=== PATIENT | female | born 1945 | race Caucasian/White ===

== ENCOUNTER → 2016-06-19 | Outpatient (CLI) | payer MEDICARE, OTHER ==
[2016-06-19 11:20] LABS: HEMOGLOBIN 12.6 g/dL (12.0-15.5); HGB HCT DIFFERENCE -0.2; MEAN CORPUSCULAR HEMOGLOBIN 31.6 pg (27.0-33.4); MEAN CORPUSCULAR HGB CONC 33.1 g/dL (32.0-36.0); MEAN CORPUSCULAR VOLUME 96 fl (80-97); RED BLOOD COUNT 3.98 10^6/uL (3.72-5.28); RED CELL DISTRIBUTION WIDTH 12.5 % (11.5-14.0); WHITE BLOOD COUNT 6.2 10^3/uL (4.0-10.5)
[2016-06-19 11:42] LABS: ANION GAP 12 (5-19); BLOOD UREA NITROGEN 13 mg/dL (7-20); CARBON DIOXIDE 23 mmol/L (22-30); CHLORIDE 109 mmol/L (98-107); CHOLESTEROL 153.35 mg/dL (0-200); CREATININE RESULT 0.94 mg/dL (0.52-1.25); Direct HDL 47 mg/dL (>40); LITHIUM 1.5 mEq/L (0.6-1.2); POTASSIUM 4.2 mmol/L (3.6-5.0); SODIUM 144.3 mmol/L (137-145); TRIGLYCERIDES 187 mg/dL (<150)
[2016-06-19 11:53] LABS: DIRECT LDL 85 mg/dL (<100)
[2016-06-19 11:57] LABS: VLDL CHOLESTEROL 37.4 mg/dL (10-31)
== END ==
LOC: OD 09:48
DX: F31.32 Bipolar disorder, current episode depressed, moderate (principal); Z79.899 Other long term (current) drug therapy
CPT/HCPCS: 36415; 80051; 80061; 80178; 82306; 82565; 83036; 84443; 84520; 85027

== ENCOUNTER → 2016-07-01 | Outpatient (CLI) | payer MEDICARE, OTHER | LOC: OD 12:37 | PROVIDERS: ATTEND Physician Assistant | DX: F31.32 Bipolar disorder, current episode depressed, moderate (principal); Z79.899 Other long term (current) drug therapy | CPT/HCPCS: 36415; 80178 ==

== ENCOUNTER → 2016-07-24 | Outpatient (CLI) | payer MEDICARE | LOC: OD 09:47 | PROVIDERS: ATTEND Physician Assistant | DX: F31.32 Bipolar disorder, current episode depressed, moderate (principal) | CPT/HCPCS: 36415; 80178 ==

== ENCOUNTER → 2016-10-13 | Outpatient (CLI) | payer OTHER, MEDICARE ==
[2016-10-13 12:10] LABS: THYROID STIMULATING HORMONE 1.65 uIU/mL (0.47-4.68)
== END ==
LOC: OD 10:30
PROVIDERS: ATTEND Internal Medicine
DX: F31.32 Bipolar disorder, current episode depressed, moderate (principal)
CPT/HCPCS: 36415; 80178; 84439; 84443

== ENCOUNTER → 2016-11-24 | Outpatient (CLI) | payer OTHER, MEDICARE ==
[2016-11-24 12:16] LABS: HEMATOCRIT 40.9 % (36.0-47.0); HEMOGLOBIN 13.3 g/dL (12.0-15.5); MEAN CORPUSCULAR HEMOGLOBIN 30.8 pg (27.0-33.4); MEAN CORPUSCULAR HGB CONC 32.6 g/dL (32.0-36.0); MEAN CORPUSCULAR VOLUME 95 fl (80-97); RED BLOOD COUNT 4.33 10^6/uL (3.72-5.28); WHITE BLOOD COUNT 7.9 10^3/uL (4.0-10.5)
[2016-11-24 12:37] LABS: ANION GAP 12 (5-19); BLOOD UREA NITROGEN 16 mg/dL (7-20); CALCIUM 10.2 mg/dL (8.4-10.2); CARBON DIOXIDE 22 mmol/L (22-30); CHLORIDE 110 mmol/L (98-107); CREATININE RESULT 0.85 mg/dL (0.52-1.25); GLUCOSE 106 mg/dL (75-110); LITHIUM 0.7 mEq/L (0.6-1.2); POTASSIUM 4.5 mmol/L (3.6-5.0); SODIUM 144.3 mmol/L (137-145)
[2016-11-24 14:19] LABS: THYROID STIMULATING HORMONE 1.19 uIU/mL (0.47-4.68)
[2016-11-26 11:50] LABS: CHOLESTEROL 181.29 mg/dL (0-200); Direct HDL 60 mg/dL (>40); TRIGLYCERIDES 158 mg/dL (<150)
[2016-11-26 12:01] LABS: DIRECT LDL 87 mg/dL (<100)
[2016-11-26 12:02] LABS: VLDL CHOLESTEROL 31.6 mg/dL (10-31)
== END ==
LOC: OD 10:56
DX: F31.32 Bipolar disorder, current episode depressed, moderate (principal); Z79.899 Other long term (current) drug therapy
CPT/HCPCS: 36415; 80048; 80061; 80178; 83036; 84439; 84443; 85027

== ENCOUNTER → 2017-02-08 | Outpatient (CLI) | payer MEDICARE ==
[2017-02-08 13:22] LABS: ANION GAP 11 (5-19); BLOOD UREA NITROGEN 14 mg/dL (7-20); CALCIUM 10.1 mg/dL (8.4-10.2); CARBON DIOXIDE 20 mmol/L (22-30); CHLORIDE 111 mmol/L (98-107); CREATININE RESULT 0.78 mg/dL (0.52-1.25); GLUCOSE 107 mg/dL (75-110); LITHIUM 0.7 mEq/L (0.6-1.2); POTASSIUM 4.1 mmol/L (3.6-5.0); SODIUM 142.1 mmol/L (137-145)
== END ==
LOC: OD 11:32
DX: F31.32 Bipolar disorder, current episode depressed, moderate (principal); Z79.899 Other long term (current) drug therapy
CPT/HCPCS: 36415; 80048; 80178; 83036

== ENCOUNTER → 2017-03-15 | Outpatient (CLI) | payer MEDICARE ==
[2017-03-15 11:09] LABS: HEMATOCRIT 41.8 % (36.0-47.0); HGB HCT DIFFERENCE 0.2; MEAN CORPUSCULAR HEMOGLOBIN 31.2 pg (27.0-33.4); MEAN CORPUSCULAR HGB CONC 33.5 g/dL (32.0-36.0); MEAN CORPUSCULAR VOLUME 93 fl (80-97); RED CELL DISTRIBUTION WIDTH 12.7 % (11.5-14.0); WHITE BLOOD COUNT 9.5 10^3/uL (4.0-10.5)
[2017-03-15 11:58] LABS: THYROID STIMULATING HORMONE < 0.01 uIU/mL (0.47-4.68)
== END ==
LOC: OD 10:17
PROVIDERS: ATTEND Psychiatry & Neurology Psychiatry
DX: F31.32 Bipolar disorder, current episode depressed, moderate (principal)
CPT/HCPCS: 36415; 80178; 84439; 84443; 85027

== ENCOUNTER → 2017-03-17 | Outpatient (CLI) | payer MEDICARE ==
[2017-03-17 13:31] LABS: THYROID STIMULATING HORMONE < 0.01 uIU/mL (0.47-4.68)
== END ==
LOC: OD 11:28
PROVIDERS: ATTEND Psychiatry & Neurology Psychiatry
DX: F31.32 Bipolar disorder, current episode depressed, moderate (principal); Z79.899 Other long term (current) drug therapy
CPT/HCPCS: 36415; 84439; 84443

== ENCOUNTER → 2017-06-29 | Outpatient (CLI) | payer OTHER, MEDICARE ==
[2017-06-29 12:19] LABS: HEMATOCRIT 44.8 % (36.0-47.0); HEMOGLOBIN 14.9 g/dL (12.0-15.5); MEAN CORPUSCULAR HGB CONC 33.2 g/dL (32.0-36.0); MEAN CORPUSCULAR VOLUME 93 fl (80-97); PLATELET COUNT 337 10^3/uL (150-450); WHITE BLOOD COUNT 9.4 10^3/uL (4.0-10.5)
[2017-06-29 12:58] LABS: FREE T4 (FREE THYROXINE) 0.46 ng/dL (0.78-2.19)
[2017-06-29 13:12] LABS: THYROID STIMULATING HORMONE 1.96 uIU/mL (0.47-4.68)
== END ==
LOC: OD 11:05
PROVIDERS: ATTEND Psychiatry & Neurology Psychiatry
DX: F31.32 Bipolar disorder, current episode depressed, moderate (principal); Z79.899 Other long term (current) drug therapy
CPT/HCPCS: 36415; 80178; 84439; 84443; 85027

== ENCOUNTER 2017-07-20 16:03 | Inpatient (IN) | payer OTHER, MEDICARE ==
--- NOTE | 2017-07-20 16:32 | ER Document Report ---
ED Medical Screen (RME) - General Chief Complaint: Altered Mental Status Stated Complaint: PSYCH EVAL Time Seen by Provider: 07/20/17 16:29 Mode of Arrival: Wheelchair Information source: Patient TRAVEL OUTSIDE OF THE [place] IN LAST 30 DAYS: No - HPI Patient complains to provider of: psych Onset: This morning - states has been very depressed lately -- tried to get her to [facility] but not successful. She denies SI/HI - Related Data Allergies/Adverse Reactions: Sulfa (Sulfonamide Antibiotics) Allergy (Verified 07/20/17 16:04) Past Medical History - Past Medical History Cardiac Medical History: Reports: Hx Congestive Heart Failure Pulmonary Medical History: Reports: Hx COPD Psychiatric Medical History: Reports: Hx Bipolar Disorder, Hx Depression Past Surgical History: Reports: Hx Cardiac Surgery - pacemaker, Hx Pacemaker - Immunizations Hx Diphtheria, Pertussis, Tetanus Vaccination: No Physical Exam - Vital signs Vitals: Temp Pulse Resp BP Pulse Ox 97.5 F 79 18 103/85 100 07/20/17 16:11 07/20/17 16:11 07/20/17 16:11 07/20/17 16:11 07/20/17 16:11 Course - Vital Signs Vital signs: Temp Pulse Resp BP Pulse Ox 97.5 F 79 18 103/85 100 07/20/17 16:11 07/20/17 16:11 07/20/17 16:11 07/20/17 16:11 07/20/17 16:11
[2017-07-20 17:56] LABS: ABSOLUTE BASOPHILS # (AUTO) 0.1 10^3/uL (0.0-0.2); ABSOLUTE LYMPHOCYTES (AUTO) 2.5 10^3/uL (0.5-4.7); ABSOLUTE MONOCYTES (AUTO) 0.9 10^3/uL (0.1-1.4); BASOPHILS % (AUTO) 0.7 % (0-2); EOSINOPHILS % (AUTO) 0.1 % (0-6); HEMATOCRIT 41.2 % (36.0-47.0); HEMOGLOBIN 13.7 g/dL (12.0-15.5); LYMPHOCYTES % (AUTO) 14.4 % (13-45); MEAN CORPUSCULAR HEMOGLOBIN 30.9 pg (27.0-33.4); MEAN CORPUSCULAR HGB CONC 33.1 g/dL (32.0-36.0); MEAN CORPUSCULAR VOLUME 93 fl (80-97); MONOCYTES % (AUTO) 4.9 % (3-13); PLATELET COUNT 273 10^3/uL (150-450); RED BLOOD COUNT 4.41 10^6/uL (3.72-5.28); SEGMENTED NEUTROPHILS % (AUTO) 79.9 % (42-78); TOTAL CELLS COUNTED % (AUTO) 100 %; WHITE BLOOD COUNT 17.5 10^3/uL (4.0-10.5)
[2017-07-20 18:24] LABS: ALANINE AMINOTRANSFERASE 29 U/L (9-52); ALBUMIN 4.6 g/dL (3.5-5.0); ALKALINE PHOSPHATASE 105 U/L (38-126); ANION GAP 10 (5-19); ASPARTATE AMINO TRANSFERASE 33 U/L (14-36); BILIRUBIN,DIRECT 0.4 mg/dL (0.0-0.4); BILIRUBIN,TOTAL 0.8 mg/dL (0.2-1.3); BLOOD UREA NITROGEN 27 mg/dL (7-20); CALCIUM 11.4 mg/dL (8.4-10.2); CARBON DIOXIDE 23 mmol/L (22-30); CHLORIDE 110 mmol/L (98-107); GLUCOSE 91 mg/dL (75-110); POTASSIUM 4.7 mmol/L (3.6-5.0); SODIUM 143.2 mmol/L (137-145); TOTAL PROTEIN 7.4 g/dL (6.3-8.2)
[2017-07-20 18:27] LABS: ALCOHOL < 10 mg/dL (NONE DETECTED)
[2017-07-20 19:29] LABS: APPEARANCE,URINE SLIGHTLY-CLOUDY; BILIRUBIN,URINE NEGATIVE (NEGATIVE); COLOR,URINE YELLOW; GLUCOSE, URINE NEGATIVE (NEGATIVE); KETONES,URINE 20 mg/dL (NEGATIVE); LEUKOCYTE ESTERASE,URINE NEGATIVE (NEGATIVE); NITRITE,URINE NEGATIVE (NEGATIVE); PROTEIN,URINE NEGATIVE (NEGATIVE); URINE SPECIFIC GRAVITY 1.012; UROBILINOGEN,URINE NEGATIVE mg/dL (<2.0)
[2017-07-20 19:35] LABS: URINE AMPHETAMINES SCREEN NEGATIVE; URINE BARBITURATES SCREEN NEGATIVE; URINE BENZODIAZEPINES SCREEN UNCONFIRMED POSITIVE; URINE COCAINE SCREEN NEGATIVE; URINE MARIJUANA (THC) SCREEN NEGATIVE; URINE METHADONE SCREEN NEGATIVE; URINE PHENCYCLIDINE SCREEN NEGATIVE
--- NOTE | 2017-07-20 20:15 | RADIOLOGY REPORT (SQ) ---
EXAM DESCRIPTION: CT HEAD WITHOUT COMPLETED DATE/TIME: 07/20/2017 8:01 pm REASON FOR STUDY: ams COMPARISON: 02/12/2015 TECHNIQUE: Axial images acquired through the brain without intravenous contrast. Images reviewed wi th bone, brain and subdural windows. Images stored on PACS. All CT scanners at this facility use dose modulation, iterative reconstruction, and/or weight based d osing when appropriate to reduce radiation dose to as low as reasonably achievable (ALARA). [facility]: Dose Right [facility]: CareDose [facility]: Dose Right [facility]: Teradose 4D [facility]: Smart staila technologies RADIATION DOSE: CT Rad equipment meets quality standard of care and radiation dose reduction techniq ues were employed. CTDIvol: 67.0 mGy. DLP: 1182 mGy-cm. mGy. LIMITATIONS: None. FINDINGS: VENTRICLES: Normal size and contour. CEREBRUM: No masses. No hemorrhage. No midline shift. No evidence for acute infarction. Normal gra y/white matter differentiation. No areas of low density in the white matter. CEREBELLUM: No masses. No hemorrhage. No alteration of density. No evidence for acute infarction. EXTRAAXIAL SPACES: No fluid collections. No masses. ORBITS AND GLOBE: No intra- or extraconal masses. Normal contour of globe without masses. CALVARIUM: No fracture. PARANASAL SINUSES: No fluid or mucosal thickening. SOFT TISSUES: No mass or hematoma. OTHER: No other significant finding. IMPRESSION: NORMAL BRAIN CT WITHOUT CONTRAST. EVIDENCE OF ACUTE STROKE: NO. COMMENT: Quality ID # [id number]: Final reports with documentation of one or more dose reduction techniques (e.g., Automated exposure control, adjustment of the mA and/or kV according to patient size, use of iterative reconstruction technique) TECHNICAL DOCUMENTATION: JOB ID: [id number] [employer]- All Rights Reserved
--- NOTE | 2017-07-20 20:28 | PSYCHOLOGICAL NOTE ---
Psych Note - Psych Note Psych Note: Met with Patient who was unable to provide any meaningful history. Her comprehension and expressive abilities were impaired, though it is unclear at this time as to the reason. Spoke with Patient's who reported a lengthy history of Bipolar Disorder , with subsequent history of treatment with [place] and Xanax for approximately 30+ years. He indicated the Patient was given a pace maker approximately 3-4 years ago secondary to the lithium use but was quickly put back on the lithium following multiple manic episodes. He reported she has undergone multiple psychiatric inpatient hospitalizations and ECT Treatments without much effect, except poor memory and confusion. He reported several trials with different medications were ineffective. He indicated her psychiatric Provider, [facility], increased her lithium to 900 mg daily from 600 mg 1 week ago and she has continued to mentally decline. He also reported the Patient has not slept for approximately 3-4 days. He is unclear as to the reason for the ongoing to decline. Patient was alert but not oriented. Her mood was not able to be assessed secondary to her expressive difficulties. Suicidal / homicidal ideation was not assessed due to the same. When speaking her words were non-sensical and disorganized. Comprehension was poor. Attention and concentration was impaired, as was insight, judgment, and impulse control. Her eyes were noticeably blood shot. 1. 296.52 (F31.4) Bipolar 1 Severe, Most recent Episode, Depressed 2. 293.89 (F06.1) Bipolar ! Disorder, Severe, with Catatonia Impression / Plan: Patient is not IVC but not psychiatrically clear for discharge. She is currently lethargic and catatonic and undergoing medical work up to rule out medical problems causing her current presentation. At this time, it is felt, based on chart review and history provided, she is cycling and her current medication regiment is no longer effective. She has a history of thyroid disease, pacemaker and lithium toxicity. She will likely require psychiatric inpatient hospitalization for an overhaul of her current medication regiment given the length of time she has been taking lithium and xanax. ED Physician in agreement with recommendation and disposition.
--- NOTE | 2017-07-20 21:26 | ER Document Report ---
ED General - General Chief Complaint: Altered Mental Status Stated Complaint: PSYCH EVAL Time Seen by Provider: 07/20/17 16:29 Mode of Arrival: Wheelchair Notes: Elderly woman with bipolar disorder on multiple medications with a history of lithium toxicity and sepsis presents to the ED with increasing depression, decreased oral intake and altered mental status. By the time I was able to evaluate her her family had gone that I did speak to Dr. Hicks from psychiatry interviewed the patient and her family members. She corroborated the above history. TRAVEL OUTSIDE OF THE [place] IN LAST 30 DAYS: No - Related Data Allergies/Adverse Reactions: Sulfa (Sulfonamide Antibiotics) Allergy (Verified 07/20/17 16:04) Past Medical History - General Information source: Patient Cannot obtain history due to: Dementia - Social History Smoking Status: Never Smoker Chew tobacco use (# tins/day): No Frequency of alcohol use: None Drug Abuse: None Family History: Other - bipolar Patient has suicidal ideation: No Patient has homicidal ideation: No - Past Medical History Cardiac Medical History: Reports: Hx Congestive Heart Failure Pulmonary Medical History: Reports: Hx COPD Renal/ Medical History: Denies: Hx Peritoneal Dialysis Psychiatric Medical History: Reports: Hx Bipolar Disorder, Hx Depression Past Surgical History: Reports: Hx Cardiac Surgery - pacemaker, Hx Pacemaker - Immunizations Hx Diphtheria, Pertussis, Tetanus Vaccination: No Review of Systems - Review of Systems Notes: Review of systems not obtained secondary to altered mental status PHYSICAL EXAMINATION General: No acute distress, well-nourished Head: Atraumatic, normocephalic ENT: Mouth normal, oropharynx moist, no exudates or tonsillar enlargement Eyes: Conjunctiva normal, pupils equal, lids normal Neck: No JVD, supple, no guarding CVS: Normal rate, regular rhythm, no murmurs Resp: No resp distress, equal and normal breath sounds bilaterally GI: Nondistended, soft, no tenderness to palpation, no rebound or guarding Ext: No deformities, no edema, normal range of motion in upper and lower ext Back: No CVA or midline TTP Skin: No rash, warm Lymphatic: No lymphadeopathy noted Neuro: Awake, oriented. Face symmetric. GCS 15. Fine tremor in all extremities. -: Yes ROS unobtainable due to patient's medical condition Physical Exam - Vital signs Vitals: Temp Pulse Resp BP Pulse Ox 97.5 F 79 18 103/85 100 07/20/17 16:11 07/20/17 16:11 07/20/17 16:11 07/20/17 16:11 07/20/17 16:11 Course - Re-evaluation Re-evalutation: 07/20/17 21:26 Altered mental status in a patient with extensive psychiatric history. She is tremulous with an elevated lithium level suggestive of lithium toxicity. Also probably a component of bipolar. She has an elevated white count. Her urine and had head CT are negative. Chest x-ray was added and shows a possible pneumonia. Given Rocephin for this. Unlikely sepsis at this time. Dr. crawley hospitalist will admit the patient to the hospital. 07/20/17 22:07 - Vital Signs Vital signs: Temp Pulse Resp BP Pulse Ox 97.5 F 79 18 103/85 100 07/20/17 16:11 07/20/17 16:11 07/20/17 16:11 07/20/17 16:11 07/20/17 16:11 - Laboratory Result Diagrams: 07/20/17 17:42 07/20/17 17:42 Laboratory results interpreted by me: 07/20/17 07/20/17 07/20/17 17:42 17:42 17:42 WBC 17.5 H Seg Neutrophils % 79.9 H Absolute Neutrophils 14.0 H Chloride 110 H BUN 27 H Est GFR ( Amer) 52 L Est GFR (Non-Af Amer) 43 L Calcium 11.4 H Urine Ketones Rachel 1.8 H* 07/20/17 19:14 WBC Seg Neutrophils % Absolute Neutrophils Chloride BUN Est GFR ( Amer) Est GFR (Non-Af Amer) Calcium Urine Ketones 20 H Rachel - Diagnostic Test Radiology reviewed: Image reviewed, Reports reviewed Discharge - Discharge Clinical Impression: Mental status change Qualifiers: Altered mental status type: disorientation Qualified Code(s): R41.0 - Disorientation, unspecified Rachel toxicity Qualifiers: Encounter type: initial encounter Condition: Fair Disposition: ADMITTED OBSERVATION Admitting Provider: Hospitalist Unit Admitted: Medical Floor
--- NOTE | 2017-07-20 21:42 | RADIOLOGY REPORT (SQ) ---
EXAM DESCRIPTION: CHEST SINGLE VIEW COMPLETED DATE/TIME: 07/20/2017 9:35 pm REASON FOR STUDY: ams, WBC up, r/o infiltr COMPARISON: 07/09/2015 EXAM PARAMETERS: NUMBER OF VIEWS: One view. TECHNIQUE: Single frontal radiographic view of the chest acquired. RADIATION DOSE: NA LIMITATIONS: None. FINDINGS: LUNGS AND PLEURA: Parenchymal opacities at the left base. Small left effusion. Right dieter g is clear. MEDIASTINUM AND HILAR STRUCTURES: No masses. Contour normal. HEART AND VASCULAR STRUCTURES: Heart enlarged without failure. BONES: No acute findings. HARDWARE: Dual lead transvenous pacemaker. OTHER: No other significant finding. IMPRESSION: Left basilar pneumonitis. TECHNICAL DOCUMENTATION: JOB ID: [id number] [employer]- All Rights Reserved
[2017-07-20] MEDS ORDERED: DEXTROSE 5%-1/2 NORMAL SALINE 1,000 ML IV PRN (21:52)
[2017-07-20] MEDS ORDERED: GLUCAGON,HUMAN RECOMB 1 MG INJ SUBCUT PRN (21:52)
[2017-07-20] MEDS ORDERED: DEXTROSE 50%-WATER 25 GM/50 ML DISP.SYRIN IV PRN ×2 (21:52)
[2017-07-20] MEDS ORDERED: ONDANSETRON HCL INJ/PF 4 MG/2 ML SDV IV PRN (21:52)
[2017-07-20] MEDS ORDERED: DEXTROSE 40% GEL 15 GM TUBE PO PRN ×2 (21:52)
[2017-07-20] MEDS ORDERED: CEFTRIAXONE INJ 1000 MG VIAL IV ONE (22:06)
[2017-07-20] MEDS: PANTOPRAZOLE SODIUM 40 MG VIAL IV SCH (23:28)
[2017-07-21] MEDS ORDERED: AZITHROMYCIN INJ 500 MG VIAL IV ONE (03:27)
--- NOTE | 2017-07-21 03:40 | PDOC H&P ---
History of Present Illness Admission Date/PCP: 07/20/17 21:37 Patient complains of: Hdez in behavior with tremor History of Present Illness: SHALONDA STRATTON is a 71 year old female history of bipolar disorder, pacemaker due to bradycardia, dementia, and hypothyroidism presenting with change in mentation. Patient is unable to provide any history. Patient only states that she has been bad. Patient does not give any other history. History was given from from the medical record. Apparently Dr. Hicks was able to have a conversation with patient's who states that patient has been on lithium and Xanax for approximately 30+ years for her bipolar disorder. Patient had a pacemaker placed 3-[address] lithium had affected her heart causing the patient to require pacemaker. Patient was taken off lithium however had to be put back on lithium due to multiple manic episodes. Patient has had multiple psychiatric inpatient hospitalizations and ECT treatments which has resulted in poor memory and confusion. She had tried several medications which were ineffective. Patient cc and see psychiatric provider increased her lithium to 900 mg daily from 600 mg 1 week ago and she has continued to decline. Also patient has not slept for 3-4 days. She was very tearful but could not express why she was upset. In the ED patient was found to have a tremor. Patient lithium level was 1.[address] of the head was normal. UA was normal except for the presence of ketones. Patient also had leukocytosis of 17.5 with neutrophilia. Past Medical History Cardiac Medical History: Reports: Congestive Heart Failure Pulmonary Medical History: Reports: Chronic Obstructive Pulmonary Disease (COPD) Psychiatric Medical History: Reports: Bipolar Disorder, Depression Past Surgical History Past Surgical History: Reports: Pacemaker Social History Smoking Status: Never Smoker Frequency of Alcohol Use: None Hx Recreational Drug Use: No Hx Prescription Drug Abuse: No - Advance Directive Resuscitation Status: Full Code Family History Family History: Other - bipolar Parental Family History Reviewed: No Children Family History Reviewed: No Sibling(s) Family History Reviewed.: No Medication/Allergy Home Medications: Alprazolam 1 mg PO TID PRN 07/06/15 Ergocalciferol (Vitamin D2) [Vitamin D2] 50,000 unit PO ASDIR 07/06/15 Liothyronine Sodium 5 mcg PO DAILY 07/06/15 Flanagan Carbonate 300 mg PO BID 07/06/15 Levofloxacin [Levaquin 750 mg Tablet] 750 mg PO DAILY #6 tab 07/09/15 Allergies/Adverse Reactions: Sulfa (Sulfonamide Antibiotics) Allergy (Verified 07/20/17 16:04) Physical Exam Vital Signs: Temp Pulse Resp BP Pulse Ox 97.5 F 79 18 103/85 100 07/20/17 16:11 07/20/17 16:11 07/20/17 16:11 07/20/17 16:11 07/20/17 16:11 General appearance: PRESENT: no acute distress, well-developed, well-nourished Head exam: PRESENT: atraumatic, normocephalic Eye exam: PRESENT: PERRLA. ABSENT: scleral icterus Ear exam: PRESENT: normal external ear exam Mouth exam: PRESENT: moist, tongue midline Neck exam: ABSENT: carotid bruit, JVD, lymphadenopathy, thyromegaly Respiratory exam: PRESENT: clear to auscultation gurjit. ABSENT: rales, rhonchi, wheezes Cardiovascular exam: PRESENT: RRR. ABSENT: diastolic murmur, rubs, systolic murmur Pulses: PRESENT: normal dorsalis pedis pul Vascular exam: PRESENT: normal capillary refill GI/Abdominal exam: PRESENT: normal bowel sounds, soft. ABSENT: distended, guarding, mass, organolmegaly, rebound, tenderness Rectal exam: PRESENT: deferred Extremities exam: PRESENT: full ROM. ABSENT: calf tenderness, clubbing, pedal edema Neurological exam: PRESENT: alert, awake, oriented to person, CN II-XII grossly intact. ABSENT: motor sensory deficit Psychiatric exam: PRESENT: flat affect, other - Patient crying for no apparent reason. ABSENT: homicidal ideation, suicidal ideation Skin exam: PRESENT: dry, intact, warm. ABSENT: cyanosis, rash Results Laboratory Results: 07/20/17 07/20/17 07/20/17 17:42 17:42 17:42 WBC 17.5 H RBC 4.41 Hgb 13.7 Hct 41.2 MCV 93 MCH 30.9 MCHC 33.1 RDW 13.0 Plt Count 273 Seg Neutrophils % 79.9 H Lymphocytes % 14.4 Monocytes % 4.9 Eosinophils % 0.1 Basophils % 0.7 Absolute Neutrophils 14.0 H Absolute Lymphocytes 2.5 Absolute Monocytes 0.9 Absolute Eosinophils 0.0 Absolute Basophils 0.1 Sodium 143.2 Potassium 4.7 Chloride 110 H Carbon Dioxide 23 Anion Gap 10 BUN 27 H Creatinine 1.23 Est GFR ( Amer) 52 L Est GFR (Non-Af Amer) 43 L Glucose 91 Calcium 11.4 H Total Bilirubin 0.8 Direct Bilirubin 0.4 AST 33 ALT 29 Alkaline Phosphatase 105 Ammonia Total Protein 7.4 Albumin 4.6 TSH 3.37 Urine Color Urine Appearance Urine pH Ur Specific [place] Urine Protein Urine Glucose (UA) Urine Ketones Urine Blood Urine Nitrite Urine Bilirubin Urine Urobilinogen Ur Leukocyte Esterase Urine WBC (Auto) Urine RBC (Auto) Urine Bacteria (Auto) Squamous Epi Cells Auto Urine Mucus (Auto) Urine Ascorbic Acid Urine Opiates Screen Urine Methadone Screen Ur Barbiturates Screen Ur Phencyclidine Scrn Ur Amphetamines Screen Flanagan Urine Cocaine Screen U Marijuana (THC) Screen Serum Alcohol < 10 07/20/17 07/20/17 07/20/17 17:42 19:14 19:14 WBC RBC Hgb Hct MCV MCH MCHC RDW Plt Count Seg Neutrophils % Lymphocytes % Monocytes % Eosinophils % Basophils % Absolute Neutrophils Absolute Lymphocytes Absolute Monocytes Absolute Eosinophils Absolute Basophils Sodium Potassium Chloride Carbon Dioxide Anion Gap BUN Creatinine Est GFR ( Amer) Est GFR (Non-Af Amer) Glucose Calcium Total Bilirubin Direct Bilirubin AST ALT Alkaline Phosphatase Ammonia Total Protein Albumin TSH Urine Color YELLOW Urine Appearance SLIGHTLY-CLOUDY Urine pH 7.0 Ur Specific [place] 1.012 Urine Protein NEGATIVE Urine Glucose (UA) NEGATIVE Urine Ketones 20 H Urine Blood NEGATIVE Urine Nitrite NEGATIVE Urine Bilirubin NEGATIVE Urine Urobilinogen NEGATIVE Ur Leukocyte Esterase NEGATIVE Urine WBC (Auto) 3 Urine RBC (Auto) 0 Urine Bacteria (Auto) TRACE Squamous Epi Cells Auto <1 Urine Mucus (Auto) FEW Urine Ascorbic Acid NEGATIVE Urine Opiates Screen NEGATIVE Urine Methadone Screen NEGATIVE Ur Barbiturates Screen NEGATIVE Ur Phencyclidine Scrn NEGATIVE Ur Amphetamines Screen NEGATIVE Flanagan 1.8 H* Urine Cocaine Screen NEGATIVE U Marijuana (THC) Screen NEGATIVE Serum Alcohol 07/20/17 23:22 WBC RBC Hgb Hct MCV MCH MCHC RDW Plt Count Seg Neutrophils % Lymphocytes % Monocytes % Eosinophils % Basophils % Absolute Neutrophils Absolute Lymphocytes Absolute Monocytes Absolute Eosinophils Absolute Basophils Sodium Potassium Chloride Carbon Dioxide Anion Gap BUN Creatinine Est GFR ( Amer) Est GFR (Non-Af Amer) Glucose Calcium Total Bilirubin Direct Bilirubin AST ALT Alkaline Phosphatase Ammonia < 8.7 L Total Protein Albumin TSH Urine Color Urine Appearance Urine pH Ur Specific [place] Urine Protein Urine Glucose (UA) Urine Ketones Urine Blood Urine Nitrite Urine Bilirubin Urine Urobilinogen Ur Leukocyte Esterase Urine WBC (Auto) Urine RBC (Auto) Urine Bacteria (Auto) Squamous Epi Cells Auto Urine Mucus (Auto) Urine Ascorbic Acid Urine Opiates Screen Urine Methadone Screen Ur Barbiturates Screen Ur Phencyclidine Scrn Ur Amphetamines Screen Flanagan Urine Cocaine Screen U Marijuana (THC) Screen Serum Alcohol Impressions: Head CT 07/20/17 19:42 IMPRESSION: NORMAL BRAIN CT WITHOUT CONTRAST. EVIDENCE OF ACUTE STROKE: NO. Chest X-Ray 07/20/17 21:26 IMPRESSION: Left basilar pneumonitis. Assessment & Plan - Diagnosis (1) Toxic encephalopathy Is this a current diagnosis for this admission?: Yes Plan: With toxic encephalopathy secondary to lithium. Patient lithium level is 1.8 cutoff is 1.2. Flanagan is currently being held. Patient may also have underlying infection. Chest x-ray shows basilar pneumonitis with leukocytosis. Patient on ceftriaxone and azithromycin. He also has elevated calcium which can also cause confusion. Will check B12, folate, thiamine, T4 and ammonia levels. UDS was only positive for benzos and elevated lithium. (2) Flanagan toxicity Qualifiers: Encounter type: initial encounter Is this a current diagnosis for this admission?: Yes Plan: Patient with lithium dose was increased recently which would explain why her level is elevated at 1.8. This adjustment was made due to patient's poorly controlled bipolar disorder. Psychology has evaluated the patient and will be following. (3) Leukocytosis Is this a current diagnosis for this admission?: Yes Plan: Patient with leukocytosis of 17.5 although this could be due to the use of lithium which could cause leukocytosis and neutrophilia patient does have a chest x-ray finding which is concerning for possible pneumonitis or pneumonia. Blood cultures have been drawn. Patient is currently on ceftriaxone and azithromycin. Please note that patient's previous white count on 06/29/2017 was 9.4. (4) Pneumonia Qualifiers: Pneumonia type: due to unspecified organism Laterality: left Lung location: lower lobe of lung Qualified Code(s): J18.1 - Lobar pneumonia, unspecified organism Is this a current diagnosis for this admission?: Yes Plan: Chest x-ray shows left lower lobe pneumonitis. Patient started on ceftriaxone and azithromycin. Would avoid Levaquin in this patient as it could cause toxic encephalopathy. (5) Acute renal failure Is this a current diagnosis for this admission?: Yes Plan: Acute renal failure most likely due to dehydration. Creatinine is 1.23 please note that patient's creatinine was 0.78 on 11/19/2016. Patient is being gently hydrated. Will follow up BMP. (6) Bipolar disorder Is this a current diagnosis for this admission?: Yes Plan: She is currently on Xanax. Patient lithium is being held due to toxicity. Psychology has evaluated patient. Patient needs to be stabilized medically prior to anything being done from a psychiatric standpoint. (7) Dehydration Is this a current diagnosis for this admission?: Yes Plan: Suspect patient may have some dehydration as patient BUN is elevated 27 and creatinine is up to 1.23 normally at 0.78 based on previous admission on 2016. Will gently hydrate and monitor. (8) Hypercalcemia Is this a current diagnosis for this admission?: Yes Plan: Hypercalcemia possibly due to acute Dehydration. However will check PTH, vitamin D, and phosphorus levels. She has had elevated calciums on previous admissions as high as 10.6. Will monitor. - Time Time Spent: 30 to 50 Minutes - Inpatient Certification Medical Necessity: Need For IV Fluids, Need for IV Antibiotics
[2017-07-21 06:16] LABS: HEMATOCRIT 38.3 % (36.0-47.0); HEMOGLOBIN 12.8 g/dL (12.0-15.5); MEAN CORPUSCULAR HEMOGLOBIN 31.1 pg (27.0-33.4); MEAN CORPUSCULAR HGB CONC 33.4 g/dL (32.0-36.0); MEAN CORPUSCULAR VOLUME 93 fl (80-97); PLATELET COUNT 314 10^3/uL (150-450); RED BLOOD COUNT 4.12 10^6/uL (3.72-5.28); RED CELL DISTRIBUTION WIDTH 12.9 % (11.5-14.0); WHITE BLOOD COUNT 13.7 10^3/uL (4.0-10.5)
[2017-07-21 06:37] LABS: ALANINE AMINOTRANSFERASE 30 U/L (9-52); ALBUMIN 4.2 g/dL (3.5-5.0); ALKALINE PHOSPHATASE 100 U/L (38-126); ANION GAP 9 (5-19); ASPARTATE AMINO TRANSFERASE 31 U/L (14-36); BILIRUBIN,DIRECT 0.1 mg/dL (0.0-0.4); BILIRUBIN,TOTAL 0.7 mg/dL (0.2-1.3); BLOOD UREA NITROGEN 28 mg/dL (7-20); CALCIUM 10.8 mg/dL (8.4-10.2); CARBON DIOXIDE 24 mmol/L (22-30); CHLORIDE 111 mmol/L (98-107); GLUCOSE 102 mg/dL (75-110); PHOSPHORUS 3.2 mg/dL (2.5-4.5); POTASSIUM 4.7 mmol/L (3.6-5.0); TOTAL PROTEIN 6.4 g/dL (6.3-8.2)
[2017-07-21] MEDS ORDERED: NORMAL SALINE 1000 ML 1,000 ML IV PRN (10:03)
[2017-07-21] MEDS: PANTOPRAZOLE SODIUM 40 MG VIAL IV SCH ×2 (10:27→22:58)
--- NOTE | 2017-07-21 14:30 | Physician Advisory Note ---
Physician Advisor ProgressNote .: Pursuant to the plan for [facility], I have reviewed the medical record for this patient. Physician Advisor Statement: Please consider documenting, if you agree: "pneumonia, possibly gram-___ type, evidenced by " (vs. "pneumonitis, possibly gram-____ type, evidenced by " Thanks! CK
--- NOTE | 2017-07-21 18:11 | PDOC PROGRESS REPORT ---
Subjective Progress Note for:: 07/21/17 Subjective:: pt unable to speak, mumbling a few words, cannot perform ROS, no acute distress. I have reviewed labs and diagnostic studies today. Reason For Visit: TOXIC ENCEPHALOPATHY, LITHIUM TOXICITY, Physical Exam Vital Signs: Temp Pulse Resp BP Pulse Ox 99.4 F 65 16 131/61 H 99 07/21/17 16:21 07/21/17 16:21 07/21/17 16:21 07/21/17 16:21 07/21/17 16:21 Intake & Output 07/20/17 07/21/17 07/22/17 06:59 06:59 06:59 Weight 73.5 kg 73.5 kg General appearance: PRESENT: no acute distress, obese Head exam: PRESENT: atraumatic, normocephalic Eye exam: PRESENT: conjunctiva pink Ear exam: PRESENT: normal external ear exam Mouth exam: PRESENT: dry mucosa Respiratory exam: PRESENT: clear to auscultation gurjit, unlabored Cardiovascular exam: PRESENT: RRR. ABSENT: systolic murmur GI/Abdominal exam: PRESENT: normal bowel sounds, soft. ABSENT: distended, tenderness Rectal exam: PRESENT: deferred Neurological exam: PRESENT: altered, other - not following commands Skin exam: PRESENT: other - moist skin Results Laboratory Results: 07/21/17 05:50 07/21/17 05:50 07/20/17 07/21/17 07/21/17 23:22 05:50 05:50 WBC 13.7 H RBC 4.12 Hgb 12.8 Hct 38.3 MCV 93 MCH 31.1 MCHC 33.4 RDW 12.9 Plt Count 314 Sodium 144.0 Potassium 4.7 Chloride 111 H Carbon Dioxide 24 Anion Gap 9 BUN 28 H Creatinine 1.10 Est GFR ( Amer) 59 L Est GFR (Non-Af Amer) 49 L Glucose 102 Calcium 10.8 H Phosphorus 3.2 Total Bilirubin 0.7 AST 31 ALT 30 Alkaline Phosphatase 100 Ammonia < 8.7 L Total Protein 6.4 Albumin 4.2 Vitamin B12 177.0 L Folate 17.00 Free T4 PTH Intact 07/21/17 07/21/17 05:50 07:23 WBC RBC Hgb Hct MCV MCH MCHC RDW Plt Count Sodium Potassium Chloride Carbon Dioxide Anion Gap BUN Creatinine Est GFR ( Amer) Est GFR (Non-Af Amer) Glucose Calcium Phosphorus Total Bilirubin AST ALT Alkaline Phosphatase Ammonia Total Protein Albumin Vitamin B12 Folate Free T4 0.77 L PTH Intact 198.9 H Impressions: Head CT 07/20/17 19:42 IMPRESSION: NORMAL BRAIN CT WITHOUT CONTRAST. EVIDENCE OF ACUTE STROKE: NO. Chest X-Ray 07/20/17 21:26 IMPRESSION: Left basilar pneumonitis. Assessment & Plan - Diagnosis (1) Pneumonia Is this a current diagnosis for this admission?: Yes Plan: left basilar pneumonia, unknown organism, culture ordered, continue ABX (2) Acute renal failure Is this a current diagnosis for this admission?: Yes Plan: acute kidney injury improving, analey muiltifactorial with acute infection playing a role, cont fluids while she is not eating well. Monitor renal function . Chk UA. (3) Dehydration Is this a current diagnosis for this admission?: Yes Plan: altered, not eating well, has PNA and JAYDON, cont fluids and monitor clinical status and labs (4) [place] toxicity Qualifiers: Encounter type: initial encounter Is this a current diagnosis for this admission?: Yes Plan: level has come down, psych recs restart lithium which I have done for tomorrow. WIll chk level again tomorrow. (5) Mental status change Qualifiers: Altered mental status type: disorientation Qualified Code(s): R41.0 - Disorientation, unspecified Plan: multifactorial with Li toxicity and PNA, treat underlying conditions and monitor (6) Toxic encephalopathy Is this a current diagnosis for this admission?: Yes Plan: multifactorial with Li toxicity and PNA, treat underlying conditions, head CT normal (7) Bipolar disorder Is this a current diagnosis for this admission?: Yes Plan: with severe depression, once she is cleared medically psych in patient stay is recommended by our psych consult service - Time Time Spent with patient: 25-34 minutes Anticipated discharge: [facility] - Inpatient Certification Medical Necessity: Significant Comorbidiites Make Outpatient Treatment Too Risky , Need Close Monitoring Due to Risk of Patient Decompensation, Need For IV Fluids, Risk of Complication if Not Cared For in Hospital
[2017-07-21] MEDS ORDERED: ALPRAZOLAM 0.5 MG TABLET PO SCH (22:00)
[2017-07-21] MEDS ORDERED: CEFTRIAXONE 1 GM/D5W RTU 1 GM/50 ML RTUPB IV SCH (22:00)
[2017-07-21] MEDS ORDERED: CEFTRIAXONE INJ 1000 MG VIAL ONE (22:59)
[2017-07-21] MEDS: ALPRAZOLAM 0.5 MG TABLET PO SCH (22:59)
[2017-07-22] MEDS: ALPRAZOLAM 0.5 MG TABLET PO SCH ×3 (05:30→22:11)
[2017-07-22 07:20] LABS: HEMATOCRIT 37.5 % (36.0-47.0); HEMOGLOBIN 12.5 g/dL (12.0-15.5); MEAN CORPUSCULAR HEMOGLOBIN 31.1 pg (27.0-33.4); MEAN CORPUSCULAR HGB CONC 33.3 g/dL (32.0-36.0); MEAN CORPUSCULAR VOLUME 93 fl (80-97); PLATELET COUNT 223 10^3/uL (150-450); RED BLOOD COUNT 4.02 10^6/uL (3.72-5.28); RED CELL DISTRIBUTION WIDTH 13.1 % (11.5-14.0); WHITE BLOOD COUNT 17.6 10^3/uL (4.0-10.5)
[2017-07-22 07:49] LABS: ALANINE AMINOTRANSFERASE 27 U/L (9-52); ALBUMIN 3.7 g/dL (3.5-5.0); ALKALINE PHOSPHATASE 95 U/L (38-126); ANION GAP 10 (5-19); ASPARTATE AMINO TRANSFERASE 26 U/L (14-36); BILIRUBIN,DIRECT 0.2 mg/dL (0.0-0.4); BILIRUBIN,TOTAL 0.7 mg/dL (0.2-1.3); BLOOD UREA NITROGEN 21 mg/dL (7-20); CALCIUM 10.1 mg/dL (8.4-10.2); CARBON DIOXIDE 18 mmol/L (22-30); CHLORIDE 116 mmol/L (98-107); GLUCOSE 93 mg/dL (75-110); POTASSIUM 4.6 mmol/L (3.6-5.0); SODIUM 144.2 mmol/L (137-145); TOTAL PROTEIN 5.9 g/dL (6.3-8.2)
[2017-07-22] MEDS ORDERED: (PENDING PHARMACY ID) (Lithium Carbonate [Lithium Carbonate Er] 900 MG) PO SCH (08:00)
[2017-07-22] MEDS: PANTOPRAZOLE SODIUM 40 MG VIAL IV SCH ×2 (10:28→22:17)
[2017-07-22] MEDS: AMITRIPTYLINE HCL 25 MG TABLET PO SCH (10:33)
[2017-07-22] MEDS: LITHIUM CARBONATE 450 MG TABLET.ER PO SCH (10:33)
[2017-07-22] MEDS: LIOTHYRONINE SODIUM 25 MCG TABLET PO SCH (10:33)
--- NOTE | 2017-07-22 19:24 | PDOC PROGRESS REPORT ---
Subjective Progress Note for:: 07/22/17 Subjective:: 71-year-old female with history of bipolar disorder who presented with acute metabolic encephalopathy due to lithium toxicity. [place] was on hold. Continue to follow levels. Reason For Visit: TOXIC ENCEPHALOPATHY, LITHIUM TOXICITY, Physical Exam Vital Signs: Temp Pulse Resp BP Pulse Ox 99.0 F 70 20 155/58 H 100 07/22/17 14:16 07/22/17 14:16 07/22/17 14:16 07/22/17 14:16 07/22/17 14:16 Intake & Output 07/21/17 07/22/17 07/23/17 06:59 06:59 06:59 Intake Total 363 500 Output Total 1000 500 Balance -637 0 Weight 73.5 kg 73.5 kg General appearance: PRESENT: no acute distress Respiratory exam: PRESENT: clear to auscultation gurjit, unlabored Cardiovascular exam: PRESENT: RRR GI/Abdominal exam: PRESENT: normal bowel sounds, soft. ABSENT: tenderness Rectal exam: PRESENT: deferred Results Laboratory Results: 07/22/17 06:40 07/22/17 06:40 07/22/17 07/22/17 06:40 06:40 WBC 17.6 H RBC 4.02 Hgb 12.5 Hct 37.5 MCV 93 MCH 31.1 MCHC 33.3 RDW 13.1 Plt Count 223 Sodium 144.2 Potassium 4.6 Chloride 116 H Carbon Dioxide 18 L Anion Gap 10 BUN 21 H Creatinine 0.82 Est GFR ( Amer) > 60 Est GFR (Non-Af Amer) > 60 Glucose 93 Calcium 10.1 Total Bilirubin 0.7 AST 26 ALT 27 Alkaline Phosphatase 95 Total Protein 5.9 L Albumin 3.7 Impressions: Head CT 07/20/17 19:42 IMPRESSION: NORMAL BRAIN CT WITHOUT CONTRAST. EVIDENCE OF ACUTE STROKE: NO. Chest X-Ray 07/20/17 21:26 IMPRESSION: Left basilar pneumonitis. Assessment & Plan - Diagnosis (1) Acute renal failure Is this a current diagnosis for this admission?: Yes (2) Dehydration Is this a current diagnosis for this admission?: Yes (3) [place] toxicity Qualifiers: Encounter type: initial encounter Is this a current diagnosis for this admission?: Yes (4) Toxic encephalopathy Is this a current diagnosis for this admission?: Yes (6) Bipolar disorder Is this a current diagnosis for this admission?: Yes - Time Time Spent with patient: 25-34 minutes - Plan Summary Plan Summary: New gentle IV fluids. Monitor labs. Follow-up on psychiatry recommendations on medical management of her bipolar disorder. She will need inpatient psychiatry admission for management of her severe bipolar disorder.
--- NOTE | 2017-07-22 21:02 | PSYCHOLOGICAL NOTE ---
Psych Note - Psych Note Psych Note: Reason for consult: AMS, lethargic, not making sense Contact: Patient is a 71 year old female in the ED for hallucinations, lethargy, and not making sense. She has a history of Bipolar Disorder and [place] Toxicity. Obtaining medical clearance first to ensure medical is not reason for AMS. Patient still being administered fluids. She talks but not logical words or sentences. She often spelled words (accurately) that were just said by this clinician. Attending hospitalist, Dr. Syed, stated patient likely has pneumonia and being treated with antibiotics. She stated her WBC was 17 but has decreased to 13 so improving. She noted ammonia levels, liver functioning, and thyroid levels are in good ranges. She stated initial [place] was 1.8 and she did another. Diagnosis: AMS 296.80 (F31.9) Unspecified Bipolar and Related Disorder by History Impression/Plan: Recommendation to rule out all possible medical issues. Once medically stable if patient is still behaviorally unstable will likely IVC and seek acute inpatient given her history of Bipolar Disorder and propensity to become manic. Consulted with Dr. Hicks regarding the management and care of patient. Hospitalist, Dr. Syed, in agreement with recommendation.
[2017-07-22] MEDS ORDERED: CEFTRIAXONE SODIUM 1,000 MG in NORMAL SALINE 50 ML IV SCH (22:00)
[2017-07-22] MEDS: ATORVASTATIN CALCIUM 10 MG TABLET PO SCH (22:11)
[2017-07-23] MEDS: ALPRAZOLAM 0.5 MG TABLET PO SCH ×3 (04:57→21:27)
[2017-07-23 05:57] LABS: ALANINE AMINOTRANSFERASE 21 U/L (9-52); ALBUMIN 3.9 g/dL (3.5-5.0); ALKALINE PHOSPHATASE 95 U/L (38-126); ANION GAP 13 (5-19); ASPARTATE AMINO TRANSFERASE 34 U/L (14-36); BILIRUBIN,DIRECT 0.3 mg/dL (0.0-0.4); BILIRUBIN,TOTAL 0.8 mg/dL (0.2-1.3); BLOOD UREA NITROGEN 25 mg/dL (7-20); CALCIUM 10.3 mg/dL (8.4-10.2); CARBON DIOXIDE 16 mmol/L (22-30); CHLORIDE 119 mmol/L (98-107); GLUCOSE 85 mg/dL (75-110); POTASSIUM 4.8 mmol/L (3.6-5.0); TOTAL PROTEIN 6.4 g/dL (6.3-8.2)
[2017-07-23 06:16] LABS: HEMATOCRIT 38.8 % (36.0-47.0); HEMOGLOBIN 12.7 g/dL (12.0-15.5); MEAN CORPUSCULAR HEMOGLOBIN 30.6 pg (27.0-33.4); MEAN CORPUSCULAR HGB CONC 32.7 g/dL (32.0-36.0); MEAN CORPUSCULAR VOLUME 94 fl (80-97); PLATELET COUNT 284 10^3/uL (150-450); RED BLOOD COUNT 4.14 10^6/uL (3.72-5.28); RED CELL DISTRIBUTION WIDTH 12.9 % (11.5-14.0); WHITE BLOOD COUNT 16.5 10^3/uL (4.0-10.5)
[2017-07-23] MEDS: PANTOPRAZOLE SODIUM 40 MG VIAL IV SCH (09:20)
[2017-07-23] MEDS: AMITRIPTYLINE HCL 25 MG TABLET PO SCH (09:28)
[2017-07-23] MEDS: LITHIUM CARBONATE 450 MG TABLET.ER PO SCH (09:28)
[2017-07-23] MEDS: LIOTHYRONINE SODIUM 25 MCG TABLET PO SCH (09:28)
[2017-07-23 09:49] LABS: VITAMIN B1 (THIAMINE) 219.8 nmol/L (66.5-200.0)
[2017-07-23] MEDS ORDERED: LORAZEPAM INJ 2 MG/1 ML VIAL IV ONE (13:05)
--- NOTE | 2017-07-23 13:23 | Progress Note ---
Provider Note Provider Note: SAL LIZ Search Criteria: Last Name 'Sal' and First Name 'Delmi' and = ' and Request Period = 01/24/17' to 07/23/17' - 2 out of 2 Recipients Selected. Fill Date Product, Str, Form Qty Days Pt ID Prescriber Written RX# N/R* Pharm MED+ ------ ---- --------- --- ------- ----- --------- ------ 06/21/2017 ALPRAZOLAM 0.5 MG TABLET 120.00 30 [id number] 05/05/2017 [id number] R [id number] 00.0 05/22/2017 ALPRAZOLAM 0.5 MG TABLET 120.00 30 [id number] 05/05/2017 [id number] N [id number] 00.0 04/24/2017 ALPRAZOLAM 0.5 MG TABLET 120.00 30 [id number] 04/07/2017 [id number] N [id number] 00.0 03/23/2017 ALPRAZOLAM 0.5 MG TABLET 120.00 30 [id number] 03/17/2017 [id number] N [id number] 00.0 03/03/2017 ALPRAZOLAM 0.5 MG TABLET 90.00 30 [id number] 03/03/2017 [id number] N [id number] 00.0 02/07/2017 ALPRAZOLAM 0.5 MG TABLET 90.00 30 [id number] 01/20/2017 [id number] N [id number] 00.0 [id number] CHAYA NICOLAS); [facility], [address] [facility] [address] [id number] FABIAN CARLOS MD; [facility], [address] [facility] [address] Pharmacies that dispensed prescriptions listed [id number] GRETTA FLAHERTY; [address] [facility] [id number],
[2017-07-23 13:34] LABS: APPEARANCE,URINE CLEAR; BILIRUBIN,URINE NEGATIVE (NEGATIVE); COLOR,URINE STRAW; GLUCOSE, URINE NEGATIVE (NEGATIVE); KETONES,URINE 80 mg/dL (NEGATIVE); LEUKOCYTE ESTERASE,URINE NEGATIVE (NEGATIVE); NITRITE,URINE NEGATIVE (NEGATIVE); PROTEIN,URINE NEGATIVE (NEGATIVE); URINE SPECIFIC GRAVITY 1.011; UROBILINOGEN,URINE NEGATIVE mg/dL (<2.0)
--- NOTE | 2017-07-23 13:43 | PROGRESS NOTE E ---
Progress Note NAME: SHALONDA STRATTON : 1945 AGE: 71Y DATE: 07/23/2017 ROOM: 428 SUBJECTIVE: The patient is currently lying in bed and the patient is overall catatonic, not particularly responsive. The patient has had no reported episodes of vomiting or diarrhea. The patient will answer broadly yes or no, but the patient is not able to drink any water. She just holds it in her mouth, and has been unable to voice any concerns at this time. REVIEW OF SYSTEMS: Rest of the review of systems is unobtainable. MEDICATIONS: Have been reviewed. OBJECTIVE: GENERAL: The patient is a 71-year-old female who is overall catatonic. Does not appear to be distressed. VITAL SIGNS: Temperature is 100.0, pulse 94, respirations 24, blood pressure 185/73, oxygen saturation is 97% on room air. SKIN: Warm. The patient does have some sweating on her face. HEENT: Pupils are reactive. Conjunctivae are pale. No evidence of JVP. CARDIOVASCULAR: Heart is regular. There is no murmur or rub. CHEST: Clear, symmetrical, unlabored. ABDOMEN: Soft, nontender, nondistended. EXTREMITIES: No clubbing, cyanosis, or edema. PSYCHIATRIC: The patient does have a flat catatonic affect. DIAGNOSTICS: Lab values are as follow: Hematology obtained on 07/23/2017: WBCs are 16.5, hemoglobin is 12.7, hematocrit is 38.8, platelet count is 284,000. Chemistry obtained on 07/23/2017: Sodium is 148, potassium 4.8, chloride is 119, carbon dioxide is 16, BUN 25, creatinine 0.87, glucose is 85, calcium is 10.3, bilirubin 0.8, AST 34, ALT is 21, alk phos 95, total protein 6.4, albumin 3.9. IMPRESSION AND PLAN: 1. LITHIUM TOXICITY. The patient presented with metabolic encephalopathy secondary to this. The patient has underlying bipolar disorder. The patient's lithium is in appropriate range at this time. Have resumed oral dosing and continue to follow. 2. ACUTE RENAL FAILURE. Overall this has improved with hydration. 3. TOXIC ENCEPHALOPATHY SECONDARY TO LITHIUM. 4. LEFT BASILAR PNEUMONIA. The patient has continued to have a low-grade temp. Will cover with doxycycline and follow. 5. FEVER. This may be due to the patient's pneumonia, however, will obtain flu screening and follow. 6. HYPERTENSION. The patient is not taking her home oral medications. Will add p.r.n. coverage. 7. BENZODIAZEPINE DEPENDENCY CONTINUOUS. The patient has missed several doses of her benzodiazepine. Have pulled the patient's pharmacy records and she does take this routinely. Will give a dose IV at this time to prevent any sort of withdrawal. DISPOSITION: The patient is a FULL CODE. Pending patient's symptomatology and diagnostic findings, will reevaluate in the a.m. Time spent on this followup including assessment, plan, physical examination, patient education, and review of records is 35 minutes. DICTATING PHYSICIAN: BINDU LEON NP [id number] PHY#: [id number] ID: [id number] JOB#: [id number] ACCT: [id number] cc: >
[2017-07-23] MEDS ORDERED: METOPROLOL TARTRATE PF/INJ 5 MG/5 ML SDV IV ONE (15:00)
[2017-07-23] MEDS: 1/2 NORMAL SALINE 1,000 ML IV PRN (15:14)
[2017-07-23] MEDS: ACETAMINOPHEN 325 MG SUPP.RECT PR PRN (15:14)
[2017-07-23 15:29] LABS: A TYPE INFLUENZA AG NEGATIVE (NEGATIVE); B INFLUENZA AG NEGATIVE (NEGATIVE)
[2017-07-23] MEDS: TAMSULOSIN HCL 0.4 MG CAP.SR.24H PO SCH (18:55)
[2017-07-23] MEDS: ATORVASTATIN CALCIUM 10 MG TABLET PO SCH (21:27)
[2017-07-23] MEDS: DOXYCYCLINE HYCLATE 100 MG in DEXTROSE 5%-WATER 250 ML IV SCH (21:28)
[2017-07-24] MEDS: 1/2 NORMAL SALINE 1,000 ML IV PRN ×2 (02:56→15:29)
[2017-07-24] MEDS: ALPRAZOLAM 0.5 MG TABLET PO SCH ×2 (05:17→14:32)
[2017-07-24] MEDS: LIOTHYRONINE SODIUM 25 MCG TABLET PO SCH (10:40)
[2017-07-24] MEDS: LITHIUM CARBONATE 450 MG TABLET.ER PO SCH (10:40)
[2017-07-24] MEDS: AMITRIPTYLINE HCL 25 MG TABLET PO SCH (10:41)
[2017-07-24] MEDS: DOXYCYCLINE HYCLATE 100 MG in DEXTROSE 5%-WATER 250 ML IV SCH (10:41)
[2017-07-24] MEDS: CYANOCOBALAMIN (VITAMIN B-12) INJ 1000 MCG/1 ML VIAL IM SCH (10:43)
--- NOTE | 2017-07-24 10:58 | PSYCHOLOGICAL NOTE ---
Psych Note - Psych Note Psych Note: Reason for consult: AMS, lethargic, not making sense Contact: Patient is a 71 year old female in the ED for hallucinations, lethargy, and not making sense. She has a history of Bipolar Disorder and [place] Toxicity. Obtaining medical clearance first to ensure medical is not reason for AMS. Patient still being administered fluids. She talks but not logical words or sentences. She often spelled words (accurately) that were just said by this clinician. Diagnosis: AMS 296.80 (F31.9) Unspecified Bipolar and Related Disorder by History Impression/Plan: Patient is currently catatonic. Once medically cleared, patient will be placed under IVC. At that time, the Behavioral Health Team will start the process of seeking inpatient psychiatric treatment. Consulted with Dr. Hicks regarding the management and care of patient. Hospitalist, Dr. Syed, in agreement with recommendation.
--- NOTE | 2017-07-24 15:48 | PROGRESS NOTE E ---
Progress Note NAME: SHALONDA STRATTON : 1945 AGE: 71Y DATE: 07/24/2017 ROOM: 428 SUBJECTIVE: The patient is lying in bed. The patient is just whispering gibberish, lying in bed. I did have a lengthy discussion with the patient's who states that she has had an episode similar to this in the past, which required a month long stay in inpatient psychiatric treatment. The patient has had no episodes of vomiting nor diarrhea. The patient is still unable to take p.o. I did get permission for NG tube placement for supplemental feedings. Additionally the patient's does not voice any other concerns at this time. REVIEW OF SYSTEMS: The rest of the review of systems is negative or unobtainable. MEDICATIONS: Have been reviewed. OBJECTIVE: GENERAL: The patient is a 71-year-old female that will awaken but unable to fully assess oriented. She does not appear to be distressed. VITAL SIGNS: Temperature is 100.3, pulse 75, respirations 18, blood pressure is 149/70, oxygen saturation is 98% on room air. SKIN: Warm and dry. No rash. She is not diaphoretic. HEENT: The patient does have some crossing of bilateral pupils with some conjunctival redness. No evidence of JVP. Mucous membranes are moist. CARDIOVASCULAR: Heart is regular, no rub. CHEST: Clear, symmetrical, unlabored. ABDOMEN: Soft, nontender, nondistended. EXTREMITIES: No edema. PSYCHIATRIC: The patient is completely introverted. LABORATORY DATA: Hematology obtained on 07/23/2017; WBC 16.5, hemoglobin is 12.7, hematocrit 38.8, platelet count is 284,000. Chemistries obtained on 07/23/2017; sodium is 148, potassium is 4.8, chloride 119, carbon dioxide 16, BUN 25, creatinine is 0.87, glucose 85, calcium is 10.3, bilirubin 0.8, AST 34, ALT 21, alk-phos 95. IMPRESSION AND PLAN: 1. LITHIUM TOXICITY. The patient did present with encephalopathy due to this. The patient has underlying bipolar disorder. However, according to the the patient's symptoms did improve when her lithium was resumed last time. Will place NG tube, resume the patient's lithium and follow dosing. 2. ACUTE RENAL FAILURE. Overall improved. 3. TOXIC ENCEPHALOPATHY SECONDARY TO LITHIUM. The patient is still not back to her baseline, maybe underlying psych issue. However, the patient does have an underlying infectious process, which is most likely contributory. 4. LEFT BASILAR PNEUMONIA. The patient continues to have a low grade temperature. Will cover with anaerobes and obtain CT imaging of the chest. 5. FEVER AND LEUKOCYTOSIS. Maybe related to a pneumonia. Once again will obtain imaging of the chest and then possible LP. 6. HYPERTENSION. The patient has not taken her medication, will continue p.r.n. coverage. 7. BENZODIAZEPINE DEPENDENCY CONTINUOUS. The patient has missed several doses of her benzos. Did give an IV dose to curb withdrawal. Will resume with NG tube placement. CODE STATUS: The patient is a full code. DISPOSITION: Depending on the patient's symptomatology and diagnostic findings will reevaluate in the a.m. TIME SPENT: On this follow up, including assessment and plan, physical examination, patient education, review of records, as well as family discussion is 35 minutes. DICTATING PHYSICIAN: BINDU LEON NP [id number] PHY#: [id number] ID: [id number] JOB#: [id number] ACCT: [id number] cc: >
--- NOTE | 2017-07-24 16:41 | PSYCHOLOGICAL NOTE ---
Psych Note - Psych Note Psych Note: Reason for consult: AMS, lethargic, not making sense Contact: Patient is a 71 year old female in the ED for hallucinations, lethargy, and not making sense. She has a history of Bipolar Disorder and [place] Toxicity. Obtaining medical clearance first to ensure medical is not reason for AMS. Patient still being administered fluids. She talks but not logical words or sentences. She often spelled words (accurately) that were just said by this clinician. Conducted check in attending nurse disclosed the patient is verbal again. Patient is sometimes say something that is within the context of her environment; however, the majority of the time the patient is only rambling with word salad. Diagnosis: AMS 296.80 (F31.9) Unspecified Bipolar and Related Disorder by History Impression/Plan: Once medically cleared, patient will be placed under IVC. At that time, the Behavioral Health Team will start the process of seeking inpatient psychiatric treatment. Consulted with Dr. Hicks regarding the management and care of patient. Hospitalist, Dr. Syed, in agreement with recommendation.
[2017-07-24] MEDS: POLYMYXIN B SULFATE/TMP OPH SOLN 10 ML OU SCH ×3 (18:30→23:50)
[2017-07-24] MEDS: TAMSULOSIN HCL 0.4 MG CAP.SR.24H PO SCH (19:49)
[2017-07-24] MEDS: PIPERACILLIN SODIUM/TAZOBACTAM 4.5 GM in NORMAL SALINE 100 ML IV SCH ×2 (19:51→23:34)
[2017-07-24 20:05] LABS: APPEARANCE,URINE CLEAR; BILIRUBIN,URINE NEGATIVE (NEGATIVE); COLOR,URINE YELLOW; GLUCOSE, URINE NEGATIVE (NEGATIVE); KETONES,URINE 20 mg/dL (NEGATIVE); LEUKOCYTE ESTERASE,URINE NEGATIVE (NEGATIVE); NITRITE,URINE NEGATIVE (NEGATIVE); PROTEIN,URINE NEGATIVE (NEGATIVE); URINE SPECIFIC GRAVITY 1.011; UROBILINOGEN,URINE NEGATIVE mg/dL (<2.0)
--- NOTE | 2017-07-24 21:45 | RADIOLOGY REPORT (SQ) ---
EXAM DESCRIPTION: CT CHEST WITHOUT COMPLETED DATE/TIME: 07/24/2017 3:58 pm REASON FOR STUDY: PNA, ongoing fever COMPARISON: Chest radiograph 07/20/2017 TECHNIQUE: CT scan performed of the chest without intravenous contrast. Images reviewed with lung, soft tissue and bone windows. Reconstructed coronal and sagittal MPR images reviewed. All images st ored on PACS. All CT scanners at this facility use dose modulation, iterative reconstruction, and/or weight based d osing when appropriate to reduce radiation dose to as low as reasonably achievable (ALARA). [facility]: Dose Right [facility]: CareDose [facility]: Dose Right [facility]: Teradose 4D [facility]: Smart [employer] RADIATION DOSE: CT Rad equipment meets quality standard of care and radiation dose reduction techniq ues were employed. CTDIvol: 12.8 mGy. DLP: 512 mGy-cm. mGy. LIMITATIONS: No technical limitations. FINDINGS: LUNGS AND PLEURA: Trace consolidation is seen at the posterior costophrenic angle on the l eft. No pleural effusion. No evidence of adverse trend. HILAR AND MEDIASTINAL STRUCTURES: Scattered mediastinal lymph nodes PE ectatic thoracic aorta. HEART AND VASCULAR STRUCTURES: No aneurysm. No pericardial effusion. UPPER ABDOMEN: No significant findings. Limited exam. THYROID AND OTHER SOFT TISSUES: No masses. No adenopathy. BONES: No significant finding. HARDWARE: Dual-chamber cardiac pacer without evidence of gross complication. OTHER: No other significant findings. IMPRESSION: Near complete imaging resolution of previously diagnosed left lower lobe pneumonia. No evidence of new consolidation or adverse trend. TECHNICAL DOCUMENTATION: JOB ID: [id number] Quality ID # [id number]: Final reports with documentation of one or more dose reduction techniques (e.g., Au tomated exposure control, adjustment of the mA and/or kV according to patient size, use of iterative reconstruction technique) 2010 [employer]- All Rights Reserved
[2017-07-24] MEDS: LORAZEPAM INJ 2 MG/1 ML VIAL IV PRN (23:34)
[2017-07-25] MEDS: LORAZEPAM INJ 2 MG/1 ML VIAL IV PRN (01:29)
[2017-07-25] MEDS: ALPRAZOLAM 0.5 MG TABLET NG SCH ×3 (03:47→13:56)
[2017-07-25] MEDS: LITHIUM CARBONATE 300 MG CAPSULE NG SCH ×3 (03:50→13:56)
[2017-07-25] MEDS: ATORVASTATIN CALCIUM 10 MG TABLET NG SCH (03:50)
--- NOTE | 2017-07-25 03:51 | RADIOLOGY REPORT (SQ) ---
EXAM DESCRIPTION: KUB/ABDOMEN (SINGLE VIEW) CLINICAL HISTORY: Check Placement of NG Tube COMPARISON: None. FINDINGS: Single view of the abdomen. NG tube with tip and side-port in the stomach. Leads overlie the chest. Lung bases clear. Air-filled loops of large and small bowel. No definite free intraperitoneal air. Pacemaker leads identified. IMPRESSION: 1. NG tube with tip and side-port in the stomach.
[2017-07-25] MEDS: POLYMYXIN B SULFATE/TMP OPH SOLN 10 ML OU SCH ×6 (04:06→23:34)
[2017-07-25] MEDS: PIPERACILLIN SODIUM/TAZOBACTAM 4.5 GM in NORMAL SALINE 100 ML IV SCH ×3 (05:34→19:03)
[2017-07-25 07:35] LABS: ANION GAP 13 (5-19); BLOOD UREA NITROGEN 30 mg/dL (7-20); CALCIUM 10.3 mg/dL (8.4-10.2); CARBON DIOXIDE 16 mmol/L (22-30); CHLORIDE 119 mmol/L (98-107); GLUCOSE 104 mg/dL (75-110); POTASSIUM 3.5 mmol/L (3.6-5.0); SODIUM 148.3 mmol/L (137-145)
[2017-07-25 07:36] LABS: HEMATOCRIT 37.5 % (36.0-47.0); HEMOGLOBIN 12.3 g/dL (12.0-15.5); RED BLOOD COUNT 3.99 10^6/uL (3.72-5.28); WHITE BLOOD COUNT 22.3 10^3/uL (4.0-10.5)
[2017-07-25 07:37] LABS: MEAN CORPUSCULAR HEMOGLOBIN 30.9 pg (27.0-33.4); MEAN CORPUSCULAR HGB CONC 32.8 g/dL (32.0-36.0); MEAN CORPUSCULAR VOLUME 94 fl (80-97); PLATELET COUNT 267 10^3/uL (150-450); RED CELL DISTRIBUTION WIDTH 12.9 % (11.5-14.0)
[2017-07-25] MEDS: 1/2 NORMAL SALINE 1,000 ML IV PRN (08:48)
--- NOTE | 2017-07-25 09:58 | PROGRESS NOTE E ---
Progress Note NAME: SHALONDA STRATTON : 1945 AGE: 71Y DATE: 07/25/2017 ROOM: 428 SUBJECTIVE: The patient is lying in bed. The patient is unable to provide any history. No reported episodes of vomiting. The patient has had a bowel movement. No diarrhea. The patient has no further fevers overnight. Blood pressures are more elevated. The patient is unable to voice any concerns at this time. BRIEF HISTORY: The patient is a 71-year-old female with a past medical history of bipolar disorder, which has been well controlled with lithium. The patient is unable to provide any history, so history has been obtained from the patient's who is a assistant guest services manager. The patient is typically well controlled with lithium; however, in the past during acute illness, the patient's lithium level has gone high as it has done this admission and the patient subsequently has a significant change in her mental status. As before, the lithium is held and the patient is hydrated. She becomes catatonic and withdrawals within to herself. The patient will mumble and in an introverted stated. According to the , in the past once lithium is resumed, after a few days, the patient "wakes up." This morning, the patient did have a brief episode of clarity and awakened and asked where she was, but then went back to sleep. The patient is not mumbling as much as she typical does in my experience in the past couple of days. This has been the first interactive communication that was sensical. Yesterday, the patient did have an NG tube placed and medications were resumed. The patient did not cooperate for this and it was actually quite traumatic for the patient. Additionally, feedings were started. The patient has had a bowel movement. The patient's antibiotic coverage was expanded to include anaerobes as there was a suspicion for possible aspiration. The patient did have a chest CT that showed resolution of previous airspace disease and the patient's white count, although more elevated today, may be more consistent with significant stress response, as the patient had a traumatic day with the NG tube placement and CT testing. REVIEW OF SYSTEMS: Unobtainable. MEDICATIONS: Medications have been reviewed. OBJECTIVE: GENERAL: The patient is a 71-year-old female that is responsive to noxious stimuli. She does not appear to be in any acute distressed, appears quite comfortable. VITAL SIGNS: Temperature 98.1, pulse 76, respirations 16, blood pressure 161/73, oxygen saturation 98% on room air. SKIN: Warm and dry. No rash. She is not diaphoretic. HEENT: Conjunctivae, although reddened, have improved. No evidence of JVP. CARDIOVASCULAR: Heart is regular. No murmur or rub. CHEST: Clear, symmetrical, unlabored. ABDOMEN: Soft, nontender, nondistended. Bowel sounds present. EXTREMITIES: No clubbing, cyanosis or edema. PSYCHIATRIC: Unable to fully assess as the patient is not very interactive. DIAGNOSTICS: Hematology obtained on 07/25/2017: WBC 22.3, hemoglobin 12.3, hematocrit 37.5, platelet count 266,000. Chemistries obtained on 07/25/2017: Sodium 148, potassium 3.5, chloride 119, carbon dioxide 16, BUN 30, creatinine 0.89, glucose 104, calcium 10.3, magnesium 2.1. IMPRESSION AND PLAN: 1. LITHIUM TOXICITY. The patient's lithium has been on hold now for 5 days. Her levels have trended down. I have started the patient back on lithium at an instant-release dosage to go through her feeding tube. We monitor closely and repeat levels. In the past, the patient has responded well to resuming the lithium once she has been toxic. The patient's renal function has been stable. 2. ACUTE RENAL FAILURE. Overall improved. 3. TOXIC ENCEPHALOPATHY SECONDARY TO #1. The patient at this point is not back to her baseline; however, this may be more of a psychosis issue. The patient does have an underlying infectious process, which may have been contributory. 4. LEFT BASILAR PNEUMONIA. The patient's low grade temperature has resolved. I have covered for anaerobes x1 day now. CT imaging shows improvement; however, if the patient's white count continues to trend up. No other source of sepsis, if no improvement may consider LP. 5. HYPERTENSION. I have resumed Norvasc through PEG tube. We will monitor. 6. BENZODIAZEPINE DEPENDENCY CONTINUOUS. We will continue through her NG tube for fear of withdrawal. 7. ELEVATED PARATHYROID HORMONE. The patient does not have a history of hypothyroidism; uncertain if this may be related to significant transient renal failure. We will follow. 8. HYPOTHYROIDISM. The patient has missed about a week of her medication according to her . I have resumed the patient's thyroid medicine. TSH is in acceptable range, but T4 is depressed slightly. 9. HYPERNATREMIA. This does appear to be free water deficit as the patient is hyperchloremic. I have discontinued IV fluids and we will increase free water flushes. 10. BIPOLAR DISORDER. The patient has required inpatient management in the past, which does seem feasible. Given that the patient has had lithium toxicity in the past, this may not be the ideal medication for her; however, in the meantime to get the patient stabilized, we will proceed with this. Once the patient is medically cleared, Psych is helping find placement for acute inpatient psychiatric management. 11. URINARY RETENTION. Has been present with previous events. Have added Flomax. Will continue to cath as needed. CODE STATUS: The patient is a FULL CODE. DISPOSITION: Pending patient's symptomatology and diagnostic findings, we will reevaluate in the a.m. TIME SPENT: On this follow up, including assessment and plan, physical examination, patient education, review of records is 35 minutes. DICTATING PHYSICIAN: BINDU LEON NP [id number] PHY#: [id number] ID: [id number] JOB#: [id number] ACCT: [id number] cc: > MTDD
[2017-07-25] MEDS: POTASSIUM CHLORIDE 20 MEQ/15 ML UDCUP PO SCH (10:59)
[2017-07-25] MEDS: AMITRIPTYLINE HCL 25 MG TABLET NG SCH (11:00)
[2017-07-25] MEDS: AMLODIPINE BESYLATE 5 MG TABLET PO SCH (11:00)
[2017-07-25] MEDS: LIOTHYRONINE SODIUM 25 MCG TABLET NG SCH (11:02)
[2017-07-25] MEDS: CYANOCOBALAMIN (VITAMIN B-12) INJ 1000 MCG/1 ML VIAL IM SCH (11:21)
[2017-07-25] MEDS: TAMSULOSIN HCL 0.4 MG CAP.SR.24H PO SCH (19:04)
[2017-07-26] MEDS: ALPRAZOLAM 0.5 MG TABLET NG SCH ×4 (00:04→22:51)
[2017-07-26] MEDS: AMLODIPINE BESYLATE 5 MG TABLET PO SCH ×3 (00:04→22:51)
[2017-07-26] MEDS: PIPERACILLIN SODIUM/TAZOBACTAM 4.5 GM in NORMAL SALINE 100 ML IV SCH ×5 (00:04→23:40)
[2017-07-26] MEDS: LITHIUM CARBONATE 300 MG CAPSULE NG SCH ×4 (00:04→22:51)
[2017-07-26] MEDS: ATORVASTATIN CALCIUM 10 MG TABLET NG SCH ×2 (00:04→22:51)
[2017-07-26] MEDS: LORAZEPAM INJ 2 MG/1 ML VIAL IV PRN (02:46)
[2017-07-26] MEDS: POLYMYXIN B SULFATE/TMP OPH SOLN 10 ML OU SCH ×6 (03:40→21:30)
--- NOTE | 2017-07-26 04:34 | RADIOLOGY REPORT (SQ) ---
EXAM DESCRIPTION: KUB/ABDOMEN (SINGLE VIEW) CLINICAL HISTORY: NGT placement COMPARISON: 07/25/2017 FINDINGS: Single view of the abdomen. NG tube tip and side-port within the stomach. No free intraperitoneal air. Dilated loops of bowel. Leads overlie the abdomen. No acute osseous abnormalities. IMPRESSION: 1. NG tube in appropriate radiographic position.
[2017-07-26 06:35] LABS: ABSOLUTE BASOPHILS # (AUTO) 0.1 10^3/uL (0.0-0.2); ABSOLUTE EOSINOPHILS # (AUTO) 0.5 10^3/uL (0.0-0.6); ABSOLUTE LYMPHOCYTES (AUTO) 1.6 10^3/uL (0.5-4.7); BASOPHILS % (AUTO) 0.4 % (0-2); EOSINOPHILS % (AUTO) 3.8 % (0-6); HEMATOCRIT 40.2 % (36.0-47.0); LYMPHOCYTES % (AUTO) 12.5 % (13-45); MEAN CORPUSCULAR HEMOGLOBIN 30.6 pg (27.0-33.4); MEAN CORPUSCULAR HGB CONC 32.3 g/dL (32.0-36.0); MEAN CORPUSCULAR VOLUME 95 fl (80-97); MONOCYTES % (AUTO) 7.4 % (3-13); PLATELET COUNT 247 10^3/uL (150-450); RED BLOOD COUNT 4.25 10^6/uL (3.72-5.28); RED CELL DISTRIBUTION WIDTH 13.1 % (11.5-14.0); SEGMENTED NEUTROPHILS % (AUTO) 75.9 % (42-78); TOTAL CELLS COUNTED % (AUTO) 100 %; WHITE BLOOD COUNT 13.1 10^3/uL (4.0-10.5)
[2017-07-26 06:50] LABS: ALANINE AMINOTRANSFERASE 32 U/L (9-52); ALBUMIN 3.6 g/dL (3.5-5.0); ALKALINE PHOSPHATASE 86 U/L (38-126); ANION GAP 10 (5-19); ASPARTATE AMINO TRANSFERASE 33 U/L (14-36); BILIRUBIN,DIRECT 0.1 mg/dL (0.0-0.4); BILIRUBIN,TOTAL 0.4 mg/dL (0.2-1.3); BLOOD UREA NITROGEN 23 mg/dL (7-20); CALCIUM 10.2 mg/dL (8.4-10.2); CARBON DIOXIDE 20 mmol/L (22-30); CHLORIDE 121 mmol/L (98-107); GLUCOSE 110 mg/dL (75-110); POTASSIUM 3.6 mmol/L (3.6-5.0); SODIUM 150.9 mmol/L (137-145); TOTAL PROTEIN 6.1 g/dL (6.3-8.2)
[2017-07-26] MEDS ORDERED: DEXTROSE 5%-WATER 1000 ML 1,000 ML IV PRN (07:52)
[2017-07-26] MEDS: AMITRIPTYLINE HCL 25 MG TABLET NG SCH (09:31)
[2017-07-26] MEDS: POTASSIUM CHLORIDE 20 MEQ/15 ML UDCUP PO SCH (09:31)
[2017-07-26] MEDS: LIOTHYRONINE SODIUM 25 MCG TABLET NG SCH (09:31)
[2017-07-26] MEDS: CYANOCOBALAMIN (VITAMIN B-12) INJ 1000 MCG/1 ML VIAL IM SCH (09:32)
--- NOTE | 2017-07-26 16:34 | PDOC PROGRESS REPORT ---
Subjective Progress Note for:: 07/26/17 Subjective:: The patient has been admitted for acute lithium toxicity. Vision has been complicated by a left basilar pneumonia and urinary retention. Her medications have been renewed. She does have an NG tube put in place. Also, the patient may have hyperparathyroid disease. The patient will be admitted to the psychiatric unit after she is medically stable. Reason For Visit: TOXIC ENCEPHALOPATHY, LITHIUM TOXICITY, Physical Exam Vital Signs: Temp Pulse Resp BP Pulse Ox 99.1 F 87 16 136/65 H 100 07/26/17 11:20 07/26/17 11:20 07/26/17 11:20 07/26/17 11:20 07/26/17 11:20 Intake & Output 07/25/17 07/26/17 07/27/17 06:59 06:59 06:59 Intake Total 2500 2441 667 Output Total 1200 1550 Balance 1300 891 667 Additional comments: The patient appears to be her stated age. Her facial appearance is unremarkable. The patient did not answer questions appropriately. She was speaking but her speech was very tangential. The patient's lungs are clear to auscultation bilaterally. Her cardiac exam is regular without murmurs, gallops or rubs. The abdomen is distended. Bowel sounds are present. Bowel sounds are hyperactive. She does not have guarding or rebound noted and there are no hernias or masses present. The lower extremities are warm to touch. Skin is warm, clean, dry and intact. No edema is present. Results Laboratory Results: 07/26/17 06:20 07/26/17 06:20 07/26/17 07/26/17 06:20 06:20 WBC 13.1 H RBC 4.25 Hgb 13.0 Hct 40.2 MCV 95 MCH 30.6 MCHC 32.3 RDW 13.1 Plt Count 247 Seg Neutrophils % 75.9 Lymphocytes % 12.5 L Monocytes % 7.4 Eosinophils % 3.8 Basophils % 0.4 Absolute Neutrophils 10.0 H Absolute Lymphocytes 1.6 Absolute Monocytes 1.0 Absolute Eosinophils 0.5 Absolute Basophils 0.1 Sodium 150.9 H Potassium 3.6 Chloride 121 H Carbon Dioxide 20 L Anion Gap 10 BUN 23 H Creatinine 0.87 Est GFR ( Amer) > 60 Est GFR (Non-Af Amer) > 60 Glucose 110 Calcium 10.2 Magnesium 2.2 Total Bilirubin 0.4 AST 33 ALT 32 Alkaline Phosphatase 86 Total Protein 6.1 L Albumin 3.6 07/24/17 19:43 Catheterized Urine Urine Culture - Final NO GROWTH 2 DAYS 07/20/17 23:00 Blood Blood Culture - Final NO GROWTH IN 5 DAYS 07/20/17 23:22 Blood Blood Culture - Final NO GROWTH IN 5 DAYS Impressions: Head CT 07/20/17 19:42 IMPRESSION: NORMAL BRAIN CT WITHOUT CONTRAST. EVIDENCE OF ACUTE STROKE: NO. Chest X-Ray 07/20/17 21:26 IMPRESSION: Left basilar pneumonitis. Chest CT 07/24/17 00:00 IMPRESSION: Near complete imaging resolution of previously diagnosed left lower lobe pneumonia. No evidence of new consolidation or adverse trend. KUB X-Ray 07/26/17 00:00 IMPRESSION: 1. NG tube in appropriate radiographic position. Assessment & Plan - Diagnosis (1) Left lower lobe pneumonia Is this a current diagnosis for this admission?: Yes (2) Leukocytosis Is this a current diagnosis for this admission?: Yes (3) Toxic encephalopathy Is this a current diagnosis for this admission?: Yes (4) Urinary retention Is this a current diagnosis for this admission?: Yes (5) Bipolar disorder Is this a current diagnosis for this admission?: Yes (6) Hypothyroidism Is this a current diagnosis for this admission?: Yes (7) Acute renal failure Is this a current diagnosis for this admission?: Yes (8) [place] toxicity Qualifiers: Encounter type: initial encounter Is this a current diagnosis for this admission?: Yes (9) Acute renal failure Is this a current diagnosis for this admission?: Yes (10) Hypernatremia Is this a current diagnosis for this admission?: Yes (11) Hypertension Is this a current diagnosis for this admission?: Yes (12) Hyperparathyroidism Is this a current diagnosis for this admission?: Yes - Time Time Spent with patient: 25-34 minutes - Inpatient Certification Medical Necessity: Significant Comorbidiites Make Outpatient Treatment Too Risky , Need Close Monitoring Due to Risk of Patient Decompensation, Need for IV Antibiotics, Risk of Complication if Not Cared For in Hospital - Plan Summary Plan Summary: 1 continue Pipracil and tazobactam 2. Leukocytosis is improving 3. Toxic encephalopathy persists. [place] has been restarted. I will check a level tomorrow. 4. Monitor for persistent urinary retention. 5. Will treat with D5W regarding hypernatremia. 6. We will need to follow up on the hyperparathyroidism as this could be contributing to symptoms. 7. Continue benzodiazepines.
[2017-07-26] MEDS: TAMSULOSIN HCL 0.4 MG CAP.SR.24H PO SCH (17:36)
--- NOTE | 2017-07-26 22:11 | RADIOLOGY REPORT (SQ) ---
EXAM DESCRIPTION: U/S THYROID/SFT TISS HD NECK COMPLETED DATE/TIME: 07/26/2017 9:37 pm REASON FOR STUDY: hyperparathyroidism COMPARISON: None. TECHNIQUE: Dynamic and static larson-scale images acquired of the thyroid gland. Selected additional c olor/power Doppler images recorded. All images stored to PACS. LIMITATIONS: None. FINDINGS: RIGHT LOBE: Normal size. Homogeneous echotexture. No cystic or solid masses. LEFT LOBE: Normal size. Homogeneous echotexture. 1.4 x 1.2 cm hypoechoic nodule. ISTHMUS: Normal size. Homogeneous echotexture. No cystic or solid masses. OTHER: No other significant finding. IMPRESSION: Partially cystic nodule left lobe. TECHNICAL DOCUMENTATION: JOB ID: [id number] [employer]- All Rights Reserved
[2017-07-27] MEDS: POLYMYXIN B SULFATE/TMP OPH SOLN 10 ML OU SCH ×8 (01:29→21:52)
[2017-07-27] MEDS: PIPERACILLIN SODIUM/TAZOBACTAM 4.5 GM in NORMAL SALINE 100 ML IV SCH ×3 (06:08→17:25)
[2017-07-27] MEDS: LITHIUM CARBONATE 300 MG CAPSULE NG SCH ×3 (06:08→21:52)
[2017-07-27] MEDS: ALPRAZOLAM 0.5 MG TABLET NG SCH ×3 (06:08→21:52)
[2017-07-27 07:01] LABS: ANION GAP 11 (5-19); BLOOD UREA NITROGEN 19 mg/dL (7-20); CARBON DIOXIDE 18 mmol/L (22-30); CHLORIDE 121 mmol/L (98-107); GLUCOSE 125 mg/dL (75-110); LITHIUM 0.8 mEq/L (0.6-1.2); POTASSIUM 3.5 mmol/L (3.6-5.0); SODIUM 149.5 mmol/L (137-145)
[2017-07-27] MEDS: AMLODIPINE BESYLATE 5 MG TABLET PO SCH ×2 (09:14→21:52)
[2017-07-27] MEDS: CYANOCOBALAMIN (VITAMIN B-12) INJ 1000 MCG/1 ML VIAL IM SCH (09:14)
[2017-07-27] MEDS: AMITRIPTYLINE HCL 25 MG TABLET NG SCH (09:14)
[2017-07-27] MEDS: POTASSIUM CHLORIDE 20 MEQ/15 ML UDCUP PO SCH (09:14)
[2017-07-27] MEDS: LIOTHYRONINE SODIUM 25 MCG TABLET NG SCH (11:26)
--- NOTE | 2017-07-27 16:13 | PDOC PROGRESS REPORT ---
Subjective Progress Note for:: 07/27/17 Subjective:: The patient has been admitted for acute lithium toxicity. Hospitalization has been complicated by a left basilar pneumonia and urinary retention. Her medications have been renewed. She does have an NG tube put in place. Also, the patient may have hyperparathyroid disease. The patient will be admitted to the psychiatric unit after she is medically stable. SHe remains very confused today. Reason For Visit: TOXIC ENCEPHALOPATHY, LITHIUM TOXICITY, Physical Exam Vital Signs: Temp Pulse Resp BP Pulse Ox 99.6 F 70 16 144/57 H 99 07/27/17 11:55 07/27/17 14:00 07/27/17 11:55 07/27/17 11:55 07/27/17 11:55 Intake & Output 07/26/17 07/27/17 07/28/17 06:59 06:59 06:59 Intake Total 2441 4328 Output Total 1550 1840 750 Balance 891 2488 -750 Additional comments: The patient is lying in bed. She was sleeping, but she did arouse to verbal stimuli. She answered my questions. When I asked her if she was in pain she said yes but she could not tell me where. She did not know that she was in the hospital or why. The patient appears to be her stated age. Her facial appearance is unremarkable with the exception of the NG tube which is in place. Her lungs are somewhat diminished in the bases but otherwise clear without adventitious sounds. Her cardiac exam is regular without murmurs, gallops or rub. The abdomen is mildly distended, but improved when compared to yesterday. Bowel sounds are less prominent. She does not have guarding or rebound noted and there are no hernias or masses present. The lower extremities demonstrate trace edema but the skin is otherwise clean, dry, warm and intact. Results Laboratory Results: 07/26/17 06:20 07/27/17 05:37 07/27/17 05:37 Sodium 149.5 H Potassium 3.5 L Chloride 121 H Carbon Dioxide 18 L Anion Gap 11 BUN 19 Creatinine 0.76 Est GFR ( Amer) > 60 Est GFR (Non-Af Amer) > 60 Glucose 125 H Calcium 10.0 Impressions: Head CT 07/20/17 19:42 IMPRESSION: NORMAL BRAIN CT WITHOUT CONTRAST. EVIDENCE OF ACUTE STROKE: NO. Chest X-Ray 02/06/18 21:26 IMPRESSION: Left basilar pneumonitis. Chest CT 07/24/17 00:00 IMPRESSION: Near complete imaging resolution of previously diagnosed left lower lobe pneumonia. No evidence of new consolidation or adverse trend. KUB X-Ray 07/26/17 00:00 IMPRESSION: 1. NG tube in appropriate radiographic position. Thyroid Ultrasound 07/26/17 00:00 IMPRESSION: Partially cystic nodule left lobe. Assessment & Plan - Diagnosis (1) Left lower lobe pneumonia Is this a current diagnosis for this admission?: Yes (2) Leukocytosis Is this a current diagnosis for this admission?: Yes (3) Toxic encephalopathy Is this a current diagnosis for this admission?: Yes (4) Urinary retention Is this a current diagnosis for this admission?: Yes (5) Bipolar disorder Is this a current diagnosis for this admission?: Yes (6) Hypothyroidism Is this a current diagnosis for this admission?: Yes (7) Acute renal failure Is this a current diagnosis for this admission?: Yes (8) [place] toxicity Qualifiers: Encounter type: initial encounter Is this a current diagnosis for this admission?: Yes (9) Acute renal failure Is this a current diagnosis for this admission?: Yes (10) Hypernatremia Is this a current diagnosis for this admission?: Yes (11) Hypertension Is this a current diagnosis for this admission?: Yes (12) Hyperparathyroidism Is this a current diagnosis for this admission?: Yes - Time Time Spent with patient: 25-34 minutes - Inpatient Certification Medical Necessity: Significant Comorbidiites Make Outpatient Treatment Too Risky , Need Close Monitoring Due to Risk of Patient Decompensation, Need for Neurological Checks, Need for IV Antibiotics, Risk of Complication if Not Cared For in Hospital - Plan Summary Plan Summary: 1 continue Pipracil and tazobactam 2. Leukocytosis is improving 3. Toxic encephalopathy persists. [place] has been restarted the level remains low. 4. Urinary retention persists. In fact, today I placed a Nugent catheter secondary to the need for ongoing intermittent catheterizations. 5. D5W was started yesterday. Sodium is only a tiny bit better and I have increased the rate of the IV fluids. 6. We will need to follow up on the hyperparathyroidism as this could be contributing to symptoms. Ultrasound also shows a partially cystic nodule. Patient will need further evaluation from endocrinology. She may require surgical resection as the hyperparathyroidism could be causing neurological symptoms 7. Continue benzodiazepines.
[2017-07-27] MEDS ORDERED: ENOXAPARIN SODIUM INJ 40 MG/0.4 ML DISP.SYRIN SUBCUT ONE (17:00)
[2017-07-27] MEDS ORDERED: POTASSI CL 20 MEQ/50 ML RIDER 20 MEQ/50 ML RTUPB IV ONE (17:00)
[2017-07-27] MEDS: TAMSULOSIN HCL 0.4 MG CAP.SR.24H PO SCH (17:25)
[2017-07-27] MEDS: DEXTROSE 5%-WATER 1000 ML 1,000 ML IV PRN (17:26)
[2017-07-27 18:05] LABS: HEMATOCRIT 36.5 % (36.0-47.0); HEMOGLOBIN 12.2 g/dL (12.0-15.5); MEAN CORPUSCULAR HEMOGLOBIN 31.1 pg (27.0-33.4); MEAN CORPUSCULAR HGB CONC 33.3 g/dL (32.0-36.0); MEAN CORPUSCULAR VOLUME 93 fl (80-97); PLATELET COUNT 271 10^3/uL (150-450); RED BLOOD COUNT 3.91 10^6/uL (3.72-5.28); RED CELL DISTRIBUTION WIDTH 13.3 % (11.5-14.0); WHITE BLOOD COUNT 12.6 10^3/uL (4.0-10.5)
[2017-07-27 18:17] LABS: PROTHROMBIN TIME 13.9 SEC (11.4-15.4)
[2017-07-27 18:18] LABS: PARTIAL THROMBOPLASTIN TIME 30.2 SEC (23.5-35.8)
[2017-07-27] MEDS: ATORVASTATIN CALCIUM 10 MG TABLET NG SCH (21:52)
[2017-07-28] MEDS: POLYMYXIN B SULFATE/TMP OPH SOLN 10 ML OU SCH ×8 (00:20→21:22)
[2017-07-28] MEDS: ACETAMINOPHEN 325 MG SUPP.RECT PR PRN (00:21)
[2017-07-28] MEDS: PIPERACILLIN SODIUM/TAZOBACTAM 4.5 GM in NORMAL SALINE 100 ML IV SCH ×4 (00:22→17:07)
[2017-07-28] MEDS: LITHIUM CARBONATE 300 MG CAPSULE NG SCH ×3 (05:56→21:22)
[2017-07-28] MEDS: ALPRAZOLAM 0.5 MG TABLET NG SCH ×2 (05:56→13:25)
[2017-07-28 06:28] LABS: ANION GAP 7 (5-19); BLOOD UREA NITROGEN 19 mg/dL (7-20); CALCIUM 10.5 mg/dL (8.4-10.2); CARBON DIOXIDE 21 mmol/L (22-30); CHLORIDE 117 mmol/L (98-107); GLUCOSE 107 mg/dL (75-110); LITHIUM 0.8 mEq/L (0.6-1.2); SODIUM 144.8 mmol/L (137-145)
[2017-07-28] MEDS: DEXTROSE 5%-WATER 1000 ML 1,000 ML IV PRN (07:45)
[2017-07-28] MEDS: LIOTHYRONINE SODIUM 25 MCG TABLET NG SCH (10:28)
[2017-07-28] MEDS: CYANOCOBALAMIN (VITAMIN B-12) INJ 1000 MCG/1 ML VIAL IM SCH (10:28)
[2017-07-28] MEDS: ENOXAPARIN SODIUM INJ 40 MG/0.4 ML DISP.SYRIN SUBCUT SCH (10:28)
[2017-07-28] MEDS: AMITRIPTYLINE HCL 25 MG TABLET NG SCH (10:29)
[2017-07-28] MEDS: POTASSIUM CHLORIDE 20 MEQ/15 ML UDCUP PO SCH (10:29)
[2017-07-28] MEDS: AMLODIPINE BESYLATE 5 MG TABLET PO SCH ×2 (10:29→21:22)
--- NOTE | 2017-07-28 13:11 | PDOC PROGRESS REPORT ---
Subjective Progress Note for:: 07/28/17 Subjective:: The patient has been admitted for acute lithium toxicity. Hospitalization has been complicated by a left basilar pneumonia and urinary retention. Her medications have been renewed. She does have an NG tube put in place. Also, the patient appears to have hyperparathyroidism. The patient will be admitted to the psychiatric unit after she is medically stable. The nursing staff reported last evening that the patient was appropriately communicative last night and asking for water. She was given some sips and did well with thin liquids. Therefore, I advanced her diet to clear liquids. Unfortunately, this morning she again appears confused and somewhat sleepy. Reason For Visit: TOXIC ENCEPHALOPATHY, LITHIUM TOXICITY, Physical Exam Vital Signs: Temp Pulse Resp BP Pulse Ox 98.5 F 61 20 143/62 H 98 07/28/17 08:00 07/28/17 08:00 07/28/17 08:00 07/28/17 08:00 07/28/17 08:00 Intake & Output 07/27/17 07/28/17 07/29/17 06:59 06:59 06:59 Intake Total 4328 2754 Output Total 1840 2750 Balance 2488 4 Additional comments: The patient appears sleepy but does arouse to verbal stimuli. She was not speaking coherently today. Her facial appearance is unremarkable. Her neck is supple. I was unable to palpate the thyroid nodule seen on the ultrasound. Her thyroid appears to be smooth. The lungs are clear to auscultation bilaterally. Her cardiac exam is regular without murmurs, gallops or rubs. The abdomen is soft and flat. Bowel sounds are present in the lower quadrants. She does not have guarding or rebound present and there are no hernias or masses present. The lower extremities are warm to touch without any edema. The skin is clean, warm, dry and intact. Results Laboratory Results: 07/27/17 17:45 07/28/17 05:50 07/27/17 07/27/17 07/28/17 17:45 17:45 05:50 WBC 12.6 H RBC 3.91 Hgb 12.2 Hct 36.5 MCV 93 MCH 31.1 MCHC 33.3 RDW 13.3 Plt Count 271 Sodium 144.8 Potassium 4.0 Chloride 117 H Carbon Dioxide 21 L Anion Gap 7 BUN 19 Creatinine 0.70 0.71 Est GFR ( Amer) > 60 > 60 Est GFR (Non-Af Amer) > 60 > 60 Glucose 107 Calcium 10.5 H Impressions: Head CT 07/20/17 19:42 IMPRESSION: NORMAL BRAIN CT WITHOUT CONTRAST. EVIDENCE OF ACUTE STROKE: NO. Chest X-Ray 07/20/17 21:26 IMPRESSION: Left basilar pneumonitis. Chest CT 07/24/17 00:00 IMPRESSION: Near complete imaging resolution of previously diagnosed left lower lobe pneumonia. No evidence of new consolidation or adverse trend. KUB X-Ray 07/26/17 00:00 IMPRESSION: 1. NG tube in appropriate radiographic position. Thyroid Ultrasound 07/26/17 00:00 IMPRESSION: Partially cystic nodule left lobe. Assessment & Plan - Diagnosis (1) Left lower lobe pneumonia Is this a current diagnosis for this admission?: Yes (2) Leukocytosis Is this a current diagnosis for this admission?: Yes (3) Toxic encephalopathy Is this a current diagnosis for this admission?: Yes (4) Urinary retention Is this a current diagnosis for this admission?: Yes (5) Bipolar disorder Is this a current diagnosis for this admission?: Yes (6) Hypothyroidism Is this a current diagnosis for this admission?: Yes (7) Acute renal failure Is this a current diagnosis for this admission?: Yes (8) [place] toxicity Qualifiers: Encounter type: initial encounter Is this a current diagnosis for this admission?: Yes (9) Acute renal failure Is this a current diagnosis for this admission?: Yes (10) Hypernatremia Is this a current diagnosis for this admission?: Yes (11) Hypertension Is this a current diagnosis for this admission?: Yes (12) Hyperparathyroidism Is this a current diagnosis for this admission?: Yes - Time Time Spent with patient: 25-34 minutes - Inpatient Certification Medical Necessity: Significant Comorbidiites Make Outpatient Treatment Too Risky , Need Close Monitoring Due to Risk of Patient Decompensation, Need for IV Antibiotics, Risk of Complication if Not Cared For in Hospital - Plan Summary Plan Summary: 1 continue Pipracil and tazobactam for 7 days. 2. Leukocytosis is improving 3. Toxic encephalopathy persists. [place] has been restarted but the level remains low. 4. Urinary retention persists. Yesterday, I placed a Nugent catheter secondary to the need for ongoing intermittent catheterizations. 5. Per natremia has been corrected with D5W and D5W has been discontinued. We will continue to follow electrolytes daily. 6. We will need to follow up on the hyperparathyroidism as this could be contributing to symptoms. Ultrasound also shows a partially cystic nodule. Patient will need further evaluation from endocrinology. As can be arranged after discharge. The high parathyroid hormone level is likely secondary to chronic use of lithium. I will ask psychiatry for input regarding this diagnosis and management. 7. Continue benzodiazepines.
--- NOTE | 2017-07-28 16:09 | PSYCHOLOGICAL NOTE ---
Psych Note - Psych Note Psych Note: Reason for consult: AMS, lethargic, not making sense Contact: Patient is a 71 year old female in the ED for hallucinations, lethargy, and not making sense. She has a history of Bipolar Disorder and [place] Toxicity. Obtaining medical clearance first to ensure medical is not reason for AMS. Patient is noted to have become verbal and asking for food. Behavioral Health Team was contacted by attending physician with concerns of mild hyper calcium levels and hyper parathyroid levels. patient's doctor stated everything she has read upon says it could be due to long-term lithium use and would like input by the behavioral health team. Dr. Hicks was contacted; chart review will be conducted. Diagnosis: AMS 296.80 (F31.9) Unspecified Bipolar and Related Disorder by History Impression/Plan: Once medically cleared, patient will be placed under IVC. At that time, the Behavioral Health Team will start the process of seeking inpatient psychiatric treatment. Consulted with Dr. Hicks regarding the management and care of patient.
[2017-07-28] MEDS: TAMSULOSIN HCL 0.4 MG CAP.SR.24H PO SCH (17:08)
[2017-07-28] MEDS: LORAZEPAM INJ 2 MG/1 ML VIAL IV PRN (20:03)
[2017-07-28] MEDS: ATORVASTATIN CALCIUM 10 MG TABLET NG SCH (21:22)
[2017-07-29] MEDS: POLYMYXIN B SULFATE/TMP OPH SOLN 10 ML OU SCH ×9 (00:59→23:41)
[2017-07-29] MEDS: LORAZEPAM INJ 2 MG/1 ML VIAL IV PRN ×3 (00:59→22:19)
[2017-07-29] MEDS: PIPERACILLIN SODIUM/TAZOBACTAM 4.5 GM in NORMAL SALINE 100 ML IV SCH ×5 (00:59→23:41)
[2017-07-29] MEDS: LITHIUM CARBONATE 300 MG CAPSULE NG SCH ×3 (05:35→21:05)
[2017-07-29 06:56] LABS: ANION GAP 9 (5-19); BLOOD UREA NITROGEN 18 mg/dL (7-20); CALCIUM 10.7 mg/dL (8.4-10.2); CARBON DIOXIDE 23 mmol/L (22-30); CHLORIDE 114 mmol/L (98-107); GLUCOSE 105 mg/dL (75-110); POTASSIUM 4.2 mmol/L (3.6-5.0); SODIUM 145.8 mmol/L (137-145)
[2017-07-29] MEDS: AMITRIPTYLINE HCL 25 MG TABLET NG SCH (10:07)
[2017-07-29] MEDS: POTASSIUM CHLORIDE 20 MEQ/15 ML UDCUP PO SCH (10:07)
[2017-07-29] MEDS: LIOTHYRONINE SODIUM 25 MCG TABLET NG SCH (10:08)
[2017-07-29] MEDS: CYANOCOBALAMIN (VITAMIN B-12) INJ 1000 MCG/1 ML VIAL IM SCH (10:08)
[2017-07-29] MEDS: ENOXAPARIN SODIUM INJ 40 MG/0.4 ML DISP.SYRIN SUBCUT SCH (10:09)
[2017-07-29] MEDS: AMLODIPINE BESYLATE 5 MG TABLET PO SCH ×2 (10:09→21:05)
--- NOTE | 2017-07-29 17:16 | PDOC PROGRESS REPORT ---
Subjective Progress Note for:: 07/29/17 Subjective:: The patient has been admitted for acute lithium toxicity. Hospitalization has been complicated by a left basilar pneumonia and urinary retention. Her medications have been renewed. She does have an NG tube put in place. Also, the patient appears to have hyperparathyroidism. The patient will be admitted to the psychiatric unit after she is medically stable. This morning the patient was much more alert and awake. She is conversant, but, she does not make sense. She does frequently repeat with the examiner states. She does not appear to be in any distress. Reason For Visit: TOXIC ENCEPHALOPATHY, LITHIUM TOXICITY, Physical Exam Vital Signs: Temp Pulse Resp BP Pulse Ox 98.2 F 68 16 136/67 H 99 07/29/17 15:23 07/29/17 15:23 07/29/17 15:23 07/29/17 15:23 07/29/17 15:23 Intake & Output 07/28/17 07/29/17 07/30/17 06:59 06:59 06:59 Intake Total 2754 4485 300 Output Total 2750 4100 1000 Balance 4 385 -700 Additional comments: The patient appears to be her stated age. At this morning, she was sitting up. She was wide awake. She was interactive, but, her speech was tangential and she did not answer questions appropriately. Her facial appearance is unremarkable. Her lungs are noted to be clear to auscultation bilaterally. Her cardiac exam is regular without murmurs, gallops or rubs. The abdomen is soft and flat. Bowel sounds are noted in the lower quadrants. She does not have guarding or rebound present and there are no hernias or masses present. The lower extremities are warm to touch without edema. The skin is warm, clean , dry and intact. Results Laboratory Results: 07/27/17 17:45 07/29/17 06:09 07/29/17 06:09 Sodium 145.8 H Potassium 4.2 Chloride 114 H Carbon Dioxide 23 Anion Gap 9 BUN 18 Creatinine 0.72 Est GFR ( Amer) > 60 Est GFR (Non-Af Amer) > 60 Glucose 105 Calcium 10.7 H Impressions: Head CT 07/20/17 19:42 IMPRESSION: NORMAL BRAIN CT WITHOUT CONTRAST. EVIDENCE OF ACUTE STROKE: NO. Chest X-Ray 07/20/17 21:26 IMPRESSION: Left basilar pneumonitis. Chest CT 07/24/17 00:00 IMPRESSION: Near complete imaging resolution of previously diagnosed left lower lobe pneumonia. No evidence of new consolidation or adverse trend. KUB X-Ray 07/26/17 00:00 IMPRESSION: 1. NG tube in appropriate radiographic position. Thyroid Ultrasound 07/26/17 00:00 IMPRESSION: Partially cystic nodule left lobe. Assessment & Plan - Diagnosis (1) Left lower lobe pneumonia Is this a current diagnosis for this admission?: Yes (2) Leukocytosis Is this a current diagnosis for this admission?: Yes (3) Toxic encephalopathy Is this a current diagnosis for this admission?: Yes (4) Urinary retention Is this a current diagnosis for this admission?: Yes (5) Bipolar disorder Is this a current diagnosis for this admission?: Yes (6) Hypothyroidism Is this a current diagnosis for this admission?: Yes (7) Acute renal failure Is this a current diagnosis for this admission?: Yes (8) [place] toxicity Qualifiers: Encounter type: initial encounter Is this a current diagnosis for this admission?: Yes (9) Acute renal failure Is this a current diagnosis for this admission?: Yes (10) Hypernatremia Is this a current diagnosis for this admission?: Yes (11) Hypertension Is this a current diagnosis for this admission?: Yes (12) Hyperparathyroidism Is this a current diagnosis for this admission?: Yes - Time Time Spent with patient: 15-24 minutes - Inpatient Certification Medical Necessity: Need Close Monitoring Due to Risk of Patient Decompensation, Need for Neurological Checks, Risk of Complication if Not Cared For in Hospital - Plan Summary Plan Summary: 1. continue Pipracil and tazobactam for 7 days. Today is day 6/7. 2. Leukocytosis has been improving. I will order a CBC for tomorrow. 3. Toxic encephalopathy persists. [place] has been restarted. [place] level is 1 today. I will continue to monitor. 4. Urinary retention persists. Chamorro catheter secondary to the need for ongoing intermittent catheterizations. Today is day 2 for chamorro catheter. I would recommend keeping chamorro catheter in place for 5 days. 5. Hypernatremia has been corrected with D5W and D5W has been discontinued. We will continue to follow electrolytes daily. 6. We will need to follow up on the hyperparathyroidism as this could be contributing to symptoms. Ultrasound also shows a partially cystic nodule. Patient will need further evaluation from endocrinology. As can be arranged after discharge. The high parathyroid hormone level is likely secondary to chronic use of lithium. I will ask psychiatry for input regarding this diagnosis and management. 7. Continue benzodiazepines.
[2017-07-29] MEDS: TAMSULOSIN HCL 0.4 MG CAP.SR.24H PO SCH (17:21)
[2017-07-29] MEDS: ATORVASTATIN CALCIUM 10 MG TABLET NG SCH (21:05)
[2017-07-30] MEDS: LORAZEPAM INJ 2 MG/1 ML VIAL IV PRN (03:30)
[2017-07-30] MEDS: POLYMYXIN B SULFATE/TMP OPH SOLN 10 ML OU SCH ×8 (03:30→23:08)
[2017-07-30] MEDS: LITHIUM CARBONATE 300 MG CAPSULE NG SCH ×3 (05:29→22:44)
[2017-07-30] MEDS: PIPERACILLIN SODIUM/TAZOBACTAM 4.5 GM in NORMAL SALINE 100 ML IV SCH ×2 (05:30→12:35)
[2017-07-30 09:21] LABS: ABSOLUTE BASOPHILS # (AUTO) 0.1 10^3/uL (0.0-0.2); ABSOLUTE EOSINOPHILS # (AUTO) 0.4 10^3/uL (0.0-0.6); ABSOLUTE LYMPHOCYTES (AUTO) 1.4 10^3/uL (0.5-4.7); ABSOLUTE NEUT (AUTO) 14.9 10^3/uL (1.7-8.2); BASOPHILS % (AUTO) 0.4 % (0-2); EOSINOPHILS % (AUTO) 2.1 % (0-6); HEMATOCRIT 35.3 % (36.0-47.0); HEMOGLOBIN 11.6 g/dL (12.0-15.5); LYMPHOCYTES % (AUTO) 7.9 % (13-45); MEAN CORPUSCULAR HEMOGLOBIN 30.4 pg (27.0-33.4); MEAN CORPUSCULAR HGB CONC 32.9 g/dL (32.0-36.0); MEAN CORPUSCULAR VOLUME 93 fl (80-97); MONOCYTES % (AUTO) 5.7 % (3-13); PLATELET COUNT 286 10^3/uL (150-450); RED BLOOD COUNT 3.82 10^6/uL (3.72-5.28); RED CELL DISTRIBUTION WIDTH 13.1 % (11.5-14.0); SEGMENTED NEUTROPHILS % (AUTO) 83.9 % (42-78); TOTAL CELLS COUNTED % (AUTO) 100 %; WHITE BLOOD COUNT 17.8 10^3/uL (4.0-10.5)
[2017-07-30 09:45] LABS: ANION GAP 9 (5-19); BLOOD UREA NITROGEN 18 mg/dL (7-20); CARBON DIOXIDE 22 mmol/L (22-30); CHLORIDE 112 mmol/L (98-107); GLUCOSE 112 mg/dL (75-110); POTASSIUM 4.5 mmol/L (3.6-5.0)
[2017-07-30] MEDS: AMITRIPTYLINE HCL 25 MG TABLET NG SCH (10:10)
[2017-07-30] MEDS: POTASSIUM CHLORIDE 20 MEQ/15 ML UDCUP PO SCH (10:11)
[2017-07-30] MEDS: AMLODIPINE BESYLATE 5 MG TABLET PO SCH ×2 (10:11→22:44)
[2017-07-30] MEDS: LIOTHYRONINE SODIUM 25 MCG TABLET NG SCH (10:14)
[2017-07-30] MEDS: CYANOCOBALAMIN (VITAMIN B-12) INJ 1000 MCG/1 ML VIAL IM SCH (10:16)
[2017-07-30] MEDS: ENOXAPARIN SODIUM INJ 40 MG/0.4 ML DISP.SYRIN SUBCUT SCH (10:16)
--- NOTE | 2017-07-30 13:11 | PDOC PROGRESS REPORT ---
Subjective Progress Note for:: 07/30/17 Subjective:: The patient has been admitted for acute lithium toxicity. Hospitalization has been complicated by a left basilar pneumonia and urinary retention. Her medications have been renewed. She does have an NG tube put in place. Also, the patient appears to have hyperparathyroidism. The patient will be admitted to the psychiatric unit after she is medically stable. This morning the patient remains alert and awake. She is conversant, but, she does not make sense. She does frequently repeat with the examiner states. She does not appear to be in any distress. Reason For Visit: TOXIC ENCEPHALOPATHY, LITHIUM TOXICITY, Physical Exam Vital Signs: Temp Pulse Resp BP Pulse Ox 98.8 F 107 H 18 145/68 H 100 07/30/17 12:00 07/30/17 12:00 07/30/17 12:00 07/30/17 12:00 07/30/17 12:00 Intake & Output 07/29/17 07/30/17 07/31/17 06:59 06:59 06:59 Intake Total 4485 3275 Output Total 4100 2650 Balance 385 625 Additional comments: The patient again is awake today. She does not make sense verbally. Her facial appearance is unremarkable. An NG tube remains in the left nostril. The patient's lungs are clear to auscultation bilaterally. Her cardiac exam is regular without murmurs, gallops or rubs. The abdomen is soft and flat. Bowel sounds are present. She does not have guarding or rebound noted and there are no hernias or masses present. The lower extremities are warm to touch without any significant edema. The skin is warm, dry and intact without lesions or rashes. Results Laboratory Results: 07/30/17 08:14 07/30/17 08:14 07/30/17 07/30/17 08:14 08:14 WBC 17.8 H RBC 3.82 Hgb 11.6 L Hct 35.3 L MCV 93 MCH 30.4 MCHC 32.9 RDW 13.1 Plt Count 286 Seg Neutrophils % 83.9 H Lymphocytes % 7.9 L Monocytes % 5.7 Eosinophils % 2.1 Basophils % 0.4 Absolute Neutrophils 14.9 H Absolute Lymphocytes 1.4 Absolute Monocytes 1.0 Absolute Eosinophils 0.4 Absolute Basophils 0.1 Sodium 143.0 Potassium 4.5 Chloride 112 H Carbon Dioxide 22 Anion Gap 9 BUN 18 Creatinine 0.73 Est GFR ( Amer) > 60 Est GFR (Non-Af Amer) > 60 Glucose 112 H Calcium 11.0 H 07/24/17 18:10 Blood Blood Culture - Final NO GROWTH IN 5 DAYS 07/24/17 16:55 Blood Blood Culture - Final NO GROWTH IN 5 DAYS Impressions: Head CT 07/20/17 19:42 IMPRESSION: NORMAL BRAIN CT WITHOUT CONTRAST. EVIDENCE OF ACUTE STROKE: NO. Chest X-Ray 07/20/17 21:26 IMPRESSION: Left basilar pneumonitis. Chest CT 07/24/17 00:00 IMPRESSION: Near complete imaging resolution of previously diagnosed left lower lobe pneumonia. No evidence of new consolidation or adverse trend. KUB X-Ray 07/26/17 00:00 IMPRESSION: 1. NG tube in appropriate radiographic position. Thyroid Ultrasound 07/26/17 00:00 IMPRESSION: Partially cystic nodule left lobe. Assessment & Plan - Diagnosis (1) Left lower lobe pneumonia Is this a current diagnosis for this admission?: Yes (2) Leukocytosis Is this a current diagnosis for this admission?: Yes (3) Toxic encephalopathy Is this a current diagnosis for this admission?: Yes (4) Urinary retention Is this a current diagnosis for this admission?: Yes (5) Bipolar disorder Is this a current diagnosis for this admission?: Yes (6) Hypothyroidism Is this a current diagnosis for this admission?: Yes (7) Acute renal failure Is this a current diagnosis for this admission?: Yes (8) [place] toxicity Qualifiers: Encounter type: initial encounter Is this a current diagnosis for this admission?: Yes (9) Acute renal failure Is this a current diagnosis for this admission?: Yes (10) Hypernatremia Is this a current diagnosis for this admission?: Yes (11) Hypertension Is this a current diagnosis for this admission?: Yes (12) Hyperparathyroidism Is this a current diagnosis for this admission?: Yes - Time Time Spent with patient: 15-24 minutes - Inpatient Certification Medical Necessity: Significant Comorbidiites Make Outpatient Treatment Too Risky , Need Close Monitoring Due to Risk of Patient Decompensation, Need for Neurological Checks, Risk of Complication if Not Cared For in Hospital - Plan Summary Plan Summary: 1. The patient has received 7 days of Zosyn. Prior to the initiation of Zosyn therapy she was treated with Rocephin and doxycycline. I will discontinue Zosyn. 2. Leukocytosis had been improving. I repeated a CBC today. The white blood cell count is back up. The patient has not had any fevers overnight. I am going to remove the NG tube. If the patient fevers I would recommend repeating cultures for urine and blood. However, I am not going to order cultures unless the patient has a fever. 3. Toxic encephalopathy persists. [place] has been restarted. [place] level was 1 yesterday. I will continue to monitor. 4. Urinary retention persists. Chamorro catheter secondary to the need for ongoing intermittent catheterizations. Today is day 3 for chamorro catheter. I would recommend keeping chamorro catheter in place for 5 days. 5. Hypernatremia has been corrected with D5W and D5W has been discontinued. We will continue to follow electrolytes daily. 6. We will need to follow up on the hyperparathyroidism as this could be contributing to symptoms. Ultrasound also shows a partially cystic nodule. Patient will need further evaluation from endocrinology. As can be arranged after discharge. The high parathyroid hormone level is likely secondary to chronic use of lithium. I will ask psychiatry for input regarding this diagnosis and management. 7. Continue benzodiazepines.
[2017-07-30] MEDS: ALPRAZOLAM 0.25 MG TABLET PO PRN ×2 (15:07→23:24)
[2017-07-30] MEDS: TAMSULOSIN HCL 0.4 MG CAP.SR.24H PO SCH (17:10)
[2017-07-30] MEDS: ATORVASTATIN CALCIUM 10 MG TABLET NG SCH (22:44)
[2017-07-31] MEDS: POLYMYXIN B SULFATE/TMP OPH SOLN 10 ML OU SCH ×5 (03:00→14:18)
[2017-07-31] MEDS: LITHIUM CARBONATE 300 MG CAPSULE NG SCH ×3 (05:13→21:44)
[2017-07-31 06:24] LABS: ABSOLUTE BASOPHILS # (AUTO) 0.1 10^3/uL (0.0-0.2); ABSOLUTE EOSINOPHILS # (AUTO) 0.4 10^3/uL (0.0-0.6); ABSOLUTE LYMPHOCYTES (AUTO) 1.9 10^3/uL (0.5-4.7); ABSOLUTE MONOCYTES (AUTO) 0.9 10^3/uL (0.1-1.4); ABSOLUTE NEUT (AUTO) 12.2 10^3/uL (1.7-8.2); BASOPHILS % (AUTO) 0.7 % (0-2); EOSINOPHILS % (AUTO) 2.5 % (0-6); HEMATOCRIT 36.2 % (36.0-47.0); HEMOGLOBIN 11.8 g/dL (12.0-15.5); LYMPHOCYTES % (AUTO) 12.3 % (13-45); MEAN CORPUSCULAR HEMOGLOBIN 30.6 pg (27.0-33.4); MEAN CORPUSCULAR HGB CONC 32.5 g/dL (32.0-36.0); MEAN CORPUSCULAR VOLUME 94 fl (80-97); PLATELET COUNT 299 10^3/uL (150-450); RED BLOOD COUNT 3.84 10^6/uL (3.72-5.28); RED CELL DISTRIBUTION WIDTH 13.6 % (11.5-14.0); SEGMENTED NEUTROPHILS % (AUTO) 78.5 % (42-78); TOTAL CELLS COUNTED % (AUTO) 100 %; WHITE BLOOD COUNT 15.5 10^3/uL (4.0-10.5)
[2017-07-31 06:50] LABS: ANION GAP 9 (5-19); BLOOD UREA NITROGEN 17 mg/dL (7-20); CALCIUM 10.7 mg/dL (8.4-10.2); CARBON DIOXIDE 23 mmol/L (22-30); CHLORIDE 110 mmol/L (98-107); GLUCOSE 94 mg/dL (75-110); PHOSPHORUS 3.8 mg/dL (2.5-4.5); POTASSIUM 4.7 mmol/L (3.6-5.0); SODIUM 141.7 mmol/L (137-145)
[2017-07-31] MEDS: ALPRAZOLAM 0.25 MG TABLET PO PRN (09:30)
[2017-07-31] MEDS: CYANOCOBALAMIN (VITAMIN B-12) INJ 1000 MCG/1 ML VIAL IM SCH (10:59)
[2017-07-31] MEDS: LIOTHYRONINE SODIUM 25 MCG TABLET NG SCH (10:59)
[2017-07-31] MEDS: AMLODIPINE BESYLATE 5 MG TABLET PO SCH ×2 (11:00→21:44)
[2017-07-31] MEDS: ENOXAPARIN SODIUM INJ 40 MG/0.4 ML DISP.SYRIN SUBCUT SCH (11:01)
[2017-07-31] MEDS: AMITRIPTYLINE HCL 25 MG TABLET NG SCH (11:01)
--- NOTE | 2017-07-31 14:37 | PDOC PROGRESS REPORT ---
Subjective Progress Note for:: 07/31/17 Subjective:: Pt is anxious feeling. She has groin pain. She has poor appetite. Patient agrees to try some ice cream. She has been able to eat Jell-O. She does not have nausea. She states her abdomen hurts from time to time. She had a BM yesterday. NO CP or SOB. Patient is very anxious and is not answering all questions. I tried to perform a complete review of systems but was able to only get answers to the above issues. I have reviewed her labs and her pertinent diagnostic studies. I have collaborated with her nurse and her today. Reason For Visit: TOXIC ENCEPHALOPATHY, LITHIUM TOXICITY, Physical Exam Vital Signs: Temp Pulse Resp BP Pulse Ox 98.9 F 69 14 141/54 H 99 07/31/17 11:56 07/31/17 11:56 07/31/17 11:56 07/31/17 11:56 07/31/17 11:56 Intake & Output 07/30/17 07/31/17 08/01/17 06:59 06:59 06:59 Intake Total 3275 993 Output Total 2650 4575 Balance 625 -3582 General appearance: PRESENT: mild distress, obese Head exam: PRESENT: atraumatic, normocephalic Eye exam: ABSENT: conjunctival injection Ear exam: PRESENT: normal external ear exam Mouth exam: PRESENT: moist Neck exam: ABSENT: lymphadenopathy Respiratory exam: PRESENT: clear to auscultation gurjit, unlabored. ABSENT: rales , wheezes Cardiovascular exam: PRESENT: RRR. ABSENT: systolic murmur Pulses: PRESENT: normal radial pulses GI/Abdominal exam: PRESENT: normal bowel sounds, soft. ABSENT: distended, guarding, tenderness Rectal exam: PRESENT: deferred Extremities exam: ABSENT: pedal edema Musculoskeletal exam: PRESENT: normal inspection Neurological exam: PRESENT: alert, awake, oriented to person, oriented to place , oriented to situation Psychiatric exam: PRESENT: anxious, flat affect Focused psych exam: PRESENT: restlessness Skin exam: PRESENT: dry, warm, other - Patient has erythema in her bilateral groin into the perineum Results Laboratory Results: 07/31/17 05:14 07/31/17 05:14 07/31/17 07/31/17 05:14 05:14 WBC 15.5 H RBC 3.84 Hgb 11.8 L Hct 36.2 MCV 94 MCH 30.6 MCHC 32.5 RDW 13.6 Plt Count 299 Seg Neutrophils % 78.5 H Lymphocytes % 12.3 L Monocytes % 6.0 Eosinophils % 2.5 Basophils % 0.7 Absolute Neutrophils 12.2 H Absolute Lymphocytes 1.9 Absolute Monocytes 0.9 Absolute Eosinophils 0.4 Absolute Basophils 0.1 Sodium 141.7 Potassium 4.7 Chloride 110 H Carbon Dioxide 23 Anion Gap 9 BUN 17 Creatinine 0.72 Est GFR ( Amer) > 60 Est GFR (Non-Af Amer) > 60 Glucose 94 Calcium 10.7 H Phosphorus 3.8 Magnesium 2.5 H Impressions: Head CT 07/20/17 19:42 IMPRESSION: NORMAL BRAIN CT WITHOUT CONTRAST. EVIDENCE OF ACUTE STROKE: NO. Chest X-Ray 07/20/17 21:26 IMPRESSION: Left basilar pneumonitis. Chest CT 07/24/17 00:00 IMPRESSION: Near complete imaging resolution of previously diagnosed left lower lobe pneumonia. No evidence of new consolidation or adverse trend. KUB X-Ray 07/26/17 00:00 IMPRESSION: 1. NG tube in appropriate radiographic position. Thyroid Ultrasound 07/26/17 00:00 IMPRESSION: Partially cystic nodule left lobe. Assessment & Plan - Diagnosis (1) Pneumonia Is this a current diagnosis for this admission?: Yes Plan: Lungs clear, patient respiratory status has returned to normal, antibiotics have been completed (2) Acute renal failure Is this a current diagnosis for this admission?: Yes Plan: Renal function has normalized. We will continue to encourage hydration, will avoid renal toxins as we are able. (3) Dehydration Is this a current diagnosis for this admission?: Yes Plan: Rehydration complete. Patient does have a poor appetite and we are continuing to push the fluids. (4) [place] toxicity Qualifiers: Encounter type: initial encounter Is this a current diagnosis for this admission?: Yes Plan: [place] level is 1.0 today. Her lithium will continue at 300 mg p.o. every 8 hours. Her discussed that she has been on 300 mg p.o. every 8 hours for about 30 years and then recently she got put on the 900 mg extended release tablet. It may be that the patient cannot tolerate the extended release tablet and needs to just continue on the every 8 hour dosing. (5) Mental status change Qualifiers: Altered mental status type: disorientation Qualified Code(s): R41.0 - Disorientation, unspecified Plan: Returning to normal. Though she continues with anxiety. Will increase her alprazolam to her home dose which is 0.5 mg p.o. every 8 hours. Here she has been on 0.25 mg every 8 hours. (6) Toxic encephalopathy Is this a current diagnosis for this admission?: Yes Plan: Patient is returning to baseline with treatment provided thus far. Continue to monitor and treat as indicated. (7) Bipolar disorder Is this a current diagnosis for this admission?: Yes Plan: We will continue with patient's alprazolam and other meds unchanged. Psychiatry is aware of patient's admission and the plan is still to consider inpatient psychiatric admission after she clears from a medical perspective. (8) Anxiety Is this a current diagnosis for this admission?: Yes Plan: She has significant anxiety disorder associated with her bipolar disorder. She has been on half the dose of her regular alprazolam and today I will increase that to her regular home dosing which is 0.5 mg p.o. every 8 hours. Her corroborates this dosing. (9) Candidal skin infection Is this a current diagnosis for this admission?: Yes Plan: Significant candidal infection over the perineum and groin. Nystatin cream has been added. (10) Urinary retention Is this a current diagnosis for this admission?: Yes Plan: Plan is to continue Nugent for a total of 5 days, tomorrow will be the fifth day. We will likely remove her bladder catheter [place]. (11) Debility, unspecified Is this a current diagnosis for this admission?: Yes Plan: Patient has been acutely ill for about 2 weeks. I have ordered physical therapy to assess her for safety and to see if she needs continued physical therapy beyond the initial evaluation. - Time Time Spent with patient: 35 or more minutes Anticipated discharge: Other - Inpatient psychiatry unit likely Within: within 72 hours - Inpatient Certification Based on my medical assessment, after consideration of the patient's comorbidities, presenting symptoms, or acuity I expect that the services needed warrant INPATIENT care.: Yes I certify that my determination is in accordance with my understanding of Medicare's requirements for reasonable and necessary INPATIENT services [42 CFR 412.3e].: Yes Medical Necessity: Significant Comorbidiites Make Outpatient Treatment Too Risky , Need Close Monitoring Due to Risk of Patient Decompensation, Risk of Complication if Not Cared For in Hospital
[2017-07-31] MEDS ORDERED: ALPRAZOLAM 0.25 MG TABLET PO ONE (15:00)
[2017-07-31] MEDS: NYSTATIN CREAM 15 GM TP SCH (18:29)
[2017-07-31] MEDS: TAMSULOSIN HCL 0.4 MG CAP.SR.24H PO SCH (18:29)
[2017-07-31] MEDS: ALPRAZOLAM 0.5 MG TABLET PO PRN (21:44)
[2017-07-31] MEDS: ATORVASTATIN CALCIUM 10 MG TABLET NG SCH (21:44)
[2017-08-01] MEDS: LITHIUM CARBONATE 300 MG CAPSULE NG SCH ×3 (05:48→22:51)
[2017-08-01] MEDS: ALPRAZOLAM 0.5 MG TABLET PO PRN ×3 (05:48→22:50)
[2017-08-01 06:32] LABS: HEMATOCRIT 36.9 % (36.0-47.0); HEMOGLOBIN 11.8 g/dL (12.0-15.5); MEAN CORPUSCULAR HGB CONC 32.1 g/dL (32.0-36.0); MEAN CORPUSCULAR VOLUME 94 fl (80-97); PLATELET COUNT 328 10^3/uL (150-450); RED BLOOD COUNT 3.94 10^6/uL (3.72-5.28); RED CELL DISTRIBUTION WIDTH 13.2 % (11.5-14.0); WHITE BLOOD COUNT 14.4 10^3/uL (4.0-10.5)
[2017-08-01] MEDS: AMITRIPTYLINE HCL 25 MG TABLET NG SCH (09:45)
[2017-08-01] MEDS: AMLODIPINE BESYLATE 5 MG TABLET PO SCH ×2 (09:45→22:48)
[2017-08-01] MEDS: CYANOCOBALAMIN (VITAMIN B-12) INJ 1000 MCG/1 ML VIAL IM SCH (09:45)
[2017-08-01] MEDS: LIOTHYRONINE SODIUM 25 MCG TABLET NG SCH (09:45)
[2017-08-01] MEDS: NYSTATIN CREAM 15 GM TP SCH ×2 (09:46→17:58)
[2017-08-01] MEDS: ENOXAPARIN SODIUM INJ 40 MG/0.4 ML DISP.SYRIN SUBCUT SCH (09:46)
--- NOTE | 2017-08-01 14:40 | PSYCHOLOGICAL NOTE ---
Psych Note - Psych Note Psych Note: Reason for consult: AMS, lethargic, not making sense Contact Permission: Patient is a 71 year old female who presented to the ED on 07/20/17 for hallucinations, lethargy, and not making sense. She has a history of Bipolar Disorder and [place] Toxicity. Have been trying to obtain medical clearance first to ensure medical is not reason for AMS. There have been multiple laboratory concerns that have been up and down in terms of stability. Attending hospitalist, Dr. Syed, stated patient is not medically cleared yet but expects her to be later this coming week. Diagnosis: AMS 296.80 (F31.9) Unspecified Bipolar and Related Disorder by History Impression/Plan: Recommendation to rule out all possible medical issues. Once medically stable if patient is still behaviorally unstable will IVC and seek acute inpatient given her history of Bipolar Disorder and propensity to become manic. Consulted with Dr. Hicks regarding the management and care of patient. Hospitalist, Dr. Syed, in agreement with recommendation.
[2017-08-01] MEDS: FLUCONAZOLE 100 MG TABLET PO SCH (15:03)
--- NOTE | 2017-08-01 16:31 | PDOC PROGRESS REPORT ---
Subjective Progress Note for:: 08/01/17 Subjective:: Feeling less anxious today. Though she still continues to have significant itching in the perineum and between her legs. No chest pain or difficulty breathing. No constipation or diarrhea. Flutter is pretty bothersome. No fevers or chills. Cough with no sputum today. She is happy that she was able to get up with physical therapy and walk a little bit with a walker. Manger of review of systems is performed and is negative. I have reviewed her labs and pertinent diagnostics today. I have also collaborated with the psychiatry consult service. Reason For Visit: TOXIC ENCEPHALOPATHY, LITHIUM TOXICITY, Physical Exam Vital Signs: Temp Pulse Resp BP Pulse Ox 98.8 F 67 16 123/55 L 99 08/01/17 11:43 08/01/17 11:43 08/01/17 11:43 08/01/17 11:43 08/01/17 11:43 Intake & Output 07/31/17 08/01/17 08/02/17 06:59 06:59 06:59 Intake Total 993 945 Output Total 4575 2300 Balance -3582 -1355 General appearance: PRESENT: disheveled, mild distress, obese Head exam: PRESENT: atraumatic, normocephalic Eye exam: PRESENT: conjunctiva pink, EOMI Ear exam: PRESENT: normal external ear exam Mouth exam: PRESENT: neck supple Neck exam: ABSENT: lymphadenopathy Respiratory exam: PRESENT: rhonchi, unlabored. ABSENT: wheezes Cardiovascular exam: PRESENT: RRR. ABSENT: systolic murmur Pulses: PRESENT: normal radial pulses GI/Abdominal exam: PRESENT: normal bowel sounds, soft. ABSENT: distended, guarding, tenderness Rectal exam: PRESENT: deferred Extremities exam: ABSENT: pedal edema Musculoskeletal exam: PRESENT: ambulatory Neurological exam: PRESENT: alert, awake, oriented to person, oriented to place , oriented to situation, CN II-XII grossly intact Psychiatric exam: PRESENT: anxious Skin exam: PRESENT: dry, warm, other - Erythema over perineum and in between legs Results Laboratory Results: 08/01/17 05:46 07/31/17 05:14 08/01/17 05:46 WBC 14.4 H RBC 3.94 Hgb 11.8 L Hct 36.9 MCV 94 MCH 30.0 MCHC 32.1 RDW 13.2 Plt Count 328 Impressions: Head CT 07/20/17 19:42 IMPRESSION: NORMAL BRAIN CT WITHOUT CONTRAST. EVIDENCE OF ACUTE STROKE: NO. Chest X-Ray 07/20/17 21:26 IMPRESSION: Left basilar pneumonitis. Chest CT 07/24/17 00:00 IMPRESSION: Near complete imaging resolution of previously diagnosed left lower lobe pneumonia. No evidence of new consolidation or adverse trend. KUB X-Ray 07/26/17 00:00 IMPRESSION: 1. NG tube in appropriate radiographic position. Thyroid Ultrasound 07/26/17 00:00 IMPRESSION: Partially cystic nodule left lobe. Assessment & Plan - Diagnosis (1) Pneumonia Is this a current diagnosis for this admission?: Yes Plan: Patient's air movement is improved. He does have some scattered rhonchi today. No evidence of another pneumonia. Antibiotics have been completed. To need to monitor. (2) Acute renal failure Is this a current diagnosis for this admission?: Yes Plan: Resolved. Continue to avoid nephrotoxic drugs as we are able. Continue to encourage hydration. (3) Dehydration Is this a current diagnosis for this admission?: Yes Plan: Resolved. Continue to encourage good hydration. (4) [place] toxicity Qualifiers: Encounter type: initial encounter Is this a current diagnosis for this admission?: Yes Plan: Seen level is in normal range and has been so for at least a week. We will stop checking. She will continue on her 300 mg p.o. every 8 hours. Her told me yesterday that her lithium had recently been changed to the extended release 900 mg tab so technically the dose had not been increased but the formulation had been changed. Patient, he states, has been on 300 mg every 8 hours for many years and I believe we should keep this dosing and formulation for discharge. (5) Mental status change Qualifiers: Altered mental status type: disorientation Qualified Code(s): R41.0 - Disorientation, unspecified Is this a current diagnosis for this admission?: Yes Plan: Patient is improving back towards her normal state. Yesterday her next was increased back to her normal home dosing and this seems to have helped. (6) Toxic encephalopathy Is this a current diagnosis for this admission?: Yes Plan: Secondary to infection and elevated lithium level. Now she is resolving back to baseline and is almost medically cleared for discharge to psych. (7) Bipolar disorder Is this a current diagnosis for this admission?: Yes Plan: Stable. Continue current lithium. (8) Anxiety Is this a current diagnosis for this admission?: Yes Plan: She improved with Xanax increased from 0.25 p.o. every 8 hours to 0.5 p.o. every 8 hours. To new current dosing. (9) Candidal skin infection Is this a current diagnosis for this admission?: Yes Plan: Per patient has worsened since yesterday. She feels that she has some discharge. We will continue topical preparation and also will use diflucan 100 mg p.o. 3 days. (10) Urinary retention Is this a current diagnosis for this admission?: Yes Plan: Today his fifth day of Nugent catheter. Will remove the catheter and work with patient on normal urination. (11) Debility, unspecified Is this a current diagnosis for this admission?: Yes Plan: He walked with physical therapy today, with a walker. This is possibly the first time she has been out of bed in 12 days. Given that I think she did really well. Will continue with physical therapy. - Time Time Spent with patient: 35 or more minutes Medications reviewed and adjusted accordingly: Yes - Inpatient Certification Medical Necessity: Significant Comorbidiites Make Outpatient Treatment Too Risky , Need Close Monitoring Due to Risk of Patient Decompensation, Risk of Complication if Not Cared For in Hospital - Plan Summary Plan Summary: Once patient is cleared from a medical perspective the psychiatry consult service should be informed so that she can be reevaluated for possible transfer to an inpatient psychiatry renee.
[2017-08-01] MEDS: TAMSULOSIN HCL 0.4 MG CAP.SR.24H PO SCH (17:58)
[2017-08-01] MEDS: ATORVASTATIN CALCIUM 10 MG TABLET NG SCH (22:50)
[2017-08-02] MEDS: POLYMYXIN B SULFATE/TMP OPH SOLN 10 ML OU SCH ×7 (02:05→21:58)
[2017-08-02] MEDS: LITHIUM CARBONATE 300 MG CAPSULE NG SCH ×3 (06:22→21:49)
[2017-08-02] MEDS: ALPRAZOLAM 0.5 MG TABLET PO PRN (11:03)
[2017-08-02] MEDS: LIOTHYRONINE SODIUM 25 MCG TABLET NG SCH (11:03)
[2017-08-02] MEDS: AMLODIPINE BESYLATE 5 MG TABLET PO SCH ×2 (11:04→21:49)
[2017-08-02] MEDS: AMITRIPTYLINE HCL 25 MG TABLET NG SCH (11:04)
[2017-08-02] MEDS: CYANOCOBALAMIN (VITAMIN B-12) INJ 1000 MCG/1 ML VIAL IM SCH (11:05)
[2017-08-02] MEDS: ENOXAPARIN SODIUM INJ 40 MG/0.4 ML DISP.SYRIN SUBCUT SCH (11:05)
[2017-08-02] MEDS: NYSTATIN CREAM 15 GM TP SCH ×2 (13:18→17:52)
[2017-08-02] MEDS: FLUCONAZOLE 100 MG TABLET PO SCH (14:19)
[2017-08-02] MEDS: TAMSULOSIN HCL 0.4 MG CAP.SR.24H PO SCH (17:50)
--- NOTE | 2017-08-02 21:34 | PDOC PROGRESS REPORT ---
Subjective Progress Note for:: 08/02/17 Subjective:: Feels weak but slowly improving . Mental status improving. No f/c, no n/v. Reason For Visit: TOXIC ENCEPHALOPATHY, LITHIUM TOXICITY, Physical Exam Vital Signs: Temp Pulse Resp BP Pulse Ox 98 F 64 16 128/67 H 100 08/02/17 16:00 08/02/17 16:00 08/02/17 16:00 08/02/17 16:00 08/02/17 16:00 Intake & Output 08/01/17 08/02/17 08/03/17 06:59 06:59 06:59 Intake Total 945 1431 1307 Output Total 2300 900 302 Balance -1806 406 0335 GEN: NAD CV: RRR, NL S1S2 LUNGS: Few basilar rhonchi ABDOMEN Soft, NT, +BS EXTERMITIES: No e/c/c NEURO: Alert Results Laboratory Results: 08/01/17 05:46 07/31/17 05:14 GEN: NAD, well-developed, well-nourished CV: RRR, NL S1S2 LUNGS: Few basilar crackles ABDOMEN Soft, NT, +BS EXTERMITIES: No e/c/c NEURO: Alert Impressions: Head CT 07/20/17 19:42 IMPRESSION: NORMAL BRAIN CT WITHOUT CONTRAST. EVIDENCE OF ACUTE STROKE: NO. Chest X-Ray 07/20/17 21:26 IMPRESSION: Left basilar pneumonitis. Chest CT 07/24/17 00:00 IMPRESSION: Near complete imaging resolution of previously diagnosed left lower lobe pneumonia. No evidence of new consolidation or adverse trend. KUB X-Ray 07/26/17 00:00 IMPRESSION: 1. NG tube in appropriate radiographic position. Thyroid Ultrasound 07/26/17 00:00 IMPRESSION: Partially cystic nodule left lobe. Assessment & Plan - Plan Summary Plan Summary: (1) Pneumonia Is this a current diagnosis for this admission?: Yes Plan: Patient's air movement is improved. He does have some scattered rhonchi still. Antibiotics have been completed. (2) Acute renal failure Is this a current diagnosis for this admission?: Yes Plan: Resolved. Continue to avoid nephrotoxic drugs. Continue to encourage hydration. (3) Dehydration Is this a current diagnosis for this admission?: Yes Plan: Resolved. Continue to encourage good hydration. (4) [place] toxicity Qualifiers: Encounter type: initial encounter Is this a current diagnosis for this admission?: Yes Plan: Level in normal range and has been so for at least a week. We have stopped checking. She will continue on her 300 mg p.o. every 8 hours. Her reported that her lithium had recently been changed to the extended release 900 mg tab so technically the dose had not been increased but the formulation had been changed. Patient, he states, has been on 300 mg every 8 hours for many years and I believe we should keep this dosing and formulation for discharge. (5) Mental status change Qualifiers: Altered mental status type: disorientation Qualified Code(s): R41.0 - Disorientation, unspecified Is this a current diagnosis for this admission?: Yes Plan: Patient is improving back towards her normal state. (6) Toxic encephalopathy Is this a current diagnosis for this admission?: Yes Plan: Secondary to infection and elevated lithium level. Now she is resolving back to baseline and is almost medically cleared for discharge to psych. (7) Bipolar disorder Is this a current diagnosis for this admission?: Yes Plan: Stable. Continue current lithium. (8) Anxiety Is this a current diagnosis for this admission?: Yes Plan: She improved with Xanax increased from 0.25 p.o. every 8 hours to 0.5 p.o. every 8 hours. Continue current dosing. (9) Candidal skin infection Is this a current diagnosis for this admission?: Yes Plan: We will continue topical preparation and also continue Diflucan 100 mg p.o. 3 days. (10) Urinary retention Is this a current diagnosis for this admission?: Yes Plan: Had catheter removed after 5 days. Continue to work with patient on normal urination. (11) Debility, unspecified Is this a current diagnosis for this admission?: Yes Plan: He walked with physical therapy with a walker. Will continue with physical therapy. Disposition: Once patient is cleared from a medical perspective the psychiatry consult service should be informed so that she can be reevaluated for possible transfer to an inpatient psychiatry renee.
[2017-08-02] MEDS: ATORVASTATIN CALCIUM 10 MG TABLET NG SCH (21:49)
[2017-08-03] MEDS ORDERED: BENZOCAINE/MENTHOL SORE THROAT LOZENGE BUCCAL PRN (00:02)
[2017-08-03] MEDS: POLYMYXIN B SULFATE/TMP OPH SOLN 10 ML OU SCH ×7 (00:47→17:17)
[2017-08-03] MEDS: ALPRAZOLAM 0.5 MG TABLET PO PRN ×2 (01:31→10:18)
[2017-08-03] MEDS: LITHIUM CARBONATE 300 MG CAPSULE NG SCH ×2 (06:08→13:33)
[2017-08-03 06:45] LABS: ABSOLUTE BASOPHILS # (AUTO) 0.1 10^3/uL (0.0-0.2); ABSOLUTE EOSINOPHILS # (AUTO) 0.4 10^3/uL (0.0-0.6); ABSOLUTE LYMPHOCYTES (AUTO) 1.9 10^3/uL (0.5-4.7); ABSOLUTE MONOCYTES (AUTO) 0.9 10^3/uL (0.1-1.4); ABSOLUTE NEUT (AUTO) 7.8 10^3/uL (1.7-8.2); BASOPHILS % (AUTO) 0.8 % (0-2); EOSINOPHILS % (AUTO) 3.2 % (0-6); HEMATOCRIT 34.1 % (36.0-47.0); HEMOGLOBIN 11.2 g/dL (12.0-15.5); LYMPHOCYTES % (AUTO) 17.6 % (13-45); MEAN CORPUSCULAR HEMOGLOBIN 30.7 pg (27.0-33.4); MEAN CORPUSCULAR HGB CONC 32.9 g/dL (32.0-36.0); MEAN CORPUSCULAR VOLUME 93 fl (80-97); MONOCYTES % (AUTO) 7.9 % (3-13); PLATELET COUNT 295 10^3/uL (150-450); RED BLOOD COUNT 3.65 10^6/uL (3.72-5.28); RED CELL DISTRIBUTION WIDTH 13.1 % (11.5-14.0); SEGMENTED NEUTROPHILS % (AUTO) 70.5 % (42-78); TOTAL CELLS COUNTED % (AUTO) 100 %; WHITE BLOOD COUNT 11.1 10^3/uL (4.0-10.5)
[2017-08-03 07:00] LABS: ANION GAP 8 (5-19); BLOOD UREA NITROGEN 21 mg/dL (7-20); CALCIUM 10.3 mg/dL (8.4-10.2); CARBON DIOXIDE 21 mmol/L (22-30); CHLORIDE 109 mmol/L (98-107); GLUCOSE 88 mg/dL (75-110); POTASSIUM 4.1 mmol/L (3.6-5.0); SODIUM 137.9 mmol/L (137-145)
[2017-08-03] MEDS: AMITRIPTYLINE HCL 25 MG TABLET NG SCH (09:23)
[2017-08-03] MEDS: AMLODIPINE BESYLATE 5 MG TABLET PO SCH (09:23)
[2017-08-03] MEDS: LIOTHYRONINE SODIUM 25 MCG TABLET NG SCH (09:24)
[2017-08-03] MEDS: CYANOCOBALAMIN (VITAMIN B-12) INJ 1000 MCG/1 ML VIAL IM SCH (09:24)
[2017-08-03] MEDS: ENOXAPARIN SODIUM INJ 40 MG/0.4 ML DISP.SYRIN SUBCUT SCH (09:26)
[2017-08-03] MEDS: NYSTATIN CREAM 15 GM TP SCH ×2 (09:27→17:13)
[2017-08-03] MEDS: TAMSULOSIN HCL 0.4 MG CAP.SR.24H PO SCH (17:12)
[2017-08-03] MEDS: FLUCONAZOLE 100 MG TABLET PO SCH (17:12)
--- NOTE | 2017-08-03 18:00 | PDOC PROGRESS REPORT ---
Subjective Progress Note for:: 08/03/17 Subjective:: No specific complaints. Reason For Visit: TOXIC ENCEPHALOPATHY, LITHIUM TOXICITY, Physical Exam Vital Signs: Temp Pulse Resp BP Pulse Ox 99.1 F 60 16 99/51 L 100 08/03/17 15:26 08/03/17 15:26 08/03/17 15:26 08/03/17 15:26 08/03/17 15:26 Intake & Output 08/02/17 08/03/17 08/04/17 06:59 06:59 06:59 Intake Total 1431 2267 240 Output Total 900 602 Balance 531 1665 240 Weight 72.7 kg General appearance: PRESENT: no acute distress, well-developed, well-nourished Head exam: PRESENT: atraumatic, normocephalic Eye exam: PRESENT: conjunctiva pink, EOMI, PERRLA. ABSENT: scleral icterus Ear exam: PRESENT: normal external ear exam Mouth exam: PRESENT: moist, tongue midline Neck exam: ABSENT: carotid bruit, JVD, lymphadenopathy, thyromegaly Respiratory exam: PRESENT: clear to auscultation gurjit. ABSENT: rales, rhonchi, wheezes Cardiovascular exam: PRESENT: RRR. ABSENT: diastolic murmur, rubs, systolic murmur Pulses: PRESENT: normal dorsalis pedis pul Vascular exam: PRESENT: normal capillary refill GI/Abdominal exam: PRESENT: normal bowel sounds, soft. ABSENT: distended, guarding, mass, organolmegaly, rebound, tenderness Rectal exam: PRESENT: deferred Extremities exam: PRESENT: full ROM. ABSENT: calf tenderness, clubbing, pedal edema Neurological exam: PRESENT: alert, awake, oriented to person, oriented to place , oriented to time, oriented to situation, CN II-XII grossly intact. ABSENT: motor sensory deficit Psychiatric exam: PRESENT: appropriate affect, normal mood. ABSENT: homicidal ideation, suicidal ideation Skin exam: PRESENT: dry, intact, warm. ABSENT: cyanosis, rash Results Laboratory Results: 08/03/17 06:04 08/03/17 06:04 08/03/17 08/03/17 06:04 06:04 WBC 11.1 H RBC 3.65 L Hgb 11.2 L Hct 34.1 L MCV 93 MCH 30.7 MCHC 32.9 RDW 13.1 Plt Count 295 Seg Neutrophils % 70.5 Lymphocytes % 17.6 Monocytes % 7.9 Eosinophils % 3.2 Basophils % 0.8 Absolute Neutrophils 7.8 Absolute Lymphocytes 1.9 Absolute Monocytes 0.9 Absolute Eosinophils 0.4 Absolute Basophils 0.1 Sodium 137.9 Potassium 4.1 Chloride 109 H Carbon Dioxide 21 L Anion Gap 8 BUN 21 H Creatinine 0.77 Est GFR ( Amer) > 60 Est GFR (Non-Af Amer) > 60 Glucose 88 Calcium 10.3 H Impressions: Head CT 07/20/17 19:42 IMPRESSION: NORMAL BRAIN CT WITHOUT CONTRAST. EVIDENCE OF ACUTE STROKE: NO. Chest X-Ray 07/20/17 21:26 IMPRESSION: Left basilar pneumonitis. Chest CT 07/24/17 00:00 IMPRESSION: Near complete imaging resolution of previously diagnosed left lower lobe pneumonia. No evidence of new consolidation or adverse trend. KUB X-Ray 07/26/17 00:00 IMPRESSION: 1. NG tube in appropriate radiographic position. Thyroid Ultrasound 07/26/17 00:00 IMPRESSION: Partially cystic nodule left lobe. Assessment & Plan - Diagnosis (1) Acute renal failure Is this a current diagnosis for this admission?: Yes (2) Left lower lobe pneumonia Qualifiers: Pneumonia type: due to unspecified organism Qualified Code(s): J18.1 - Lobar pneumonia, unspecified organism Is this a current diagnosis for this admission?: Yes Plan: Treated. (3) Toxic encephalopathy Is this a current diagnosis for this admission?: Yes Plan: See above. Resolved. (4) Bipolar disorder Qualifiers: Most recent bipolar episode type: most recent episode unspecified type Is this a current diagnosis for this admission?: Yes Plan: Psychiatry consult (5) [place] toxicity Qualifiers: Encounter type: initial encounter Is this a current diagnosis for this admission?: Yes Plan: Resolved - Time Time Spent with patient: 15-24 minutes Medications reviewed and adjusted accordingly: Yes Anticipated discharge: Other - Psychiatric hospital - Inpatient Certification Medical Necessity: Failure to Improve With Outpatient Therapy, Need Close Monitoring Due to Risk of Patient Decompensation
[2017-08-04] MEDS: ATORVASTATIN CALCIUM 10 MG TABLET NG SCH ×2 (01:13→22:02)
[2017-08-04] MEDS: AMLODIPINE BESYLATE 5 MG TABLET PO SCH ×3 (01:13→22:03)
[2017-08-04] MEDS: POLYMYXIN B SULFATE/TMP OPH SOLN 10 ML OU SCH ×8 (01:13→20:54)
[2017-08-04] MEDS: LITHIUM CARBONATE 300 MG CAPSULE NG SCH ×4 (01:13→22:02)
[2017-08-04] MEDS: ALPRAZOLAM 0.5 MG TABLET PO PRN ×2 (04:33→14:44)
[2017-08-04] MEDS: AMITRIPTYLINE HCL 25 MG TABLET NG SCH (10:19)
[2017-08-04] MEDS: CYANOCOBALAMIN (VITAMIN B-12) INJ 1000 MCG/1 ML VIAL IM SCH (10:20)
[2017-08-04] MEDS: ENOXAPARIN SODIUM INJ 40 MG/0.4 ML DISP.SYRIN SUBCUT SCH (10:20)
[2017-08-04] MEDS: NYSTATIN CREAM 15 GM TP SCH ×2 (10:22→18:25)
[2017-08-04] MEDS: LIOTHYRONINE SODIUM 25 MCG TABLET NG SCH (10:23)
[2017-08-04] MEDS: FLUCONAZOLE 100 MG TABLET PO SCH (14:43)
[2017-08-04] MEDS: TAMSULOSIN HCL 0.4 MG CAP.SR.24H PO SCH (18:26)
--- NOTE | 2017-08-04 18:46 | PDOC PROGRESS REPORT ---
Subjective Progress Note for:: 08/04/17 Subjective:: No specific complaints. No problems overnight. Reason For Visit: TOXIC ENCEPHALOPATHY, LITHIUM TOXICITY, Physical Exam Vital Signs: Temp Pulse Resp BP Pulse Ox 98.3 F 59 L 20 109/55 L 100 08/04/17 16:09 08/04/17 16:09 08/04/17 16:09 08/04/17 16:09 08/04/17 16:09 Intake & Output 08/03/17 08/04/17 08/05/17 06:59 06:59 06:59 Intake Total 2267 760 418 Output Total 602 300 Balance 1665 460 418 Weight 72.7 kg General appearance: PRESENT: no acute distress, well-developed, well-nourished Head exam: PRESENT: atraumatic, normocephalic Eye exam: PRESENT: EOMI, PERRLA Neck exam: PRESENT: full ROM Respiratory exam: PRESENT: clear to auscultation gurjit. ABSENT: rales, rhonchi, wheezes Cardiovascular exam: PRESENT: RRR. ABSENT: diastolic murmur, rubs, systolic murmur GI/Abdominal exam: PRESENT: normal bowel sounds, soft. ABSENT: distended, guarding, mass, organolmegaly, rebound, tenderness Neurological exam: PRESENT: alert, awake, oriented to person, oriented to place , oriented to time, oriented to situation, CN II-XII grossly intact. ABSENT: motor sensory deficit Psychiatric exam: PRESENT: appropriate affect, normal mood. ABSENT: homicidal ideation, suicidal ideation Results Laboratory Results: 08/03/17 06:04 08/03/17 06:04 Impressions: Head CT 07/20/17 19:42 IMPRESSION: NORMAL BRAIN CT WITHOUT CONTRAST. EVIDENCE OF ACUTE STROKE: NO. Chest X-Ray 07/20/17 21:26 IMPRESSION: Left basilar pneumonitis. Chest CT 07/24/17 00:00 IMPRESSION: Near complete imaging resolution of previously diagnosed left lower lobe pneumonia. No evidence of new consolidation or adverse trend. KUB X-Ray 07/26/17 00:00 IMPRESSION: 1. NG tube in appropriate radiographic position. Thyroid Ultrasound 07/26/17 00:00 IMPRESSION: Partially cystic nodule left lobe. Assessment & Plan - Diagnosis (1) Acute renal failure Is this a current diagnosis for this admission?: Yes Plan: Resolved. (2) Left lower lobe pneumonia Qualifiers: Pneumonia type: due to unspecified organism Qualified Code(s): J18.1 - Lobar pneumonia, unspecified organism Is this a current diagnosis for this admission?: Yes Plan: Treated. (3) Toxic encephalopathy Is this a current diagnosis for this admission?: Yes Plan: See above. Resolved. (4) Bipolar disorder Qualifiers: Most recent bipolar episode type: most recent episode unspecified type Is this a current diagnosis for this admission?: Yes Plan: Psychiatry consulted. (5) [place] toxicity Qualifiers: Encounter type: initial encounter Is this a current diagnosis for this admission?: Yes Plan: Resolved - Time Time Spent with patient: 15-24 minutes - Inpatient Certification Based on my medical assessment, after consideration of the patient's comorbidities, presenting symptoms, or acuity I expect that the services needed warrant INPATIENT care.: Yes I certify that my determination is in accordance with my understanding of Medicare's requirements for reasonable and necessary INPATIENT services [42 CFR 412.3e].: Yes Medical Necessity: Failure to Improve With Outpatient Therapy
[2017-08-05] MEDS: ALPRAZOLAM 0.5 MG TABLET PO PRN (00:32)
[2017-08-05] MEDS: POLYMYXIN B SULFATE/TMP OPH SOLN 10 ML OU SCH ×9 (00:34→23:20)
[2017-08-05] MEDS: LITHIUM CARBONATE 300 MG CAPSULE NG SCH (06:15)
[2017-08-05] MEDS ORDERED: ACETAMINOPHEN 325 MG TABLET PO PRN (07:00)
--- NOTE | 2017-08-05 09:44 | PDOC PROGRESS REPORT ---
Subjective Progress Note for:: 08/05/17 Subjective:: Ms. Huang is a 71-year-old female with a history of bipolar disorder, pacemaker due to bradycardia, dementia, and hypothyroidism who presented to the hospital with a change in mentation. On admission, she was unable to provide a history. She only stated that she has been bad. She had been taking lithium and Xanax for over 30 years for her bipolar disorder. At one point, she was taken off the lithium, but had to be placed back on it due to multiple manic episodes. She has had multiple psychiatric inpatient hospitalizations as well as ECT treatments which have resulted in poor memory and confusion. About a week prior to admission, her lithium was increased from 600 mg to 900 mg daily. She reportedly started to decline following the change in dosage. In the emergency department, she was tearful. She could not express while she was upset. She had a small tremor. Her lithium level was 1.8, elevated. CT head was normal. Urinalysis was normal except for the presence of ketones. She had mild leukocytosis as well. She was admitted with acute toxic encephalopathy secondary to lithium elevation. [place] was held. She was started on ceftriaxone and azithromycin for possible pneumonia. Her chest x-ray showed L. basilar pneumonitis. Her creatinine was elevated at 1.23. This is most likely due to dehydration. Consequently she was hydrated. Both her elevated creatinine and white count improved/normalized. She had a low B12 level. She was started vitamin B12 supplementation. Her thiamine level was normal. Her TSH, folate, and vitamin D -25 levels were normal. Vitamin D 1,25 was elevated at 119. Intact PTH was 198.9 (Jul 21) REPEAT LEVEL ORDERED 08/05/17 He was evaluated by psychiatry. The recommended behavioral health admission when medically stable. Unfortunately, she is deconditioned and will require physical therapy/rehab first. Aug 05. No specific complaints. No problems overnight. Reason For Visit: TOXIC ENCEPHALOPATHY, LITHIUM TOXICITY, Physical Exam Vital Signs: Temp Pulse Resp BP Pulse Ox 98.5 F 65 20 127/61 H 98 08/05/17 07:42 08/05/17 07:42 08/05/17 07:42 08/05/17 07:42 08/05/17 07:42 Intake & Output 02/21/18 02/22/18 02/23/18 06:59 06:59 06:59 Intake Total 760 718 Output Total 300 1000 Balance 460 -282 General appearance: PRESENT: no acute distress, cooperative, well-developed, well-nourished Head exam: PRESENT: atraumatic, normocephalic Eye exam: PRESENT: EOMI, PERRLA Mouth exam: PRESENT: neck supple Respiratory exam: PRESENT: clear to auscultation gurjit. ABSENT: rales, rhonchi, wheezes Cardiovascular exam: PRESENT: RRR. ABSENT: diastolic murmur, rubs, systolic murmur GI/Abdominal exam: PRESENT: normal bowel sounds, soft. ABSENT: distended, guarding, mass, organolmegaly, rebound, tenderness Neurological exam: PRESENT: alert, awake, oriented to person, oriented to place , oriented to time, oriented to situation, CN II-XII grossly intact. ABSENT: motor sensory deficit Psychiatric exam: PRESENT: appropriate affect, normal mood. ABSENT: homicidal ideation, suicidal ideation Results Laboratory Results: 08/03/17 06:04 08/03/17 06:04 Impressions: Head CT 07/20/17 19:42 IMPRESSION: NORMAL BRAIN CT WITHOUT CONTRAST. EVIDENCE OF ACUTE STROKE: NO. Chest X-Ray 07/20/17 21:26 IMPRESSION: Left basilar pneumonitis. Chest CT 07/24/17 00:00 IMPRESSION: Near complete imaging resolution of previously diagnosed left lower lobe pneumonia. No evidence of new consolidation or adverse trend. KUB X-Ray 07/26/17 00:00 IMPRESSION: 1. NG tube in appropriate radiographic position. Thyroid Ultrasound 07/26/17 00:00 IMPRESSION: Partially cystic nodule left lobe. Assessment & Plan - Diagnosis (1) Acute renal failure Is this a current diagnosis for this admission?: Yes Plan: Resolved. (2) Left lower lobe pneumonia Qualifiers: Pneumonia type: due to unspecified organism Qualified Code(s): J18.1 - Lobar pneumonia, unspecified organism Is this a current diagnosis for this admission?: Yes Plan: Treated. (3) Toxic encephalopathy Is this a current diagnosis for this admission?: Yes Plan: See above. Resolved. (4) Bipolar disorder Qualifiers: Most recent bipolar episode type: most recent episode unspecified type Is this a current diagnosis for this admission?: Yes Plan: Psychiatry consulted. She will need behavioral health treatment. However, before transfer to a behavioral health unit, she will need physical therapy. I will need to discuss with case management in order to have her go to a fpc facility for rehabilitation first. (5) [place] toxicity Qualifiers: Encounter type: initial encounter Is this a current diagnosis for this admission?: Yes Plan: Resolved. Check lithium today. - Time Time Spent with patient: 25-34 minutes Anticipated discharge: SNF Within: within 48 hours - Inpatient Certification Based on my medical assessment, after consideration of the patient's comorbidities, presenting symptoms, or acuity I expect that the services needed warrant INPATIENT care.: Yes I certify that my determination is in accordance with my understanding of Medicare's requirements for reasonable and necessary INPATIENT services [42 CFR 412.3e].: Yes Medical Necessity: Failure to Improve With Outpatient Therapy, Need Close Monitoring Due to Risk of Patient Decompensation
[2017-08-05] MEDS: AMLODIPINE BESYLATE 5 MG TABLET PO SCH ×2 (10:10→21:49)
[2017-08-05] MEDS: LIOTHYRONINE SODIUM 25 MCG TABLET NG SCH (10:10)
[2017-08-05] MEDS: AMITRIPTYLINE HCL 25 MG TABLET NG SCH (10:12)
[2017-08-05] MEDS: ENOXAPARIN SODIUM INJ 40 MG/0.4 ML DISP.SYRIN SUBCUT SCH (10:13)
[2017-08-05] MEDS: NYSTATIN CREAM 15 GM TP SCH ×2 (10:19→17:41)
--- NOTE | 2017-08-05 12:26 | PSYCHOLOGICAL NOTE ---
Psych Note - Psych Note Psych Note: Reason for consult: AMS, lethargic, not making sense Contact: Patient is a 71 year old female in the ED for hallucinations, lethargy, and not making sense. She has a history of Bipolar Disorder and [place] Toxicity. Obtaining medical clearance first to ensure medical is not reason for AMS. Chart review conducted: Patient is not medically cleared and is needing physical therapy rehab per hospitalist. Medication recommendations per [facility]'s contracted psychiatrist, MD Gage are as follows 1. Discontinue lithium 2. Discontinue Xanax 3. Start lorazepam 0.5 mg twice daily 4. Start Tegretol 200 mg twice daily 5. Start Seroquel 25 mg nightly as needed Diagnosis: AMS 296.80 (F31.9) Unspecified Bipolar and Related Disorder by History Impression/Plan: Once medically cleared, patient will be placed under IVC. At that time, the Behavioral Health Team will start the process of seeking inpatient psychiatric treatment. Consulted with Dr. Hicks regarding the management and care of patient.
[2017-08-05] MEDS ORDERED: CARBAMAZEPINE 200 MG TABLET PO ONE (13:30)
[2017-08-05] MEDS: FLUCONAZOLE 100 MG TABLET PO SCH (14:58)
[2017-08-05] MEDS: TAMSULOSIN HCL 0.4 MG CAP.SR.24H PO SCH (17:39)
[2017-08-05] MEDS: LORAZEPAM 0.5 MG TABLET PO SCH (17:39)
[2017-08-05] MEDS: CARBAMAZEPINE 200 MG TABLET PO SCH (21:49)
[2017-08-05] MEDS: ATORVASTATIN CALCIUM 10 MG TABLET NG SCH (21:49)
[2017-08-06] MEDS: POLYMYXIN B SULFATE/TMP OPH SOLN 10 ML OU SCH ×7 (05:11→21:36)
[2017-08-06] MEDS: CYANOCOBALAMIN (VITAMIN B-12) 1,000 MCG TABLET PO SCH (09:38)
[2017-08-06] MEDS: LIOTHYRONINE SODIUM 25 MCG TABLET NG SCH (09:38)
[2017-08-06] MEDS: LORAZEPAM 0.5 MG TABLET PO SCH ×2 (09:39→17:08)
[2017-08-06] MEDS: AMITRIPTYLINE HCL 25 MG TABLET NG SCH (09:39)
[2017-08-06] MEDS: CARBAMAZEPINE 200 MG TABLET PO SCH ×2 (09:39→21:37)
[2017-08-06] MEDS: AMLODIPINE BESYLATE 5 MG TABLET PO SCH ×2 (09:39→21:36)
[2017-08-06] MEDS: ENOXAPARIN SODIUM INJ 40 MG/0.4 ML DISP.SYRIN SUBCUT SCH (09:40)
[2017-08-06] MEDS: NYSTATIN CREAM 15 GM TP SCH ×2 (09:46→17:08)
--- NOTE | 2017-08-06 14:04 | PDOC PROGRESS REPORT ---
Subjective Progress Note for:: 08/06/17 Subjective:: The patient has been admitted for acute lithium toxicity. Hospitalization has been complicated by a left basilar pneumonia and urinary retention. When the patient was first admitted she was unable to eat and therefore she had a prolonged period of time where she had an NG tube in place. Please note that the patient's intact PTH is elevated. She likely has hyperparathyroidism from long-term lithium use. In any event the lithium level is back up to 1.8. Yesterday, psychiatry came by and made different recommendations for the patient 's psychiatric regimen. Today the patient is awake and answering questions more appropriately than she has been in the past. Reason For Visit: TOXIC ENCEPHALOPATHY, LITHIUM TOXICITY, Physical Exam Vital Signs: Temp Pulse Resp BP Pulse Ox 98.4 F 63 20 107/51 L 99 08/06/17 11:30 08/06/17 11:30 08/06/17 11:30 08/06/17 11:30 08/06/17 11:30 Intake & Output 08/05/17 08/06/17 08/07/17 06:59 06:59 06:59 Intake Total 718 580 Output Total 1000 1300 Balance -282 -720 Additional comments: The patient was wide awake today. She was conversant and making sense. She answers questions appropriately. Her facial appearance is unremarkable. Her lungs are clear to auscultation bilaterally. Her cardiac exam is regular without murmurs, gallops or rubs. The abdomen is soft, flat and benign. Bowel sounds are present in the lower quadrants. She does not have guarding or rebound noted and there are no hernias or masses present. The lower extremities are warm to touch without edema. The skin is warm, dry and intact without lesions or rashes. Results Laboratory Results: 08/03/17 06:04 08/03/17 06:04 Impressions: Head CT 07/20/17 19:42 IMPRESSION: NORMAL BRAIN CT WITHOUT CONTRAST. EVIDENCE OF ACUTE STROKE: NO. Chest X-Ray 07/20/17 21:26 IMPRESSION: Left basilar pneumonitis. Chest CT 07/24/17 00:00 IMPRESSION: Near complete imaging resolution of previously diagnosed left lower lobe pneumonia. No evidence of new consolidation or adverse trend. KUB X-Ray 07/26/17 00:00 IMPRESSION: 1. NG tube in appropriate radiographic position. Thyroid Ultrasound 07/26/17 00:00 IMPRESSION: Partially cystic nodule left lobe. Assessment & Plan - Diagnosis (1) Left lower lobe pneumonia Qualifiers: Pneumonia type: due to unspecified organism Qualified Code(s): J18.1 - Lobar pneumonia, unspecified organism Is this a current diagnosis for this admission?: Yes Plan: Treated (2) Leukocytosis Is this a current diagnosis for this admission?: Yes Plan: Resolving (3) Toxic encephalopathy Is this a current diagnosis for this admission?: Yes Plan: Improved (4) Urinary retention Is this a current diagnosis for this admission?: Yes Plan: We will make sure [place] has been removed we will continue bladder training attempts (5) Bipolar disorder Qualifiers: Most recent bipolar episode type: most recent episode unspecified type Is this a current diagnosis for this admission?: Yes Plan: Recommendations from psychiatry are being followed (6) Hypothyroidism Is this a current diagnosis for this admission?: Yes Plan: Patient is not currently on therapy (7) Acute renal failure Is this a current diagnosis for this admission?: Yes Plan: Resolved (8) [place] toxicity Qualifiers: Encounter type: initial encounter Is this a current diagnosis for this admission?: Yes Plan: [place] has been discontinued (9) Acute renal failure Is this a current diagnosis for this admission?: Yes (10) Hypernatremia Is this a current diagnosis for this admission?: Yes Plan: Resolved (11) Hypertension Is this a current diagnosis for this admission?: Yes Plan: Continue amlodipine (12) Hyperparathyroidism Is this a current diagnosis for this admission?: Yes Plan: likely associated with chronic lithium use (13) Benzodiazepine dependence Plan: Continue Ativan - Time Time Spent with patient: 15-24 minutes - Inpatient Certification Medical Necessity: Need for Neurological Checks - Plan Summary Plan Summary: Plans are being made to discharge the patient possibly to skilled facility followed by an inpatient psychiatric stay.
[2017-08-06] MEDS: FLUCONAZOLE 100 MG TABLET PO SCH (14:37)
[2017-08-06] MEDS: TAMSULOSIN HCL 0.4 MG CAP.SR.24H PO SCH (17:08)
[2017-08-06] MEDS: ATORVASTATIN CALCIUM 10 MG TABLET NG SCH (21:37)
[2017-08-07] MEDS: POLYMYXIN B SULFATE/TMP OPH SOLN 10 ML OU SCH ×9 (02:08→23:01)
[2017-08-07 06:50] LABS: ABSOLUTE BASOPHILS # (AUTO) 0.1 10^3/uL (0.0-0.2); ABSOLUTE EOSINOPHILS # (AUTO) 0.3 10^3/uL (0.0-0.6); ABSOLUTE LYMPHOCYTES (AUTO) 2.1 10^3/uL (0.5-4.7); ABSOLUTE MONOCYTES (AUTO) 0.6 10^3/uL (0.1-1.4); ABSOLUTE NEUT (AUTO) 6.5 10^3/uL (1.7-8.2); BASOPHILS % (AUTO) 0.8 % (0-2); EOSINOPHILS % (AUTO) 2.9 % (0-6); HEMATOCRIT 35.3 % (36.0-47.0); HEMOGLOBIN 11.8 g/dL (12.0-15.5); LYMPHOCYTES % (AUTO) 22.2 % (13-45); MEAN CORPUSCULAR HEMOGLOBIN 31.1 pg (27.0-33.4); MEAN CORPUSCULAR HGB CONC 33.3 g/dL (32.0-36.0); MEAN CORPUSCULAR VOLUME 94 fl (80-97); MONOCYTES % (AUTO) 6.1 % (3-13); PLATELET COUNT 348 10^3/uL (150-450); RED BLOOD COUNT 3.78 10^6/uL (3.72-5.28); RED CELL DISTRIBUTION WIDTH 13.3 % (11.5-14.0); TOTAL CELLS COUNTED % (AUTO) 100 %; WHITE BLOOD COUNT 9.5 10^3/uL (4.0-10.5)
[2017-08-07 07:21] LABS: ANION GAP 8 (5-19); BLOOD UREA NITROGEN 17 mg/dL (7-20); CALCIUM 10.5 mg/dL (8.4-10.2); CARBON DIOXIDE 21 mmol/L (22-30); CHLORIDE 110 mmol/L (98-107); GLUCOSE 94 mg/dL (75-110); POTASSIUM 4.2 mmol/L (3.6-5.0); SODIUM 139.4 mmol/L (137-145)
[2017-08-07] MEDS: CARBAMAZEPINE 200 MG TABLET PO SCH ×2 (09:47→21:03)
[2017-08-07] MEDS: LIOTHYRONINE SODIUM 25 MCG TABLET NG SCH (09:47)
[2017-08-07] MEDS: AMITRIPTYLINE HCL 25 MG TABLET NG SCH (09:47)
[2017-08-07] MEDS: NYSTATIN CREAM 15 GM TP SCH (09:47)
[2017-08-07] MEDS: CYANOCOBALAMIN (VITAMIN B-12) 1,000 MCG TABLET PO SCH (09:47)
[2017-08-07] MEDS: ENOXAPARIN SODIUM INJ 40 MG/0.4 ML DISP.SYRIN SUBCUT SCH (09:47)
[2017-08-07] MEDS: LORAZEPAM 0.5 MG TABLET PO SCH ×2 (09:47→17:16)
[2017-08-07] MEDS: AMLODIPINE BESYLATE 5 MG TABLET PO SCH ×2 (09:47→21:03)
[2017-08-07] MEDS: FLUCONAZOLE 100 MG TABLET PO SCH (14:17)
--- NOTE | 2017-08-07 16:20 | PDOC PROGRESS REPORT ---
Subjective Progress Note for:: 08/07/17 Subjective:: The patient has been admitted for acute lithium toxicity. Hospitalization has been complicated by a left basilar pneumonia and urinary retention. When the patient was first admitted she was unable to eat and therefore she had a prolonged period of time where she had an NG tube in place. Please note that the patient's intact PTH is elevated. She likely has hyperparathyroidism from long-term lithium use. In any event the lithium level is back up to 1.8. , psychiatry came by and made different recommendations for the patient's psychiatric regimen. Today, the patient remains oriented. She is much more appropriate. She appears to be improving. Reason For Visit: TOXIC ENCEPHALOPATHY, LITHIUM TOXICITY, Physical Exam Vital Signs: Temp Pulse Resp BP Pulse Ox 98.5 F 61 16 132/55 H 100 08/07/17 11:24 08/07/17 11:24 08/07/17 11:24 08/07/17 11:24 08/07/17 11:24 Intake & Output 08/06/17 08/07/17 08/08/17 06:59 06:59 06:59 Intake Total 580 1368 510 Output Total 1300 1400 600 Balance -720 -32 -90 Weight 72.7 kg Additional comments: The patient remains awake today. She is interactive. She asked me my name. She remembers my face from last week but could not remember my name. She understands why she is in the hospital. She has no complaints today. Her facial appearance is unremarkable. Her lungs are clear to auscultation bilaterally. Her cardiac exam is regular without murmurs, gallops or rubs. The abdomen is soft and flat. Bowel sounds are present in the lower quadrants. She does not have guarding or rebound noted and there are no hernias or masses present. The lower extremities are unremarkable. Skin is smooth, dry and intact. No lesions or rashes are noted. Results Laboratory Results: 08/07/17 05:47 08/07/17 05:47 08/07/17 08/07/17 05:47 05:47 WBC 9.5 RBC 3.78 Hgb 11.8 L Hct 35.3 L MCV 94 MCH 31.1 MCHC 33.3 RDW 13.3 Plt Count 348 Seg Neutrophils % 68.0 Lymphocytes % 22.2 Monocytes % 6.1 Eosinophils % 2.9 Basophils % 0.8 Absolute Neutrophils 6.5 Absolute Lymphocytes 2.1 Absolute Monocytes 0.6 Absolute Eosinophils 0.3 Absolute Basophils 0.1 Sodium 139.4 Potassium 4.2 Chloride 110 H Carbon Dioxide 21 L Anion Gap 8 BUN 17 Creatinine 0.88 Est GFR ( Amer) > 60 Est GFR (Non-Af Amer) > 60 Glucose 94 Calcium 10.5 H Magnesium 2.2 Impressions: Head CT 07/20/17 19:42 IMPRESSION: NORMAL BRAIN CT WITHOUT CONTRAST. EVIDENCE OF ACUTE STROKE: NO. Chest X-Ray 07/20/17 21:26 IMPRESSION: Left basilar pneumonitis. Chest CT 07/24/17 00:00 IMPRESSION: Near complete imaging resolution of previously diagnosed left lower lobe pneumonia. No evidence of new consolidation or adverse trend. KUB X-Ray 07/26/17 00:00 IMPRESSION: 1. NG tube in appropriate radiographic position. Thyroid Ultrasound 07/26/17 00:00 IMPRESSION: Partially cystic nodule left lobe. Assessment & Plan - Diagnosis (1) Left lower lobe pneumonia Qualifiers: Pneumonia type: due to unspecified organism Qualified Code(s): J18.1 - Lobar pneumonia, unspecified organism Is this a current diagnosis for this admission?: Yes Plan: Treated (2) Leukocytosis Is this a current diagnosis for this admission?: Yes Plan: Resolving (3) Toxic encephalopathy Is this a current diagnosis for this admission?: Yes Plan: Improved (4) Urinary retention Is this a current diagnosis for this admission?: Yes Plan: Nugent has been discontinued. She is urinating without difficulty. (5) Bipolar disorder Qualifiers: Most recent bipolar episode type: most recent episode unspecified type Is this a current diagnosis for this admission?: Yes Plan: Recommendations from psychiatry are being followed (6) Hypothyroidism Is this a current diagnosis for this admission?: Yes Plan: Patient is not currently on therapy (7) Acute renal failure Is this a current diagnosis for this admission?: Yes Plan: Resolved (8) [place] toxicity Qualifiers: Encounter type: initial encounter Is this a current diagnosis for this admission?: Yes Plan: [place] has been discontinued (9) Acute renal failure Is this a current diagnosis for this admission?: Yes (10) Hypernatremia Is this a current diagnosis for this admission?: Yes Plan: Resolved (11) Hypertension Is this a current diagnosis for this admission?: Yes Plan: Continue amlodipine (12) Hyperparathyroidism Is this a current diagnosis for this admission?: Yes Plan: likely associated with chronic lithium use (13) Benzodiazepine dependence Plan: Continue Ativan - Time Time Spent with patient: 15-24 minutes - Plan Summary Plan Summary: Patient appears to have been stabilized medically. At the current time discharge to skilled facility is being planned.
[2017-08-07] MEDS: TAMSULOSIN HCL 0.4 MG CAP.SR.24H PO SCH (17:16)
[2017-08-07] MEDS: ATORVASTATIN CALCIUM 10 MG TABLET NG SCH (21:04)
[2017-08-08] MEDS: POLYMYXIN B SULFATE/TMP OPH SOLN 10 ML OU SCH ×8 (02:17→23:10)
[2017-08-08] MEDS: QUETIAPINE FUMARATE 25 MG TABLET PO PRN ×2 (02:20→21:01)
[2017-08-08] MEDS: CARBAMAZEPINE 200 MG TABLET PO SCH ×2 (09:38→21:01)
[2017-08-08] MEDS: CYANOCOBALAMIN (VITAMIN B-12) 1,000 MCG TABLET PO SCH (09:38)
[2017-08-08] MEDS: AMLODIPINE BESYLATE 5 MG TABLET PO SCH ×2 (09:38→21:01)
[2017-08-08] MEDS: ENOXAPARIN SODIUM INJ 40 MG/0.4 ML DISP.SYRIN SUBCUT SCH (09:39)
[2017-08-08] MEDS: LORAZEPAM 0.5 MG TABLET PO SCH ×2 (09:39→17:54)
[2017-08-08] MEDS: AMITRIPTYLINE HCL 25 MG TABLET NG SCH (09:39)
[2017-08-08] MEDS: LIOTHYRONINE SODIUM 25 MCG TABLET NG SCH (09:39)
--- NOTE | 2017-08-08 15:42 | PDOC PROGRESS REPORT ---
Subjective Progress Note for:: 08/08/17 Subjective:: The patient has been admitted for acute lithium toxicity. Hospitalization has been complicated by a left basilar pneumonia and urinary retention. When the patient was first admitted she was unable to eat and therefore she had a prolonged period of time where she had an NG tube in place. Please note that the patient's intact PTH is elevated. She likely has hyperparathyroidism from long-term lithium use. In any event the lithium level is back up to 1.8. , psychiatry came by and made different recommendations for the patient's psychiatric regimen. Patient's mental status has been improving but she remains extremely anxious. Reason For Visit: TOXIC ENCEPHALOPATHY, LITHIUM TOXICITY, Physical Exam Vital Signs: Temp Pulse Resp BP Pulse Ox 97.9 F 60 16 112/61 100 08/08/17 12:00 08/08/17 12:00 08/08/17 12:00 08/08/17 12:00 08/08/17 12:00 Intake & Output 08/07/17 08/08/17 08/09/17 06:59 06:59 06:59 Intake Total 1368 1058 780 Output Total 1400 1100 2200 Balance -32 -42 -1420 Weight 72.7 kg Additional comments: The patient was noted to be very anxious today. However, she did respond to verbal reassurance. Her facial appearance is unremarkable. Her lungs remain clear to auscultation bilaterally. Her cardiac exam is regular without murmurs , gallops or rubs. The abdomen is soft and flat. Bowel sounds are present in the lower quadrants. She does not have guarding or rebound noted and there are no hernias or masses present. All she has no lower extremity edema present. The skin is clean, warm, dry and intact without lesions or rashes. Results Laboratory Results: 08/07/17 05:47 08/07/17 05:47 Impressions: Head CT 07/20/17 19:42 IMPRESSION: NORMAL BRAIN CT WITHOUT CONTRAST. EVIDENCE OF ACUTE STROKE: NO. Chest X-Ray 07/20/17 21:26 IMPRESSION: Left basilar pneumonitis. Chest CT 07/24/17 00:00 IMPRESSION: Near complete imaging resolution of previously diagnosed left lower lobe pneumonia. No evidence of new consolidation or adverse trend. KUB X-Ray 07/26/17 00:00 IMPRESSION: 1. NG tube in appropriate radiographic position. Thyroid Ultrasound 07/26/17 00:00 IMPRESSION: Partially cystic nodule left lobe. Assessment & Plan - Diagnosis (1) Left lower lobe pneumonia Qualifiers: Pneumonia type: due to unspecified organism Qualified Code(s): J18.1 - Lobar pneumonia, unspecified organism Is this a current diagnosis for this admission?: Yes Plan: Treated (2) Leukocytosis Is this a current diagnosis for this admission?: Yes Plan: Resolving (3) Toxic encephalopathy Is this a current diagnosis for this admission?: Yes Plan: Improved (4) Urinary retention Is this a current diagnosis for this admission?: Yes Plan: Nugent has been discontinued. She is urinating without difficulty. (5) Bipolar disorder Qualifiers: Most recent bipolar episode type: most recent episode unspecified type Is this a current diagnosis for this admission?: Yes Plan: Recommendations from psychiatry are being followed (6) Hypothyroidism Is this a current diagnosis for this admission?: Yes Plan: Patient is not currently on therapy (7) Acute renal failure Is this a current diagnosis for this admission?: Yes Plan: Resolved (8) [place] toxicity Qualifiers: Encounter type: initial encounter Is this a current diagnosis for this admission?: Yes Plan: [place] has been discontinued (9) Acute renal failure Is this a current diagnosis for this admission?: Yes (10) Hypernatremia Is this a current diagnosis for this admission?: Yes Plan: Resolved (11) Hypertension Is this a current diagnosis for this admission?: Yes Plan: Continue amlodipine (12) Hyperparathyroidism Is this a current diagnosis for this admission?: Yes Plan: likely associated with chronic lithium use (13) Benzodiazepine dependence Plan: Continue Ativan - Time Time Spent with patient: 15-24 minutes - Plan Summary Plan Summary: Patient is improving. At this point in time she is stable and safe to transfer to skilled facility. Discharge planning is working on obtaining a bed.
[2017-08-08] MEDS: TAMSULOSIN HCL 0.4 MG CAP.SR.24H PO SCH (17:54)
[2017-08-08] MEDS: ATORVASTATIN CALCIUM 10 MG TABLET NG SCH (21:01)
[2017-08-09] MEDS: ENOXAPARIN SODIUM INJ 40 MG/0.4 ML DISP.SYRIN SUBCUT SCH (09:12)
[2017-08-09] MEDS: CARBAMAZEPINE 200 MG TABLET PO SCH ×2 (09:13→21:18)
[2017-08-09] MEDS: LORAZEPAM 0.5 MG TABLET PO SCH ×2 (09:13→17:53)
[2017-08-09] MEDS: LIOTHYRONINE SODIUM 25 MCG TABLET NG SCH (09:13)
[2017-08-09] MEDS: AMITRIPTYLINE HCL 25 MG TABLET NG SCH (09:13)
[2017-08-09] MEDS: AMLODIPINE BESYLATE 5 MG TABLET PO SCH ×2 (09:13→21:18)
[2017-08-09] MEDS: CYANOCOBALAMIN (VITAMIN B-12) 1,000 MCG TABLET PO SCH (09:13)
[2017-08-09] MEDS: ACETAMINOPHEN 325 MG TABLET PO PRN (15:47)
--- NOTE | 2017-08-09 15:49 | PDOC PROGRESS REPORT ---
Subjective Progress Note for:: 08/09/17 Subjective:: The patient has been admitted for acute lithium toxicity. Hospitalization has been complicated by a left basilar pneumonia and urinary retention. When the patient was first admitted she was unable to eat and therefore she had a prolonged period of time where she had an NG tube in place. Please note that the patient's intact PTH is elevated. She likely has hyperparathyroidism from long-term lithium use. In any event the lithium level is back up to 1.8. , psychiatry came by and made different recommendations for the patient's psychiatric regimen. Patient's mental status has been improving but she remains extremely anxious. Summary of the patient's hospital course: The patient is a 71-year-old female who has underlying bipolar disorder as well as dementia. She presented with an acute change in mentation that was precipitated after her lithium was increased from 600 mg to 900 mg per day. It should be noted that the patient has had multiple psychiatric inpatient hospitalizations for her bipolar disorder. Her therapies have included electric shock treatments. Upon admission the patient was noted to have lithium toxicity and her lithium was held. Eventually, her lithium was resumed but she again had elevated levels of lithium and Jose Hicks from psychiatry has again discontinued the lithium. During this hospitalization the patient was treated for pneumonia. She was initially placed on ceftriaxone and doxycycline but then received 7 days worth of Zosyn for total of 10 days of treatment. During her hospital course she did have a persistent leukocytosis but this resolved after treatment with antibiotics. Her hospitalization has also been complicated by urinary retention. She required a Nugent catheter. This has been removed days ago and the patient is now urinating without difficulty. During the initial stages of the patient's hospitalization she was not able to eat secondary to her lethargic state. An NG tube was placed and she required tube feeds. The patient presented with acute renal failure secondary to dehydration. Her renal failure resolved with fluids. The patient was also noted to be hypernatremic requiring correction with D5W. During this hospitalization patient has had a persistently elevated calcium level. Her PTH levels are very elevated. Her vitamin D levels have been normal. Elevated I will see him levels with elevated levels of PTH can occur with chronic use of lithium. A thyroid ultrasound was performed showing a partially cystic nodule in the left lobe of the thyroid gland. I would recommend follow-up with Endocrinology regarding the patient's history of hypothyroidism and hyperparathyroidism with an abnormal thyroid ultrasound. Reason For Visit: TOXIC ENCEPHALOPATHY, LITHIUM TOXICITY, Physical Exam Vital Signs: Temp Pulse Resp BP Pulse Ox 98.7 F 59 L 18 125/52 L 99 08/09/17 11:41 08/09/17 11:41 08/09/17 11:41 08/09/17 11:41 08/09/17 11:41 Intake & Output 08/08/17 08/09/17 08/10/17 06:59 06:59 06:59 Intake Total 1058 1224 Output Total 1100 3000 Balance -42 -1776 Additional comments: The patient is anxious, but she does appear to respond to verbal reassurance. She has gotten less anxious over the last 48 hours. She answers questions appropriately. Her facial appearance is unremarkable. Her lungs are noted to be clear to auscultation bilaterally. Her cardiac exam is regular without murmurs, gallops or rubs. The abdomen is soft, flat and benign. Bowel sounds are present. The lower extremities are unremarkable. The skin exam is normal without lesions or rashes. She has no edema. Results Laboratory Results: 08/07/17 05:47 08/07/17 05:47 Impressions: Head CT 07/20/17 19:42 IMPRESSION: NORMAL BRAIN CT WITHOUT CONTRAST. EVIDENCE OF ACUTE STROKE: NO. Chest X-Ray 07/20/17 21:26 IMPRESSION: Left basilar pneumonitis. Chest CT 07/24/17 00:00 IMPRESSION: Near complete imaging resolution of previously diagnosed left lower lobe pneumonia. No evidence of new consolidation or adverse trend. KUB X-Ray 07/26/17 00:00 IMPRESSION: 1. NG tube in appropriate radiographic position. Thyroid Ultrasound 07/26/17 00:00 IMPRESSION: Partially cystic nodule left lobe. Assessment & Plan - Diagnosis (1) Left lower lobe pneumonia Qualifiers: Pneumonia type: due to unspecified organism Qualified Code(s): J18.1 - Lobar pneumonia, unspecified organism Is this a current diagnosis for this admission?: Yes Plan: Treated (2) Leukocytosis Is this a current diagnosis for this admission?: Yes Plan: Resolved (3) Toxic encephalopathy Is this a current diagnosis for this admission?: Yes Plan: Improving (4) Urinary retention Is this a current diagnosis for this admission?: Yes Plan: Nugent has been discontinued. She is urinating without difficulty. (5) Bipolar disorder Qualifiers: Most recent bipolar episode type: most recent episode unspecified type Is this a current diagnosis for this admission?: Yes Plan: Recommendations from psychiatry are being followed: Medication recommendations per [facility]'s contracted psychiatrist, MD Gage are as follows 1. Discontinue lithium 2. Discontinue Xanax 3. Start lorazepam 0.5 mg twice daily 4. Start Tegretol 200 mg twice daily 5. Start Seroquel 25 mg nightly as needed (6) Hypothyroidism Is this a current diagnosis for this admission?: Yes Plan: Patient is not currently on therapy (7) Acute renal failure Is this a current diagnosis for this admission?: Yes Plan: Resolved (8) [place] toxicity Qualifiers: Encounter type: initial encounter Is this a current diagnosis for this admission?: Yes Plan: [place] has been discontinued (9) Acute renal failure Is this a current diagnosis for this admission?: Yes Plan: Resolved (10) Hypernatremia Is this a current diagnosis for this admission?: Yes Plan: Resolved (11) Hypertension Is this a current diagnosis for this admission?: Yes Plan: Continue amlodipine (12) Hyperparathyroidism Is this a current diagnosis for this admission?: Yes Plan: likely associated with chronic lithium use (13) Benzodiazepine dependence Plan: Continue Ativan (14) Thyroid nodule Is this a current diagnosis for this admission?: Yes Plan: Upon discharge I would schedule the patient to see an manager rehab for follow -up on the thyroid nodule, history of hypothyroidism and elevated calcium level with elevated PTH - Time Time Spent with patient: 25-34 minutes - Inpatient Certification Medical Necessity: Risk of Complication if Not Cared For in Hospital - Plan Summary Plan Summary: Plans are being made to discharge the patient to a shelter facility.
[2017-08-09] MEDS: TAMSULOSIN HCL 0.4 MG CAP.SR.24H PO SCH (17:53)
[2017-08-09] MEDS: QUETIAPINE FUMARATE 25 MG TABLET PO PRN (21:18)
[2017-08-09] MEDS: ATORVASTATIN CALCIUM 10 MG TABLET NG SCH (21:18)
[2017-08-10 07:08] LABS: ANION GAP 9 (5-19); BLOOD UREA NITROGEN 13 mg/dL (7-20); CALCIUM 10.2 mg/dL (8.4-10.2); CARBON DIOXIDE 22 mmol/L (22-30); CHLORIDE 109 mmol/L (98-107); GLUCOSE 93 mg/dL (75-110); POTASSIUM 4.4 mmol/L (3.6-5.0); SODIUM 140.4 mmol/L (137-145)
[2017-08-10] MEDS: ENOXAPARIN SODIUM INJ 40 MG/0.4 ML DISP.SYRIN SUBCUT SCH (09:06)
[2017-08-10] MEDS: CARBAMAZEPINE 200 MG TABLET PO SCH ×2 (09:07→22:05)
[2017-08-10] MEDS: LORAZEPAM 0.5 MG TABLET PO SCH ×2 (09:07→17:02)
[2017-08-10] MEDS: CYANOCOBALAMIN (VITAMIN B-12) 1,000 MCG TABLET PO SCH (09:07)
[2017-08-10] MEDS: AMITRIPTYLINE HCL 25 MG TABLET NG SCH (09:07)
[2017-08-10] MEDS: LIOTHYRONINE SODIUM 25 MCG TABLET NG SCH (09:07)
[2017-08-10] MEDS: AMLODIPINE BESYLATE 5 MG TABLET PO SCH ×2 (09:08→22:05)
--- NOTE | 2017-08-10 13:43 | PDOC PROGRESS REPORT ---
Subjective Progress Note for:: 08/10/17 Subjective:: Patient is seen on rounds. She is resting in bed. She denies any shortness of breath, chest pain or dyspnea. She denies nausea, abdominal pain or diarrhea. She denies any arthralgias or myalgias. Remaining review of systems are negative. Summary of the patient's hospital course: The patient is a 71-year-old female who has underlying bipolar disorder as well as dementia. She presented with an acute change in mentation that was precipitated after her lithium was increased from 600 mg to 900 mg per day. It should be noted that the patient has had multiple psychiatric inpatient hospitalizations for her bipolar disorder. Her therapies have included electric shock treatments. Upon admission the patient was noted to have lithium toxicity and her lithium was held. Eventually, her lithium was resumed but she again had elevated levels of lithium and Jose Hicks from psychiatry has again discontinued the lithium. During this hospitalization the patient was treated for pneumonia. She was initially placed on ceftriaxone and doxycycline but then received 7 days worth of Zosyn for total of 10 days of treatment. During her hospital course she did have a persistent leukocytosis but this resolved after treatment with antibiotics. Her hospitalization has also been complicated by urinary retention. She required a Nugent catheter. This has been removed days ago and the patient is now urinating without difficulty. During the initial stages of the patient's hospitalization she was not able to eat secondary to her lethargic state. An NG tube was placed and she required tube feeds. The patient presented with acute renal failure secondary to dehydration. Her renal failure resolved with fluids. The patient was also noted to be hypernatremic requiring correction with D5W. During this hospitalization patient has had a persistently elevated calcium level. Her PTH levels are very elevated. Her vitamin D levels have been normal. Elevated I will see him levels with elevated levels of PTH can occur with chronic use of lithium. A thyroid ultrasound was performed showing a partially cystic nodule in the left lobe of the thyroid gland. I would recommend follow-up with Endocrinology regarding the patient's history of hypothyroidism and hyperparathyroidism with an abnormal thyroid ultrasound. Reason For Visit: TOXIC ENCEPHALOPATHY, LITHIUM TOXICITY, Physical Exam Vital Signs: Temp Pulse Resp BP Pulse Ox 98.3 F 62 20 133/68 H 98 08/10/17 07:56 08/10/17 07:56 08/10/17 07:56 08/10/17 07:56 08/10/17 07:56 Intake & Output 08/09/17 08/10/17 08/11/17 06:59 06:59 06:59 Intake Total 1224 2791 Output Total 3000 1500 Balance -1776 1291 General appearance: PRESENT: no acute distress, well-developed, well-nourished Head exam: PRESENT: atraumatic Eye exam: PRESENT: conjunctiva pink, EOMI, PERRLA. ABSENT: scleral icterus Ear exam: PRESENT: normal external ear exam Mouth exam: PRESENT: moist, tongue midline Neck exam: ABSENT: carotid bruit, JVD, lymphadenopathy, thyromegaly Respiratory exam: PRESENT: clear to auscultation gurjit. ABSENT: rales, rhonchi, wheezes Cardiovascular exam: PRESENT: RRR. ABSENT: diastolic murmur, rubs, systolic murmur Pulses: PRESENT: normal dorsalis pedis pul Vascular exam: PRESENT: normal capillary refill GI/Abdominal exam: PRESENT: ascites Rectal exam: PRESENT: deferred Extremities exam: PRESENT: full ROM. ABSENT: calf tenderness, clubbing, pedal edema Neurological exam: PRESENT: alert, altered, oriented to person, CN II-XII grossly intact Psychiatric exam: PRESENT: anxious, flat affect Skin exam: PRESENT: dry, intact, warm. ABSENT: cyanosis, rash Results Laboratory Results: 08/07/17 05:47 08/10/17 05:27 08/10/17 05:27 Sodium 140.4 Potassium 4.4 Chloride 109 H Carbon Dioxide 22 Anion Gap 9 BUN 13 Creatinine 0.84 Est GFR ( Amer) > 60 Est GFR (Non-Af Amer) > 60 Glucose 93 Calcium 10.2 Impressions: Head CT 07/20/17 19:42 IMPRESSION: NORMAL BRAIN CT WITHOUT CONTRAST. EVIDENCE OF ACUTE STROKE: NO. Chest X-Ray 07/20/17 21:26 IMPRESSION: Left basilar pneumonitis. Chest CT 07/24/17 00:00 IMPRESSION: Near complete imaging resolution of previously diagnosed left lower lobe pneumonia. No evidence of new consolidation or adverse trend. KUB X-Ray 07/26/17 00:00 IMPRESSION: 1. NG tube in appropriate radiographic position. Thyroid Ultrasound 07/26/17 00:00 IMPRESSION: Partially cystic nodule left lobe. Assessment & Plan - Diagnosis (1) [place] toxicity Qualifiers: Encounter type: initial encounter Is this a current diagnosis for this admission?: Yes Plan: Resolved (2) Anxiety Is this a current diagnosis for this admission?: Yes Plan: Continue current medications (3) Benzodiazepine dependence Is this a current diagnosis for this admission?: Yes Plan: Continue current medications (4) Candidal skin infection Is this a current diagnosis for this admission?: Yes Plan: Continue nystatin powder (5) Debility, unspecified Is this a current diagnosis for this admission?: Yes Plan: Physical therapy and short term rehab (6) Hypercalcemia Is this a current diagnosis for this admission?: Yes Plan: Secondary to hyperparathyroidism (7) Hypernatremia Is this a current diagnosis for this admission?: Yes Plan: Resolved secondary to dehydration (8) Thyroid nodule Is this a current diagnosis for this admission?: Yes Plan: Will need follow up with endocrinology (9) Toxic encephalopathy Is this a current diagnosis for this admission?: Yes (10) Urinary retention Is this a current diagnosis for this admission?: Yes Plan: Resolved (11) Bipolar disorder Qualifiers: Most recent bipolar episode type: most recent episode unspecified type Is this a current diagnosis for this admission?: Yes Plan: Continue current medications (12) Dyslipidemia Plan: Continue statin (13) Hypothyroidism Qualifiers: Hypothyroidism type: acquired Qualified Code(s): E03.9 - Hypothyroidism, unspecified Is this a current diagnosis for this admission?: Yes (14) Acute renal failure Is this a current diagnosis for this admission?: Yes - Time Time Spent with patient: 25-34 minutes Smoking Cessation Education: 3 to 10 minutes Medications reviewed and adjusted accordingly: Yes Anticipated discharge: SNF Within: when bed available - Inpatient Certification Based on my medical assessment, after consideration of the patient's comorbidities, presenting symptoms, or acuity I expect that the services needed warrant INPATIENT care.: Yes I certify that my determination is in accordance with my understanding of Medicare's requirements for reasonable and necessary INPATIENT services [42 CFR 412.3e].: Yes
[2017-08-10] MEDS: TAMSULOSIN HCL 0.4 MG CAP.SR.24H PO SCH (17:03)
[2017-08-10] MEDS: ATORVASTATIN CALCIUM 10 MG TABLET NG SCH (22:05)
[2017-08-10] MEDS: QUETIAPINE FUMARATE 25 MG TABLET PO PRN (22:05)
[2017-08-11] MEDS: PHARMACY COMMUNICATION ORDER MC NR (08:30)
[2017-08-11] MEDS ORDERED: DIPHENHYDRAMINE HCL 25 MG CAPSULE ONE (08:31)
[2017-08-11] MEDS: AMITRIPTYLINE HCL 25 MG TABLET NG SCH (10:53)
[2017-08-11] MEDS: CARBAMAZEPINE 200 MG TABLET PO SCH ×2 (10:53→21:04)
[2017-08-11] MEDS: LORAZEPAM 0.5 MG TABLET PO SCH ×2 (10:53→21:04)
[2017-08-11] MEDS: AMLODIPINE BESYLATE 5 MG TABLET PO SCH ×2 (10:53→21:04)
[2017-08-11] MEDS: CYANOCOBALAMIN (VITAMIN B-12) 1,000 MCG TABLET PO SCH (10:54)
[2017-08-11] MEDS: ENOXAPARIN SODIUM INJ 40 MG/0.4 ML DISP.SYRIN SUBCUT SCH (10:55)
[2017-08-11] MEDS: LIOTHYRONINE SODIUM 25 MCG TABLET NG SCH (10:55)
[2017-08-11] MEDS ORDERED: DEXAMETHASONE SOD PHOS INJ 10 MG/1 ML VIAL IM ONE (11:30)
[2017-08-11] MEDS ORDERED: LORAZEPAM 0.5 MG TABLET PO ONE (12:00)
[2017-08-11] MEDS ORDERED: POLYETHYLENE GLYCOL 3350 POWDER 17 GM/1 PACKET PO ONE (13:00)
--- NOTE | 2017-08-11 13:01 | PDOC PROGRESS REPORT ---
Subjective Progress Note for:: 08/11/17 Subjective:: Patient is seen on rounds. She is resting in bed. She continues to be very anxious. Nursing reports she did not sleep at all last night. She is now also complaining of a rash on both forearms and back which appears contact in nature. She states it is pruritic. She denies any chest pain, shortness of breath or dyspnea. She denies any cough. She denies any nausea, vomiting or diarrhea. She denies any arthralgias or myalgias. She admits to being very anxious. She states she wishes she had something to help her sleep better. Remaining review of systems are negative. Summary of the patient's hospital course: The patient is a 71-year-old female who has underlying bipolar disorder as well as dementia. She presented with an acute change in mentation that was precipitated after her lithium was increased from 600 mg to 900 mg per day. It should be noted that the patient has had multiple psychiatric inpatient hospitalizations for her bipolar disorder. Her therapies have included electric shock treatments. Upon admission the patient was noted to have lithium toxicity and her lithium was held. Eventually, her lithium was resumed but she again had elevated levels of lithium and Jose Hicks from psychiatry has again discontinued the lithium. During this hospitalization the patient was treated for pneumonia. She was initially placed on ceftriaxone and doxycycline but then received 7 days worth of Zosyn for total of 10 days of treatment. During her hospital course she did have a persistent leukocytosis but this resolved after treatment with antibiotics. Her hospitalization has also been complicated by urinary retention. She required a Nugent catheter. This has been removed days ago and the patient is now urinating without difficulty. During the initial stages of the patient's hospitalization she was not able to eat secondary to her lethargic state. An NG tube was placed and she required tube feeds. The patient presented with acute renal failure secondary to dehydration. Her renal failure resolved with fluids. The patient was also noted to be hypernatremic requiring correction with D5W. During this hospitalization patient has had a persistently elevated calcium level. Her PTH levels are very elevated. Her vitamin D levels have been normal. Elevated I will see him levels with elevated levels of PTH can occur with chronic use of lithium. A thyroid ultrasound was performed showing a partially cystic nodule in the left lobe of the thyroid gland. I would recommend follow-up with Endocrinology regarding the patient's history of hypothyroidism and hyperparathyroidism with an abnormal thyroid ultrasound. Reason For Visit: TOXIC ENCEPHALOPATHY, LITHIUM TOXICITY, Physical Exam Vital Signs: Temp Pulse Resp BP Pulse Ox 98.2 F 84 18 139/63 H 98 08/11/17 11:09 08/11/17 11:09 08/11/17 11:09 08/11/17 11:09 08/11/17 11:09 Intake & Output 08/10/17 08/11/17 08/12/17 06:59 06:59 06:59 Intake Total 2791 2508 Output Total 1500 2850 Balance 1291 -342 Results Laboratory Results: 08/07/17 05:47 08/10/17 05:27 Impressions: Head CT 07/20/17 19:42 IMPRESSION: NORMAL BRAIN CT WITHOUT CONTRAST. EVIDENCE OF ACUTE STROKE: NO. Chest X-Ray 07/20/17 21:26 IMPRESSION: Left basilar pneumonitis. Chest CT 07/24/17 00:00 IMPRESSION: Near complete imaging resolution of previously diagnosed left lower lobe pneumonia. No evidence of new consolidation or adverse trend. KUB X-Ray 07/26/17 00:00 IMPRESSION: 1. NG tube in appropriate radiographic position. Thyroid Ultrasound 07/26/17 00:00 IMPRESSION: Partially cystic nodule left lobe. Assessment & Plan - Diagnosis (1) Anxiety Is this a current diagnosis for this admission?: Yes Plan: Nurses reports she does not sleep at all during the night she sleeps very little during the day. Will resume her home dose of Ativan 0.5 mg every 8 hours as needed and 1 mg at bedtime. (2) Benzodiazepine dependence Is this a current diagnosis for this admission?: Yes Plan: Continue current medications (3) Candidal skin infection Is this a current diagnosis for this admission?: Yes Plan: Continue nystatin powder (4) Debility, unspecified Is this a current diagnosis for this admission?: Yes Plan: Physical therapy and short term rehab (5) Hypercalcemia Is this a current diagnosis for this admission?: Yes Plan: Secondary to hyperparathyroidism (6) Hypernatremia Is this a current diagnosis for this admission?: Yes Plan: Resolved secondary to dehydration (7) Thyroid nodule Is this a current diagnosis for this admission?: Yes Plan: Will need follow up with endocrinology (8) Toxic encephalopathy Is this a current diagnosis for this admission?: Yes Plan: Resolved (9) Urinary retention Is this a current diagnosis for this admission?: Yes Plan: Resolved continue Flomax for now (10) Bipolar disorder Qualifiers: Most recent bipolar episode type: most recent episode unspecified type Is this a current diagnosis for this admission?: Yes Plan: Continue current medications (11) Dyslipidemia Plan: Continue statin (12) Hypothyroidism Qualifiers: Hypothyroidism type: acquired Qualified Code(s): E03.9 - Hypothyroidism, unspecified Is this a current diagnosis for this admission?: Yes Plan: Continue Synthroid (13) Acute renal failure Is this a current diagnosis for this admission?: Yes Plan: Resolved (14) [place] toxicity Qualifiers: Encounter type: initial encounter Is this a current diagnosis for this admission?: Yes Plan: Resolved (15) Contact dermatitis Qualifiers: Contact dermatitis type: irritant Is this a current diagnosis for this admission?: Yes Plan: She has a red papular rash on the dorsum of her forearms and her upper and lower back. It is pruritic in nature. We will give her a dose of Decadron IM and Benadryl 50 mg p.o. every 6 hours as needed for itching
[2017-08-11] MEDS: DIPHENHYDRAMINE HCL 50 MG CAPSULE PO PRN (17:33)
[2017-08-11] MEDS: TAMSULOSIN HCL 0.4 MG CAP.SR.24H PO SCH (17:33)
[2017-08-11] MEDS: ATORVASTATIN CALCIUM 10 MG TABLET NG SCH (21:04)
[2017-08-11] MEDS: QUETIAPINE FUMARATE 25 MG TABLET PO PRN (21:04)
[2017-08-12] MEDS: DIPHENHYDRAMINE HCL 50 MG CAPSULE PO PRN ×4 (00:04→21:53)
[2017-08-12] MEDS: LORAZEPAM 1 MG TABLET PO PRN ×2 (00:04→20:57)
[2017-08-12] MEDS: LORAZEPAM 0.5 MG TABLET PO SCH ×2 (05:04→17:54)
[2017-08-12] MEDS: PHARMACY COMMUNICATION ORDER MC NR ×2 (08:20→15:03)
[2017-08-12] MEDS: AMLODIPINE BESYLATE 5 MG TABLET PO SCH ×2 (10:46→21:54)
[2017-08-12] MEDS: AMITRIPTYLINE HCL 25 MG TABLET NG SCH (10:46)
[2017-08-12] MEDS: CARBAMAZEPINE 200 MG TABLET PO SCH (10:46)
[2017-08-12] MEDS: CYANOCOBALAMIN (VITAMIN B-12) 1,000 MCG TABLET PO SCH (10:46)
[2017-08-12] MEDS: POLYETHYLENE GLYCOL 3350 POWDER 17 GM/1 PACKET PO SCH (10:47)
[2017-08-12] MEDS: LIOTHYRONINE SODIUM 25 MCG TABLET NG SCH (10:48)
--- NOTE | 2017-08-12 12:27 | PDOC PROGRESS REPORT ---
Subjective Progress Note for:: 08/12/17 Subjective:: The patient is resting in her bed. Nursing staff reports that she is developed a diffuse rash on her face neck chest back and legs as well as her arms. The rash is quite itchy and she has been receiving 50 mg of Benadryl on a regular basis with no relief. The patient herself seems to be a little anxious. She denies fever chills. No chest pain, shortness of breath or cough. No nausea, vomiting or diarrhea. No dysuria, frequency or hematuria. Psychiatry is reviewing her medications as her psychiatric regimen was recently changed and this is the most likely source of the patient's rash. Reason For Visit: TOXIC ENCEPHALOPATHY, LITHIUM TOXICITY, Physical Exam Vital Signs: Temp Pulse Resp BP Pulse Ox 98.5 F 67 16 135/57 H 100 08/12/17 11:36 08/12/17 11:36 08/12/17 11:36 08/12/17 11:36 08/12/17 11:36 Intake & Output 08/11/17 08/12/17 08/13/17 06:59 06:59 06:59 Intake Total 2508 2059 Output Total 2850 3150 Balance -342 -1091 General appearance: PRESENT: no acute distress, well-developed, well-nourished Head exam: PRESENT: atraumatic, normocephalic Mouth exam: PRESENT: moist, tongue midline Respiratory exam: PRESENT: clear to auscultation gurjit. ABSENT: rales, rhonchi, wheezes Cardiovascular exam: PRESENT: RRR. ABSENT: diastolic murmur, rubs, systolic murmur GI/Abdominal exam: PRESENT: normal bowel sounds, soft. ABSENT: distended, guarding, mass, organolmegaly, rebound, tenderness Rectal exam: PRESENT: deferred Extremities exam: PRESENT: full ROM. ABSENT: calf tenderness, clubbing, pedal edema Neurological exam: PRESENT: alert, altered, awake, oriented to person, oriented to place, oriented to time, oriented to situation Psychiatric exam: PRESENT: anxious Skin exam: PRESENT: rash - The patient has a diffuse rash on her face neck chest abdomen back legs and arms. Results Laboratory Results: 08/07/17 05:47 08/10/17 05:27 Impressions: Head CT 07/20/17 19:42 IMPRESSION: NORMAL BRAIN CT WITHOUT CONTRAST. EVIDENCE OF ACUTE STROKE: NO. Chest X-Ray 07/20/17 21:26 IMPRESSION: Left basilar pneumonitis. Chest CT 07/24/17 00:00 IMPRESSION: Near complete imaging resolution of previously diagnosed left lower lobe pneumonia. No evidence of new consolidation or adverse trend. KUB X-Ray 07/26/17 00:00 IMPRESSION: 1. NG tube in appropriate radiographic position. Thyroid Ultrasound 07/26/17 00:00 IMPRESSION: Partially cystic nodule left lobe. Assessment & Plan - Diagnosis (1) [place] toxicity Qualifiers: Encounter type: initial encounter Is this a current diagnosis for this admission?: Yes Plan: Her lithium has been stopped at the recommendation of psychiatry. It was felt that this also could be contributing to her hyperparathyroidism. She was started on a regimen of Tegretol and Seroquel as well as Xanax. At this point I believe Tegretol is most likely culprit for her rash. Psychiatry is going to review her medications and make some changes. (2) Acute renal failure Is this a current diagnosis for this admission?: Yes Plan: Resolved (3) Toxic encephalopathy Is this a current diagnosis for this admission?: Yes Plan: Secondary to lithium toxicity. Improving (4) Left lower lobe pneumonia Qualifiers: Pneumonia type: due to unspecified organism Qualified Code(s): J18.1 - Lobar pneumonia, unspecified organism Is this a current diagnosis for this admission?: Yes Plan: Concerns for gram negatives. She has completed a course of therapy. (5) Benzodiazepine dependence Is this a current diagnosis for this admission?: Yes Plan: Continue Ativan (6) Hypertension Is this a current diagnosis for this admission?: Yes Plan: Stable (7) Hyperparathyroidism Is this a current diagnosis for this admission?: Yes Plan: Possibly due to a lithium toxicity. Her calcium level is improving (8) Hypernatremia Is this a current diagnosis for this admission?: Yes Plan: Resolved with D5 water (9) Urinary retention Is this a current diagnosis for this admission?: Yes Plan: Continue Flomax. Her Nugent catheter has been removed (10) Bipolar disorder Qualifiers: Most recent bipolar episode type: most recent episode unspecified type Is this a current diagnosis for this admission?: Yes Plan: Her medications will be reviewed today by psychiatry. I do believe we need to stop her Tegretol. We certainly appreciate their input and look forward to their recommendations. (11) Anemia Is this a current diagnosis for this admission?: Yes Plan: This is quite mild likely due to multiple blood draws here in the hospital. (12) Hypokalemia Is this a current diagnosis for this admission?: Yes Plan: Repleted and resolved (13) Full code status Is this a current diagnosis for this admission?: Yes - Time Time Spent with patient: 25-34 minutes - Inpatient Certification Medical Necessity: Other - Inpatient hospitalization remains necessary. We are trying to stabilize the patient psychiatrically. She is currently awaiting subacute rehabilitation followed by possible psychiatry therapy afterwards. Currently has no bed offer
[2017-08-12] MEDS: TAMSULOSIN HCL 0.4 MG CAP.SR.24H PO SCH (17:58)
[2017-08-12 21:14] LABS: ABSOLUTE EOSINOPHILS # (AUTO) 1.2 10^3/uL (0.0-0.6); ABSOLUTE LYMPHOCYTES (AUTO) 1.7 10^3/uL (0.5-4.7); ABSOLUTE MONOCYTES (AUTO) 0.7 10^3/uL (0.1-1.4); BASOPHILS % (AUTO) 0.2 % (0-2); EOSINOPHILS % (AUTO) 10.3 % (0-6); HEMATOCRIT 36.3 % (36.0-47.0); HEMOGLOBIN 11.8 g/dL (12.0-15.5); LYMPHOCYTES % (AUTO) 14.3 % (13-45); MEAN CORPUSCULAR HEMOGLOBIN 30.3 pg (27.0-33.4); MEAN CORPUSCULAR HGB CONC 32.5 g/dL (32.0-36.0); MEAN CORPUSCULAR VOLUME 93 fl (80-97); MONOCYTES % (AUTO) 6.2 % (3-13); PLATELET COUNT 304 10^3/uL (150-450); RED CELL DISTRIBUTION WIDTH 13.2 % (11.5-14.0); TOTAL CELLS COUNTED % (AUTO) 100 %; WHITE BLOOD COUNT 11.6 10^3/uL (4.0-10.5)
[2017-08-12] MEDS: ATORVASTATIN CALCIUM 10 MG TABLET NG SCH (21:53)
[2017-08-13] MEDS: DIPHENHYDRAMINE HCL 50 MG CAPSULE PO PRN ×2 (03:24→09:53)
[2017-08-13] MEDS: LORAZEPAM 0.5 MG TABLET PO SCH ×5 (03:31→21:24)
[2017-08-13] MEDS ORDERED: HALOPERIDOL LACTATE INJ 5 MG/1 ML VIAL ONE (03:56)
[2017-08-13] MEDS ORDERED: HALOPERIDOL LACTATE INJ 5 MG/1 ML VIAL IV ONE (04:00)
[2017-08-13 06:36] LABS: ABSOLUTE EOSINOPHILS # (AUTO) 0.9 10^3/uL (0.0-0.6); ABSOLUTE LYMPHOCYTES (AUTO) 1.2 10^3/uL (0.5-4.7); ABSOLUTE MONOCYTES (AUTO) 0.7 10^3/uL (0.1-1.4); ABSOLUTE NEUT (AUTO) 7.9 10^3/uL (1.7-8.2); BASOPHILS % (AUTO) 0.1 % (0-2); EOSINOPHILS % (AUTO) 8.7 % (0-6); HEMATOCRIT 34.4 % (36.0-47.0); HEMOGLOBIN 11.7 g/dL (12.0-15.5); LYMPHOCYTES % (AUTO) 11.4 % (13-45); MEAN CORPUSCULAR HEMOGLOBIN 31.5 pg (27.0-33.4); MEAN CORPUSCULAR HGB CONC 33.9 g/dL (32.0-36.0); MEAN CORPUSCULAR VOLUME 93 fl (80-97); MONOCYTES % (AUTO) 6.5 % (3-13); PLATELET COUNT 263 10^3/uL (150-450); RED BLOOD COUNT 3.71 10^6/uL (3.72-5.28); RED CELL DISTRIBUTION WIDTH 13.1 % (11.5-14.0); SEGMENTED NEUTROPHILS % (AUTO) 73.3 % (42-78); TOTAL CELLS COUNTED % (AUTO) 100 %; WHITE BLOOD COUNT 10.8 10^3/uL (4.0-10.5)
[2017-08-13 06:48] LABS: ANION GAP 9 (5-19); BLOOD UREA NITROGEN 12 mg/dL (7-20); CALCIUM 9.7 mg/dL (8.4-10.2); CARBON DIOXIDE 22 mmol/L (22-30); CHLORIDE 106 mmol/L (98-107); GLUCOSE 90 mg/dL (75-110); SODIUM 136.8 mmol/L (137-145)
[2017-08-13] MEDS ORDERED: LORAZEPAM 1 MG TABLET PO ONE ×2 (07:48→12:30)
[2017-08-13] MEDS: AMLODIPINE BESYLATE 5 MG TABLET PO SCH ×2 (09:52→21:24)
[2017-08-13] MEDS: AMITRIPTYLINE HCL 25 MG TABLET NG SCH (09:52)
[2017-08-13] MEDS: POLYETHYLENE GLYCOL 3350 POWDER 17 GM/1 PACKET PO SCH (09:53)
[2017-08-13] MEDS: CYANOCOBALAMIN (VITAMIN B-12) 1,000 MCG TABLET PO SCH (09:53)
[2017-08-13] MEDS: LIOTHYRONINE SODIUM 25 MCG TABLET NG SCH (09:55)
[2017-08-13] MEDS ORDERED: FAMOTIDINE 20 MG TABLET PO SCH (10:00)
[2017-08-13] MEDS: PHARMACY COMMUNICATION ORDER MC NR (11:53)
[2017-08-13] MEDS ORDERED: METHYLPREDNISOLONE INJ 40 MG/1 ML SDV IV ONE (15:07)
--- NOTE | 2017-08-13 15:26 | PDOC PROGRESS REPORT ---
Subjective Progress Note for:: 08/13/17 Subjective:: The patient is a 71-year-old female who has underlying bipolar disorder as well as dementia. She presented to the emergency room initially with altered mental status after her lithium was increased from 600 mg to 900 mg per day. The patient has had multiple psychiatric inpatient hospitalizations for her bipolar disorder. She has had ECT in the past as well. Upon admission the patient was noted to have lithium toxicity and her lithium was initially held. She was followed by Rosendo Hicks from psychiatry. Eventually her lithium was resumed but it has since been discontinued due to concerns for hyperparathyroidism. During this hospitalization the patient received a course of antibiotic therapy during this hospitalization she was treated for pneumonia. Initially she was placed on ceftriaxone and doxycycline and then received 7 days worth of Zosyn for a total of 10 days of treatment. During her hospital course she did have a persistent leukocytosis but this did eventually resolve with treatment. Her hospitalization has been complicated by urinary retention. She did require a Nugent catheter but this was removed successfully and she is now urinating without difficulty. Earlier in the hospitalization the patient was not able to eat due to a lethargic state. She had an NG tube placed and she required tube feedings. This was eventually removed and her diet was successfully advanced. Also at the time of admission she had acute renal failure secondary to dehydration which has since resolved with fluid hydration. The patient also was noted to be hypernatremic requiring correction with D5 water. During this hospitalization she had a persistently elevated calcium level. Her PTH levels are very elevated and her vitamin D levels have been normal. [place] with chronic use can cause elevated PTH which is why this is been stopped. She also had a thyroid ultrasound performed which revealed a partially cystic nodule in the left lobe of the thyroid gland. The recommendation would be to follow-up with endocrinology as an outpatient regarding her history of hypothyroidism and hyperparathyroidism with an abnormal thyroid ultrasound. After her lithium was discontinued by psychiatry she was placed on a regimen with Tegretol with Seroquel as needed. The patient then began breaking out in a diffuse rash which has worsened. Her Tegretol was stopped yesterday however the patient has a persistent rash covering basically her entire body. She has been receiving oral Benadryl and was placed on p.o. Pepcid with no relief. The patient's wanted to stay away from steroids as she has had significant manic episode in the past after being placed on prednisone. Today when I saw her she is sleeping but arousable. She states that the rash is itching her and she is just miserable. She denies fever chills. No chest pain, shortness of breath or cough. No nausea, vomiting or diarrhea. No dysuria, frequency or hematuria. I am not sure how good this review of systems is as she is somewhat sedated from the Benadryl. Reason For Visit: TOXIC ENCEPHALOPATHY, LITHIUM TOXICITY, Physical Exam Vital Signs: Temp Pulse Resp BP Pulse Ox 97.8 F 60 18 135/65 H 100 08/13/17 07:32 08/13/17 07:32 08/13/17 07:32 08/13/17 07:32 08/13/17 07:32 Intake & Output 08/12/17 08/13/17 08/14/17 06:59 06:59 06:59 Intake Total 2059 1230 Output Total 3150 1800 Balance -1091 -570 General appearance: PRESENT: well-developed, other - She is somewhat somnolent but arousable. Head exam: PRESENT: atraumatic, normocephalic Mouth exam: PRESENT: dry mucosa Respiratory exam: PRESENT: clear to auscultation gurjit. ABSENT: rales, rhonchi, wheezes Cardiovascular exam: PRESENT: RRR. ABSENT: diastolic murmur, rubs, systolic murmur GI/Abdominal exam: PRESENT: normal bowel sounds, soft. ABSENT: distended, guarding, mass, organolmegaly, rebound, tenderness Rectal exam: PRESENT: deferred Extremities exam: PRESENT: full ROM. ABSENT: calf tenderness, clubbing, pedal edema Neurological exam: PRESENT: other - Somewhat somnolent today. She is arousable and oriented 3. Psychiatric exam: PRESENT: appropriate affect, normal mood. ABSENT: homicidal ideation, suicidal ideation Skin exam: PRESENT: other - She has a diffuse macular rash on her face, neck, chest, abdomen and pelvis. Also on her back, buttocks and both of her arms and legs Results Laboratory Results: 08/13/17 06:18 08/13/17 06:18 08/12/17 08/13/17 08/13/17 21:00 06:18 06:18 WBC 11.6 H 10.8 H RBC 3.90 3.71 L Hgb 11.8 L 11.7 L Hct 36.3 34.4 L MCV 93 93 MCH 30.3 31.5 MCHC 32.5 33.9 RDW 13.2 13.1 Plt Count 304 263 Seg Neutrophils % 69.0 73.3 Lymphocytes % 14.3 11.4 L Monocytes % 6.2 6.5 Eosinophils % 10.3 H 8.7 H Basophils % 0.2 0.1 Absolute Neutrophils 8.0 7.9 Absolute Lymphocytes 1.7 1.2 Absolute Monocytes 0.7 0.7 Absolute Eosinophils 1.2 H 0.9 H Absolute Basophils 0.0 0.0 Sodium 136.8 L Potassium 4.0 Chloride 106 Carbon Dioxide 22 Anion Gap 9 BUN 12 Creatinine 0.89 Est GFR ( Amer) > 60 Est GFR (Non-Af Amer) > 60 Glucose 90 Calcium 9.7 Magnesium 1.9 Impressions: Head CT 07/20/17 19:42 IMPRESSION: NORMAL BRAIN CT WITHOUT CONTRAST. EVIDENCE OF ACUTE STROKE: NO. Chest X-Ray 07/20/17 21:26 IMPRESSION: Left basilar pneumonitis. Chest CT 07/24/17 00:00 IMPRESSION: Near complete imaging resolution of previously diagnosed left lower lobe pneumonia. No evidence of new consolidation or adverse trend. KUB X-Ray 07/26/17 00:00 IMPRESSION: 1. NG tube in appropriate radiographic position. Thyroid Ultrasound 07/26/17 00:00 IMPRESSION: Partially cystic nodule left lobe. Assessment & Plan - Diagnosis (1) [place] toxicity Qualifiers: Encounter type: initial encounter Is this a current diagnosis for this admission?: Yes Plan: Her lithium has been stopped at the recommendation of psychiatry. It was felt that this also could be contributing to her hyperparathyroidism. She was started on a regimen of Tegretol and Seroquel as well as Xanax. At this point I believe Tegretol is most likely culprit for her rash. Her Tegretol has been stopped at this point. (2) Rash Is this a current diagnosis for this admission?: Yes Plan: I believe this is a drug reaction to Tegretol which is since been stopped. We have been trying oral therapies with no relief. I am going to have the nursing staff place an IV today. We will place the patient on IV Benadryl and Pepcid. She has not tolerated prednisone in the past. I will give her a one-time dose of 40 mg of IV Solu-Medrol. If she tolerates this well and the rash is improving we could continue with additional dosages. I also am going to order some hydrocortisone cream for the worst areas. (3) Acute renal failure Is this a current diagnosis for this admission?: Yes Plan: Resolved with IV fluid hydration. The patient is sleeping quite a bit due to frequent Benadryl. I am going to start her on some gentle hydration so that she does not get dehydrated again while we are treating her rash. (4) Toxic encephalopathy Is this a current diagnosis for this admission?: Yes Plan: Secondary to lithium toxicity. Improving (5) Left lower lobe pneumonia Qualifiers: Pneumonia type: due to unspecified organism Qualified Code(s): J18.1 - Lobar pneumonia, unspecified organism Is this a current diagnosis for this admission?: Yes Plan: Concerns for gram negatives. She has completed a course of therapy. She completed 3 days of IV Rocephin and doxycycline and 6 days of IV Zosyn. (6) Benzodiazepine dependence Is this a current diagnosis for this admission?: Yes Plan: Continue Ativan (7) Hypertension Is this a current diagnosis for this admission?: Yes Plan: Stable. Continue amlodipine 5 mg twice daily. (8) Hyperparathyroidism Is this a current diagnosis for this admission?: Yes Plan: Possibly due to a lithium toxicity. Her calcium level is improving. She will need outpatient endocrinology follow-up (9) Hypernatremia Is this a current diagnosis for this admission?: Yes Plan: Resolved with D5 water (10) Urinary retention Is this a current diagnosis for this admission?: Yes Plan: Continue Flomax. Her Nugent catheter has been removed. We will have to watch her closely for signs of urinary retention due to frequent Benadryl dosing. (11) Bipolar disorder Qualifiers: Most recent bipolar episode type: most recent episode unspecified type Is this a current diagnosis for this admission?: Yes Plan: I will defer treatment of her bipolar disorder to psychiatry. Clearly she cannot tolerate Tegretol. Also it does not appear that she can use lithium. (12) Anemia Is this a current diagnosis for this admission?: Yes Plan: This is quite mild likely due to multiple blood draws here in the hospital. (13) Hypokalemia Is this a current diagnosis for this admission?: Yes Plan: Repleted and resolved (14) Full code status Is this a current diagnosis for this admission?: Yes - Time Time Spent with patient: 25-34 minutes - Inpatient Certification Medical Necessity: Need For IV Fluids, Other - Inpatient hospitalization remains necessary. It is my understanding that she will need subacute rehabilitation prior to pursuing probable inpatient psychiatric treatment. At this time she is having a severe reaction that has not improved. She now is going to be requiring parenteral therapies for this. Timing of disposition will be when her rash resolves and when a bed is available for subacute rehabilitation.
[2017-08-13] MEDS: TAMSULOSIN HCL 0.4 MG CAP.SR.24H PO SCH (17:43)
[2017-08-13] MEDS: HYDROCORTISONE 1% CREAM 28.35 GM TP SCH (17:43)
[2017-08-13] MEDS: DIPHENHYDRAMINE HCL 50 MG/ML VIAL IV PRN (20:00)
[2017-08-13] MEDS: FAMOTIDINE INJ/PF 20 MG/2 ML SDV IV SCH (21:24)
[2017-08-13] MEDS: ATORVASTATIN CALCIUM 10 MG TABLET NG SCH (21:24)
[2017-08-14] MEDS: DIPHENHYDRAMINE HCL 50 MG/ML VIAL IV PRN ×3 (00:05→07:46)
[2017-08-14] MEDS: NORMAL SALINE 1000 ML 1,000 ML IV PRN (00:28)
[2017-08-14] MEDS: QUETIAPINE FUMARATE 25 MG TABLET PO PRN ×2 (00:28→23:22)
[2017-08-14] MEDS: LORAZEPAM 0.5 MG TABLET PO SCH ×3 (05:22→21:38)
[2017-08-14 07:09] LABS: ANION GAP 12 (5-19); BLOOD UREA NITROGEN 14 mg/dL (7-20); CALCIUM 10.2 mg/dL (8.4-10.2); CARBON DIOXIDE 21 mmol/L (22-30); CHLORIDE 104 mmol/L (98-107); GLUCOSE 81 mg/dL (75-110); POTASSIUM 4.2 mmol/L (3.6-5.0); SODIUM 137.3 mmol/L (137-145)
[2017-08-14] MEDS: POLYETHYLENE GLYCOL 3350 POWDER 17 GM/1 PACKET PO SCH (09:26)
[2017-08-14] MEDS: AMITRIPTYLINE HCL 25 MG TABLET NG SCH (09:30)
[2017-08-14] MEDS: CYANOCOBALAMIN (VITAMIN B-12) 1,000 MCG TABLET PO SCH (09:30)
[2017-08-14] MEDS: AMLODIPINE BESYLATE 5 MG TABLET PO SCH ×2 (09:30→21:38)
[2017-08-14] MEDS: LIOTHYRONINE SODIUM 25 MCG TABLET NG SCH (09:31)
[2017-08-14] MEDS: HYDROCORTISONE 1% CREAM 28.35 GM TP SCH ×2 (09:31→16:49)
[2017-08-14] MEDS: FAMOTIDINE INJ/PF 20 MG/2 ML SDV IV SCH ×2 (09:31→21:38)
[2017-08-14] MEDS: FLUOCINONIDE 0.05% CREAM 15 GM TP PRN (15:00)
[2017-08-14] MEDS: HYDROXYZINE PAMOATE 25 MG CAPSULE PO PRN (16:45)
--- NOTE | 2017-08-14 17:18 | PDOC PROGRESS REPORT ---
Subjective Progress Note for:: 08/14/17 Subjective:: The patient is a 71-year-old female who has underlying bipolar disorder as well as dementia. She presented to the emergency room initially with altered mental status after her lithium was increased from 600 mg to 900 mg per day. The patient has had multiple psychiatric inpatient hospitalizations for her bipolar disorder. She has had ECT in the past as well. Upon admission the patient was noted to have lithium toxicity and her lithium was initially held. She was followed by Rosenod Hicks from psychiatry. Eventually her lithium was resumed but it has since been discontinued due to concerns for hyperparathyroidism. During this hospitalization the patient received a course of antibiotic therapy during this hospitalization she was treated for pneumonia. Initially she was placed on ceftriaxone and doxycycline and then received 7 days worth of Zosyn for a total of 10 days of treatment. During her hospital course she did have a persistent leukocytosis but this did eventually resolve with treatment. Her hospitalization has been complicated by urinary retention. She did require a Nugent catheter but this was removed successfully and she is now urinating without difficulty. Earlier in the hospitalization the patient was not able to eat due to a lethargic state. She had an NG tube placed and she required tube feedings. This was eventually removed and her diet was successfully advanced. Also at the time of admission she had acute renal failure secondary to dehydration which has since resolved with fluid hydration. The patient also was noted to be hypernatremic requiring correction with D5 water. During this hospitalization she had a persistently elevated calcium level. Her PTH levels are very elevated and her vitamin D levels have been normal. [place] with chronic use can cause elevated PTH which is why this is been stopped. She also had a thyroid ultrasound performed which revealed a partially cystic nodule in the left lobe of the thyroid gland. The recommendation would be to follow-up with endocrinology as an outpatient regarding her history of hypothyroidism and hyperparathyroidism with an abnormal thyroid ultrasound. After her lithium was discontinued by psychiatry she was placed on a regimen with Tegretol with Seroquel as needed. The patient then began breaking out in a diffuse rash which has worsened. Her Tegretol was stopped yesterday however the patient has a persistent rash covering basically her entire body. She has been receiving oral Benadryl and was placed on p.o. Pepcid with no relief. The patient's wanted to stay away from steroids as she has had significant manic episode in the past after being placed on prednisone. Patient's rash is still extensive and itchy minimal relief with the current emollients. She has been taking off Tegretol is the most likely culprit Reason For Visit: TOXIC ENCEPHALOPATHY, LITHIUM TOXICITY, Physical Exam Vital Signs: Temp Pulse Resp BP Pulse Ox 99.1 F 75 18 152/60 H 99 08/14/17 12:36 08/14/17 12:36 08/14/17 12:36 08/14/17 12:36 08/14/17 12:36 Intake & Output 08/13/17 08/14/17 08/15/17 06:59 06:59 06:59 Intake Total 1230 1900 Output Total 1800 2100 Balance -570 -200 General appearance: PRESENT: no acute distress Head exam: PRESENT: atraumatic Mouth exam: PRESENT: dry mucosa Neck exam: ABSENT: carotid bruit, JVD, lymphadenopathy, thyromegaly Respiratory exam: PRESENT: clear to auscultation gurjit. ABSENT: rales, rhonchi, wheezes Cardiovascular exam: PRESENT: RRR. ABSENT: diastolic murmur, rubs, systolic murmur GI/Abdominal exam: PRESENT: normal bowel sounds, soft. ABSENT: distended, guarding, mass, organolmegaly, rebound, tenderness Rectal exam: PRESENT: deferred Neurological exam: PRESENT: alert, awake, oriented to person, oriented to time Skin exam: PRESENT: erythema, rash, urticaria, other - Generalized erythematous rash with minimal pustles mostly in the anterior chest wall and abdominal area as well as the lower extremity Results Laboratory Results: 08/13/17 06:18 08/14/17 06:13 08/14/17 06:13 Sodium 137.3 Potassium 4.2 Chloride 104 Carbon Dioxide 21 L Anion Gap 12 BUN 14 Creatinine 0.95 Est GFR ( Amer) > 60 Est GFR (Non-Af Amer) 58 L Glucose 81 Calcium 10.2 Magnesium 2.1 Impressions: Head CT 07/20/17 19:42 IMPRESSION: NORMAL BRAIN CT WITHOUT CONTRAST. EVIDENCE OF ACUTE STROKE: NO. Chest X-Ray 07/20/17 21:26 IMPRESSION: Left basilar pneumonitis. Chest CT 07/24/17 00:00 IMPRESSION: Near complete imaging resolution of previously diagnosed left lower lobe pneumonia. No evidence of new consolidation or adverse trend. KUB X-Ray 07/26/17 00:00 IMPRESSION: 1. NG tube in appropriate radiographic position. Thyroid Ultrasound 07/26/17 00:00 IMPRESSION: Partially cystic nodule left lobe. Assessment & Plan - Inpatient Certification Based on my medical assessment, after consideration of the patient's comorbidities, presenting symptoms, or acuity I expect that the services needed warrant INPATIENT care.: Yes I certify that my determination is in accordance with my understanding of Medicare's requirements for reasonable and necessary INPATIENT services [42 CFR 412.3e].: Yes Medical Necessity: Significant Comorbidiites Make Outpatient Treatment Too Risky , Risk of Complication if Not Cared For in Hospital - Plan Summary Plan Summary: Acute generalizede exanthematous pustulosis most likely secondary to carbamazepine. She has been taken off the Tegretol. We will continue with steroid cream as well as antihistamines. If needed will use some calamine lotion. #2 lithium toxicity-e lithium has since been discontinued 3. Acute renal failure likely secondary to dehydration. We will continue IV fluid hydration and avoid nephrotoxic agents 4. Toxic encephalopathy secondary to lithium toxicity improving 5. Left lower lobe pneumonia possibly gram-negative etiology. Currently off antibiotics 6. Benzodiazepine dependence continue judicious Ativan use #7 hypertension controlled 8. Hyperparathyroidism possibly due to lithium toxicity. We will continue to follow calcium levels 9. Hyponatremia resolved 10. Urinary retention continue Flomax 11. Bipolar disorder for which she was on lithium which was discontinued due to toxicity. She will have to follow up with psychiatry for appropriate medications 12. Anemia likely precipitated by prolonged hospitalization
[2017-08-14] MEDS: TAMSULOSIN HCL 0.4 MG CAP.SR.24H PO SCH (17:41)
[2017-08-14] MEDS: ATORVASTATIN CALCIUM 10 MG TABLET NG SCH (21:38)
[2017-08-15] MEDS: HYDROXYZINE PAMOATE 25 MG CAPSULE PO PRN ×2 (00:10→08:26)
[2017-08-15] MEDS: FLUOCINONIDE 0.05% CREAM 15 GM TP PRN (05:02)
[2017-08-15] MEDS: LORAZEPAM 0.5 MG TABLET PO SCH ×2 (05:02→14:01)
[2017-08-15] MEDS: POLYETHYLENE GLYCOL 3350 POWDER 17 GM/1 PACKET PO SCH (09:42)
[2017-08-15] MEDS: AMITRIPTYLINE HCL 25 MG TABLET NG SCH (09:43)
[2017-08-15] MEDS: AMLODIPINE BESYLATE 5 MG TABLET PO SCH ×2 (09:43→21:36)
[2017-08-15] MEDS: CYANOCOBALAMIN (VITAMIN B-12) 1,000 MCG TABLET PO SCH (09:44)
[2017-08-15] MEDS: FAMOTIDINE INJ/PF 20 MG/2 ML SDV IV SCH ×2 (09:44→21:36)
[2017-08-15] MEDS: LIOTHYRONINE SODIUM 25 MCG TABLET NG SCH (09:45)
[2017-08-15] MEDS ORDERED: FLUOCINONIDE 0.05% CREAM 15 GM TP PRN ×2 (12:07→16:56)
[2017-08-15] MEDS: ACETAMINOPHEN 325 MG TABLET PO PRN (12:18)
[2017-08-15] MEDS ORDERED: HYDROXYZINE PAMOATE 50 MG CAPSULE PO PRN (12:29)
[2017-08-15] MEDS: FLUOCINONIDE 0.05% CREAM 15 GM TP SCH ×2 (13:59→21:37)
--- NOTE | 2017-08-15 16:53 | PDOC PROGRESS REPORT ---
Subjective Progress Note for:: 08/15/17 Subjective:: The patient is a 71-year-old female who has underlying bipolar disorder as well as dementia. She presented to the emergency room initially with altered mental status after her lithium was increased from 600 mg to 900 mg per day. The patient has had multiple psychiatric inpatient hospitalizations for her bipolar disorder. She has had ECT in the past as well. Upon admission the patient was noted to have lithium toxicity and her lithium was initially held. She was followed by Rosendo Hicks from psychiatry. Eventually her lithium was resumed but it has since been discontinued due to concerns for hyperparathyroidism. During this hospitalization the patient received a course of antibiotic therapy during this hospitalization she was treated for pneumonia. Initially she was placed on ceftriaxone and doxycycline and then received 7 days worth of Zosyn for a total of 10 days of treatment. During her hospital course she did have a persistent leukocytosis but this did eventually resolve with treatment. Her hospitalization has been complicated by urinary retention. She did require a Nugent catheter but this was removed successfully and she is now urinating without difficulty. Earlier in the hospitalization the patient was not able to eat due to a lethargic state. She had an NG tube placed and she required tube feedings. This was eventually removed and her diet was successfully advanced. Also at the time of admission she had acute renal failure secondary to dehydration which has since resolved with fluid hydration. The patient also was noted to be hypernatremic requiring correction with D5 water. During this hospitalization she had a persistently elevated calcium level. Her PTH levels are very elevated and her vitamin D levels have been normal. [place] with chronic use can cause elevated PTH which is why this is been stopped. She also had a thyroid ultrasound performed which revealed a partially cystic nodule in the left lobe of the thyroid gland. The recommendation would be to follow-up with endocrinology as an outpatient regarding her history of hypothyroidism and hyperparathyroidism with an abnormal thyroid ultrasound. After her lithium was discontinued by psychiatry she was placed on a regimen with Tegretol with Seroquel as needed. The patient then began breaking out in a diffuse rash which has worsened. Her Tegretol was stopped yesterday however the patient has a persistent rash covering basically her entire body. She has been receiving oral Benadryl and was placed on p.o. Pepcid with no relief. The patient's wanted to stay away from steroids as she has had significant manic episode in the past after being placed on prednisone. Patient's rash is still extensive and itchy but appears to be less erythematous. She has been taking off Tegretol is the most likely culprit Reason For Visit: TOXIC ENCEPHALOPATHY, LITHIUM TOXICITY, Physical Exam Vital Signs: Temp Pulse Resp BP Pulse Ox 98.8 F 86 20 113/69 100 08/15/17 12:00 08/15/17 12:00 08/15/17 12:00 08/15/17 12:00 08/15/17 12:00 Intake & Output 08/14/17 08/15/17 08/16/17 06:59 06:59 06:59 Intake Total 1900 1076 Output Total 2100 1300 Balance -200 -224 General appearance: PRESENT: no acute distress Ear exam: PRESENT: normal external ear exam Neck exam: ABSENT: carotid bruit, JVD, lymphadenopathy, thyromegaly Respiratory exam: PRESENT: clear to auscultation gurjit. ABSENT: rales, rhonchi, wheezes Pulses: PRESENT: normal carotid pulses GI/Abdominal exam: PRESENT: normal bowel sounds, soft. ABSENT: distended, guarding, mass, organolmegaly, rebound, tenderness Neurological exam: PRESENT: alert, oriented to person, oriented to situation Skin exam: PRESENT: erythema - Generalized, rash, urticaria Results Laboratory Results: 08/13/17 06:18 08/14/17 06:13 Impressions: Head CT 07/20/17 19:42 IMPRESSION: NORMAL BRAIN CT WITHOUT CONTRAST. EVIDENCE OF ACUTE STROKE: NO. Chest X-Ray 07/20/17 21:26 IMPRESSION: Left basilar pneumonitis. Chest CT 07/24/17 00:00 IMPRESSION: Near complete imaging resolution of previously diagnosed left lower lobe pneumonia. No evidence of new consolidation or adverse trend. KUB X-Ray 07/26/17 00:00 IMPRESSION: 1. NG tube in appropriate radiographic position. Thyroid Ultrasound 07/26/17 00:00 IMPRESSION: Partially cystic nodule left lobe. Assessment & Plan - Time Time Spent with patient: 15-24 minutes Medications reviewed and adjusted accordingly: Yes Anticipated discharge: Home Within: within 72 hours - Plan Summary Plan Summary: Acute generalizede exanthematous pustulosis most likely secondary to carbamazepine. Off Tegretol. We will continue with steroid cream as well as antihistamines. #2 lithium toxicity-e lithium has since been discontinued 3. Acute renal failure likely secondary to dehydration. Continue IV fluid hydration and avoid nephrotoxic agents 4. Toxic encephalopathy secondary to lithium toxicity improving 5. Left lower lobe pneumonia possibly gram-negative etiology. Currently off antibiotics 6. Benzodiazepine dependence continue judicious Ativan use #7 hypertension controlled 8. Hyperparathyroidism possibly due to lithium toxicity. We will continue to follow calcium levels 9. Hyponatremia resolved 10. Urinary retention continue Flomax 11. Bipolar disorder for which she was on lithium which was discontinued due to toxicity. She will have to follow up with psychiatry for appropriate medications 12. Anemia likely precipitated by prolonged hospitalization- mild, H and H stable
[2017-08-15] MEDS: TAMSULOSIN HCL 0.4 MG CAP.SR.24H PO SCH (18:18)
[2017-08-15] MEDS: ATORVASTATIN CALCIUM 10 MG TABLET NG SCH (21:35)
[2017-08-15] MEDS: LORAZEPAM 1 MG TABLET PO PRN (21:36)
[2017-08-16] MEDS: HYDROXYZINE PAMOATE 50 MG CAPSULE PO PRN ×3 (02:08→22:43)
[2017-08-16] MEDS: LORAZEPAM 0.5 MG TABLET PO PRN ×2 (02:08→18:46)
[2017-08-16] MEDS: FLUOCINONIDE 0.05% CREAM 15 GM TP SCH (06:56)
[2017-08-16] MEDS ORDERED: CALAMINE/ZINC OXIDE LOTION 177 ML/BOTTLE TP PRN (08:57)
[2017-08-16] MEDS: AMLODIPINE BESYLATE 5 MG TABLET PO SCH ×2 (11:42→22:37)
[2017-08-16] MEDS: FAMOTIDINE 20 MG TABLET PO SCH ×2 (11:42→22:37)
[2017-08-16] MEDS: CYANOCOBALAMIN (VITAMIN B-12) 1,000 MCG TABLET PO SCH (11:43)
[2017-08-16] MEDS: LIOTHYRONINE SODIUM 25 MCG TABLET NG SCH (11:43)
[2017-08-16] MEDS: POLYETHYLENE GLYCOL 3350 POWDER 17 GM/1 PACKET PO SCH (11:43)
[2017-08-16] MEDS: AMITRIPTYLINE HCL 25 MG TABLET NG SCH (12:20)
[2017-08-16] MEDS: ACETAMINOPHEN 325 MG TABLET PO PRN (16:52)
[2017-08-16] MEDS: TAMSULOSIN HCL 0.4 MG CAP.SR.24H PO SCH (17:13)
--- NOTE | 2017-08-16 19:03 | PDOC PROGRESS REPORT ---
Subjective Progress Note for:: 08/16/17 Subjective:: The patient is a 71-year-old female who has underlying bipolar disorder as well as dementia. She presented to the emergency room initially with altered mental status after her lithium was increased from 600 mg to 900 mg per day. The patient has had multiple psychiatric inpatient hospitalizations for her bipolar disorder. She has had ECT in the past as well. Upon admission the patient was noted to have lithium toxicity and her lithium was initially held. She was followed by Rosendo Hicks from psychiatry. Eventually her lithium was resumed but it has since been discontinued due to concerns for hyperparathyroidism. During this hospitalization the patient received a course of antibiotic therapy during this hospitalization she was treated for pneumonia. Initially she was placed on ceftriaxone and doxycycline and then received 7 days worth of Zosyn for a total of 10 days of treatment. During her hospital course she did have a persistent leukocytosis but this did eventually resolve with treatment. Her hospitalization has been complicated by urinary retention. She did require a Nugent catheter but this was removed successfully and she is now urinating without difficulty. Earlier in the hospitalization the patient was not able to eat due to a lethargic state. She had an NG tube placed and she required tube feedings. This was eventually removed and her diet was successfully advanced. Also at the time of admission she had acute renal failure secondary to dehydration which has since resolved with fluid hydration. The patient also was noted to be hypernatremic requiring correction with D5 water. During this hospitalization she had a persistently elevated calcium level. Her PTH levels are very elevated and her vitamin D levels have been normal. [place] with chronic use can cause elevated PTH which is why this is been stopped. She also had a thyroid ultrasound performed which revealed a partially cystic nodule in the left lobe of the thyroid gland. The recommendation would be to follow-up with endocrinology as an outpatient regarding her history of hypothyroidism and hyperparathyroidism with an abnormal thyroid ultrasound. After her lithium was discontinued by psychiatry she was placed on a regimen with Tegretol with Seroquel as needed. The patient then began breaking out in a diffuse rash which has worsened. Her Tegretol was stopped yesterday however the patient has a persistent rash covering basically her entire body. She has been receiving oral Benadryl and was placed on p.o. Pepcid with no relief. The patient's wanted to stay away from steroids as she has had significant manic episode in the past after being placed on prednisone. Patient's rash is still extensive and itchy but it is improving. She has been taking off Tegretol is the most likely culprit Reason For Visit: TOXIC ENCEPHALOPATHY, LITHIUM TOXICITY, Physical Exam Vital Signs: Temp Pulse Resp BP Pulse Ox 98.6 F 85 18 128/98 H 100 08/16/17 16:00 08/16/17 16:00 08/16/17 16:00 08/16/17 16:00 08/16/17 16:00 Intake & Output 08/15/17 08/16/17 08/17/17 06:59 06:59 06:59 Intake Total 6026 915 0866 Output Total 1300 Balance -613 272 1501 General appearance: PRESENT: no acute distress, cooperative Neck exam: ABSENT: carotid bruit, JVD, lymphadenopathy, thyromegaly Respiratory exam: PRESENT: clear to auscultation gurjit. ABSENT: rales, rhonchi, wheezes Cardiovascular exam: PRESENT: RRR. ABSENT: diastolic murmur, rubs, systolic murmur Pulses: PRESENT: normal dorsalis pedis pul GI/Abdominal exam: PRESENT: normal bowel sounds, soft. ABSENT: distended, guarding, mass, organolmegaly, rebound, tenderness Rectal exam: PRESENT: deferred Neurological exam: PRESENT: alert, awake, oriented to person Psychiatric exam: PRESENT: anxious Skin exam: PRESENT: erythema - generalized erythematous lesions, rash, skin tears, other Results Laboratory Results: 08/13/17 06:18 08/14/17 06:13 Impressions: Head CT 07/20/17 19:42 IMPRESSION: NORMAL BRAIN CT WITHOUT CONTRAST. EVIDENCE OF ACUTE STROKE: NO. Chest X-Ray 07/20/17 21:26 IMPRESSION: Left basilar pneumonitis. Chest CT 07/24/17 00:00 IMPRESSION: Near complete imaging resolution of previously diagnosed left lower lobe pneumonia. No evidence of new consolidation or adverse trend. KUB X-Ray 07/26/17 00:00 IMPRESSION: 1. NG tube in appropriate radiographic position. Thyroid Ultrasound 07/26/17 00:00 IMPRESSION: Partially cystic nodule left lobe. Assessment & Plan - Time Time Spent with patient: 15-24 minutes Anticipated discharge: Home Within: within 48 hours - Plan Summary Plan Summary: Acute generalizede exanthematous pustulosis most likely secondary to carbamazepine. Off Tegretol. We will continue with steroid cream as well as antihistamines. She is on Calamine lotion. #2 lithium toxicity-lithium has since been discontinued. Consider psych consult to start on alternative antipsychotics 3. Acute renal failure likely secondary to dehydration. Continue IV fluid hydration and avoid nephrotoxic agents 4. Toxic encephalopathy secondary to lithium toxicity improving 5. Left lower lobe pneumonia possibly gram-negative etiology. Currently off antibiotics 6. Benzodiazepine dependence continue judicious Ativan use #7 hypertension controlled 8. Hyperparathyroidism possibly due to lithium toxicity. We will continue to follow calcium levels which is improved. 9. Hyponatremia resolved 10. Urinary retention continue Flomax 11. Bipolar disorder for which she was on lithium which was discontinued due to toxicity. 12. Anemia likely precipitated by prolonged hospitalization- mild, H and H stable
[2017-08-16] MEDS: ATORVASTATIN CALCIUM 10 MG TABLET NG SCH (22:37)
[2017-08-16] MEDS: LORAZEPAM 1 MG TABLET PO PRN (22:43)
[2017-08-17] MEDS: QUETIAPINE FUMARATE 25 MG TABLET PO PRN ×2 (00:29→20:52)
[2017-08-17] MEDS: HYDROXYZINE PAMOATE 50 MG CAPSULE PO PRN ×3 (05:25→20:51)
[2017-08-17] MEDS: AMLODIPINE BESYLATE 5 MG TABLET PO SCH ×2 (10:31→20:52)
[2017-08-17] MEDS: FAMOTIDINE 20 MG TABLET PO SCH ×2 (10:32→20:51)
[2017-08-17] MEDS: AMITRIPTYLINE HCL 25 MG TABLET NG SCH (10:32)
[2017-08-17] MEDS: LORAZEPAM 0.5 MG TABLET PO PRN ×2 (10:32→16:20)
[2017-08-17] MEDS: CYANOCOBALAMIN (VITAMIN B-12) 1,000 MCG TABLET PO SCH (10:32)
[2017-08-17] MEDS: LIOTHYRONINE SODIUM 25 MCG TABLET NG SCH (10:32)
[2017-08-17] MEDS: POLYETHYLENE GLYCOL 3350 POWDER 17 GM/1 PACKET PO SCH (12:02)
--- NOTE | 2017-08-17 15:37 | PDOC PROGRESS REPORT ---
Subjective Progress Note for:: 08/17/17 Subjective:: Patient a 71 year old woman with history of bipolar disorder, sick sinus syndrome post pacemaker, dementia, and hypothyroidism admitted since 07/20 with toxic encephalopathy 2/2 to [place] which was held and she was changes to Tegretol, she developed diffuse rash which has been improving and has been stopped. She was seen this am and she reports pruritus. Her friend was visiting this am and she had pictures of the rash. Reason For Visit: TOXIC ENCEPHALOPATHY, LITHIUM TOXICITY, Physical Exam Vital Signs: Temp Pulse Resp BP Pulse Ox 98.9 F 86 16 143/61 H 97 08/17/17 12:19 08/17/17 12:19 08/17/17 12:19 08/17/17 12:19 08/17/17 12:19 Intake & Output 08/16/17 08/17/17 08/18/17 06:59 06:59 06:59 Intake Total 713 1815 Balance 713 1815 General appearance: PRESENT: no acute distress Head exam: PRESENT: atraumatic, normocephalic Eye exam: PRESENT: EOMI Mouth exam: PRESENT: moist Neck exam: PRESENT: full ROM Respiratory exam: PRESENT: clear to auscultation gurjit, unlabored Cardiovascular exam: PRESENT: RRR GI/Abdominal exam: PRESENT: normal bowel sounds, soft Rectal exam: PRESENT: deferred Extremities exam: PRESENT: full ROM Neurological exam: PRESENT: alert, awake, oriented to situation Psychiatric exam: PRESENT: appropriate affect Skin exam: PRESENT: dry, rash - erythema and diffuse Results Laboratory Results: 08/13/17 06:18 08/14/17 06:13 Impressions: Head CT 07/20/17 19:42 IMPRESSION: NORMAL BRAIN CT WITHOUT CONTRAST. EVIDENCE OF ACUTE STROKE: NO. Chest X-Ray 07/20/17 21:26 IMPRESSION: Left basilar pneumonitis. Chest CT 07/24/17 00:00 IMPRESSION: Near complete imaging resolution of previously diagnosed left lower lobe pneumonia. No evidence of new consolidation or adverse trend. KUB X-Ray 07/26/17 00:00 IMPRESSION: 1. NG tube in appropriate radiographic position. Thyroid Ultrasound 07/26/17 00:00 IMPRESSION: Partially cystic nodule left lobe. Assessment & Plan - Diagnosis (1) Erythematosquamous dermatosis Is this a current diagnosis for this admission?: Yes Plan: Much improving and continue current management (2) [place] poisoning Is this a current diagnosis for this admission?: Yes Plan: It has been discontinued (3) Toxic encephalopathy Is this a current diagnosis for this admission?: Yes Plan: due to [place] and has been discontinued (4) Pneumonia Qualifiers: Pneumonia type: due to unspecified organism Is this a current diagnosis for this admission?: Yes Plan: Completed antibiotic regimen (5) Hypercalcemia Is this a current diagnosis for this admission?: Yes Plan: Resolved (6) Hyperparathyroidism , secondary, non-renal Is this a current diagnosis for this admission?: Yes Plan: Hypercalcemia resolved (7) Bipolar disorder Is this a current diagnosis for this admission?: Yes Plan: She is being managed by psych
[2017-08-17] MEDS: TAMSULOSIN HCL 0.4 MG CAP.SR.24H PO SCH (18:41)
[2017-08-17] MEDS: ATORVASTATIN CALCIUM 10 MG TABLET NG SCH (20:51)
[2017-08-17] MEDS: NORMAL SALINE 1000 ML 1,000 ML IV PRN (20:53)
[2017-08-17] MEDS: LORAZEPAM 1 MG TABLET PO PRN (22:14)
[2017-08-18] MEDS: HYDROXYZINE PAMOATE 50 MG CAPSULE PO PRN ×3 (04:42→23:00)
[2017-08-18] MEDS: LORAZEPAM 0.5 MG TABLET PO PRN ×4 (04:43→18:10)
[2017-08-18] MEDS: FAMOTIDINE 20 MG TABLET PO SCH ×2 (09:47→23:00)
[2017-08-18] MEDS: AMLODIPINE BESYLATE 5 MG TABLET PO SCH ×2 (09:47→23:01)
[2017-08-18] MEDS: CYANOCOBALAMIN (VITAMIN B-12) 1,000 MCG TABLET PO SCH (09:48)
[2017-08-18] MEDS: LIOTHYRONINE SODIUM 25 MCG TABLET NG SCH (09:48)
[2017-08-18] MEDS: AMITRIPTYLINE HCL 25 MG TABLET NG SCH (09:48)
[2017-08-18] MEDS: POLYETHYLENE GLYCOL 3350 POWDER 17 GM/1 PACKET PO SCH (09:50)
--- NOTE | 2017-08-18 14:18 | PSYCHOLOGICAL NOTE ---
Psych Note - Psych Note Psych Note: Reason for consult; anxious behavior and medication recommendation Time of consult 1:18 PM Patient is a 72-year-old female. Patient reports she does not feel ready to be discharged. Patient reports at home she is bored and lonely in all she has to do is housework. Patient reports her works in [employer] throughout the day and when he comes home he does not want to talk with her that her problems. Patient reports that she used to volunteer at the hospital in the front, and go to the [employer]. Patient reports she stopped going because she got bored of the [employer] [facility]. 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 Patient reports she does not want to leave the hospital because she does not have anyone to talk to and feels upset with clinician because she believes that clinician made up her mind before giving a disposition. Patient reported that she has bipolar disorder and is treated in the outpatient clinic but reports that this is not helpful because she wants more people to talk to and in a hospital setting she is able to feel like she has a community. Patient reports that when she worked as a teacher she had coworkers who were friends but her job was an hour from where she lived soon no one visits her. Patient reports that she has a neighbor who occasionally stops by to check on her. Patient reports she is confused as to why her lithium levels were so high. Patient reports that if she were to be discharged her plan to keep busy is do word search and continue to go to a painting class every Wednesday. Patient reports that she feels nervous all the time mainly because she does not want to be alone. Patient reports there have been a lot of changes in her life and feels that it is new phase of life and requests to stay another night to mentally prepare herself for discharge. She reports she does not want to be psychiatrically cleared by mental health because she wants to stay in the hospital. She reports she enjoys the company of her nurse preston how much care she has provided for her. Medication recommendations made by [facility] psychiatric provider Dr. Gage MD includes; None Diagnosis; 296.80 (F31.9) Unspecified Bipolar and Related Disorder by History V62.89 ( Z60.0) Phase of life problem Impression/plan; Patient is psychiatrically cleared for discharge. Clinician observed patient does not meet criteria for abhijit. Recommendation for patient to follow-up with outpatient provider for medication management. Consulted with Dr. Hicks regarding the management and care of patient.
--- NOTE | 2017-08-18 15:26 | PDOC PROGRESS REPORT ---
Subjective Progress Note for:: 08/18/17 Subjective:: Patient a 71 year old woman with history of bipolar disorder, sick sinus syndrome post pacemaker, dementia, and hypothyroidism admitted since 07/20 with toxic encephalopathy 2/2 to [place] which was held and she was changes to Tegretol, she developed diffuse rash which has been improving and has been stopped. She was seen this am and she continues to report pruritus and report feeling anxious. Reason For Visit: TOXIC ENCEPHALOPATHY, LITHIUM TOXICITY, Physical Exam Vital Signs: Temp Pulse Resp BP Pulse Ox 98.3 F 65 20 125/48 L 100 08/18/17 08:38 08/18/17 08:38 08/18/17 08:00 08/18/17 08:38 08/18/17 08:38 Intake & Output 08/17/17 08/18/17 08/19/17 06:59 06:59 06:59 Intake Total 1815 1564 Balance 1815 1564 General appearance: PRESENT: no acute distress Head exam: PRESENT: atraumatic, normocephalic Eye exam: PRESENT: EOMI Mouth exam: PRESENT: moist, neck supple Respiratory exam: PRESENT: clear to auscultation gurjit, unlabored Cardiovascular exam: PRESENT: RRR GI/Abdominal exam: PRESENT: normal bowel sounds, soft Rectal exam: PRESENT: deferred Extremities exam: PRESENT: full ROM Musculoskeletal exam: PRESENT: ambulatory Neurological exam: PRESENT: alert, awake, oriented to person Psychiatric exam: PRESENT: anxious Skin exam: PRESENT: dry, erythema, rash Results Laboratory Results: 08/13/17 06:18 08/14/17 06:13 Impressions: Head CT 07/20/17 19:42 IMPRESSION: NORMAL BRAIN CT WITHOUT CONTRAST. EVIDENCE OF ACUTE STROKE: NO. Chest X-Ray 07/20/17 21:26 IMPRESSION: Left basilar pneumonitis. Chest CT 07/24/17 00:00 IMPRESSION: Near complete imaging resolution of previously diagnosed left lower lobe pneumonia. No evidence of new consolidation or adverse trend. KUB X-Ray 07/26/17 00:00 IMPRESSION: 1. NG tube in appropriate radiographic position. Thyroid Ultrasound 07/26/17 00:00 IMPRESSION: Partially cystic nodule left lobe. Assessment & Plan - Diagnosis (1) Erythematosquamous dermatosis Is this a current diagnosis for this admission?: Yes Plan: Much improving and continue current management (2) [place] poisoning Is this a current diagnosis for this admission?: Yes Plan: It has been discontinued (3) Toxic encephalopathy Is this a current diagnosis for this admission?: Yes Plan: due to [place] and has been discontinued (4) Pneumonia Qualifiers: Pneumonia type: due to unspecified organism Is this a current diagnosis for this admission?: Yes Plan: Completed antibiotic regimen (5) Hypercalcemia Is this a current diagnosis for this admission?: Yes Plan: Resolved (6) Hyperparathyroidism , secondary, non-renal Is this a current diagnosis for this admission?: Yes Plan: Hypercalcemia resolved (7) Bipolar disorder Is this a current diagnosis for this admission?: Yes Plan: She is being managed by psych - Time Time Spent with patient: 15-24 minutes Within: within 48 hours - Plan Summary Plan Summary: Awaiting psych input for further management regarding her disposition.
[2017-08-18] MEDS: TAMSULOSIN HCL 0.4 MG CAP.SR.24H PO SCH (18:11)
[2017-08-18] MEDS: ATORVASTATIN CALCIUM 10 MG TABLET NG SCH (23:01)
[2017-08-19] MEDS: LORAZEPAM 0.5 MG TABLET PO PRN ×3 (00:41→16:10)
[2017-08-19] MEDS: QUETIAPINE FUMARATE 25 MG TABLET PO PRN (00:43)
[2017-08-19] MEDS: HYDROXYZINE PAMOATE 50 MG CAPSULE PO PRN (05:03)
[2017-08-19] MEDS: AMITRIPTYLINE HCL 25 MG TABLET NG SCH (08:54)
[2017-08-19] MEDS: AMLODIPINE BESYLATE 5 MG TABLET PO SCH (08:54)
[2017-08-19] MEDS: POLYETHYLENE GLYCOL 3350 POWDER 17 GM/1 PACKET PO SCH (08:55)
[2017-08-19] MEDS: FAMOTIDINE 20 MG TABLET PO SCH (08:55)
[2017-08-19] MEDS: LIOTHYRONINE SODIUM 25 MCG TABLET NG SCH (08:55)
[2017-08-19] MEDS: CYANOCOBALAMIN (VITAMIN B-12) 1,000 MCG TABLET PO SCH (08:55)
[2017-08-19 13:22] VITALS: BP 136/70
--- NOTE | 2017-08-19 15:39 | PDOC DISCHARGE SUMMARY ---
General - Admit/Disc Date/PCP Admission Date/Primary Care Provider: 07/20/17 21:37 Discharge Date: 08/19/17 - Discharge Diagnosis (1) Erythematosquamous dermatosis Is this a current diagnosis for this admission?: Yes (2) [place] poisoning Is this a current diagnosis for this admission?: Yes (3) Toxic encephalopathy Is this a current diagnosis for this admission?: Yes (4) Pneumonia Is this a current diagnosis for this admission?: Yes (5) Hypercalcemia Is this a current diagnosis for this admission?: Yes (6) Hyperparathyroidism , secondary, non-renal Is this a current diagnosis for this admission?: Yes (8) Bipolar disorder Is this a current diagnosis for this admission?: Yes - Additional Information Resuscitation Status: Full Code Prescriptions: Amlodipine Besylate [Norvasc 5 mg Tablet] 5 mg PO Q12 #30 tablet Cyanocobalamin (Vitamin B-12) [Vitamin B-12 1000 mcg Tablet] 1,000 mcg PO DAILY #30 tablet Famotidine [Pepcid 20 mg Tablet] 20 mg PO Q12 #60 tablet Hydroxyzine Pamoate [Vistaril 50 mg Capsule] 50 mg PO Q6HP PRN 30 Days #60 capsule PRN Reason: Liothyronine Sodium [Cytomel 25 Mcg Tablet] 25 mcg NG DAILY #30 tablet Lorazepam [Ativan 0.5 mg Tablet] 0.5 mg PO Q4 PRN #12 tablet PRN Reason: Polyethylene Glycol 3350 [Miralax Powder 17 gm/Packet] 17 gm PO DAILY #30 powd.pack Quetiapine Fumarate [Seroquel 25 mg Tablet] 25 mg PO HSP PRN #30 tablet PRN Reason: Tamsulosin HCl [Flomax 0.4 mg Cap.sr] 0.4 mg PO PCSUPPER #30 cap.sr.24h Home Medications: Alprazolam [Xanax 0.5 mg Tablet] 0.5 mg PO Q8 07/21/17 Alprazolam [Xanax 0.5 mg Tablet] 1 mg PO QHS 07/21/17 Amitriptyline HCl [Elavil 25 mg Tablet] 25 mg PO DAILY 07/21/17 Ergocalciferol (Vitamin D2) [Drisdol 50,000 unit (1.25MG) Capsule] 50,000 unit PO GUTIERREZ@1000 07/21/17 Liothyronine Sodium [Cytomel] 25 mcg PO DAILY 07/21/17 Pravastatin Sodium [Pravachol] 20 mg PO QHS 07/21/17 Amlodipine Besylate [Norvasc 5 mg Tablet] 5 mg PO Q12 #30 tablet 08/19/17 Calamine/Zinc Oxide [Calamine Lotion 177 ml/Bottle] 1 applic TP Q6HP PRN bottle 08/19/17 Cyanocobalamin (Vitamin B-12) [Vitamin B-12 1000 mcg Tablet] 1,000 mcg PO DAILY #30 tablet 08/19/17 Famotidine [Pepcid 20 mg Tablet] 20 mg PO Q12 #60 tablet 08/19/17 Hydroxyzine Pamoate [Vistaril 50 mg Capsule] 50 mg PO Q6HP PRN 30 Days #60 capsule 08/19/17 Liothyronine Sodium [Cytomel 25 Mcg Tablet] 25 mcg NG DAILY #30 tablet 08/19/17 Lorazepam [Ativan 0.5 mg Tablet] 0.5 mg PO Q4 PRN #12 tablet 08/19/17 Polyethylene Glycol 3350 [Miralax Powder 17 gm/Packet] 17 gm PO DAILY #30 powd.pack 08/19/17 Quetiapine Fumarate [Seroquel 25 mg Tablet] 25 mg PO HSP PRN #30 tablet Tamsulosin HCl [Flomax 0.4 mg Cap.sr] 0.4 mg PO PCSUPPER #30 cap.sr.24h History of Present Illness History of Present Illness: SHALONDA STRATTON is a 71 year old female history of bipolar disorder, pacemaker due to bradycardia, dementia, and hypothyroidism presenting with change in mentation. Patient is unable to provide any history. Patient only states that she has been bad. Patient does not give any other history. History was given from from the medical record. Apparently Dr. Hicks was able to have a conversation with patient's who states that patient has been on lithium and Xanax for approximately 30+ years for her bipolar disorder. Patient had a pacemaker placed 3-[address] lithium had affected her heart causing the patient to require pacemaker. Patient was taken off lithium however had to be put back on lithium due to multiple manic episodes. Patient has had multiple psychiatric inpatient hospitalizations and ECT treatments which has resulted in poor memory and confusion. She had tried several medications which were ineffective. Patient cc and see psychiatric provider increased her lithium to 900 mg daily from 600 mg 1 week ago and she has continued to decline. Also patient has not slept for 3-4 days. She was very tearful but could not express why she was upset. In the ED patient was found to have a tremor. Patient lithium level was 1.[address] of the head was normal. UA was normal except for the presence of ketones. Patient also had leukocytosis of 17.5 with neutrophilia. Hospital Course Hospital Course: The patient is a 71-year-old female who has underlying bipolar disorder as well as dementia. She presented to the emergency room initially with altered mental status after her lithium was increased from 600 mg to 900 mg per day. The patient has had multiple psychiatric inpatient hospitalizations for her bipolar disorder. She has had ECT in the past as well. Upon admission the patient was noted to have lithium toxicity and her lithium was initially held. She was followed by Rosendo Hicks from psychiatry. Eventually her lithium was resumed but it has since been discontinued due to concerns for hyperparathyroidism. During this hospitalization the patient received a course of antibiotic therapy during this hospitalization she was treated for pneumonia. Initially she was placed on ceftriaxone and doxycycline and then received 7 days worth of Zosyn for a total of 10 days of treatment. During her hospital course she did have a persistent leukocytosis but this did eventually resolve with treatment. Her hospitalization has been complicated by urinary retention. She did require a Nug[place] catheter but this was removed successfully and she is now urinating without difficulty. Earlier in the hospitalization the patient was not able to eat due to a lethargic state. She had an NG tube placed and she required tube feedings. This was eventually removed and her diet was successfully advanced. Also at the time of admission she had acute renal failure secondary to dehydration which has since resolved with fluid hydration. The patient also was noted to be hypernatremic requiring correction with D5 water. During this hospitalization she had a persistently elevated calcium level. Her PTH levels are very elevated and her vitamin D levels have been normal. [place] with chronic use can cause elevated PTH which is why this is been stopped. She also had a thyroid ultrasound performed which revealed a partially cystic nodule in the left lobe of the thyroid gland. The recommendation would be to follow-up with endocrinology as an outpatient regarding her history of hypothyroidism and hyperparathyroidism with an abnormal thyroid ultrasound. After her lithium was discontinued by psychiatry she was placed on a regimen with Tegretol with Seroquel as needed. The patient then began breaking out in a diffuse rash which has worsened. Her Tegretol was stopped yesterday however the patient has a persistent rash covering basically her entire body. She has been receiving oral Benadryl and was placed on p.o. Pepcid with no relief. The patient's wanted to stay away from steroids as she has had significant manic episode in the past after being placed on prednisone. Patient's rash is much improved She has been taking off Tegretol is the most likely culprit. Psych wants to monitor her off medications. She is to be seen by psych outpatient and refer to endocrinology. Physical Exam Vital Signs: Temp Pulse Resp BP Pulse Ox 98.4 F 72 18 136/70 H 100 08/19/17 12:00 08/19/17 12:00 08/19/17 12:00 08/19/17 12:00 08/19/17 12:00 Intake & Output 08/18/17 08/19/17 08/20/17 06:59 06:59 06:59 Intake Total 1564 937 Balance 1564 937 General appearance: PRESENT: no acute distress Head exam: PRESENT: atraumatic, normocephalic Eye exam: PRESENT: EOMI Mouth exam: PRESENT: moist, neck supple Neck exam: PRESENT: full ROM Respiratory exam: PRESENT: clear to auscultation gurjit, symmetrical, unlabored Cardiovascular exam: PRESENT: RRR GI/Abdominal exam: PRESENT: normal bowel sounds, soft Rectal exam: PRESENT: deferred Extremities exam: PRESENT: full ROM Musculoskeletal exam: PRESENT: ambulatory, full ROM Neurological exam: PRESENT: alert, awake, oriented to person Psychiatric exam: PRESENT: anxious Skin exam: PRESENT: erythema - much improved, rash Results Laboratory Results: 08/13/17 06:18 08/14/17 06:13 Impressions: Head CT 07/20/17 19:42 IMPRESSION: NORMAL BRAIN CT WITHOUT CONTRAST. EVIDENCE OF ACUTE STROKE: NO. Chest X-Ray 07/20/17 21:26 IMPRESSION: Left basilar pneumonitis. Chest CT 07/24/17 00:00 IMPRESSION: Near complete imaging resolution of previously diagnosed left lower lobe pneumonia. No evidence of new consolidation or adverse trend. KUB X-Ray 07/26/17 00:00 IMPRESSION: 1. NG tube in appropriate radiographic position. Thyroid Ultrasound 07/26/17 00:00 IMPRESSION: Partially cystic nodule left lobe. Qualifiers - * PATEINT BEING DISCHARGED WITH ANY OF THE FOLLOWING DIAGNOSIS?: No VTE patient discharged on overlapping Therapy?: Yes Plan Time Spent: Greater than 30 Minutes
== END 2017-08-19 18:25 | disposition home or self-care (01) | DRG 91 ==
LOC: ER 16:03 → EH 21:37 → OBSVTOIN 21:37 → 4S 07-21 13:45 → 5 08-16 05:33
PROVIDERS: ADMIT Pediatrics; ATTEND Pediatrics
DX: G92 Toxic encephalopathy (principal); J18.1 Lobar pneumonia, unspecified organism; N17.9 Acute kidney failure, unspecified; F13.20 Sedative, hypnotic or anxiolytic dependence, uncomplicated; E87.0 Hyperosmolality and hypernatremia; I50.9 Heart failure, unspecified; J44.9 Chronic obstructive pulmonary disease, unspecified; R41.82 Altered mental status, unspecified; E87.6 Hypokalemia; D64.9 Anemia, unspecified; E83.52 Hypercalcemia; L24.9 Irritant contact dermatitis, unspecified cause; L98.8 Other specified disorders of the skin and subcutaneous tissue; E03.9 Hypothyroidism, unspecified; E86.0 Dehydration; R33.9 Retention of urine, unspecified; B37.2 Candidiasis of skin and nail; R25.8 Other abnormal involuntary movements; F31.9 Bipolar disorder, unspecified; F03.90 Unspecified dementia, unspecified severity, without behavioral disturbance, psychotic disturbance, mood disturbance, and anxiety; Y92.009 Unspecified place in unspecified non-institutional (private) residence as the place of occurrence of the external cause; Z95.0 Presence of cardiac pacemaker
CPT/HCPCS: 36415; 70450; 71045; 71250; 74018; 76536; 80048; 80053; 80076; 80178; 80307; 81001; 82140; 82306; 82565; 82607; 82652; 82746; 82962; 83735; 83970; 84100; 84425; 84439; 84443; 85025; 85027; 85610; 85730; 87040; 87086; 87804; 96361; 96365; 96366; 96367; 96375; 96376; 99285; G8978-GP; G8979-GP; J0456; J0696; J1100; J1200; J1630; J1650; J2060; J2543; J2920; J3420; J3490; J7030; J7060; S0028; S0164

== ENCOUNTER → 2017-10-04 | Outpatient (CLI) | payer OTHER, MEDICARE ==
[2017-10-04 16:44] LABS: ABSOLUTE BASOPHILS # (AUTO) 0.1 10^3/uL (0.0-0.2); ABSOLUTE EOSINOPHILS # (AUTO) 0.1 10^3/uL (0.0-0.6); ABSOLUTE LYMPHOCYTES (AUTO) 1.9 10^3/uL (0.5-4.7); ABSOLUTE MONOCYTES (AUTO) 0.4 10^3/uL (0.1-1.4); ABSOLUTE NEUT (AUTO) 4.5 10^3/uL (1.7-8.2); BASOPHILS % (AUTO) 0.9 % (0-2); EOSINOPHILS % (AUTO) 1.9 % (0-6); HEMOGLOBIN 13.1 g/dL (12.0-15.5); LYMPHOCYTES % (AUTO) 27.6 % (13-45); MEAN CORPUSCULAR HEMOGLOBIN 29.9 pg (27.0-33.4); MEAN CORPUSCULAR HGB CONC 32.8 g/dL (32.0-36.0); MEAN CORPUSCULAR VOLUME 91 fl (80-97); MONOCYTES % (AUTO) 6.1 % (3-13); PLATELET COUNT 294 10^3/uL (150-450); RED BLOOD COUNT 4.38 10^6/uL (3.72-5.28); RED CELL DISTRIBUTION WIDTH 13.5 % (11.5-14.0); SEGMENTED NEUTROPHILS % (AUTO) 63.5 % (42-78); TOTAL CELLS COUNTED % (AUTO) 100 %; WHITE BLOOD COUNT 7.1 10^3/uL (4.0-10.5)
[2017-10-04 16:55] LABS: ALANINE AMINOTRANSFERASE 16 U/L (9-52); ALBUMIN 4.2 g/dL (3.5-5.0); ALKALINE PHOSPHATASE 81 U/L (38-126); ASPARTATE AMINO TRANSFERASE 22 U/L (14-36); BILIRUBIN,DIRECT 0.4 mg/dL (0.0-0.4); BILIRUBIN,TOTAL 0.6 mg/dL (0.2-1.3); CHOLESTEROL 207.03 mg/dL (0-200); TOTAL PROTEIN 7.4 g/dL (6.3-8.2); TRIGLYCERIDES 178 mg/dL (<150)
[2017-10-04 17:06] LABS: DIRECT LDL 110 mg/dL (<100)
== END ==
LOC: OD 14:15
PROVIDERS: ATTEND Psychiatry & Neurology Psychiatry
DX: F31.32 Bipolar disorder, current episode depressed, moderate (principal); Z79.899 Other long term (current) drug therapy
CPT/HCPCS: 36415; 80076; 80164; 82465; 83036; 83721; 84478; 85025

== ENCOUNTER → 2017-10-14 | Outpatient (CLI) | payer OTHER, MEDICARE | LOC: OD 09:26 | PROVIDERS: ATTEND Psychiatry & Neurology Psychiatry | DX: Z79.899 Other long term (current) drug therapy (principal) | CPT/HCPCS: 36415; 80164 ==

== ENCOUNTER → 2018-04-13 | Outpatient (CLI) | payer OTHER, MEDICARE ==
[2018-04-13 09:50] LABS: ABSOLUTE EOSINOPHILS # (AUTO) 0.1 10^3/uL (0.0-0.6); ABSOLUTE LYMPHOCYTES (AUTO) 1.7 10^3/uL (0.5-4.7); ABSOLUTE MONOCYTES (AUTO) 0.7 10^3/uL (0.1-1.4); ABSOLUTE NEUT (AUTO) 6.1 10^3/uL (1.7-8.2); BASOPHILS % (AUTO) 0.3 % (0-2); EOSINOPHILS % (AUTO) 1.5 % (0-6); HEMATOCRIT 39.8 % (36.0-47.0); HEMOGLOBIN 13.7 g/dL (12.0-15.5); LYMPHOCYTES % (AUTO) 19.2 % (13-45); MEAN CORPUSCULAR HEMOGLOBIN 32.1 pg (27.0-33.4); MEAN CORPUSCULAR HGB CONC 34.5 g/dL (32.0-36.0); MEAN CORPUSCULAR VOLUME 93 fl (80-97); MONOCYTES % (AUTO) 8.6 % (3-13); PLATELET COUNT 230 10^3/uL (150-450); RED BLOOD COUNT 4.27 10^6/uL (3.72-5.28); RED CELL DISTRIBUTION WIDTH 12.8 % (11.5-14.0); SEGMENTED NEUTROPHILS % (AUTO) 70.4 % (42-78); TOTAL CELLS COUNTED % (AUTO) 100 %; WHITE BLOOD COUNT 8.7 10^3/uL (4.0-10.5)
[2018-04-13 10:03] LABS: HEMATOCRIT 39.8 % (36.0-47.0); HEMOGLOBIN 13.7 g/dL (12.0-15.5); MEAN CORPUSCULAR HEMOGLOBIN 32.1 pg (27.0-33.4); MEAN CORPUSCULAR HGB CONC 34.5 g/dL (32.0-36.0); MEAN CORPUSCULAR VOLUME 93 fl (80-97); PLATELET COUNT 230 10^3/uL (150-450); RED BLOOD COUNT 4.27 10^6/uL (3.72-5.28); RED CELL DISTRIBUTION WIDTH 12.8 % (11.5-14.0); WHITE BLOOD COUNT 8.7 10^3/uL (4.0-10.5)
[2018-04-13 10:15] LABS: ALANINE AMINOTRANSFERASE 23 U/L (9-52); ALBUMIN 3.6 g/dL (3.5-5.0); ALKALINE PHOSPHATASE 85 U/L (38-126); ANION GAP 12 (5-19); ASPARTATE AMINO TRANSFERASE 35 U/L (14-36); BILIRUBIN,DIRECT 0.2 mg/dL (0.0-0.4); BILIRUBIN,TOTAL 0.6 mg/dL (0.2-1.3); BLOOD UREA NITROGEN 27 mg/dL (7-20); CALCIUM 10.3 mg/dL (8.4-10.2); CARBON DIOXIDE 25 mmol/L (22-30); CHLORIDE 106 mmol/L (98-107); GLUCOSE 90 mg/dL (75-110); SODIUM 142.6 mmol/L (137-145); TOTAL PROTEIN 6.5 g/dL (6.3-8.2)
[2018-04-13 10:19] LABS: ALBUMIN 3.6 g/dL (3.5-5.0); ASPARTATE AMINO TRANSFERASE 35 U/L (14-36); BLOOD UREA NITROGEN 27 mg/dL (7-20); CALCIUM 10.3 mg/dL (8.4-10.2); CARBON DIOXIDE 24 mmol/L (22-30); GLUCOSE 90 mg/dL (75-110); SODIUM 142.6 mmol/L (137-145); TOTAL PROTEIN 6.5 g/dL (6.3-8.2)
[2018-04-13 11:35] LABS: FREE T3 3.48 pg/mL (2.77-5.27); FREE T4 (FREE THYROXINE) 0.2 ng/dL (0.78-2.19)
[2018-04-13 13:46] LABS: ANION GAP 13 (5-19); CHLORIDE 106 mmol/L (98-107)
[2018-04-13 13:47] LABS: ALANINE AMINOTRANSFERASE 23 U/L (9-52); ALKALINE PHOSPHATASE 85 U/L (38-126); BILIRUBIN,DIRECT 0.2 mg/dL (0.0-0.4); BILIRUBIN,TOTAL 0.6 mg/dL (0.2-1.3)
== END ==
LOC: OD 08:32
PROVIDERS: ATTEND Psychiatry & Neurology Psychiatry
DX: D64.9 Anemia, unspecified (principal); E78.5 Hyperlipidemia, unspecified; E03.9 Hypothyroidism, unspecified; E55.9 Vitamin D deficiency, unspecified; F31.5 Bipolar disorder, current episode depressed, severe, with psychotic features; Z79.899 Other long term (current) drug therapy
CPT/HCPCS: 36415; 80048; 80053; 80076; 80164; 82140; 82306; 83880; 84439; 84443; 84481; 85025; 85027

== ENCOUNTER → 2019-03-06 | Emergency (ER) | payer BC, MEDICARE ==
[~2019-03-06] MED LIST: LORAZEPAM 1 MG TABLET PO ONE; NORMAL SALINE 1000 ML 1,000 ML IV ONE
--- NOTE | 2019-03-06 16:46 | ER Document Report ---
ED General - General Chief Complaint: Altered Mental Status Stated Complaint: ALTERED MENTAL STATUS Time Seen by Provider: 03/06/19 16:22 Primary Care Provider: FABIAN MANLEY MD [NO LOCAL MD] - Follow up as needed Mode of Arrival: Ambulatory Information source: Patient, Relative TRAVEL OUTSIDE OF THE [place] IN LAST 30 DAYS: No - HPI Patient complains to provider of: altered mental status Onset: Other - pt. has a h/o [employer] and was acting strangely earlier today according to her . She thought someone had broken into their home but when police arrived, there was no evidence of forced entry. Pt. was initially supposed to go to [place], but was sent here for psych eval - Related Data Allergies/Adverse Reactions: Sulfa (Sulfonamide Antibiotics) Allergy (Verified 07/20/17 16:04) Past Medical History - Social History Smoking Status: Never Smoker Family History: None, Other - bipolar Patient has suicidal ideation: No Patient has homicidal ideation: No - Past Medical History Cardiac Medical History: Reports: Hx Congestive Heart Failure Pulmonary Medical History: Reports: Hx COPD Renal/ Medical History: Denies: Hx Peritoneal Dialysis Psychiatric Medical History: Reports: Hx Bipolar Disorder, Hx Depression Past Surgical History: Reports: Hx Cardiac Surgery - pacemaker, Hx Pacemaker - Immunizations Hx Diphtheria, Pertussis, Tetanus Vaccination: No Review of Systems - Review of Systems Constitutional: No symptoms reported EENT: No symptoms reported Cardiovascular: No symptoms reported Respiratory: No symptoms reported Gastrointestinal: No symptoms reported Musculoskeletal: No symptoms reported Neurological/Psychological: See HPI - psychosis -: Yes All other systems reviewed and negative Physical Exam - Vital signs Vitals: Pulse Ox 98 03/06/19 16:16 - General General appearance: Appears well In distress: None - HEENT Pupils: PERRL Mouth/Lips: Normal Mucous membranes: Normal Pharynx: Normal Neck: Normal - Respiratory Respiratory status: No respiratory distress Breath sounds: Normal - Cardiovascular Rhythm: Regular Heart sounds: Normal auscultation Murmur: No - Abdominal Inspection: Normal Tenderness: Nontender - Extremities General upper extremity: Normal inspection General lower extremity: Normal inspection - Neurological Neuro grossly intact: Yes Cognition: Normal Orientation: AAOx4 Motor strength normal: LUE, RUE, LLE, RLE Sensory: Normal Course - Re-evaluation Re-evalutation: 03/06/19 18:44 pt. has been medically cleared -- she is awaiting psych eval - Vital Signs Vital signs: Temp Pulse Resp BP Pulse Ox 99.7 F 96 20 141/71 H 99 03/10/19 07:00 03/08/19 09:14 03/10/19 07:01 03/10/19 06:00 03/10/19 06:01 - Laboratory Result Diagrams: 03/10/19 13:06 03/10/19 13:06 Laboratory results interpreted by me: 03/06/19 03/06/19 03/06/19 16:32 17:16 17:55 WBC Hgb Plt Count 131 L Lymph % (Auto) Absolute Neuts (auto) 8.4 H Seg Neutrophils % 80.0 H VBG pH VBG pCO2 VBG HCO3 Chloride Carbon Dioxide BUN 25 H Est GFR (MDRD) Non-Af 55 L Glucose Calcium AST Urine Ketones TRACE H 03/08/19 03/08/19 03/08/19 17:53 17:53 17:53 WBC 13.7 H Hgb 15.8 H Plt Count Lymph % (Auto) 12.4 L Absolute Neuts (auto) 11.1 H Seg Neutrophils % 81.0 H VBG pH 7.44 H VBG pCO2 29.8 L VBG HCO3 19.6 L Chloride 109 H Carbon Dioxide 20 L BUN 34 H Est GFR (MDRD) Non-Af 58 L Glucose Calcium 10.4 H AST 38 H Urine Ketones 03/08/19 03/09/19 03/09/19 17:53 11:27 11:27 WBC 12.1 H Hgb Plt Count Lymph % (Auto) 10.9 L Absolute Neuts (auto) 10.2 H Seg Neutrophils % 83.9 H VBG pH VBG pCO2 VBG HCO3 Chloride 113 H Carbon Dioxide 21 L BUN 39 H Est GFR (MDRD) Non-Af Glucose 115 H Calcium 10.3 H AST Urine Ketones TRACE H 03/10/19 13:06 WBC Hgb Plt Count Lymph % (Auto) Absolute Neuts (auto) Seg Neutrophils % VBG pH VBG pCO2 VBG HCO3 Chloride 111 H Carbon Dioxide 19 L BUN 37 H Est GFR (MDRD) Non-Af Glucose Calcium AST 37 H Urine Ketones - EKG Interpretation by Sc EKG shows normal: Sinus rhythm Rate: Normal Rhythm: NSR - nsr with LVH and repol. abnormality without acute change Discharge - Discharge Referrals: FABIAN MANLEY MD [NO LOCAL MD] - Follow up as needed
[2019-03-06 17:05] LABS: ABSOLUTE BASOPHILS # (AUTO) 0.1 10^3/uL (0.0-0.2); ABSOLUTE LYMPHOCYTES (AUTO) 1.4 10^3/uL (0.5-4.7); ABSOLUTE MONOCYTES (AUTO) 0.6 10^3/uL (0.1-1.4); ABSOLUTE NEUT (AUTO) 8.4 10^3/uL (1.7-8.2); BASOPHILS % (AUTO) 0.7 % (0-2); EOSINOPHILS % (AUTO) 0.1 % (0-6); HEMATOCRIT 41.1 % (36.0-47.0); LYMPHOCYTES % (AUTO) 13.6 % (13-45); MEAN CORPUSCULAR HEMOGLOBIN 31.5 pg (27.0-33.4); MEAN CORPUSCULAR VOLUME 93 fl (80-97); MONOCYTES % (AUTO) 5.6 % (3-13); RED BLOOD COUNT 4.44 10^6/uL (3.72-5.28); RED CELL DISTRIBUTION WIDTH 12.9 % (11.5-14.0); TOTAL CELLS COUNTED % (AUTO) 100 %; WHITE BLOOD COUNT 10.5 10^3/uL (4.0-10.5)
[2019-03-06 17:31] LABS: PLATELET COUNT 131 10^3/uL (150-450)
[2019-03-06 18:27] LABS: APPEARANCE,URINE SLIGHTLY-CLOUDY; BILIRUBIN,URINE NEGATIVE (NEGATIVE); COLOR,URINE YELLOW; GLUCOSE, URINE NEGATIVE (NEGATIVE); KETONES,URINE TRACE mg/dL (NEGATIVE); LEUKOCYTE ESTERASE,URINE NEGATIVE (NEGATIVE); NITRITE,URINE NEGATIVE (NEGATIVE); PROTEIN,URINE NEGATIVE (NEGATIVE); URINE SPECIFIC GRAVITY 1.011; UROBILINOGEN,URINE NEGATIVE mg/dL (<2.0)
[2019-03-06 18:29] LABS: ALBUMIN 4.2 g/dL (3.5-5.0); ALKALINE PHOSPHATASE 102 U/L (38-126); ANION GAP 12 (5-19); ASPARTATE AMINO TRANSFERASE 28 U/L (14-36); BILIRUBIN,DIRECT 0.2 mg/dL (0.0-0.4); BILIRUBIN,TOTAL 0.9 mg/dL (0.2-1.3); BLOOD UREA NITROGEN 25 mg/dL (7-20); CALCIUM 10.2 mg/dL (8.4-10.2); CARBON DIOXIDE 23 mmol/L (22-30); CHLORIDE 107 mmol/L (98-107); GLUCOSE 95 mg/dL (75-110); POTASSIUM 4.8 mmol/L (3.6-5.0); TOTAL PROTEIN 6.9 g/dL (6.3-8.2)
[2019-03-06 18:30] LABS: ALCOHOL < 10 mg/dL (NONE DETECTED)
[2019-03-06 18:38] LABS: URINE AMPHETAMINES SCREEN NEGATIVE; URINE BARBITURATES SCREEN NEGATIVE; URINE BENZODIAZEPINES SCREEN UNCONFIRMED POSITIVE; URINE COCAINE SCREEN NEGATIVE; URINE MARIJUANA (THC) SCREEN NEGATIVE; URINE METHADONE SCREEN NEGATIVE; URINE PHENCYCLIDINE SCREEN NEGATIVE
--- NOTE | 2019-03-06 22:20 | EKG REPORT ---
SEVERITY:- ABNORMAL ECG - SINUS RHYTHM LVH WITH IVCD AND SECONDARY REPOL ABNRM VS ISCHEMIA CONSIDER ANTERIOR AK AGE INDETERMINATE : Confirmed by: Asha Huff 06-Mar-2019 22:20:17
--- NOTE | 2019-03-07 11:29 | RADIOLOGY REPORT (SQ) ---
EXAM DESCRIPTION: CT HEAD WITHOUT COMPLETED DATE/TIME: 03/07/2019 11:09 am REASON FOR STUDY: Altered mental status x1 day COMPARISON: CT of the head without contrast from 07/20/2017. TECHNIQUE: Axial images acquired through the brain without intravenous contrast. Images reviewed wi th bone, brain and subdural windows. Additional sagittal and coronal reconstructions were generated. Images stored on PACS. All CT scanners at this facility use dose modulation, iterative reconstruction, and/or weight based d osing when appropriate to reduce radiation dose to as low as reasonably achievable (ALARA). [facility]: Dose Right [facility]: CareDose [facility]: Dose Right [facility]: Teradose 4D [facility]: Genmab RADIATION DOSE: CT Rad equipment meets quality standard of care and radiation dose reduction techniq ues were employed. CTDIvol: 53.2 mGy. DLP: 1044 mGy-cm. LIMITATIONS: None. FINDINGS: There is diffuse, age-appropriate cerebral and cerebellar volume loss. The caliber of the ventricles is concordant with the degree of sulcation and unchanged from 07/20/2017. The foci of hypo attenuation within the left basal ganglia are unchanged and could represent prominent [place] s paces or chronic lacunar infarcts. There is no acute intracranial hemorrhage, vascular territorial i nfarct, extra-axial fluid collection, mass effect or midline shift. There is no effacement of cerebr al sulci or basal subarachnoid cisterns. The larson-white matter differentiation is preserved. The left frontal sinus is aplastic. The orbits and globes are intact. There is no paranasal sinus a ir-fluid level. The mastoid air cells are clear. There is no fracture of the calvarium. IMPRESSION: No acute intracranial abnormality. EVIDENCE OF ACUTE STROKE: NO. COMMENT: Quality ID # [id number]: Final reports with documentation of one or more dose reduction techniques (e.g., Automated exposure control, adjustment of the mA and/or kV according to patient size, use of iterative reconstruction technique) TECHNICAL DOCUMENTATION: JOB ID: [id number] [employer]- All Rights Reserved Reading location - IP/workstation name: [email or web address]
--- NOTE | 2019-03-07 11:43 | ER Document Report ---
Doctor's Note Notes: 03/07/19 11:42 Rounds: Chart reviewed and patient interviewed. Patient is being evaluated for altered mental status, confused since yesterday. Patient does have a history of bipolar disorder. On multiple medications including vroylar which she started taking about 3 weeks ago. Vital signs are all essentially normal. Patient's lab studies are essentially normal. Patient's drug screen is positive for benzos but she was given that here. Patient appears to be medically stable for transfer or discharge. Evette Flores MD 03/07/19 18:01 CT of the head was normal.
[2019-03-07] MEDS: BUSPIRONE HCL 10 MG TABLET PO SCH ×2 (11:46→17:51)
[2019-03-07] MEDS: DIVALPROEX SODIUM 250 MG TAB.SR.24H PO SCH ×2 (11:46→17:50)
--- NOTE | 2019-03-07 14:54 | PSYCHOLOGICAL NOTE ---
Psych Note - Psych Note Date seen by psych provider: 03/07/19 Time seen by psych provider: 09:23 - Chart review at 0923. Evaluation from 1045- 1050. collateral at 1415. Psych Note: Presenting Problem: AMS (was wandering the street saying someone broke into her house, police came/inspected/found nothing, [facility] unable to accept patient due to AMS and medications, Hx Bipolar, recent medication change (From Latuda to Vraylar the past month). Patient had ECT treatment on 3 occasions (the last time at the [facility] per ). She has also been hospitalized at [facility] in the past. Outpatient provider is Dr. Michael at [facility]. She reported she has "depression, anxiety, has been forgetful." She has been seen in the ED for mental health issues since 2013, was treated with [place] and Xanax for 30 years +, has had Chili Toxicity visits in the past, got a pacemaker in 2018 and ultimately that is when Chili was stopped. noted mood is an issue and the confusion here and there. He stated when a new medication is started "it will work for 4 months then mood is affected." He noted he is in control of medications and administration. He acknowledged if patient seems anxious or on edge he will give the Xanax PRN. He stated he works for [employer] and is out in the field often which is why he was not home when she went wandering the streets. Diagnosis: AMS Bipolar Disorder by Hx Concerns for Mild Vascular Neurocognitive Disorder (was on [place] and Xanax for 30 years +, has had 3 rounds of ECT) Medication recommendations made by the psychiatric medication provider, Dr. Gage MD., includes: Discontinue Ativan 1MG (administered in ED) Discontinue Xanax (home medication PRN) Discontinue Vraylar (home medication for the past month) Discontinue Methylphenidate (home medication) Decrease Cymbalta to 60MG at night (home medication was 60MG BID) Add Depakote 250MG twice a day for mood stabilization Add Buspar 5MG twice a day for anxiety/calming effect/depression/sleep Impression/Plan: Recommendation for 24 Hour IVC Petition given AMS, medication changes a month ago, Hx of Bipolar with long time use of both Lithuim and Xanax as well as 3 ECT treatments. Provided medication adjustments. is a joe martial support. Consulted with Dr. Hicks regarding the management and care of patient. ED Physician in agreement with recommendations.
[2019-03-07] MEDS: DULOXETINE HCL 30 MG CAPSULE.DR PO SCH (21:56)
--- NOTE | 2019-03-08 09:28 | ER Document Report ---
Doctor's Note Notes: 03/08/19 09:27 73-year-old female acting "strangely" according to relatives. Labs and vital signs as recorded. Awaiting psychiatric evaluation and disposition. CT unremarkable. Urine analysis unremarkable.
[2019-03-08] MEDS: BUSPIRONE HCL 10 MG TABLET PO SCH ×2 (10:11→20:15)
[2019-03-08] MEDS: DIVALPROEX SODIUM 250 MG TAB.SR.24H PO SCH (10:19)
--- NOTE | 2019-03-08 15:32 | PSYCHOLOGICAL NOTE ---
Psych Note - Psych Note Date seen by psych provider: 03/08/19 Time seen by psych provider: 08:12 - Chart review at 0812. Evaluation from 0847- 0850. Then later interaction to try to get patient to eeat and take morning medications. Psych Note: Presenting problem: 24 Hour IVC Petition, AMS, Hx Bipolar, recent medication change (from Latuda to Vraylar over the past month), confusion and memory issues. Today she presented with increased confusion, memory issues, paranoia and seemed to be responding to internal stimuli (staring off, glazed eyes, large pupils, unable to engage/carry on dialogue conversation). She did not want to eat, drink or take medications and seemed guarded. Diagnosis: AMS Bipolar Disorder by Hx Concerns for Mild Vascular Neurocognitive Disorder (was on [place] and Xanax for 30 years +, has had 3 rounds of ECT) Medication recommendations made by the psychiatric medication provider, Dr. Gage MD., includes: Utilize Depakote Sprinkles, Liquid or IV since paranoid and difficulty with taking medications Impression/Plan: Recommendation for full IVC given increased confusion, memory issues, paranoia and likely responding to internals stimuli. New medication regimen just started yesterday. Will seek placement. Consulted with Dr. Hicks regarding the management and care of patient. ED Physician in agreement with recommendations.
[2019-03-08 18:43] LABS: VENOUS BLOOD BASE EXCESS -3.1 mmol/L; VENOUS BLOOD HCO3 19.6 mmol/L (20-32); VENOUS BLOOD PCO2 29.8 mmHg (35-63); VENOUS BLOOD PH 7.44 (7.30-7.42)
[2019-03-08 18:49] LABS: ABSOLUTE BASOPHILS # (AUTO) 0.1 10^3/uL (0.0-0.2); ABSOLUTE LYMPHOCYTES (AUTO) 1.7 10^3/uL (0.5-4.7); ABSOLUTE MONOCYTES (AUTO) 0.8 10^3/uL (0.1-1.4); ABSOLUTE NEUT (AUTO) 11.1 10^3/uL (1.7-8.2); BASOPHILS % (AUTO) 0.5 % (0-2); EOSINOPHILS % (AUTO) 0.2 % (0-6); HEMATOCRIT 46.9 % (36.0-47.0); HEMOGLOBIN 15.8 g/dL (12.0-15.5); LYMPHOCYTES % (AUTO) 12.4 % (13-45); MEAN CORPUSCULAR HEMOGLOBIN 31.2 pg (27.0-33.4); MEAN CORPUSCULAR HGB CONC 33.7 g/dL (32.0-36.0); MEAN CORPUSCULAR VOLUME 92 fl (80-97); MONOCYTES % (AUTO) 5.9 % (3-13); RED BLOOD COUNT 5.08 10^6/uL (3.72-5.28); TOTAL CELLS COUNTED % (AUTO) 100 %; WHITE BLOOD COUNT 13.7 10^3/uL (4.0-10.5)
[2019-03-08 18:51] LABS: APPEARANCE,URINE CLEAR; BILIRUBIN,URINE NEGATIVE (NEGATIVE); COLOR,URINE YELLOW; GLUCOSE, URINE NEGATIVE (NEGATIVE); KETONES,URINE TRACE mg/dL (NEGATIVE); LEUKOCYTE ESTERASE,URINE NEGATIVE (NEGATIVE); NITRITE,URINE NEGATIVE (NEGATIVE); PROTEIN,URINE NEGATIVE (NEGATIVE); URINE SPECIFIC GRAVITY 1.012; UROBILINOGEN,URINE NEGATIVE mg/dL (<2.0)
[2019-03-08 19:10] LABS: ALBUMIN 4.5 g/dL (3.5-5.0); ALKALINE PHOSPHATASE 118 U/L (38-126); ANION GAP 13 (5-19); ASPARTATE AMINO TRANSFERASE 38 U/L (14-36); BILIRUBIN,DIRECT 0.2 mg/dL (0.0-0.4); BILIRUBIN,TOTAL 1.2 mg/dL (0.2-1.3); BLOOD UREA NITROGEN 34 mg/dL (7-20); CALCIUM 10.4 mg/dL (8.4-10.2); CARBON DIOXIDE 20 mmol/L (22-30); CHLORIDE 109 mmol/L (98-107); GLUCOSE 105 mg/dL (75-110); POTASSIUM 4.6 mmol/L (3.6-5.0); TOTAL PROTEIN 7.8 g/dL (6.3-8.2)
[2019-03-08 19:16] LABS: PLATELET COUNT 365 10^3/uL (150-450)
[2019-03-08 19:54] LABS: INTERNATIONAL RATION (INR) 1.05; PROTHROMBIN TIME 13.7 SEC (11.4-15.4)
[2019-03-08] MEDS: DIVALPROEX SODIUM 125 MG CAP.SPRINK PO SCH (20:41)
[2019-03-08] MEDS: DULOXETINE HCL 30 MG CAPSULE.DR PO SCH (22:31)
--- NOTE | 2019-03-09 09:09 | EKG REPORT ---
SEVERITY:- ABNORMAL ECG - SINUS RHYTHM LVH WITH SECONDARY REPOLARIZATION ABNORMALITY ANTERIOR Q WAVES, POSSIBLY DUE TO LVH PROLONGED QT INTERVAL : Confirmed by: Asha Huff 09-Mar-2019 09:08:32
[2019-03-09] MEDS: BUSPIRONE HCL 10 MG TABLET PO SCH ×2 (09:47→18:50)
[2019-03-09] MEDS: DIVALPROEX SODIUM 125 MG CAP.SPRINK PO SCH ×2 (09:47→18:49)
--- NOTE | 2019-03-09 10:46 | ER Document Report ---
Doctor's Note Notes: 03/09/19 10:44 Patient seen and examined. This patient has an extensive history of bipolar disorder, treatment with lithium, multiple different mood stabilizers, as well as ECT. She was being held here for possible psychiatric placement. At this point I have notified by nursing that she has not been out of bed in 4 days. She is not eating. She is not drinking. She will not participate in any level of her care. Essentially she is in almost a catatonic state at this point. I went to evaluate the patient. She will not respond in any way to my questions. She seems distracted, very slow to move. She does not resist my attempts to examine, but does not actively participate either. She is warm to the touch but temperature rechecked and found to be 98.8. At this point I will reorder blood work urinalysis and chest x-ray. We will continue to monitor. I do not believe patient is medically stable for psychiatric transfer at this time.
[2019-03-09 11:50] LABS: ABSOLUTE BASOPHILS # (AUTO) 0.1 10^3/uL (0.0-0.2); ABSOLUTE LYMPHOCYTES (AUTO) 1.3 10^3/uL (0.5-4.7); ABSOLUTE MONOCYTES (AUTO) 0.5 10^3/uL (0.1-1.4); ABSOLUTE NEUT (AUTO) 10.2 10^3/uL (1.7-8.2); BASOPHILS % (AUTO) 0.6 % (0-2); EOSINOPHILS % (AUTO) 0.4 % (0-6); HEMATOCRIT 42.3 % (36.0-47.0); HEMOGLOBIN 14.4 g/dL (12.0-15.5); LYMPHOCYTES % (AUTO) 10.9 % (13-45); MEAN CORPUSCULAR HGB CONC 33.9 g/dL (32.0-36.0); MEAN CORPUSCULAR VOLUME 92 fl (80-97); MONOCYTES % (AUTO) 4.2 % (3-13); PLATELET COUNT 276 10^3/uL (150-450); RED BLOOD COUNT 4.63 10^6/uL (3.72-5.28); RED CELL DISTRIBUTION WIDTH 12.8 % (11.5-14.0); SEGMENTED NEUTROPHILS % (AUTO) 83.9 % (42-78); TOTAL CELLS COUNTED % (AUTO) 100 %; WHITE BLOOD COUNT 12.1 10^3/uL (4.0-10.5)
--- NOTE | 2019-03-09 12:04 | RADIOLOGY REPORT (SQ) ---
EXAM DESCRIPTION: CHEST SINGLE VIEW COMPLETED DATE/TIME: 03/09/2019 11:51 am REASON FOR STUDY: AMS, increased RR COMPARISON: CT chest 07/24/2017 AP chest 07/09/2015 EXAM PARAMETERS: NUMBER OF VIEWS: One view. TECHNIQUE: Single frontal radiographic view of the chest acquired. RADIATION DOSE: NA LIMITATIONS: None. FINDINGS: LUNGS AND PLEURA: No opacities, masses or pneumothorax. No pleural effusion. MEDIASTINUM AND HILAR STRUCTURES: No masses. Contour normal. HEART AND VASCULAR STRUCTURES: No cardiomegaly BONES: No acute findings. HARDWARE: Left-sided dual lead pacemaker OTHER: No other significant finding. IMPRESSION: NO ACUTE RADIOGRAPHIC FINDING IN THE CHEST. TECHNICAL DOCUMENTATION: JOB ID: [id number] [employer]- All Rights Reserved Reading location - IP/workstation name: [email or web address]
[2019-03-09 12:15] LABS: ALBUMIN 4.1 g/dL (3.5-5.0); ALKALINE PHOSPHATASE 103 U/L (38-126); ANION GAP 10 (5-19); ASPARTATE AMINO TRANSFERASE 35 U/L (14-36); BILIRUBIN,DIRECT 0.1 mg/dL (0.0-0.4); BILIRUBIN,TOTAL 1.2 mg/dL (0.2-1.3); BLOOD UREA NITROGEN 39 mg/dL (7-20); CALCIUM 10.3 mg/dL (8.4-10.2); CARBON DIOXIDE 21 mmol/L (22-30); CHLORIDE 113 mmol/L (98-107); GLUCOSE 115 mg/dL (75-110); POTASSIUM 4.6 mmol/L (3.6-5.0)
[2019-03-09] MEDS: NORMAL SALINE 1000 ML 1,000 ML IV PRN (18:15)
[2019-03-09] MEDS: DULOXETINE HCL 30 MG CAPSULE.DR PO SCH (21:24)
[2019-03-10] MEDS: NORMAL SALINE 1000 ML 1,000 ML IV PRN ×2 (07:08→17:51)
--- NOTE | 2019-03-10 09:49 | ER Document Report ---
Doctor's Note Notes: 03/10/19 09:48 I have evaluated this pt. this am and she has no c/o. She feels all of her needs are being met and her physical exam is normal. She is awaiting disposition per mental health.
--- NOTE | 2019-03-10 11:04 | PSYCHOLOGICAL NOTE ---
Psych Note - Psych Note Date seen by psych provider: 03/09/19 Psych Note: Presenting problem: 24 Hour IVC Petition, AMS, Hx Bipolar, recent medication change (from Latuda to Vraylar over the past month), confusion and memory issues. patient is no longer engaging with her environment. Medical team reports patient is no longer medically cleared. Diagnosis: AMS Bipolar Disorder by Hx Concerns for Mild Vascular Neurocognitive Disorder (was on [place] and Xanax for 30 years +, has had 3 rounds of ECT) Medication recommendations made by the psychiatric medication provider, Dr. Gage MD., includes: Utilize Depakote Sprinkles, Liquid or IV since paranoid and difficulty with taking medications Impression/Plan: Patient is recommended to continue under IVC. Patient is no longer medically cleared at this time. Patient will be reevaluated. Dr. Hicks was consulted to care management of this patient; attending physicians with recommendations and disposition.
[2019-03-10] MEDS: BUSPIRONE HCL 10 MG TABLET PO SCH ×2 (12:02→17:45)
[2019-03-10] MEDS: DIVALPROEX SODIUM 125 MG CAP.SPRINK PO SCH ×2 (12:02→17:46)
[2019-03-10 13:27] LABS: ABSOLUTE EOSINOPHILS # (AUTO) 0.2 10^3/uL (0.0-0.6); ABSOLUTE LYMPHOCYTES (AUTO) 1.6 10^3/uL (0.5-4.7); ABSOLUTE MONOCYTES (AUTO) 0.7 10^3/uL (0.1-1.4); ABSOLUTE NEUT (AUTO) 7.9 10^3/uL (1.7-8.2); BASOPHILS % (AUTO) 0.5 % (0-2); EOSINOPHILS % (AUTO) 1.7 % (0-6); HEMOGLOBIN 12.9 g/dL (12.0-15.5); LYMPHOCYTES % (AUTO) 15.3 % (13-45); MEAN CORPUSCULAR HEMOGLOBIN 30.9 pg (27.0-33.4); MEAN CORPUSCULAR HGB CONC 33.1 g/dL (32.0-36.0); MEAN CORPUSCULAR VOLUME 93 fl (80-97); MONOCYTES % (AUTO) 6.8 % (3-13); PLATELET COUNT 224 10^3/uL (150-450); RED BLOOD COUNT 4.18 10^6/uL (3.72-5.28); RED CELL DISTRIBUTION WIDTH 13.3 % (11.5-14.0); SEGMENTED NEUTROPHILS % (AUTO) 75.7 % (42-78); TOTAL CELLS COUNTED % (AUTO) 100 %; WHITE BLOOD COUNT 10.4 10^3/uL (4.0-10.5)
[2019-03-10 13:35] LABS: ALKALINE PHOSPHATASE 83 U/L (38-126); ANION GAP 12 (5-19); ASPARTATE AMINO TRANSFERASE 37 U/L (14-36); BILIRUBIN,DIRECT 0.2 mg/dL (0.0-0.4); BILIRUBIN,TOTAL 0.8 mg/dL (0.2-1.3); BLOOD UREA NITROGEN 37 mg/dL (7-20); CALCIUM 9.8 mg/dL (8.4-10.2); CARBON DIOXIDE 19 mmol/L (22-30); CHLORIDE 111 mmol/L (98-107); GLUCOSE 88 mg/dL (75-110); POTASSIUM 4.1 mmol/L (3.6-5.0); TOTAL PROTEIN 6.7 g/dL (6.3-8.2)
--- NOTE | 2019-03-10 15:02 | PSYCHOLOGICAL NOTE ---
Psych Note - Psych Note Date seen by psych provider: 03/10/19 Time seen by psych provider: 11:00 Psych Note: Presenting problem: 24 Hour IVC Petition, AMS, Hx Bipolar, recent medication change (from Latuda to Vraylar over the past month), confusion and memory issues. Check in conducted with patient: Patient is orientated to person and place. Patient does demonstrate some confusion with time thinking it is currently July 2018. Patient definitely has confusion in regards to situation as she thinks that she is traveling and started to feel ill and that is why she had to come to the hospital. She does correctly identify being currently at [facility] and that she lives in [facility]. Patient reports that to her knowledge she has not taken any more or less medication than she is prescribed and states that her controls her medications to ensure that she takes the correct amount. She continued to report that she has short-term memory issues. Patient denies any thoughts of wanting to harm herself or others. Patient currently has flat affect and eye contact is extreme. Diagnosis: AMS Bipolar Disorder by Hx Concerns for Mild Vascular Neurocognitive Disorder (was on [place] and Xanax for 30 years +, has had 3 rounds of ECT) Medication recommendations made by the psychiatric medication provider, Dr. Gage MD., includes: Decrease Cymbalta to 60MG at night (home medication was 60MG BID) Depakote 250MG twice a day for mood stabilization Buspar 5MG twice a day for anxiety/calming effect/depression/sleep Impression/Plan: Patient is recommended to continue under IVC due to continued orientation difficulties. Patient will be reevaluated. Dr. Hicks was consulted to care management of this patient; attending physicians with recommendations and disposition.
[2019-03-10] MEDS: DULOXETINE HCL 30 MG CAPSULE.DR PO SCH (22:34)
[2019-03-11 01:50] VITALS: BP 180/88
== END ==
LOC: ER 16:06
DX: R41.82 Altered mental status, unspecified (principal); F31.9 Bipolar disorder, unspecified; Z79.899 Other long term (current) drug therapy
CPT/HCPCS: 36415; 80053; 80307; 81001; 82803; 82962; 83605; 83735; 85025; 85610; 87040; 87086; 93005; 93010; J3490; J7030

== ENCOUNTER 2019-09-23 16:08 | Inpatient (IN) | payer BC, MEDICARE ==
[2019-09-23 17:36] LABS: ALKALINE PHOSPHATASE 124 U/L (38-126); ANION GAP 14 (5-19); ASPARTATE AMINO TRANSFERASE 34 U/L (14-36); BILIRUBIN,TOTAL 1.1 mg/dL (0.2-1.3); BLOOD UREA NITROGEN 28 mg/dL (7-20); CALCIUM 10.6 mg/dL (8.4-10.2); CARBON DIOXIDE 21 mmol/L (22-30); CHLORIDE 107 mmol/L (98-107); GLUCOSE 128 mg/dL (75-110); POTASSIUM 4.8 mmol/L (3.6-5.0); TOTAL PROTEIN 8.3 g/dL (6.3-8.2)
--- NOTE | 2019-09-23 17:38 | ER Document Report ---
ED General - General Mode of Arrival: Wheelchair Information source: Outside Facility Records TRAVEL OUTSIDE OF THE [place] IN LAST 30 DAYS: No <NESSA MONAHAN - Last Filed: 09/23/19 22:27> <SEVERIANO JIMENEZ - Last Filed: 09/24/19 08:29> - General Chief Complaint: Urinary Problem Stated Complaint: URINARY PROBLEMS Time Seen by Provider: 09/23/19 16:25 Primary Care Provider: BISMARK LAWS MD [Primary Care Provider] - Follow up as needed Notes: Patient is a 74-year-old female presenting to the emergency department with concern for possible urinary retention. Patient is currently being treated at an inpatient psychiatric facility ([facility]) for bipolar, depression and anxiety. Per their report patient is nonverbal and has been wheelchair-bound since arrival on 09/21/2019. They report that she has not had any urinary output in greater than 24 hours. (NESSA MONAHAN) - Related Data Allergies/Adverse Reactions: Sulfa (Sulfonamide Antibiotics) Allergy (Verified 09/23/19 16:37) Past Medical History - General Information source: Outside Facility Records Cannot obtain history due to: Altered mental status - Social History Smoking Status: Unknown if Ever Smoked Family History: Other - bipolar Patient has suicidal ideation: No Patient has homicidal ideation: No - Past Medical History Cardiac Medical History: Reports: Hx Congestive Heart Failure Pulmonary Medical History: Reports: Hx COPD Renal/ Medical History: Denies: Hx Peritoneal Dialysis Psychiatric Medical History: Reports: Hx Bipolar Disorder, Hx Depression Past Surgical History: Reports: Hx Cardiac Surgery - pacemaker, Hx Pacemaker - Immunizations Hx Diphtheria, Pertussis, Tetanus Vaccination: No <NESSA MONAHAN - Last Filed: 09/23/19 22:27> Review of Systems - Review of Systems -: Yes ROS unobtainable due to patient's medical condition <NESSA OMNAHAN - Last Filed: 09/23/19 22:27> Physical Exam <NESSA MONAHAN - Last Filed: 09/23/19 22:27> - Vital signs Vitals: Temp Pulse Resp BP Pulse Ox 98.8 F 90 16 133/75 H 100 09/23/19 16:13 09/23/19 16:13 09/23/19 16:13 09/23/19 16:13 09/23/19 16:13 - Notes Notes: PHYSICAL EXAMINATION: GENERAL: Catatonic. HEAD: Atraumatic, normocephalic. EYES: Pupils equal round and sluggish to light, conjunctiva are erythematous. ENT: Nares patent, oropharynx clear without exudates. Moist mucous membranes. NECK: Normal range of motion, supple without lymphadenopathy LUNGS: Breath sounds clear to auscultation bilaterally and equal. No wheezes rales or rhonchi. HEART: Regular rate and rhythm without murmurs ABDOMEN: Soft, nontender, nondistended abdomen. No guarding, no rebound. No masses appreciated. Female : See course note. Musculoskeletal: Normal range of motion, no pitting or edema. No cyanosis. PSYCH: Nonverbal. SKIN: Warm, Dry, normal turgor, no rashes or lesions noted. (NESSA MONAHAN) Course - Laboratory Result Diagrams: 09/23/19 17:00 09/23/19 17:00 <NESSA MONAHAN - Last Filed: 09/23/19 22:27> - Laboratory Result Diagrams: 09/23/19 17:00 09/23/19 17:00 <SEVERIANO JIMENEZ - Last Filed: 09/24/19 08:29> - Re-evaluation Re-evalutation: This 74-year-old female patient was seen in this emergency department 48 hours ago by myself as well as multiple members of the nursing team. At that time she was alert, oriented, ambulated in the emergency department with a steady gait. She engaged in conversation and had no neurological deficits. She was cleared medically and went to [facility] voluntarily, her drove her there. On arrival today she is nonverbal, she is in a wheelchair and the staff from [facility] state that this is how she arrived to them 2 days ago. Upon review of the records she has had multiple psychiatric medication changes in the last 48 hours. She is also not urinated in at least 24 hours. 09/23/19 17:30 Nursing staff came and reported to me that patient has what appears to be abnormal vaginal discharge and also has tears on the vagina. They noted this when they were doing her Nugent catheter. We will do a pelvic exam and collect swabs. 09/23/19 17:38 Called and spoke with patient's . Patient's reports he spoke with the attending physician at [facility] and requested that his not be put on any antipsychotics or benzodiazepines as in the past this has made her significantly worse. 09/23/19 18:05 Pelvic exam performed, there is a small tear noted near the fourchette as well as a tear noted in the vaginal opening at 3:00. Swabs were obtained and sent to the lab. 09/23/19 21:11 Laboratory investigations have been unremarkable this evening. Blood work and urine all normal. Patient does have 3+ bacteria on the wet mount, negative chlamydia/gonorrhea. Head CT unremarkable. Patient still catatonic, unable to respond or answer questions, she is laying in the stretcher with her eyes open in what appears to be a days. She has squeezed our hands a few times. Her vital signs are stable, she has a normal sinus rhythm on the manager monitoring. EKG reviewed, shows a normal sinus rhythm, unchanged from previous EKGs on file, no ST segment elevation or depression to suggest ischemia. 09/23/19 22:29 Bedside handoff given to RETA Crisostomo. Dr. Boggs is also aware of patient and her status. Patient remains nonverbal, she will be monitored in the emergency department overnight hopefully the side effects of her medication will wear off and then we can do a thorough evaluation and disposition of this pa tient. We will get psych involved in the morning to help investigate what medications she has been taking at the facility and what medications have likely caused her catatonia today. (NESSA MONAHAN) 09/24/19 05:54 Patient is still catatonic. Discussed this case with Dr. Boggs. He also evaluted the patient. Patient will be started on IV fluids, as she is not eating or drinking at this time. Patient was able to look towards me when I assessed her. She is still nonverbal. We will continue to wait for mental health evaluation for evaluation of medications. 09/24/19 08:25 Bedside report given to Brynn Catherine NP. She will follow up with Mental Health. (SEVERIANO JIMENEZ) - Vital Signs Vital signs: Temp Pulse Resp BP Pulse Ox 99.2 F 90 22 H 136/65 H 94 09/24/19 02:15 09/23/19 16:13 09/24/19 08:01 09/24/19 08:01 09/24/19 08:01 - Laboratory Laboratory results interpreted by me: 09/23/19 09/23/19 09/23/19 17:00 17:00 17:24 WBC 11.6 H Hgb 15.7 H D Lymph % (Auto) 10.2 L Absolute Neuts (auto) 9.6 H Seg Neutrophils % 83.2 H Carbon Dioxide 21 L BUN 28 H Est GFR ( Amer) 51 L Est GFR (MDRD) Non-Af 42 L Glucose 128 H Calcium 10.6 H Total Protein 8.3 H Urine Ketones TRACE H Discharge <NESSA MONAHAN - Last Filed: 09/23/19 22:27> <SEVERIANO JIMENEZ - Last Filed: 09/24/19 08:29> - Discharge Clinical Impression: Urinary retention, Catatonic state Altered mental status Qualifiers: Altered mental status type: unspecified Qualified Code(s): R41.82 - Altered mental status, unspecified Bipolar disorder Qualifiers: Active/Remission status: remission status unspecified Qualified Code(s): F31.9 - Bipolar disorder, unspecified Condition: Stable Disposition: PSYCH HOSP/UNIT Referrals: BISMARK LAWS MD [Primary Care Provider] - Follow up as needed
[2019-09-23] MEDS ORDERED: NORMAL SALINE 1000 ML 1,000 ML IV ONE ×2 (17:42→21:04)
[2019-09-23 17:44] LABS: ABSOLUTE LYMPHOCYTES (AUTO) 1.2 10^3/uL (0.5-4.7); ABSOLUTE MONOCYTES (AUTO) 0.7 10^3/uL (0.1-1.4); ABSOLUTE NEUT (AUTO) 9.6 10^3/uL (1.7-8.2); BASOPHILS % (AUTO) 0.2 % (0-2); HEMATOCRIT 45.6 % (36.0-47.0); LYMPHOCYTES % (AUTO) 10.2 % (13-45); MEAN CORPUSCULAR HEMOGLOBIN 31.8 pg (27.0-33.4); MEAN CORPUSCULAR HGB CONC 34.3 g/dL (32.0-36.0); MEAN CORPUSCULAR VOLUME 93 fl (80-97); MONOCYTES % (AUTO) 6.4 % (3-13); PLATELET COUNT 344 10^3/uL (150-450); RED BLOOD COUNT 4.92 10^6/uL (3.72-5.28); RED CELL DISTRIBUTION WIDTH 12.7 % (11.5-14.0); SEGMENTED NEUTROPHILS % (AUTO) 83.2 % (42-78); TOTAL CELLS COUNTED % (AUTO) 100 %; WHITE BLOOD COUNT 11.6 10^3/uL (4.0-10.5)
[2019-09-23 17:46] LABS: HEMOGLOBIN 15.7 g/dL (12.0-15.5)
[2019-09-23 17:50] LABS: APPEARANCE,URINE CLEAR; BILIRUBIN,URINE NEGATIVE (NEGATIVE); COLOR,URINE YELLOW; GLUCOSE, URINE NEGATIVE (NEGATIVE); KETONES,URINE TRACE mg/dL (NEGATIVE); LEUKOCYTE ESTERASE,URINE NEGATIVE (NEGATIVE); NITRITE,URINE NEGATIVE (NEGATIVE); PROTEIN,URINE NEGATIVE (NEGATIVE); UROBILINOGEN,URINE NEGATIVE mg/dL (<2.0)
[2019-09-23 18:02] LABS: URINE AMPHETAMINES SCREEN NEGATIVE; URINE BARBITURATES SCREEN NEGATIVE; URINE BENZODIAZEPINES SCREEN UNCONFIRMED POSITIVE; URINE COCAINE SCREEN NEGATIVE; URINE MARIJUANA (THC) SCREEN NEGATIVE; URINE METHADONE SCREEN NEGATIVE; URINE PHENCYCLIDINE SCREEN NEGATIVE
[2019-09-23 18:16] LABS: BACTERIA (WET MOUNT) 3+ BACTERIA SEEN; EPITHELIALS (WET MOUNT) 3+ EPITHELIALS SEEN; RBCS (WET MOUNT) RARE RBCS SEEN; T.VAGINALIS (WET MOUNT) NO TRICHOMONAS SEEN; WBCS (WET MOUNT) 2+ WBCS SEEN; YEAST (WET MOUNT) NO YEAST SEEN
--- NOTE | 2019-09-23 18:32 | RADIOLOGY REPORT (SQ) ---
EXAM DESCRIPTION: CT HEAD WITHOUT IMAGES COMPLETED DATE/TIME: 09/23/2019 6:21 pm REASON FOR STUDY: altered mental status COMPARISON: None. TECHNIQUE: Axial images acquired through the brain without intravenous contrast. Images reviewed wi th bone, brain and subdural windows. Additional sagittal and coronal reconstructions were generated. Images stored on PACS. All CT scanners at this facility use dose modulation, iterative reconstruction, and/or weight based d osing when appropriate to reduce radiation dose to as low as reasonably achievable (ALARA). [facility]: Dose Right [facility]: CareDose [facility]: Dose Right [facility]: Teradose 4D [facility]: Smart Approva RADIATION DOSE: CT Rad equipment meets quality standard of care and radiation dose reduction techniq ues were employed. CTDIvol: 53.2 mGy. DLP: 964 mGy-cm. mGy. LIMITATIONS: None. FINDINGS: VENTRICLES: Prominent. CEREBRUM: No masses. No hemorrhage. No midline shift. Areas of low density in the white matter mos t likely due to chronic micro-vascular ischemic change. No evidence for acute infarction. CEREBELLUM: No masses. No hemorrhage. No alteration of density. No evidence for acute infarction. EXTRAAXIAL SPACES: Mild age-related involutional change. No fluid collections. No masses. ORBITS AND GLOBE: No intra- or extraconal masses. Normal contour of globe without masses. CALVARIUM: No fracture. PARANASAL SINUSES: No fluid or mucosal thickening. SOFT TISSUES: No mass or hematoma. OTHER: No other significant finding. IMPRESSION: MILD CHRONIC CHANGES OF ATROPHY AND MICROVASCULAR ISCHEMIA. NO ACUTE PROCESS. EVIDENCE OF ACUTE STROKE: NO. TECHNICAL DOCUMENTATION: JOB ID: [id number] Quality ID # [id number]: Final reports with documentation of one or more dose reduction techniques (e.g., Au tomated exposure control, adjustment of the mA and/or kV according to patient size, use of iterative reconstruction technique) 2010 [employer]- All Rights Reserved Reading location - IP/workstation name: [email or web address]
[2019-09-23 19:42] LABS: CHLAM PCR NOT DETECTED (NOT DETECT)
[2019-09-23] MEDS ORDERED: ONDANSETRON HCL INJ/PF 4 MG/2 ML SDV IV ONE (20:50)
[2019-09-23] MEDS ORDERED: METRONIDAZOLE 500 MG/NS RTU 500 MG/100 ML RTUPB IV ONE (22:40)
[2019-09-24] MEDS ORDERED: MINERAL OIL/PETROLATUM,WHITE OPH OINT 3.5 GM OU ONE ×2 (02:08→03:04)
[2019-09-24] MEDS ORDERED: NORMAL SALINE 1000 ML 1,000 ML IV ONE ×2 (05:30→14:33)
[2019-09-24] MEDS: METRONIDAZOLE 500 MG/NS RTU 500 MG/100 ML RTUPB IV SCH ×3 (08:52→20:04)
--- NOTE | 2019-09-24 09:03 | EKG REPORT ---
SEVERITY:- ABNORMAL ECG - SINUS RHYTHM PROBABLE LEFT ATRIAL ABNORMALITY INCOMPLETE RIGHT BUNDLE BRANCH BLOCK LVH WITH IVCD AND SECONDARY REPOL ABNRM : Confirmed by: Tali Panda MD 24-Sep-2019 09:02:34
[2019-09-24 11:03] LABS: ABSOLUTE BASOPHILS # (AUTO) 0.1 10^3/uL (0.0-0.2); ABSOLUTE LYMPHOCYTES (AUTO) 1.2 10^3/uL (0.5-4.7); ABSOLUTE MONOCYTES (AUTO) 0.7 10^3/uL (0.1-1.4); ABSOLUTE NEUT (AUTO) 9.6 10^3/uL (1.7-8.2); BASOPHILS % (AUTO) 0.4 % (0-2); EOSINOPHILS % (AUTO) 0.1 % (0-6); HEMATOCRIT 37.3 % (36.0-47.0); LYMPHOCYTES % (AUTO) 10.6 % (13-45); MEAN CORPUSCULAR HEMOGLOBIN 32.3 pg (27.0-33.4); MEAN CORPUSCULAR HGB CONC 34.9 g/dL (32.0-36.0); MEAN CORPUSCULAR VOLUME 92 fl (80-97); MONOCYTES % (AUTO) 6.3 % (3-13); PLATELET COUNT 291 10^3/uL (150-450); RED BLOOD COUNT 4.04 10^6/uL (3.72-5.28); RED CELL DISTRIBUTION WIDTH 12.6 % (11.5-14.0); SEGMENTED NEUTROPHILS % (AUTO) 82.6 % (42-78); TOTAL CELLS COUNTED % (AUTO) 100 %; WHITE BLOOD COUNT 11.7 10^3/uL (4.0-10.5)
[2019-09-24 11:18] LABS: ANION GAP 7 (5-19); BLOOD UREA NITROGEN 28 mg/dL (7-20); CALCIUM 8.8 mg/dL (8.4-10.2); CARBON DIOXIDE 18 mmol/L (22-30); CHLORIDE 116 mmol/L (98-107); GLUCOSE 104 mg/dL (75-110); POTASSIUM 4.6 mmol/L (3.6-5.0)
--- NOTE | 2019-09-24 13:04 | RADIOLOGY REPORT (SQ) ---
EXAM DESCRIPTION: CHEST SINGLE VIEW IMAGES COMPLETED DATE/TIME: 09/24/2019 12:49 pm REASON FOR STUDY: AMS COMPARISON: 03/09/2019 EXAM PARAMETERS: NUMBER OF VIEWS: One view. TECHNIQUE: Single frontal radiographic view of the chest acquired. RADIATION DOSE: NA LIMITATIONS: None. FINDINGS: LUNGS AND PLEURA: Small left pleural effusion. Chronic elevation right diaphragm. MEDIASTINUM AND HILAR STRUCTURES: No masses. Contour normal. HEART AND VASCULAR STRUCTURES: Stable heart size. Normal vasculature. BONES: No acute findings. HARDWARE: Unchanged position of pacemaker. OTHER: No other significant finding. IMPRESSION: Small left pleural effusion. TECHNICAL DOCUMENTATION: JOB ID: [id number] 2010 [employer]- All Rights Reserved Reading location - IP/workstation name: [email or web address]
[2019-09-24] MEDS ORDERED: ACETAMINOPHEN 650 MG SUPP.RECT PR ONE (13:53)
--- NOTE | 2019-09-24 15:20 | ER Document Report ---
Doctor's Note Notes: 09/24/19 15:17 This is a 74-year-old lady who is been previously seen by 1 of our midlevel providers and also by Dr. Boggs overnight. I was asked to reevaluate this lady. Basic story and she has a long history of psychosis and was sent to [facility] and started on multiple antipsychotic medicines within the last several days. She is now in the emergency department for altered mental status and on my evaluation I note that she has mild muscular rigidity and low-grade temperature. Her white count is normal. Head scan was normal as well as her urinalysis and chest x-ray. We would have concern about possible malignant neuroleptic syndrome. We have requested venous blood gas and CK at this time. Case has been discussed with the midlevel and recommended continuation of IV hydration and we may need to consider IV Ativan or IV dantrolene. [facility] had already obtained consultation with neurology service at [facility] and these were their basic recommendations as well. We have discussed this with the hospitalist service here and they want to see the CK level and VBG before they will consider admitting to their service.
[2019-09-24 15:23] LABS: VENOUS BLOOD BASE EXCESS -4.8 mmol/L; VENOUS BLOOD HCO3 19.4 mmol/L (20-32); VENOUS BLOOD PCO2 33.3 mmHg (35-63); VENOUS BLOOD PH 7.38 (7.30-7.42)
[2019-09-24] MEDS ORDERED: LORAZEPAM INJ 2 MG/1 ML VIAL IV ONE ×2 (15:25→15:33)
[2019-09-24 15:38] LABS: ALBUMIN 3.4 g/dL (3.5-5.0); ALKALINE PHOSPHATASE 84 U/L (38-126); ASPARTATE AMINO TRANSFERASE 25 U/L (14-36); BILIRUBIN,TOTAL 0.9 mg/dL (0.2-1.3); CREATINE KINASE 91 U/L (30-135)
--- NOTE | 2019-09-24 15:44 | Progress Note ---
Provider Note Provider Note: 09/24/2019- 74-year-old female with history of depression, anxiety, psychosis sent from [facility] to this ER yesterday with complaints of urinary retention. The history that is available to disease patient is wheelchair-bound nonverbal at the psych facility for the last 3 days. Patient arrived here around 5 PM yesterday since then until 3:30 PM she is nonverbal not communicative. Was given IV fluids and IV Zofran. Medical consult was called around 3:00 today. The impression from my ER team is patient is catatonic since yesterday. Nonverbal with the continuous blinking of the eyelids. Per my request neurology was called the recommendation is supportive measures. CK is not available at the time of my evaluation. Examination patient is catatonic rigid with a complete spasticity of the whole body including the chin and continuous flapping of the eyelids and eyebrows are rolled up towards. As if she might have a seizure activity. Not communicative or nonverbal. Chest bilateral entry was decreased S1-S2 present tachycardic. Bowel sounds are sluggish. Extremities are very stiff to touch and palpation and try to move the joints like bending the knees but meeting with extreme resistance. Vital signs indicates she has a T-max of 100.1 and urine analysis is negative. My impression is patient might have serotonin-like syndrome/neuro malignant syndrome or may be seizure activity with status epilepticus. In my opinion patient need a continuous EEG and she needs to go to a facility with the psychiatrist available on 24 basis and neurological services are available in 24-hour basis. Unfortunately we do not have both of them in this facility. I requested Kalie SANDERSON in the emergency room to transfer the patient to tertiary care facility.
--- NOTE | 2019-09-24 16:56 | PSYCHOLOGICAL NOTE ---
Psych Note - Psych Note Date seen by psych provider: 09/23/19 Time seen by psych provider: 11:45 Psych Note: Patient is a 74-year-old female who presents to ED at the request of [facility] for concerns of urinary retention. Patient presented to [facility] on 09/21/2019 for voluntary admission after receiving medical and psychiatric clearance from [facility] physicians. Patient medical history is significant for [place] toxicity with renal failure, has a pacemaker, hypertension, and hypothyroidism. Patient's psychiatric history is positive for Bipolar Disorder. Patient has had serial head CTs with the most recent being completed on 09/23/2019 revealing white matter ischemia, enlarged ventricles consistent with global atrophy and age- related involutional change. Patient was seen by behavioral health on 09/21/2019 to assess her mental status and need for higher level of care. Upon evaluation, she was calm, cooperative, engaged in her treatment, and able to ambulate without assistance. She presented as passively suicidal without intent or plan, low energy, and with concerns of losing hope for her future. Patient's after care plan at discharge included discussion with patient and her who both indicated they wished for a voluntary admission to [facility] and provided verbal consent for release of lab work and necessary documents for voluntary admission. Dorina from [facility] called and stated patient was accepted under a voluntary status and subsequently transported patient on 09/21/2019 to [facility]. On today's date (09/24/2019), received consult to assess patient who was noted to be laying in the bed with her mouth open, eyes open without blinking, looking to the right, and unresponsive to verbal stimuli. Clinician introduced self and oriented patient to clinician's role and intent of evaluation. Clinici lizbeth also oriented patient to location, and patient was not responsive. Clinician asked Austin Alcala RN to be present during evaluation in an alternative attempt to communicate with patient. Clinician informed patient that clinician would be holding her hand for a few moments. Clinician asked patient if she could hear clinician, and if she could hear clinician to please squeeze the clinician's hand, at which time clinician felt increased pressure applied to the hand holding the patient's hand. Clinician asked other non essential questions without patient response. It should be noted proper and appropriate PPE was worn during this episode of patient contact. Behavioral health team was provided the medication administration form (MAR) from [facility] that included 3 pages of medication changes, PRN medications, and evidence of the patient receiving the following: Colace 100MG on 09/22/2019 at 16:06, Vistaril 50MG at 23:55 on 09/21/2019; Zyprexa 2.5MG on 09/22/2019 at 10:41 and 12:48; Aldactone 25 MG on 09/22/2019 at 07:02; and 7.5MG of Remeron on 09/22/2019 at 20:38. DSM 5 Diagnosis: Rule out Neuro Malignant Syndrome (NMS) A. Muscle rigidity B. Tachycardia C. Altered Mental Status (catatonia) D. Fever (101-before acetaminophen) E. Autonomic nervous system dysfunction (high blood pressure) F. Irregular Pulse G. Tachypnea (increase rate of respirations) H. Leukocytosis (increase of white blood cells) Please note, patient's signs and symptoms the diagnosis of NMS is based on the presence of characteristics that include treatment with antipsychotic/neuroleptic drugs within the last 1-4 weeks fever, muscle rigidity, and minimally the five signs/symptoms listed below. Reference is NIM ([place] of [facility]) http://www.nimh.nih.gov/index.shtml Impression/Plan: Patient is cleared from psychiatric services as she presented to [facility] ED for medical concerns of urinary retention only. It is noted in provider Skyla's note that patient reportedly presented to [facility] on 09/21/2019 in the catatonic state in which she is currently in; however it is well documented in this patient's chart by medical and behavioral health that patient was alert and oriented, walking and talking, albeit slightly unsteady on her feet at the time of discharge. Patient has a significant medical history for medication sensitivity and medical challenges that appear to be at the root of the current presentation. Given her clear mental status at discharge from [facility] on 09/21/2019 and her subsequent admission to an inpatient psychiatric facility, and then transfer from that same inpatient psychiatric facility approximately 48 hours later back to [facility] ED, in a decompensated and declined medical state, it stands to reason that the patient's current presentation is medical rather than psychiatric in nature. As such, psychiatry will await medical stability but be available for consultation as needed. Dr. Hicks was consulted on the care and management of this patient; attending physician is in agreement with recommendations and disposition.
--- NOTE | 2019-09-24 17:49 | ER Document Report ---
Doctor's Note Notes: 09/24/19 15:25 Patient with fluttering of eyelashes and continues unresponsive, Dr. Haines concerned about possible seizure activity. Patient does have a history of previously taking alprazolam and has not had any benzos while here today. Dr. Webster recommends giving a dose of Ativan 1 mg IV. 09/24/19 16:00 Called [facility] transfer center and consulted again with neurologist Dr. Unger. Dr Unger advised of hospitalist concerns about possible seizure activity, serotonin syndrome versus neuroleptic malignant syndrome and their concerns about need for continuous EEG. Dr. Unger does not feel that patient needs continuous EEG and declines excepting patient for transfer. 09/24/19 16:[address] Haines regarding conversation with neurologist and the fact that they declined transfer at this time. Hospitalist recommends consultation with their transfer center to arrange transport to their medical services. Call placed to [facility] for consultation with their hospitalist.Dr Argueta, who is a hospitalist at [facility] states that due to the coronavirus he is not able to order EEGs without approval from the neurologist and that the neurologist is already stated that these services are not warranted. Dr. Argueta does not feel that there hospital can offer any additional services beyond [facility]'s capability. Dr. Argueta does state that if patient needs ICU services then the soft hat binder could be consulted regarding her care. 09/24/19 17:11 Patient resting with eyes closed, no eyelash fluttering, vital signs continue stable. Provider called out patient's name and patient startled although did not open her eyes. Provider held patient's hand and asked her to squeeze and there was subtle contraction felt. consulted with soft hat binder Dr. Dobosn regarding previous consultations and patient status. Dr. Dobson advises ordering an ammonia level and states that he will be by to evaluate patient. 09/24/19 18:40 Dr. Dobson evaluated patient, patient opened her eyes and responded to his questions. Patient was able to lift her arms when prompted. Dr. Dobson does not feel that patient needs ICU admission. Call placed to Dr. Haines to update him regarding patient status. Recommends consultation with nighttime hospitalist 09/24/19 19:[address] Browne who does agree to accept patient for admission to [facility] at this time. Dr. Browne she does request adding on thyroid studies at this time.
[2019-09-24] MEDS ORDERED: MAG HYDROX/AL HYDROX/SIMETH SUSP 30 ML UDCUP PO PRN (20:07)
[2019-09-24] MEDS ORDERED: ACETAMINOPHEN 325 MG TABLET PO PRN (20:07)
[2019-09-24] MEDS ORDERED: ACETAMINOPHEN 650 MG SUPP.RECT PR PRN (20:07)
[2019-09-24] MEDS ORDERED: BISACODYL 10 MG SUPP.RECT PR PRN (20:07)
[2019-09-24] MEDS ORDERED: BISACODYL 5 MG TABEC PO PRN (20:07)
[2019-09-24 20:14] LABS: FREE T3 3.03 pg/mL (2.77-5.27); FREE T4 (FREE THYROXINE) 1.38 ng/dL (0.78-2.19)
[2019-09-24] MEDS ORDERED: LORAZEPAM INJ 2 MG/1 ML VIAL IV PRN (20:16)
[2019-09-24 20:27] LABS: THYROID STIMULATING HORMONE 2.88 uIU/mL (0.47-4.68)
[2019-09-24] MEDS ORDERED: NORMAL SALINE 1000 ML 1,000 ML IV PRN (20:59)
--- NOTE | 2019-09-24 21:12 | PDOC H&P ---
History of Present Illness Admission Date/PCP: 09/24/19 15:16 BISMARK LAWS MD Patient complains of: Altered mental state. Acute urinary retention History of Present Illness: SHALONDA STRATTON is a 74 year old female Past Medical History Cardiac Medical History: Reports: Hyperlipidema, Hypertension, Other - Heart block Pulmonary Medical History: Reports: Chronic Obstructive Pulmonary Disease (COPD) EENT Medical History: Denies: Eyes, Ears, Nose Neurological Medical History: Denies: Ischemic CVA, Multiple Sclerosis, Seizures Endocrine Medical History: Denies: Diabetes Mellitus Type 2 Renal/ Medical History: Denies: Chronic Kidney Disease Malignancy Medical History: Reports: None GI Medical History: Denies: Diverticulitis, Peptic Ulcer Disease, Ulcerative Colitis Musculoskeltal Medical History: Reports: None Skin Medical History: Denies: Eczema, Psoriasis Psychiatric Medical History: Reports: Bipolar Disorder, Depression Denies: Alcohol Dependency, Substance Abuse, Tobacco Dependency Traumatic Medical History: Reports: None Hematology: Reports: None Infectious Medical History: Reports: None Past Surgical History Past Surgical History: Reports: Pacemaker Social History Information Source: Relative - Spouse, [facility] Records Lives with: Spouse/Significant other Smoking Status: Never Smoker Electronic Cigarette use?: No Frequency of Alcohol Use: None Hx Recreational Drug Use: No Drugs: None Hx Prescription Drug Abuse: No - Advance Directive Resuscitation Status: Do Not Resuscitate Family History Family History: Malignancy, Other - bipolar Parental Family History Reviewed: Yes Children Family History Reviewed: Yes Sibling(s) Family History Reviewed.: Yes Medication/Allergy Home Medications: Alprazolam [Xanax 0.5 mg Tablet] 0.5 mg PO TIDP PRN 03/07/19 Ergocalciferol (Vitamin D2) [Drisdol 50,000 unit (1.25MG) Capsule] 50,000 unit PO GUTIERREZ@1000 03/07/19 Liothyronine Sodium [Cytomel] 5 mcg PO DAILY 03/07/19 Methylphenidate HCl [Ritalin 5 mg Tablet] 5 mg PO DAILY 03/07/19 Omeprazole 20 mg PO DAILY 03/07/19 Hydroxyzine Pamoate [Vistaril 25 mg Capsule] 25 mg PO TIDP PRN 09/24/19 Levothyroxine Sodium [Synthroid 0.025 mg Tablet] 0.025 mg PO Q6AM 09/24/19 Lorazepam [Ativan 1 mg Tablet] 1 mg PO 04/12/20 Quetiapine Fumarate [Quetiapine Fumarate ER] 400 mg PO DAILY 09/24/19 Sertraline HCl [Zoloft 50 mg Tablet] 100 mg PO DAILY 09/24/19 Simvastatin [Zocor 10 mg Tablet] 10 mg PO QHS 09/24/19 Spironolactone [Aldactone 25 mg Tablet] 25 mg PO Q12 09/24/19 Allergies/Adverse Reactions: Sulfa (Sulfonamide Antibiotics) Allergy (Verified 09/23/19 16:37) Review of Systems ROS unobtainable: Due to mental status Physical Exam Vital Signs: Temp Pulse Resp BP Pulse Ox 98.7 F 90 27 H 147/68 H 99 09/24/19 16:00 09/23/19 16:13 09/24/19 14:01 09/24/19 14:01 09/24/19 14:01 Intake & Output 09/23/19 09/24/19 09/25/19 06:59 06:59 06:59 Intake Total 3100 1200 Output Total 775 Balance 2325 1200 Weight 72.8 kg General appearance: PRESENT: mild distress, well-developed. ABSENT: disheveled Head exam: PRESENT: atraumatic, normocephalic Eye exam: PRESENT: conjunctival injection, conjunctiva pink, PERRLA, other - Eyes open. Minimal blinking. No ocular clonus. Pupils dilated but do react to light.. ABSENT: scleral icterus Ear exam: PRESENT: normal external ear exam. ABSENT: bleeding, drainage Mouth exam: PRESENT: dry mucosa Teeth exam: PRESENT: other - Patient did not open her mouth Neck exam: ABSENT: carotid bruit, JVD, lymphadenopathy Respiratory exam: PRESENT: clear to auscultation gurjit, symmetrical, unlabored. ABSENT: accessory muscle use, rales, rhonchi, tachypnea, wheezes Cardiovascular exam: PRESENT: RRR, +S1, +S2, systolic murmur - 2/6 Pulses: PRESENT: normal radial pulses, normal dorsalis pedis pul GI/Abdominal exam: PRESENT: diminished bowel sounds, distended, soft, other - Tympanitic. ABSENT: guarding Rectal exam: PRESENT: deferred Gentrourinary exam: PRESENT: indwelling catheter - Concentrated urine Extremities exam: ABSENT: clubbing, pedal edema, +1 edema Musculoskeletal exam: PRESENT: normal inspection. ABSENT: ambulatory, deformity, full ROM Neurological exam: PRESENT: alert, awake, oriented to person - She did answer some questions by shaking her head yes and no. Unable to further assess Psychiatric exam: PRESENT: unusual affect. ABSENT: agitated Focused psych exam: PRESENT: catatonic Skin exam: PRESENT: normal color. ABSENT: cyanosis, rash Results Laboratory Results: 09/24/19 10:43 09/24/19 10:43 09/24/19 09/24/19 09/24/19 10:43 10:43 15:06 WBC 11.7 H RBC 4.04 Hgb 13.0 D Hct 37.3 MCV 92 MCH 32.3 MCHC 34.9 RDW 12.6 Plt Count 291 Seg Neutrophils % 82.6 H VBG pH VBG pCO2 VBG HCO3 VBG Base Excess Sodium 140.6 Potassium 4.6 Chloride 116 H Carbon Dioxide 18 L Anion Gap 7 BUN 28 H Creatinine 0.88 Est GFR ( Amer) > 60 Glucose 104 Calcium 8.8 Magnesium 2.0 Total Bilirubin 0.9 AST 25 Alkaline Phosphatase 84 Ammonia Total Protein 6.0 L Albumin 3.4 L TSH Free T4 Free T3 pg/mL 09/24/19 09/24/19 09/24/19 15:06 15:06 17:21 WBC RBC Hgb Hct MCV MCH MCHC RDW Plt Count Seg Neutrophils % VBG pH 7.38 VBG pCO2 33.3 L VBG HCO3 19.4 L VBG Base Excess -4.8 Sodium Potassium Chloride Carbon Dioxide Anion Gap BUN Creatinine Est GFR ( Amer) Glucose Calcium Magnesium Total Bilirubin AST Alkaline Phosphatase Ammonia < 8.7 L Total Protein Albumin TSH 2.88 Free T4 1.38 Free T3 pg/mL 3.03 09/24/19 15:06 Creatine Kinase 91 Impressions: Head CT 09/23/19 17:49 IMPRESSION: MILD CHRONIC CHANGES OF ATROPHY AND MICROVASCULAR ISCHEMIA. NO ACUTE PROCESS. EVIDENCE OF ACUTE STROKE: NO. Chest X-Ray 09/24/19 12:36 IMPRESSION: Small left pleural effusion. Assessment and Plan - Diagnosis (1) Catatonic state Is this a current diagnosis for this admission?: Yes Plan: 09/24/2019 I talked to the patient's . The patient had an episode like this last year. She was admitted to the hospital in a catatonic state. The remembers that she would stare into space. She looked like she was trying to participate. She was not eating or drinking. She was in the hospital for approximately 1 week. He states that 1 day she "snapped out of it "and began walking and eating. He cannot remember any specific event that caused this. They believed it was related to medications at that time as well. The patient was seen by psychiatry here at the hospital. We will continue to have them follow-up with the patient. We will give her 24 hours or so and then consider utilizing Depakote and BuSpar. She was on lithium for a long time in the past but suffered lithium toxicity. Evidently she is quite sensitive to antipsychotic medication. (2) Urinary retention Is this a current diagnosis for this admission?: Yes Plan: 09/24/2019 Possibly related to her medications. She has a Nugent catheter in place. Her urine is somewhat concentrated. We will continue to monitor intake and output. There was no evidence of infection on her urine analysis. There were some white cells on her wet mount but no trichomonas. There was no positive serology for chlamydia or gonorrhea. (3) Bipolar disorder Qualifiers: Active/Remission status: currently active Current bipolar episode type: depressed Current episode severity: moderate Qualified Code(s): F31.32 - Bipolar disorder, current episode depressed, moderate Is this a current diagnosis for this admission?: Yes Plan: 09/24/2019 I had a long discussion with the patient's this evening. He states that over the last several weeks she has been exhibiting a decline in her condition. She did this last year as well. She was getting more depressed. She was seen in the emergency department on September 20 and accepted at [facility]. She was referred back from [facility] due to acute urinary retention. Right now she is not taking oral medications. The stated that during her hospitalization last year they attempted to place a nasogastric and Dobbhoff feeding tube but it was very difficult. I told him that we may need to try during this admission especially if she does not begin eating or drinking. Psychiatry will continue to see the patient. (4) Hypertension Qualifiers: Hypertension type: essential hypertension Qualified Code(s): I10 - Essential (primary) hypertension Is this a current diagnosis for this admission?: Yes Plan: 09/24/2019 The patient is on spironolactone. Her blood pressures are slightly elevated. We will have intravenous medications available if needed. Hopefully she will begin taking food and medications by mouth soon. (5) Hypothyroidism Qualifiers: Hypothyroidism type: acquired Qualified Code(s): E03.9 - Hypothyroidism, unspecified Is this a current diagnosis for this admission?: Yes Plan: 09/24/2019 The patient's states that she was just in Dr. Laws's office not too long ago. He states that her blood tests were good. They checked lipids and thyroid. Her blood pressure was reasonably controlled. We will continue her current medications at this time. We did check thyroid levels and they are pending at this time. (6) Hyperlipidemia Qualifiers: Hyperlipidemia type: unspecified Qualified Code(s): E78.5 - Hyperlipidemia, unspecified Is this a current diagnosis for this admission?: Yes Plan: 09/24/2019 We will continue the patient's statin therapy when she begins taking oral medications. - Plan Summary Summary: 09/24/2019 It seems that this admission parallels an admission last year where she was catatonic but after approximately 5 to 7 days it wore off spontaneously. We will admit her to [facility] for closer monitoring. PRN medications will be available for her blood pressure as well as anxiety. We will asked psychiatry to follow the patient. They typically recommend Depakote and BuSpar. We will wait 24 hours to see how the patient is in the morning and then decide on which medications may want to utilize. We will continue IV fluids at this time. She does have a history of heart block and she does have a pacemaker in and other than hypertension the patient's cannot recall any diagnosis of heart failure. - Time Time Spent with patient: 35 or more minutes Medications reviewed and adjusted accordingly: Yes Anticipated discharge: Other - Possible psychiatric facility - Inpatient Certification Based on my medical assessment, after consideration of the patient's comorbi dities, presenting symptoms, or acuity I expect that the services needed warrant INPATIENT care.: Yes I certify that my determination is in accordance with my understanding of Medicare's requirements for reasonable and necessary INPATIENT services [42 CFR 412.3e].: Yes Medical Necessity: Need Close Monitoring Due to Risk of Patient Decompensation, Need For IV Fluids, Need for Neurological Checks Post Hospital Care: D/C Machine Lead Burner Documentation
--- NOTE | 2019-09-24 21:16 | ADVANCED CARE ---
- Diagnosis (1) Catatonic state Diagnosis Current: Yes (2) Urinary retention Diagnosis Current: Yes (3) Bipolar disorder Diagnosis Current: Yes (4) Hypertension Diagnosis Current: Yes (5) Hypothyroidism Diagnosis Current: Yes (6) Hyperlipidemia Diagnosis Current: Yes Attendance: Because of the patient's altered mental status I called her , Daren Huang, to obtain more history and discussed CODE STATUS. He states that she would not want any heroic measures. He also states that they are currently working on a living will document provided by her primary care provider. They have not had a chance to complete this. I did tell him that once a document like that is completed these should put a copy on file at the hospital. Resuscitation Status: Do Not Resuscitate Discussion: The patient's does admit that the patient does seem to be declining over time. She had a similar episode to this last year and in fact voluntarily elected to present to [facility] this time. He states that she would not want any heroic measures. As noted above they are currently working on a document to this effect. Care Planning Goals: Complete document that primary care provider gave them. Time Spent: 20 minutes
--- NOTE | 2019-09-24 21:40 | RADIOLOGY REPORT (SQ) ---
CLINICAL INDICATION: Distended tympamitic abdo decreased BS. TECHNIQUE: Single image(s) of the abdomen. COMPARISON: None. FINDINGS: A nonspecific gas pattern is identified. No evidence of high grade obstruction. No evidence of free air. Osteoarthritis. IMPRESSION: No acute intra-abdominal process is identified.
--- NOTE | 2019-09-24 23:12 | ER Document Report ---
Doctor's Note Notes: 09/24/2019 Patient is a 74-year-old female who presents to ED at the request of [facility] for concerns of urinary retention. Patient presented to [facility] on 09/21/2019 for voluntary admission after receiving medical and psychiatric clearance from [facility] physicians. Patient medical history is significant for [place] toxicity with renal failure, has a pacemaker, hypertension, and hypothyroidism. Patient's psychiatric history is positive for Bipolar Disorder. Patient has had serial head CTs with the most recent being completed on 09/23/2019 revealing white matter ischemia, enlarged ventricles consistent with global atrophy and age- related involutional change. Patient was seen by behavioral health on 09/21/2019 to assess her mental status and need for higher level of care. Upon evaluation, she was calm, cooperative, engaged in her treatment, and able to ambulate without assistance. She presented as passively suicidal without intent or plan, low energy, and with concerns of losing hope for her future. Patient's after care plan at discharge included discussion with patient and her who both indicated they wished for a voluntary admission to [facility] and provided verbal consent for release of lab work and necessary documents for voluntary admission. Dorina from [facility] called and stated patient was accepted under a voluntary status and subsequently transported patient on 09/21/2019 to [facility]. [facility] health team was provided the medication administration form (MAR) from [facility] that included 3 pages of medication changes, PRN medications, and evidence of the patient receiving the following: Colace 100MG on 09/22/2019 at 16:06, Vistaril 50MG at 23:55 on 09/21/2019; Zyprexa 2.5MG on 09/22/2019 at 10:41 and 12:48; Aldactone 25 MG on 09/22/2019 at 07:02; and 7.5MG of Remeron on 09/22/2019 at 20:38. DSM 5 Diagnosis: Rule out Neuro Malignant Syndrome (NMS) The diagnosis of NMS is based on the presence of characteristics that include treatment with antipsychotic/neuroleptic drugs within the last 1-4 weeks fever, muscle rigidity, and minimally at least five of the signs/symptoms listed below. Patient is recorded to have each of the signs/symptoms listed below. A. Muscle rigidity B. Tachycardia (increased heart rate) C. Altered Mental Status (catatonia) D. Fever (100.1-before acetaminophen) E. Autonomic nervous system dysfunction (high blood pressure) F. Irregular Pulse G. Tachypnea (increase rate of respirations) H. Leukocytosis (increase of white blood cells) Reference: NIH/NIMH ([place] [employer] [facility]) http://www.nimh.nih.gov/index.shtml Impression/Plan: Patient continues to be fairly catatonic and verbally unresponsive, however, engages some via the squeezing of hands in response to questions. It appears as though her responses are volitional in nature but difficult to be certain. Review of patient's charts shows she continues to have urinary retention with increasing blood pressures and respirations, and variable pulse rates. On lab retest her white count increase was negligible (11.6-11.7), and her fever decreased possibly as a result of acetaminophen administration. Based on review of patient's MAR from [facility] and some inconsistency with regard to toxicology results upon admission to ED, further clarification on her treatment during her 48 hour stay is needed. I will request those records from [facility], however, on the surface it appears she received several doses of neuroleptics and and a small dose of a serotenergic agent. Thus, her current presentation and symptoms seem more consistent with NMS versus Serontonin Sy ndrome, particularly given the muscle rigidity. Lethal Catatonia can likely be ruled out as the patient, who had a previous catatonic state a few years back, did so when administered neuroleptic/ an tipsychotic medications. A yañez factor in differentiating between NMS and Lethal Catatonia is that the lethal catatonia patient almost invariably endures a period of agitation and excitement prior to the catatonia. This is in contrast to the NMS patient in which the first symptom is usually muscle rigidity. Thank you for this referral and please do not hesitate to contact the behavioral health team at [phone] if further assistance is needed.
[2019-09-25] MEDS ORDERED: FAMOTIDINE INJ/PF 20 MG/2 ML SDV IV ONE (00:30)
[2019-09-25] MEDS: POLYVINYL ALCOHOL 1.4% OPH SOLN 15 ML OU SCH ×7 (02:11→21:33)
[2019-09-25] MEDS: HEPARIN SOD (PORCINE) 5,000 UNIT/ML 1 ML VIAL SUBCUT SCH ×4 (02:19→21:32)
[2019-09-25] MEDS: ONDANSETRON HCL INJ/PF 4 MG/2 ML SDV IV PRN ×3 (02:29→21:35)
[2019-09-25 06:10] LABS: ABSOLUTE LYMPHOCYTES (AUTO) 1.1 10^3/uL (0.5-4.7); ABSOLUTE MONOCYTES (AUTO) 0.6 10^3/uL (0.1-1.4); BASOPHILS % (AUTO) 0.3 % (0-2); EOSINOPHILS % (AUTO) 0.2 % (0-6); HEMATOCRIT 35.6 % (36.0-47.0); HEMOGLOBIN 12.3 g/dL (12.0-15.5); LYMPHOCYTES % (AUTO) 10.3 % (13-45); MEAN CORPUSCULAR HEMOGLOBIN 32.2 pg (27.0-33.4); MEAN CORPUSCULAR HGB CONC 34.5 g/dL (32.0-36.0); MEAN CORPUSCULAR VOLUME 93 fl (80-97); MONOCYTES % (AUTO) 5.7 % (3-13); PLATELET COUNT 270 10^3/uL (150-450); RED BLOOD COUNT 3.81 10^6/uL (3.72-5.28); RED CELL DISTRIBUTION WIDTH 12.5 % (11.5-14.0); SEGMENTED NEUTROPHILS % (AUTO) 83.5 % (42-78); TOTAL CELLS COUNTED % (AUTO) 100 %; WHITE BLOOD COUNT 10.8 10^3/uL (4.0-10.5)
[2019-09-25 06:45] LABS: ANION GAP 7 (5-19); BLOOD UREA NITROGEN 27 mg/dL (7-20); CALCIUM 8.6 mg/dL (8.4-10.2); CARBON DIOXIDE 18 mmol/L (22-30); CHLORIDE 116 mmol/L (98-107); GLUCOSE 102 mg/dL (75-110); POTASSIUM 4.5 mmol/L (3.6-5.0)
--- NOTE | 2019-09-25 07:28 | EKG REPORT ---
SEVERITY:- ABNORMAL ECG - SINUS RHYTHM LVH WITH IVCD AND SECONDARY REPOL ABNRM : Confirmed by: Chaparro Blanc MD 25-Sep-2019 07:27:25
[2019-09-25] MEDS: NORMAL SALINE 1000 ML 1,000 ML IV PRN ×2 (08:28→23:12)
--- NOTE | 2019-09-25 08:31 | PDOC PROGRESS REPORT ---
Subjective Progress Note for:: 09/25/19 Subjective:: 74-year-old female with history of depression, anxiety, psychosis admitted to [facility] under involuntary commitment brought to the ER 2 days ago with complaints of urinary symptoms found to have urinary retention , Nugent's catheter was placed , the information ER got is that patient is on multiple antipsychotic medications at the [facility] , patient is wheelchair- bound and and unresponsive, her medical condition is the same while she was in the ER , medical consult was called around 3 PM yesterday, on examination the patient is in spastic state ,extremities are stiff, with the eyeballs rolled up, unresponsive very stiff chin with a hyperreflexia, look like Babinski's sign positive, requested the ER team to transfer the patient to a facility with the neurological services available but unfortunately the neurology refused to accept the patient and the hospitalist at [facility] without neurologist approval refused to accept the patient. finally the patient was admitted to our facility last night. This morning at the time of my examination patient is in similar condition with out any improvement in physical condition at all. 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 I am concerned about the patient condition requested Dr. Mcclendon statistical programmer have a look at the patient and made recommendations. Patient has a pacemaker unable to do the MRI of the brain. EEG was requested. Labs are stable at this time. plan is to repeat the CT head today. Her prognosis is poor, condition is critical. Reason For Visit: ACUTE URINARY RETENTION POSSIBLE TOXIC Physical Exam Vital Signs: Temp Pulse Resp BP Pulse Ox 97.9 F 71 21 H 146/80 H 95 09/25/19 03:23 09/25/19 03:23 09/25/19 03:23 09/25/19 03:23 09/25/19 03:23 Intake & Output 09/24/19 09/25/19 09/26/19 06:59 06:59 06:59 Intake Total 3100 2300 Output Total 775 1200 Balance 2325 1100 Weight 72.8 kg 76.8 kg General appearance: PRESENT: other - Patient unresponsive morning with painful stimuli. Head exam: PRESENT: atraumatic Eye exam: PRESENT: other - Unable to examine the pupils she is closing the eyelids are tight and eyeballs are rolled up. I was able to see only the lower edges of the pupils. Mouth exam: PRESENT: neck supple Neck exam: ABSENT: carotid bruit, JVD, lymphadenopathy, thyromegaly Respiratory exam: PRESENT: decreased breath sounds Cardiovascular exam: PRESENT: RRR, other - Pacemaker present on the left side of the chest.. ABSENT: diastolic murmur, rubs, systolic murmur GI/Abdominal exam: PRESENT: normal bowel sounds. ABSENT: mass, organolmegaly, rebound Rectal exam: PRESENT: deferred Extremities exam: PRESENT: full ROM. ABSENT: calf tenderness, clubbing, pedal edema Neurological exam: PRESENT: altered, CN II-XII grossly intact, aphasic, other - Hyperreflexia present on examination. Possible Babinski Babinski is positive.. ABSENT: oriented to place, oriented to time, oriented to situation, motor sensory deficit Psychiatric exam: PRESENT: appropriate affect, normal mood. ABSENT: homicidal ideation, suicidal ideation Results Laboratory Results: 09/25/19 04:56 09/25/19 04:56 09/24/19 09/24/19 09/24/19 10:43 10:43 15:06 WBC 11.7 H RBC 4.04 Hgb 13.0 D Hct 37.3 MCV 92 MCH 32.3 MCHC 34.9 RDW 12.6 Plt Count 291 Seg Neutrophils % 82.6 H VBG pH VBG pCO2 VBG HCO3 VBG Base Excess Sodium 140.6 Potassium 4.6 Chloride 116 H Carbon Dioxide 18 L Anion Gap 7 BUN 28 H Creatinine 0.88 Est GFR ( Amer) > 60 Glucose 104 Calcium 8.8 Magnesium 2.0 Total Bilirubin 0.9 AST 25 Alkaline Phosphatase 84 Ammonia Total Protein 6.0 L Albumin 3.4 L TSH Free T4 Free T3 pg/mL 09/24/19 09/24/19 09/24/19 15:06 15:06 17:21 WBC RBC Hgb Hct MCV MCH MCHC RDW Plt Count Seg Neutrophils % VBG pH 7.38 VBG pCO2 33.3 L VBG HCO3 19.4 L VBG Base Excess -4.8 Sodium Potassium Chloride Carbon Dioxide Anion Gap BUN Creatinine Est GFR ( Amer) Glucose Calcium Magnesium Total Bilirubin AST Alkaline Phosphatase Ammonia < 8.7 L Total Protein Albumin TSH 2.88 Free T4 1.38 Free T3 pg/mL 3.03 09/25/19 09/25/19 04:56 04:56 WBC 10.8 H RBC 3.81 Hgb 12.3 Hct 35.6 L MCV 93 MCH 32.2 MCHC 34.5 RDW 12.5 Plt Count 270 Seg Neutrophils % 83.5 H VBG pH VBG pCO2 VBG HCO3 VBG Base Excess Sodium 140.7 Potassium 4.5 Chloride 116 H Carbon Dioxide 18 L Anion Gap 7 BUN 27 H Creatinine 0.79 Est GFR ( Amer) > 60 Glucose 102 Calcium 8.6 Magnesium 2.0 Total Bilirubin AST Alkaline Phosphatase Ammonia Total Protein Albumin TSH Free T4 Free T3 pg/mL 09/24/19 15:06 Creatine Kinase 91 Impressions: Head CT 09/23/19 17:49 IMPRESSION: MILD CHRONIC CHANGES OF ATROPHY AND MICROVASCULAR ISCHEMIA. NO ACUTE PROCESS. EVIDENCE OF ACUTE STROKE: NO. KUB X-Ray 09/24/19 00:00 IMPRESSION: No acute intra-abdominal process is identified. Chest X-Ray 09/24/19 12:36 IMPRESSION: Small left pleural effusion. Assessment and Plan - Diagnosis (1) Catatonic state Is this a current diagnosis for this admission?: Yes Plan: 09/24/2019 I talked to the patient's . The patient had an episode like this last year. She was admitted to the hospital in a catatonic state. The remembers that she would stare into space. She looked like she was trying to participate. She was not eating or drinking. She was in the hospital for approximately 1 week. He states that 1 day she "snapped out of it "and began walking and eating. He cannot remember any specific event that caused this. They believed it was related to medications at that time as well. The patient was seen by psychiatry here at the hospital. We will continue to have them follow-up with the patient. We will give her 24 hours or so and then consider utilizing Depakote and BuSpar. She was on lithium for a long time in the past but suffered lithium toxicity. Evidently she is quite sensitive to antipsychotic medication. 09/25/2019-on examination patient is still in catatonic state with continuous blinking of the eyelids and eyeballs of rolled up unable to see the pupils. Hyperreflexia present. May be Babinski sign is positive. We can to do the EEG today for further evaluation. Psych follow-up is appreciated. I requested Dr. Mcclendon statistical programmer to look at the patient make further recommendations. Pathology spoke to patient's according to the patient is admitted to the hospital last year in similar condition and she was in the hospital 1 week. (2) Urinary retention Is this a current diagnosis for this admission?: Yes Plan: 09/24/2019 Possibly related to her medications. She has a Nugent catheter in place. Her urine is somewhat concentrated. We will continue to monitor intake and output. There was no evidence of infection on her urine analysis. There were some white cells on her wet mount but no trichomonas. There was no positive serology for chlamydia or gonorrhea. 09/25/2019-Nugent's catheter in place. Patient is receiving IV fluids at 122 cc/h plan is to decrease the IV fluids to 75 cc/h because of the underlying history of congestive heart failure. urinaruy retention may be secondary to medication use. (3) Altered mental status Qualifiers: Altered mental status type: unspecified Qualified Code(s): R41.82 - Altered mental status, unspecified Is this a current diagnosis for this admission?: Yes (4) Bipolar disorder Qualifiers: Active/Remission status: currently active Current bipolar episode type: depressed Current episode severity: moderate Qualified Code(s): F31.32 - Bipolar disorder, current episode depressed, moderate Is this a current diagnosis for this admission?: Yes Plan: 09/24/2019 I had a long discussion with the patient's this evening. He states that over the last several weeks she has been exhibiting a decline in her condition. She did this last year as well. She was getting more depressed. She was seen in the emergency department on September 20 and accepted at [facility]. She was referred back from [facility] due to acute urinary retention. Right now she is not taking oral medications. The stated that during her hospitalization last year they attempted to place a nasogastric and Dobbhoff feeding tube but it was very difficult. I told him that we may need to try during this admission especially if she does not begin eating or drinking. Psychiatry will continue to see the patient. (5) Hypertension Qualifiers: Hypertension type: essential hypertension Qualified Code(s): I10 - Essential (primary) hypertension Is this a current diagnosis for this admission?: No Plan: 09/24/2019 The patient is on spironolactone. Her blood pressures are slightly elevated. We will have intravenous medications available if needed. Hopefully she will begin taking food and medications by mouth soon. 09/25/2019-blood pressure today is 146/80. Stable. Patient is on IV PRN medications for blood pressure control. (6) Hypothyroidism Qualifiers: Hypothyroidism type: acquired Qualified Code(s): E03.9 - Hypothyroidism, unspecified Is this a current diagnosis for this admission?: No Plan: 09/24/2019 The patient's states that she was just in Dr. Bell's office not too long ago. He states that her blood tests were good. They checked lipids and thyroid. Her blood pressure was reasonably controlled. We will continue her current medications at this time. We did check thyroid levels and they are pending at this time. (7) Hyperlipidemia Qualifiers: Hyperlipidemia type: unspecified Qualified Code(s): E78.5 - Hyperlipidemia, unspecified Is this a current diagnosis for this admission?: No Plan: 09/24/2019 We will continue the patient's statin therapy when she begins taking oral medications. - Plan Summary Summary: 09/24/2019 It seems that this admission parallels an admission last year where she was catatonic but after approximately 5 to 7 days it wore off spontaneously. We will admit her to [facility] for closer monitoring. PRN medications will be available for her blood pressure as well as anxiety. We will asked psychiatry to follow the patient. They typically recommend Depakote and BuSpar. We will wait 24 hours to see how the patient is in the morning and then decide on which medications may want to utilize. We will continue IV fluids at this time. She does have a history of heart block and she does have a pacemaker in and other than hypertension the patient's cannot recall any diagnosis of heart failure.
[2019-09-25] MEDS ORDERED: LORAZEPAM INJ 2 MG/1 ML VIAL IV ONE (10:00)
[2019-09-25] MEDS: DOCUSATE SODIUM 100 MG CAPSULE PO SCH ×2 (11:05→17:44)
[2019-09-25] MEDS: FAMOTIDINE INJ/PF 20 MG/2 ML SDV IV SCH ×2 (11:13→21:32)
--- NOTE | 2019-09-25 13:14 | RADIOLOGY REPORT (SQ) ---
EXAM DESCRIPTION: CT HEAD WITHOUT IMAGES COMPLETED DATE/TIME: 09/25/2019 12:56 pm REASON FOR STUDY: altered mental status COMPARISON: CT of the head without contrast from 09/23/2019. TECHNIQUE: Axial images acquired through the brain without intravenous contrast. Images reviewed wi th bone, brain and subdural windows. Additional sagittal and coronal reconstructions were generated. Images stored on PACS. All CT scanners at this facility use dose modulation, iterative reconstruction, and/or weight based d osing when appropriate to reduce radiation dose to as low as reasonably achievable (ALARA). [facility]: Dose Right [facility]: CareDose [facility]: Dose Right [facility]: Teradose 4D [facility]: Monetate RADIATION DOSE: CT Rad equipment meets quality standard of care and radiation dose reduction techniq ues were employed. CTDIvol: 48.6 mGy. DLP: 904 mGy-cm. LIMITATIONS: None. FINDINGS: There is diffuse age-appropriate cerebral and cerebellar volume loss. The caliber of the ventricles is concordant with the degree of sulcation and unchanged from 09/23/2019. The confluent ar eas of hypoattenuation within the supratentorial periventricular and subcortical white matter are unc hanged and could represent the sequela of chronic microvascular ischemia. There is no acute intracranial hemorrhage, vascular territorial infarct, extra-axial fluid collection , mass effect or midline shift. The larson-white matter differentiation is preserved. There is no eff acement of the cerebral sulci or basal subarachnoid cisterns. The orbits and globes are intact. The paranasal sinuses are clear. There is cerumen within the exte rnal auditory canals. There is no fracture of the calvarium. IMPRESSION: No acute intracranial abnormality. EVIDENCE OF ACUTE STROKE: NO. COMMENT: Quality ID # [id number]: Final reports with documentation of one or more dose reduction techniques (e.g., Automated exposure control, adjustment of the mA and/or kV according to patient size, use of iterative reconstruction technique) TECHNICAL DOCUMENTATION: JOB ID: [id number] 2010 [employer]- All Rights Reserved Reading location - IP/workstation name: [facility]
--- NOTE | 2019-09-25 15:24 | PSYCHOLOGICAL NOTE ---
Psych Note - Psych Note Date seen by psych provider: 09/25/19 Time seen by psych provider: 14:30 Psych Note: Patient arrived to [facility] from [facility]. She was voluntarily being treated at [facility] for passive suicidal ideation (ie no plans, means or intent) that she had been experiencing since before . Patient was not under IVC. [facility] called to request update on the status of the patient. Conducted a check in with patient: Patient is observed laying in the bed staring at the ceiling with her mouth open. Upon entering the room, clinician attempted to greet the patient. Patient initially did not respond then looked at clinician and stated "I understand now...She didn't understand at first, but she now understands that God is not forgiving....I told her, but she didn't understand." Patient then continues to state something about [employer] and money but it is not clear. When asked if she knows where she current is, she repeats what she stated about God not being a forgiving God. Patient never demonstrates she understands clinician or what is being said. She does not engage appropriately or demonstrate she is cognizant of clinician being in the room other then directing her comments towards where clinician is standing. Clinician spoke with patient's . He reports he spoke with Dr López at [facility], and he "thinks Dr. López was receptive to avoiding antipsychotics." He reports he has no issues with the patient returning to [facility] as long as antipsychotics are avoided."
[2019-09-26] MEDS: POLYVINYL ALCOHOL 1.4% OPH SOLN 15 ML OU SCH ×6 (01:41→22:10)
[2019-09-26] MEDS: HEPARIN SOD (PORCINE) 5,000 UNIT/ML 1 ML VIAL SUBCUT SCH ×4 (05:08→22:10)
[2019-09-26 05:12] LABS: ABSOLUTE BASOPHILS # (AUTO) 0.1 10^3/uL (0.0-0.2); ABSOLUTE EOSINOPHILS # (AUTO) 0.1 10^3/uL (0.0-0.6); ABSOLUTE LYMPHOCYTES (AUTO) 1.8 10^3/uL (0.5-4.7); ABSOLUTE MONOCYTES (AUTO) 0.6 10^3/uL (0.1-1.4); ABSOLUTE NEUT (AUTO) 6.4 10^3/uL (1.7-8.2); BASOPHILS % (AUTO) 0.6 % (0-2); EOSINOPHILS % (AUTO) 0.8 % (0-6); HEMATOCRIT 34.5 % (36.0-47.0); HEMOGLOBIN 11.9 g/dL (12.0-15.5); LYMPHOCYTES % (AUTO) 19.8 % (13-45); MEAN CORPUSCULAR HEMOGLOBIN 32.2 pg (27.0-33.4); MEAN CORPUSCULAR HGB CONC 34.7 g/dL (32.0-36.0); MEAN CORPUSCULAR VOLUME 93 fl (80-97); MONOCYTES % (AUTO) 6.6 % (3-13); PLATELET COUNT 247 10^3/uL (150-450); RED BLOOD COUNT 3.71 10^6/uL (3.72-5.28); RED CELL DISTRIBUTION WIDTH 12.2 % (11.5-14.0); SEGMENTED NEUTROPHILS % (AUTO) 72.2 % (42-78); TOTAL CELLS COUNTED % (AUTO) 100 %; WHITE BLOOD COUNT 8.9 10^3/uL (4.0-10.5)
[2019-09-26 05:31] LABS: ANION GAP 6 (5-19); BLOOD UREA NITROGEN 31 mg/dL (7-20); CALCIUM 8.9 mg/dL (8.4-10.2); CARBON DIOXIDE 19 mmol/L (22-30); CHLORIDE 117 mmol/L (98-107); GLUCOSE 91 mg/dL (75-110); POTASSIUM 4.9 mmol/L (3.6-5.0)
[2019-09-26] MEDS: FAMOTIDINE INJ/PF 20 MG/2 ML SDV IV SCH ×2 (10:27→22:10)
[2019-09-26] MEDS: DOCUSATE SODIUM 100 MG CAPSULE PO SCH ×2 (10:27→17:12)
[2019-09-26] MEDS: NORMAL SALINE 1000 ML 1,000 ML IV PRN (10:27)
--- NOTE | 2019-09-26 16:13 | PDOC PROGRESS REPORT ---
Subjective Progress Note for:: 09/26/19 Reason For Visit: ACUTE URINARY RETENTION POSSIBLE TOXIC 09/26/2019 Patient admitted for catatonic state, urinary retention, altered mental status, bipolar disorder, hypertension, hypothyroidism hyperlipidemia Physical Exam Vital Signs: Temp Pulse Resp BP Pulse Ox 98.1 F 65 20 164/72 H 95 09/26/19 15:35 09/26/19 15:35 09/26/19 15:35 09/26/19 15:35 09/26/19 15:35 Intake & Output 09/25/19 09/26/19 09/27/19 06:59 06:59 06:59 Intake Total 2300 1862 1084 Output Total 1200 1000 500 Balance 1100 862 584 Weight 76.8 kg 83.2 kg General appearance: PRESENT: mild distress, other - Psychological Respiratory exam: PRESENT: clear to auscultation gurjit. ABSENT: rales, rhonchi, wheezes Cardiovascular exam: PRESENT: RRR. ABSENT: diastolic murmur, rubs, systolic murmur Neurological exam: PRESENT: altered Psychiatric exam: PRESENT: unusual affect, other Results Laboratory Results: 09/26/19 04:30 09/26/19 04:30 09/26/19 09/26/19 04:30 04:30 WBC 8.9 RBC 3.71 L Hgb 11.9 L Hct 34.5 L MCV 93 MCH 32.2 MCHC 34.7 RDW 12.2 Plt Count 247 Seg Neutrophils % 72.2 Sodium 141.7 Potassium 4.9 Chloride 117 H Carbon Dioxide 19 L Anion Gap 6 BUN 31 H Creatinine 0.84 Est GFR ( Amer) > 60 Glucose 91 Calcium 8.9 Magnesium 2.2 09/24/19 15:06 Creatine Kinase 91 Impressions: KUB X-Ray 09/24/19 00:00 IMPRESSION: No acute intra-abdominal process is identified. Chest X-Ray 09/24/19 12:36 IMPRESSION: Small left pleural effusion. Head CT 09/25/19 00:00 IMPRESSION: No acute intracranial abnormality. EVIDENCE OF ACUTE STROKE: NO. Assessment and Plan - Diagnosis (1) Altered mental status Qualifiers: Altered mental status type: unspecified Qualified Code(s): R41.82 - Altered mental status, unspecified Is this a current diagnosis for this admission?: Yes (2) Bipolar disorder Qualifiers: Active/Remission status: currently active Current bipolar episode type: depressed Current episode severity: moderate Qualified Code(s): F31.32 - B ipolar disorder, current episode depressed, moderate Is this a current diagnosis for this admission?: Yes (3) Catatonic state Is this a current diagnosis for this admission?: Yes (4) Hyperlipidemia Qualifiers: Hyperlipidemia type: unspecified Qualified Code(s): E78.5 - Hyperlipidemia, unspecified Is this a current diagnosis for this admission?: No (5) Urinary retention Is this a current diagnosis for this admission?: Yes (6) Hypothyroidism Qualifiers: Hypothyroidism type: acquired Qualified Code(s): E03.9 - Hypothyroidism, unspecified Is this a current diagnosis for this admission?: Yes - Plan Summary Summary: 09/24/2019 It seems that this admission parallels an admission last year where she was catatonic but after approximately 5 to 7 days it wore off spontaneously. We will admit her to [facility] for closer monitoring. PRN medications will be available for her blood pressure as well as anxiety. We will asked psychiatry to follow the patient. They typically recommend Depakote and BuSpar. We will wait 24 hours to see how the patient is in the morning and then decide on which medications may want to utilize. We will continue IV fluids at this time. She does have a history of heart block and she does have a pacemaker in and other than hypertension the patient's cannot recall any diagnosis of heart failure. 09/26/2019 Vital signs temperature 98.6 pulse between 60 and 70 Pressure 150/60 and oxygen saturation is 96% on room air White count down to 8.9 electrolytes are normal, no evidence of trichomonas, chlamydia GC negative, Blood cultures negative x48 hours Psychiatry feels that this may be neuro malignant syndrome due to muscle rigidity is being her first symptoms IV fluids have been cut back to 75 mL's per hour however patient is not eating or drinking much TSH level is normal at 2.88 When I walked into the room this morning, I initially thought she was watching TV because she was staring off at the ceiling. However upon further close inspection patient was just staring off into space. I addressed her with a greeting, and after a very long pause, she told me he had been riding a motorcycle, and that there were 3 words. She then later stated "high-rise". Patient is basically taking no medicines were here in the hospital except for Colace, Pepcid, heparin for DVT prophylaxis Patient has been here in this hospital for 3 days now. The last time she had 1 of these events about a year ago it took 7 days for it to clear, according to the chart. - Time Time Spent with patient: 25-34 minutes
[2019-09-26] MEDS: HYDRALAZINE HCL INJ/PF 20 MG/1 ML SDV IV PRN (19:46)
[2019-09-27] MEDS: POLYVINYL ALCOHOL 1.4% OPH SOLN 15 ML OU SCH ×7 (02:59→22:02)
[2019-09-27] MEDS: NORMAL SALINE 1000 ML 1,000 ML IV PRN ×2 (03:28→17:39)
[2019-09-27] MEDS: HYDRALAZINE HCL INJ/PF 20 MG/1 ML SDV IV PRN (03:35)
[2019-09-27] MEDS: HEPARIN SOD (PORCINE) 5,000 UNIT/ML 1 ML VIAL SUBCUT SCH ×4 (05:11→22:09)
[2019-09-27 08:09] LABS: ABSOLUTE BASOPHILS # (AUTO) 0.1 10^3/uL (0.0-0.2); ABSOLUTE EOSINOPHILS # (AUTO) 0.1 10^3/uL (0.0-0.6); ABSOLUTE LYMPHOCYTES (AUTO) 1.5 10^3/uL (0.5-4.7); ABSOLUTE MONOCYTES (AUTO) 0.9 10^3/uL (0.1-1.4); ABSOLUTE NEUT (AUTO) 8.9 10^3/uL (1.7-8.2); BASOPHILS % (AUTO) 0.6 % (0-2); EOSINOPHILS % (AUTO) 0.8 % (0-6); HEMATOCRIT 38.5 % (36.0-47.0); HEMOGLOBIN 13.2 g/dL (12.0-15.5); LYMPHOCYTES % (AUTO) 13.3 % (13-45); MEAN CORPUSCULAR HEMOGLOBIN 31.7 pg (27.0-33.4); MEAN CORPUSCULAR HGB CONC 34.3 g/dL (32.0-36.0); MEAN CORPUSCULAR VOLUME 92 fl (80-97); MONOCYTES % (AUTO) 7.5 % (3-13); PLATELET COUNT 247 10^3/uL (150-450); RED BLOOD COUNT 4.17 10^6/uL (3.72-5.28); RED CELL DISTRIBUTION WIDTH 12.4 % (11.5-14.0); SEGMENTED NEUTROPHILS % (AUTO) 77.8 % (42-78); TOTAL CELLS COUNTED % (AUTO) 100 %; WHITE BLOOD COUNT 11.4 10^3/uL (4.0-10.5)
[2019-09-27 08:30] LABS: ANION GAP 7 (5-19); BLOOD UREA NITROGEN 27 mg/dL (7-20); CARBON DIOXIDE 17 mmol/L (22-30); CHLORIDE 117 mmol/L (98-107); GLUCOSE 100 mg/dL (75-110); POTASSIUM 3.9 mmol/L (3.6-5.0)
[2019-09-27] MEDS: DOCUSATE SODIUM 100 MG CAPSULE PO SCH ×2 (09:23→17:39)
[2019-09-27] MEDS: FAMOTIDINE INJ/PF 20 MG/2 ML SDV IV SCH ×2 (09:23→22:02)
--- NOTE | 2019-09-27 12:04 | PDOC PROGRESS REPORT ---
Subjective Progress Note for:: 09/27/19 Reason For Visit: ACUTE URINARY RETENTION POSSIBLE TOXIC September 27, 2019 Urinary tension, catatonic state, altered mental status, bipolar disorder, hypertension, hypothyroidism, hyperlipidemia, possible neuro malignant syndrome Physical Exam Vital Signs: Temp Pulse Resp BP Pulse Ox 98.5 F 70 24 H 172/57 H 100 09/27/19 03:34 09/27/19 07:00 09/27/19 03:34 09/27/19 03:34 09/27/19 03:34 Intake & Output 09/26/19 09/27/19 09/28/19 06:59 06:59 06:59 Intake Total 1862 2204 Output Total 1000 2675 Balance 862 -471 Weight 83.2 kg 81.1 kg General appearance: PRESENT: no acute distress Respiratory exam: PRESENT: clear to auscultation gurjit. ABSENT: rales, rhonchi, wheezes Cardiovascular exam: PRESENT: RRR. ABSENT: diastolic murmur, rubs, systolic murmur Neurological exam: PRESENT: altered, awake Psychiatric exam: PRESENT: unusual affect, other - Patient appears to be hallucinating and talking to herself. Patient does not answer questions. Pat ient will not follow commands. Patient is talking about hospitals and motorcycles and being at parties. His gaze is inappropriate, stares off into space. Patient does not make good eye contact Results Laboratory Results: 09/27/19 07:59 09/27/19 07:59 09/27/19 09/27/19 09/27/19 05:51 07:59 07:59 WBC Cancelled 11.4 H RBC Cancelled 4.17 Hgb Cancelled 13.2 Hct Cancelled 38.5 MCV Cancelled 92 MCH Cancelled 31.7 MCHC Cancelled 34.3 RDW Cancelled 12.4 Plt Count Cancelled 247 Seg Neutrophils % Cancelled 77.8 Sodium 141.3 Potassium 3.9 Chloride 117 H Carbon Dioxide 17 L Anion Gap 7 BUN 27 H Creatinine 0.75 Est GFR ( Amer) > 60 Glucose 100 Calcium 9.0 Magnesium 2.1 09/24/19 15:06 Creatine Kinase 91 Impressions: KUB X-Ray 09/24/19 00:00 IMPRESSION: No acute intra-abdominal process is identified. Chest X-Ray 09/24/19 12:36 IMPRESSION: Small left pleural effusion. Head CT 09/25/19 00:00 IMPRESSION: No acute intracranial abnormality. EVIDENCE OF ACUTE STROKE: NO. Assessment and Plan - Diagnosis (1) Altered mental status Qualifiers: Altered mental status type: unspecified Qualified Code(s): R41.82 - Altered mental status, unspecified Is this a current diagnosis for this admission?: Yes (2) Bipolar disorder Qualifiers: Active/Remission status: currently active Current bipolar episode type: depressed Current episode severity: moderate Qualified Code(s): F31.32 - Bipolar disorder, current episode depressed, moderate Is this a current diagnosis for this admission?: Yes (3) Catatonic state Is this a current diagnosis for this admission?: Yes (4) Hyperlipidemia Qualifiers: Hyperlipidemia type: unspecified Qualified Code(s): E78.5 - Hyperlipidemia, unspecified Is this a current diagnosis for this admission?: No (5) Urinary retention Is this a current diagnosis for this admission?: Yes (6) Hypothyroidism Qualifiers: Hypothyroidism type: acquired Qualified Code(s): E03.9 - Hypothyroidism, unspecified Is this a current diagnosis for this admission?: Yes - Plan Summary Summary: 09/24/2019 It seems that this admission parallels an admission last year where she was catatonic but after approximately 5 to 7 days it wore off spontaneously. We will admit her to [facility] for closer monitoring. PRN medications will be available for her blood pressure as well as anxiety. We will asked psychiatry to follow the patient. They typically recommend Depakote and BuSpar. We will wait 24 hours to see how the patient is in the morning and then decide on which medications may want to utilize. We will continue IV fluids at this time. She does have a history of heart block and she does have a pacemaker in and other than hypertension the patient's cannot recall any diagnosis of heart failure. 09/26/2019 Vital signs temperature 98.6 pulse between 60 and 70 Pressure 150/60 and oxygen saturation is 96% on room air White count down to 8.9 electrolytes are normal, no evidence of trichomonas, chlamydia GC negative, Blood cultures negative x48 hours Psychiatry feels that this may be neuro malignant syndrome due to muscle rigidity is being her first symptoms IV fluids have been cut back to 75 mL's per hour however patient is not eating or drinking much TSH level is normal at 2.88 When I walked into the room this morning, I initially thought she was watching TV because she was staring off at the ceiling. However upon further close inspection patient was just staring off into space. I addressed her with a greeting, and after a very long pause, she told me he had been riding a motorcycle, and that there were 3 words. She then later stated "high-rise". Patient is basically taking no medicines were here in the hospital except for Colace, Pepcid, heparin for DVT prophylaxis Patient has been here in this hospital for 3 days now. The last time she had 1 of these events about a year ago it took 7 days for it to clear, according to the chart. 09/27/2019 I stood at the bedside for 5 or 10 minutes listening to the patient have a discussion with herself about nonsensical matters. Patient did not acknowledge that I was there. Patient's vital signs remained stable and normal Labs also appear normal and stable, blood cultures negative for [address] head scan shows microvascular ischemic changes. Patient would benefit from an MRI scan with gadolinium however she would have to be heavily sedated for this procedure, therefore I am not going to order the study. Patient is on no medication which would be prolonging or causing this effect at the current time. Renal functions and liver functions appear normal so hopefully she can detox this medication that she was given as an outpatient which could have contributed to her symptoms - Time Time Spent with patient: 25-34 minutes
--- NOTE | 2019-09-27 14:23 | NEURO WORKBENCH EEG REPORT ---
EEG Report Patient: Delmi Huang ID: [id number] Referring Doctor: Kai Haines DOS: 09/25/2019 Medications: liquitears, Colace, famotidine, porcine, Ativan prn History This is a 74 year old right handed woman with a history of CHF, hypercholesterolemia, hypertension, COPD, anxiety, bipolar disorder, insomnia admitted with acute urinary retention and possible toxic. This EEG was requested for altered mental status. EEG Interpretation This EEG was recorded in the awake and drowsy states. The awake EEG is characterized by a fairly well-organized background with a well-developed and reactive posterior dominant rhythm of 8.5 Hz. The remainder of the background consisted of primarily alpha activity with beta. Drowsiness was characterized by slowing of the background rhythms. Photic stimulation resulted in a good driving response. There were no epileptiform abnormalities. The EKG showed a regular rhythm. EEG Classification Normal EEG Impression This EEG is within normal limits for age in the awake and drowsy states. INTERPRETING NEUROLOGIST: Clarisa Houston MD, FRCPC Board Certified in Neurology, with special qualification in Child Neurology, and in Clinical Neurophysiology [facility]
[2019-09-28] MEDS: POLYVINYL ALCOHOL 1.4% OPH SOLN 15 ML OU SCH ×6 (02:35→21:25)
[2019-09-28] MEDS: HEPARIN SOD (PORCINE) 5,000 UNIT/ML 1 ML VIAL SUBCUT SCH ×3 (06:09→21:26)
[2019-09-28] MEDS: NORMAL SALINE 1000 ML 1,000 ML IV PRN ×2 (07:18→21:25)
[2019-09-28] MEDS: FAMOTIDINE INJ/PF 20 MG/2 ML SDV IV SCH ×2 (09:21→21:26)
[2019-09-28] MEDS: DOCUSATE SODIUM 100 MG CAPSULE PO SCH ×2 (09:21→18:33)
--- NOTE | 2019-09-28 14:00 | PDOC PROGRESS REPORT ---
Subjective Progress Note for:: 09/28/19 Reason For Visit: ACUTE URINARY RETENTION POSSIBLE TOXIC 09/28/2019 Admitted for urinary retention, catatonic state, altered mental status, bipolar, hypertension, hypothyroidism, hyperlipidemia, possible neuro malignant syndrome Physical Exam Vital Signs: Temp Pulse Resp BP Pulse Ox 98.3 F 59 L 15 149/70 H 98 09/28/19 12:02 09/28/19 12:02 09/28/19 12:02 09/28/19 12:02 09/28/19 12:02 Intake & Output 09/27/19 09/28/19 09/29/19 06:59 06:59 06:59 Intake Total 2204 1000 1060 Output Total 2675 1650 400 Balance -471 -650 660 Weight 81.1 kg 81.3 kg General appearance: PRESENT: no acute distress Respiratory exam: PRESENT: clear to auscultation gurjit. ABSENT: rales, rhonchi, wheezes Cardiovascular exam: PRESENT: RRR. ABSENT: diastolic murmur, rubs, systolic murmur Neurological exam: PRESENT: altered Psychiatric exam: PRESENT: unusual affect - Patient once again is talking "gibberish" Results Laboratory Results: 09/27/19 07:59 09/27/19 07:59 09/28/19 09/28/19 09:05 09:05 Ammonia < 8.7 L C-Reactive Protein 13.0 H 09/24/19 15:06 Creatine Kinase 91 Impressions: KUB X-Ray 09/24/19 00:00 IMPRESSION: No acute intra-abdominal process is identified. Chest X-Ray 09/24/19 12:36 IMPRESSION: Small left pleural effusion. Head CT 09/25/19 00:00 IMPRESSION: No acute intracranial abnormality. EVIDENCE OF ACUTE STROKE: NO. Assessment and Plan - Diagnosis (1) Altered mental status Qualifiers: Altered mental status type: unspecified Qualified Code(s): R41.82 - Altered mental status, unspecified Is this a current diagnosis for this admission?: Yes (2) Bipolar disorder Qualifiers: Active/Remission status: currently active Current bipolar episode type: depressed Current episode severity: moderate Qualified Code(s): F31.32 - Bipolar disorder, current episode depressed, moderate Is this a current diagnosis for this admission?: Yes (3) Catatonic state Is this a current diagnosis for this admission?: Yes (4) Hyperlipidemia Qualifiers: Hyperlipidemia type: unspecified Qualified Code(s): E78.5 - Hyperlipidemia, unspecified Is this a current diagnosis for this admission?: No (5) Urinary retention Is this a current diagnosis for this admission?: Yes (6) Hypothyroidism Qualifiers: Hypothyroidism type: acquired Qualified Code(s): E03.9 - Hypothyroidism, unspecified Is this a current diagnosis for this admission?: Yes - Plan Summary Summary: 09/24/2019 It seems that this admission parallels an admission last year where she was catatonic but after approximately 5 to 7 days it wore off spontaneously. We will admit her to [facility] for closer monitoring. PRN medications will be available for her blood pressure as well as anxiety. We will asked psychiatry to follow the patient. They typically recommend Depakote and BuSpar. We will wait 24 hours to see how the patient is in the morning and then decide on which medications may want to utilize. We will continue IV fluids at this time. She does have a history of heart block and she does have a pacemaker in and other than hypertension the patient's cannot recall any diagnosis of heart failure. 09/26/2019 Vital signs temperature 98.6 pulse between 60 and 70 Pressure 150/60 and oxygen saturation is 96% on room air White count down to 8.9 electrolytes are normal, no evidence of trichomonas, chlamydia GC negative, Blood cultures negative x48 hours Psychiatry feels that this may be neuro malignant syndrome due to muscle rigidity is being her first symptoms IV fluids have been cut back to 75 mL's per hour however patient is not eating or drinking much TSH level is normal at 2.88 When I walked into the room this morning, I initially thought she was watching TV because she was staring off at the ceiling. However upon further close inspection patient was just staring off into space. I addressed her with a greeting, and after a very long pause, she told me he had been riding a motorcycle, and that there were 3 words. She then later stated "high-rise". Patient is basically taking no medicines were here in the hospital except for Colace, Pepcid, heparin for DVT prophylaxis Patient has been here in this hospital for 3 days now. The last time she had 1 of these events about a year ago it took 7 days for it to clear, according to the chart. 09/27/2019 I stood at the bedside for 5 or 10 minutes listening to the patient have a discussion with herself about nonsensical matters. Patient did not acknowledge that I was there. Patient's vital signs remained stable and normal Labs also appear normal and stable, blood cultures negative for [address] head scan shows microvascular ischemic changes. Patient would benefit from an MRI scan with gadolinium however she would have to be heavily sedated for this procedure, therefore I am not going to order the study. Patient is on no medication which would be prolonging or causing this effect at the current time. Renal functions and liver functions appear normal so hopefully she can detox this medication that she was given as an outpatient which could have contributed to her symptoms 09/28/2019 Little change today vital signs temperature 98.1 pulse is between 60 and 70 blood pressure 151/68 O2 sat 97% on room air Repeat ammonia level is normal less than 8.7 C-reactive protein basically normal [address] scan done on the in the show no lesions Continue to wait this out as patient is in no danger. Last time this occurred was 1 year ago and it took 1 week to clear. Did not feel that adding medications would be effective at this time. Certainly if in 48 hours patient has failed to improve, consider adding medications. Patient however has no diaphoresis no tachycardia no tachypnea no tremor. - Time Time Spent with patient: 25-34 minutes
--- NOTE | 2019-09-28 22:22 | PSYCHOLOGICAL NOTE ---
Psych Note - Psych Note Date seen by psych provider: 09/28/19 Time seen by psych provider: 22:00 Psych Note: Clinician conducted check in with patient. Patient was observed laying on bed with her head facing to the right. Clinician notes patient's eyes were blinking rapidly. Clinician spoke to patient, but patient was unresponsive.
[2019-09-29] MEDS: POLYVINYL ALCOHOL 1.4% OPH SOLN 15 ML OU SCH ×6 (02:26→22:15)
[2019-09-29] MEDS ORDERED: (PENDING PHARMACY ID) (Liothyronine Sodium [Cytomel] 5 MCG) PO SCH (06:00)
[2019-09-29] MEDS: LIOTHYRONINE SODIUM 5 MCG TABLET PO SCH (06:01)
[2019-09-29] MEDS: HEPARIN SOD (PORCINE) 5,000 UNIT/ML 1 ML VIAL SUBCUT SCH ×3 (06:06→22:10)
[2019-09-29] MEDS: LEVOTHYROXINE SODIUM 0.025 MG TABLET PO SCH (06:08)
[2019-09-29] MEDS: FAMOTIDINE INJ/PF 20 MG/2 ML SDV IV SCH ×2 (10:32→22:09)
[2019-09-29] MEDS: DOCUSATE SODIUM 100 MG CAPSULE PO SCH ×2 (10:35→17:28)
[2019-09-29] MEDS: NORMAL SALINE 1000 ML 1,000 ML IV PRN ×2 (10:35→23:54)
--- NOTE | 2019-09-29 11:17 | PDOC PROGRESS REPORT ---
Subjective Progress Note for:: 09/29/19 Reason For Visit: ACUTE URINARY RETENTION POSSIBLE TOXIC 09/29/2019 Patient was originally admitted to the hospital days ago for altered mental status, catatonic state, urinary retention, bipolar, hypertension, hypothyroidism, hyperlipidemia, possible neuro malignant syndrome Physical Exam Vital Signs: Temp Pulse Resp BP Pulse Ox 98.4 F 67 22 H 159/64 H 100 09/29/19 07:41 09/29/19 07:41 09/29/19 07:41 09/29/19 07:41 09/29/19 07:41 Intake & Output 09/28/19 09/29/19 09/30/19 06:59 06:59 06:59 Intake Total 1000 2060 988 Output Total 1650 1725 Balance -650 335 988 Weight 81.3 kg 81.8 kg General appearance: PRESENT: no acute distress Respiratory exam: PRESENT: clear to auscultation gurjit, other - Surprisingly clear, no respiratory distress. Sleeping peacefully. ABSENT: rales, rhonchi, wheezes Cardiovascular exam: PRESENT: RRR. ABSENT: diastolic murmur, rubs, systolic murmur Neurological exam: PRESENT: alert, awake, oriented to person, oriented to place, oriented to time, oriented to situation, CN II-XII grossly intact. ABSENT: motor sensory deficit Psychiatric exam: PRESENT: appropriate affect, normal mood. ABSENT: homicidal ideation, suicidal ideation Results Laboratory Results: 09/27/19 07:59 09/27/19 07:59 09/23/19 17:40 Blood Blood Culture - Final NO GROWTH IN 5 DAYS 09/23/19 17:00 Blood Blood Culture - Final NO GROWTH IN 5 DAYS 09/24/19 15:06 Creatine Kinase 91 Impressions: KUB X-Ray 09/24/19 00:00 IMPRESSION: No acute intra-abdominal process is identified. Chest X-Ray 09/24/19 12:36 IMPRESSION: Small left pleural effusion. Head CT 09/25/19 00:00 IMPRESSION: No acute intracranial abnormality. EVIDENCE OF ACUTE STROKE: NO. Assessment and Plan - Diagnosis (1) Altered mental status Qualifiers: Altered mental status type: unspecified Qualified Code(s): R41.82 - Altered mental status, unspecified Is this a current diagnosis for this admission?: Yes (2) Bipolar disorder Qualifiers: Active/Remission status: currently active Current bipolar episode type: depressed Current episode severity: moderate Qualified Code(s): F31.32 - Bipolar disorder, current episode depressed, moderate Is this a current diagnosis for this admission?: Yes (3) Catatonic state Is this a current diagnosis for this admission?: Yes (4) Hyperlipidemia Qualifiers: Hyperlipidemia type: unspecified Qualified Code(s): E78.5 - Hyperlipidemia, unspecified Is this a current diagnosis for this admission?: No (5) Urinary retention Is this a current diagnosis for this admission?: Yes (6) Hypothyroidism Qualifiers: Hypothyroidism type: acquired Qualified Code(s): E03.9 - Hypothyroidism, unspecified Is this a current diagnosis for this admission?: Yes - Plan Summary Summary: 09/24/2019 It seems that this admission parallels an admission last year where she was catatonic but after approximately 5 to 7 days it wore off spontaneously. We will admit her to [facility] for closer monitoring. PRN medications will be available for her blood pressure as well as anxiety. We will asked psychiatry to follow the patient. They typically recommend Depakote and BuSpar. We will wait 24 hours to see how the patient is in the morning and then decide on which medications may want to utilize. We will continue IV fluids at this time. She does have a history of heart block and she does have a pacemaker in and other than hypertension the patient's cannot recall any diagnosis of heart failure. 09/26/2019 Vital signs temperature 98.6 pulse between 60 and 70 Pressure 150/60 and oxygen saturation is 96% on room air White count down to 8.9 electrolytes are normal, no evidence of trichomonas, chlamydia GC negative, Blood cultures negative x48 hours Psychiatry feels that this may be neuro malignant syndrome due to muscle rigidity is being her first symptoms IV fluids have been cut back to 75 mL's per hour however patient is not eating or drinking much TSH level is normal at 2.88 When I walked into the room this morning, I initially thought she was watching TV because she was staring off at the ceiling. However upon further close inspection patient was just staring off into space. I addressed her with a greeting, and after a very long pause, she told me he had been riding a motorcycle, and that there were 3 words. She then later stated "high-rise". Patient is basically taking no medicines were here in the hospital except for Colace, Pepcid, heparin for DVT prophylaxis Patient has been here in this hospital for 3 days now. The last time she had 1 of these events about a year ago it took 7 days for it to clear, according to the chart. 09/27/2019 I stood at the bedside for 5 or 10 minutes listening to the patient have a discussion with herself about nonsensical matters. Patient did not acknowledge that I was there. Patient's vital signs remained stable and normal Labs also appear normal and stable, blood cultures negative for [address] head scan shows microvascular ischemic changes. Patient would benefit from an MRI scan with gadolinium however she would have to be heavily sedated for this procedure, therefore I am not going to order the study. Patient is on no medication which would be prolonging or causing this effect at the current time. Renal functions and liver functions appear normal so hopefully she can detox this medication that she was given as an outpatient which could have contributed to her symptoms 09/28/2019 Little change today, though much less talkative and alert. vital signs temperature 98.1 pulse is between 60 and 70 blood pressure 151/68 O2 sat 97% on room air Repeat ammonia level is normal less than 8.7 C-reactive protein basically normal [address] scan done on the in the show no lesions Continue to wait this out as patient is in no danger. Last time this occurred was 1 year ago and it took 1 week to clear. Did not feel that adding medications would be effective at this time. Certainly if in 48 hours patient has failed to improve, consider adding medications. Patient however has no diaphoresis no tachycardia no tachypnea no tremor. 09/29/2019 Patient remains hemodynamically stable vital signs are stable Blood cultures negative x5 days Morning I tried speaking to the patient she would not answer any questions she would not follow commands such as opening her eyes. She continued to have s ignificant "eye fluttering". According to the nursing staff patient has become nonverbal yesterday and today. We will wait to hear what psychiatry says concerning placement issues, then consult discharge planning. Would DC patient's [place] place her with a diaper. No further diagnostic testing is to be done. Patient is medically stable, though obviously still with a significant psychiatric deficit. I will call the patient's this afternoon after further discussion with psychiatry. - Time Time Spent with patient: 25-34 minutes
--- NOTE | 2019-09-29 16:05 | PSYCHOLOGICAL NOTE ---
Psych Note - Psych Note Date seen by psych provider: 09/29/19 Time seen by psych provider: 12:30 Psych Note: Check in conducted with patient by both clinician and anesthesiologist and critical care of the behavioral health team (both team members have had prior engagement with patient during this visit and previous visits to [facility]): Patient presents catatonic like again; this presentation is different from the last time this clinician saw the patient on 09/25/2019 where she was actively psychotic with constant talking and looking around. Today patient had her eyes mostly closed but either has rapidly blinking or rapid eye movement that is moving her eye lashes (her head was tilled down and to the side). Patient was able to respond by moving her fingers when asked to move her fingers if she could hear anesthesiologist and critical care; however, when asked to squeeze the clinician's hand in respond to questions for yes/no patient continually squeezed, so response is unclear. Patient is nonverbal. She has not eaten breakfast or lunch today and there is concern for when the patient has last eaten. Historically the patient will eat if feed or will drink ensure when provided when she is in this state. Both clinician and anesthesiologist and critical care attempted to help patient drink milk (unsuccessfully- it was unclear if the patient knew the straw was in her mouth, she did not respond when straw was placed in mouth or when it hit her teeth). The team combed the patient's hair and she was unresponsive to any touch or care provided. Patient's nurse confirms they will wash the patient's hair. Clinician notes the only response during entire evaluation was when she initial moved her finders after team asked for the patient to move her fingers. Impression/Plan:During previous visits the patient's typically stayed and helped to care for the patient; unfortunately, during current COVID precautions, this has not been possible. Patient may benefit from hearing her husbands voice or possibly face-time or some other form of video call may help get patient to engage in eating and or improve her current state. While [facility] came from [facility] during her inpatient psychiatric treatment, they do not provided care to patients that need "total care." Unless the patient starts fee ding herself and can independently complete her ADLs the patient is unable to return to them. The behavioral health team continues to support and recommend that no antipsychotics or benzodiazepines are provided/prescribed as the patient has a history of sensitivity (ie previous toxicity on lithium and patient's current state after treatment at [facility]). Dr. Hicks was consulted on the care and management of this patient; attending physician is in agreement with recommendations and disposition.
[2019-09-29] MEDS: HYDRALAZINE HCL INJ/PF 20 MG/1 ML SDV IV PRN (19:58)
[2019-09-29] MEDS ORDERED: METOPROLOL TARTRATE PF/INJ 5 MG/5 ML SDV IV PRN (21:21)
[2019-09-29] MEDS: MORPHINE SULFATE 10 MG/ML INJ IV PRN (22:06)
[2019-09-30] MEDS: MORPHINE SULFATE 10 MG/ML INJ IV PRN ×2 (02:51→21:47)
[2019-09-30] MEDS: POLYVINYL ALCOHOL 1.4% OPH SOLN 15 ML OU SCH ×6 (02:52→21:49)
[2019-09-30] MEDS: HYDRALAZINE HCL INJ/PF 20 MG/1 ML SDV IV PRN (04:24)
[2019-09-30] MEDS: LIOTHYRONINE SODIUM 5 MCG TABLET PO SCH (06:26)
[2019-09-30] MEDS: LEVOTHYROXINE SODIUM 0.025 MG TABLET PO SCH (06:26)
[2019-09-30] MEDS: HEPARIN SOD (PORCINE) 5,000 UNIT/ML 1 ML VIAL SUBCUT SCH ×3 (06:29→22:08)
[2019-09-30 08:39] LABS: HEMATOCRIT 37.6 % (36.0-47.0); MEAN CORPUSCULAR HEMOGLOBIN 31.6 pg (27.0-33.4); MEAN CORPUSCULAR HGB CONC 34.4 g/dL (32.0-36.0); MEAN CORPUSCULAR VOLUME 92 fl (80-97); PLATELET COUNT 277 10^3/uL (150-450); RED CELL DISTRIBUTION WIDTH 12.6 % (11.5-14.0); WHITE BLOOD COUNT 12.1 10^3/uL (4.0-10.5)
[2019-09-30 08:58] LABS: ANION GAP 9 (5-19); BLOOD UREA NITROGEN 31 mg/dL (7-20); CALCIUM 9.6 mg/dL (8.4-10.2); CARBON DIOXIDE 13 mmol/L (22-30); CHLORIDE 120 mmol/L (98-107); GLUCOSE 103 mg/dL (75-110); POTASSIUM 4.3 mmol/L (3.6-5.0)
[2019-09-30 09:00] LABS: ABSOLUTE LYMPHOCYTES# (MANUAL) 1.2 10^3/uL (0.5-4.7); ABSOLUTE MONOCYTES # (MANUAL) 1.2 10^3/uL (0.1-1.4); BASOPHILS % (MANUAL) 0 % (0-2); EOSINOPHILS % (MANUAL) 0 % (0-6); LYMPHOCYTES % (MANUAL) 10 % (13-45); MONOCYTES % (MANUAL) 10 % (3-13); SEGMENTED NEUTROPHILS % (MAN) 80 % (42-78); TOTAL CELLS COUNTED 100
[2019-09-30 09:02] LABS: PLATELET COMMENT ADEQUATE; PLATELET GIANT PRESENT; TOXIC VACUOLATION PRESENT
--- NOTE | 2019-09-30 10:11 | PDOC PROGRESS REPORT ---
Subjective Progress Note for:: 09/30/19 Reason For Visit: ACUTE URINARY RETENTION POSSIBLE TOXIC 09/30/2019 Mental status, catatonic state, urinary retention, bipolar, multiple other medical problems Physical Exam Vital Signs: Temp Pulse Resp BP Pulse Ox 98.2 F 77 18 159/69 H 96 09/30/19 08:39 09/30/19 08:39 09/30/19 08:39 09/30/19 08:39 09/30/19 08:39 Intake & Output 09/29/19 09/30/19 10/01/19 06:59 06:59 06:59 Intake Total 2059 1986 Output Total 1726 6230 Balance 335 -263 Weight 81.8 kg 79.2 kg General appearance: PRESENT: no acute distress, other - Cognitively much better today Respiratory exam: PRESENT: clear to auscultation gurjit. ABSENT: rales, rhonchi, wheezes Cardiovascular exam: PRESENT: RRR. ABSENT: diastolic murmur, rubs, systolic murmur Neurological exam: PRESENT: alert, awake, other - Patient will actually follow some simple commands today and will also answer simple questions sometimes Psychiatric exam: PRESENT: unusual affect Results Laboratory Results: 09/30/19 08:15 09/30/19 08:15 09/30/19 09/30/19 08:15 08:15 WBC 12.1 H RBC 4.10 Hgb 13.0 Hct 37.6 MCV 92 MCH 31.6 MCHC 34.4 RDW 12.6 Plt Count 277 Seg Neutrophils % Not Reportable Sodium 141.7 Potassium 4.3 Chloride 120 H Carbon Dioxide 13 L Anion Gap 9 BUN 31 H Creatinine 0.62 Est GFR ( Amer) > 60 Glucose 103 Calcium 9.6 09/24/19 15:06 Creatine Kinase 91 Impressions: KUB X-Ray 09/24/19 00:00 IMPRESSION: No acute intra-abdominal process is identified. Chest X-Ray 09/24/19 12:36 IMPRESSION: Small left pleural effusion. Head CT 09/25/19 00:00 IMPRESSION: No acute intracranial abnormality. EVIDENCE OF ACUTE STROKE: NO. Assessment and Plan - Diagnosis (1) Altered mental status Qualifiers: Altered mental status type: unspecified Qualified Code(s): R41.82 - Altered mental status, unspecified Is this a current diagnosis for this admission?: Yes (2) Bipolar disorder Qualifiers: Active/Remission status: currently active Current bipolar episode type: depressed Current episode severity: moderate Qualified Code(s): F31.32 - Bipolar disorder, current episode depressed, moderate Is this a current diagnosis for this admission?: Yes (3) Catatonic state Is this a current diagnosis for this admission?: Yes (4) Hyperlipidemia Qualifiers: Hyperlipidemia type: unspecified Qualified Code(s): E78.5 - Hyperlipidemia, unspecified Is this a current diagnosis for this admission?: No (5) Urinary retention Is this a current diagnosis for this admission?: Yes (6) Hypothyroidism Qualifiers: Hypothyroidism type: acquired Qualified Code(s): E03.9 - Hypothyroidism, unspecified Is this a current diagnosis for this admission?: Yes - Plan Summary Summary: 09/24/2019 It seems that this admission parallels an admission last year where she was catatonic but after approximately 5 to 7 days it wore off spontaneously. We w ill admit her to IMCU for closer monitoring. PRN medications will be available for her blood pressure as well as anxiety. We will asked psychiatry to follow the patient. They typically recommend Depakote and BuSpar. We will wait 24 hours to see how the patient is in the morning and then decide on which medications may want to utilize. We will continue IV fluids at this time. She does have a history of heart block and she does have a pacemaker in and other than hypertension the patient's cannot recall any diagnosis of heart failure. 09/26/2019 Vital signs temperature 98.6 pulse between 60 and 70 Pressure 150/60 and oxygen saturation is 96% on room air White count down to 8.9 electrolytes are normal, no evidence of trichomonas, chlamydia GC negative, Blood cultures negative x48 hours Psychiatry feels that this may be neuro malignant syndrome due to muscle rigidity is being her first symptoms IV fluids have been cut back to 75 mL's per hour however patient is not eating or drinking much TSH level is normal at 2.88 When I walked into the room this morning, I initially thought she was watching TV because she was staring off at the ceiling. However upon further close ins pection patient was just staring off into space. I addressed her with a greeting, and after a very long pause, she told me he had been riding a motorcycle, and that there were 3 words. She then later stated "high-rise". Patient is basically taking no medicines were here in the hospital except for Colace, Pepcid, heparin for DVT prophylaxis Patient has been here in this hospital for 3 days now. The last time she had 1 of these events about a year ago it took 7 days for it to clear, according to the chart. 09/27/2019 I stood at the bedside for 5 or 10 minutes listening to the patient have a discussion with herself about nonsensical matters. Patient did not acknowledge that I was there. Patient's vital signs remained stable and normal Labs also appear normal and stable, blood cultures negative for [address] head scan shows microvascular ischemic changes. Patient would benefit from an MRI scan with gadolinium however she would have to be heavily sedated for this procedure, therefore I am not going to order the study. Patient is on no medication which would be prolonging or causing this effect at the current time. Renal functions and liver functions appear normal so hopefully she can detox this medication that she was given as an outpatient which could have contributed to her symptoms 09/28/2019 Little change today, though much less talkative and alert. vital signs temperature 98.1 pulse is between 60 and 70 blood pressure 151/68 O2 sat 97% on room air Repeat ammonia level is normal less than 8.7 C-reactive protein basically normal [address] scan done on the in the show no lesions Continue to wait this out as patient is in no danger. Last time this occurred was 1 year ago and it took 1 week to clear. Did not feel that adding medications would be effective at this time. Certainly if in 48 hours patient has failed to improve, consider adding medications. Patient however has no diaphoresis no tachycardia no tachypnea no tremor. 09/29/2019 Patient remains hemodynamically stable vital signs are stable Blood cultures negative x5 days Morning I tried speaking to the patient she would not answer any questions she would not follow commands such as opening her eyes. She continued to have significant "eye fluttering". According to the nursing staff patient has become nonverbal yesterday and today. We will wait to hear what psychiatry says concerning placement issues, then consult discharge planning. Would DC patient's Nugent place her with a diaper. No further diagnostic testing is to be done. Patient is medically stable, though obviously still with a significant psychiatric deficit. I will call the patient's this afternoon after further discussion with psychiatry. 09/30/2019 Vital signs are stable blood pressures up and consistently has been up 160/65 Started her spironolactone back 25 mg every 12 hours Patient is on as needed blood pressure medicine LAbs today reveal, normal CBC, chemistry panel normal I have discontinued her Nugent catheter and will send the urine off patient will probably need to be in a diaper Today patient is answering some simple questions following some simple commands making good eye contact and almost appears a little tearful. For the last 48 hours she would not speak at all or follow any commands. This is a definite improvement. May need to put patient on some clonidine every 8 hours - Time Time Spent with patient: 25-34 minutes
[2019-09-30] MEDS: DOCUSATE SODIUM 100 MG CAPSULE PO SCH ×2 (11:49→17:13)
[2019-09-30] MEDS: SPIRONOLACTONE 25 MG TABLET PO SCH ×2 (11:49→21:49)
[2019-09-30] MEDS: NORMAL SALINE 1000 ML 1,000 ML IV PRN (11:50)
[2019-09-30] MEDS: FAMOTIDINE INJ/PF 20 MG/2 ML SDV IV SCH ×2 (11:50→21:48)
[2019-10-01] MEDS: NORMAL SALINE 1000 ML 1,000 ML IV PRN ×2 (01:06→13:21)
[2019-10-01] MEDS: POLYVINYL ALCOHOL 1.4% OPH SOLN 15 ML OU SCH ×6 (01:06→22:01)
[2019-10-01] MEDS: HEPARIN SOD (PORCINE) 5,000 UNIT/ML 1 ML VIAL SUBCUT SCH ×3 (06:03→22:02)
[2019-10-01] MEDS: LIOTHYRONINE SODIUM 5 MCG TABLET PO SCH (06:03)
[2019-10-01] MEDS: LEVOTHYROXINE SODIUM 0.025 MG TABLET PO SCH (06:04)
[2019-10-01] MEDS: MORPHINE SULFATE 10 MG/ML INJ IV PRN ×2 (06:15→20:13)
[2019-10-01] MEDS: FAMOTIDINE INJ/PF 20 MG/2 ML SDV IV SCH ×2 (09:25→22:01)
[2019-10-01] MEDS: SPIRONOLACTONE 25 MG TABLET PO SCH ×2 (09:26→22:01)
[2019-10-01] MEDS: DOCUSATE SODIUM 100 MG CAPSULE PO SCH ×2 (09:26→17:33)
--- NOTE | 2019-10-01 10:13 | PDOC PROGRESS REPORT ---
Subjective Progress Note for:: 10/01/19 Reason For Visit: ACUTE URINARY RETENTION POSSIBLE TOXIC 10/01/2019 Acute catatonic state, altered mental status, urinary retention, bipolar, hypertension, hypothyroid, hyperlipidemia, possible neuro malignant syndrome Physical Exam Vital Signs: Temp Pulse Resp BP Pulse Ox 99.3 F 59 L 16 153/61 H 95 10/01/19 07:30 10/01/19 07:30 10/01/19 07:30 10/01/19 07:30 10/01/19 07:30 Intake & Output 09/30/19 10/01/19 10/02/19 06:59 06:59 06:59 Intake Total 1986 2039 Output Total 2249 1450 Balance -263 590 Weight 79.2 kg 79.4 kg General appearance: PRESENT: no acute distress Respiratory exam: PRESENT: clear to auscultation gurjit. ABSENT: rales, rhonchi, wheezes Cardiovascular exam: PRESENT: RRR. ABSENT: diastolic murmur, rubs, systolic murmur GI/Abdominal exam: PRESENT: normal bowel sounds, soft. ABSENT: distended, guarding, mass, organolmegaly, rebound, tenderness Neurological exam: PRESENT: alert, awake Psychiatric exam: PRESENT: flat affect, unusual affect Results Laboratory Results: 09/30/19 08:15 09/30/19 08:15 09/24/19 15:06 Creatine Kinase 91 Impressions: KUB X-Ray 09/24/19 00:00 IMPRESSION: No acute intra-abdominal process is identified. Chest X-Ray 09/24/19 12:36 IMPRESSION: Small left pleural effusion. Head CT 09/25/19 00:00 IMPRESSION: No acute intracranial abnormality. EVIDENCE OF ACUTE STROKE: NO. Assessment and Plan - Diagnosis (1) Altered mental status Qualifiers: Altered mental status type: unspecified Qualified Code(s): R41.82 - Altered mental status, unspecified Is this a current diagnosis for this admission?: Yes (2) Bipolar disorder Qualifiers: Active/Remission status: currently active Current bipolar episode type: depressed Current episode severity: moderate Qualified Code(s): F31.32 - Bipolar disorder, current episode depressed, moderate Is this a current diagnosis for this admission?: Yes (3) Catatonic state Is this a current diagnosis for this admission?: Yes (4) Hyperlipidemia Qualifiers: Hyperlipidemia type: unspecified Qualified Code(s): E78.5 - Hyperlipidemia, unspecified Is this a current diagnosis for this admission?: No (5) Urinary retention Is this a current diagnosis for this admission?: Yes (6) Hypothyroidism Qualifiers: Hypothyroidism type: acquired Qualified Code(s): E03.9 - Hypothyroidism, unspecified Is this a current diagnosis for this admission?: Yes - Plan Summary Summary: 09/24/2019 It seems that this admission parallels an admission last year where she was catatonic but after approximately 5 to 7 days it wore off spontaneously. We will admit her to [facility] for closer monitoring. PRN medications will be available for her blood pressure as well as anxiety. We will asked psychiatry to follow the patient. They typically recommend Depakote and BuSpar. We will wait 24 hours to see how the patient is in the morning and then decide on which medications may want to utilize. We will continue IV fluids at this time. She does have a history of heart block and she does have a pacemaker in and other than hypertension the patient's cannot recall any diagnosis of heart marco lure. 09/26/2019 Vital signs temperature 98.6 pulse between 60 and 70 Pressure 150/60 and oxygen saturation is 96% on room air White count down to 8.9 electrolytes are normal, no evidence of trichomonas, chlamydia GC negative, Blood cultures negative x48 hours Psychiatry feels that this may be neuro malignant syndrome due to muscle rigidity is being her first symptoms IV fluids have been cut back to 75 mL's per hour however patient is not eating or drinking much TSH level is normal at 2.88 When I walked into the room this morning, I initially thought she was watching TV because she was staring off at the ceiling. However upon further close inspection patient was just staring off into space. I addressed her with a greeting, and after a very long pause, she told me he had been riding a m otorcycle, and that there were 3 words. She then later stated "high-rise". Patient is basically taking no medicines were here in the hospital except for Colace, Pepcid, heparin for DVT prophylaxis Patient has been here in this hospital for 3 days now. The last time she had 1 of these events about a year ago it took 7 days for it to clear, according to the chart. 09/27/2019 I stood at the bedside for 5 or 10 minutes listening to the patient have a discussion with herself about nonsensical matters. Patient did not acknowledge that I was there. Patient's vital signs remained stable and normal Labs also appear normal and stable, blood cultures negative for [address] head scan shows microvascular ischemic changes. Patient would benefit from an MRI scan with gadolinium however she would have to be heavily sedated for this procedure, therefore I am not going to order the study. Patient is on no medication which would be prolonging or causing this effect at the current time. Renal functions and liver functions appear normal so hopefully she can detox this medication that she was given as an outpatient which could have contributed to her symptoms 09/28/2019 Little change today, though much less talkative and alert. vital signs temperature 98.1 pulse is between 60 and 70 blood pressure 151/68 O2 sat 97% on room air Repeat ammonia level is normal less than 8.7 C-reactive protein basically normal [address] scan done on the in the show no lesions Continue to wait this out as patient is in no danger. Last time this occurred was 1 year ago and it took 1 week to clear. Did not feel that adding medications would be effective at this time. Certainly if in 48 hours patient has failed to improve, consider adding medications. Patient however has no diaphoresis no tachycardia no tachypnea no tremor. 09/29/2019 Patient remains hemodynamically stable vital signs are stable Blood cultures negative x5 days Morning I tried speaking to the patient she would not answer any questions she would not follow commands such as opening her eyes. She continued to have significant "eye fluttering". According to the nursing staff patient has become nonverbal yesterday and today. We will wait to hear what psychiatry says concerning placement issues, then consult discharge planning. Would DC patient's Nugent place her with a diaper. No further diagnostic testing is to be done. Patient is medically stable, though obviously still with a significant psychiatric deficit. I will call the patient's this afternoon after further discussion with psychiatry. 09/30/2019 Vital signs are stable blood pressures up and consistently has been up 160/65 Started her spironolactone back 25 mg every 12 hours Patient is on as needed blood pressure medicine LAbs today reveal, normal CBC, chemistry panel normal I have discontinued her Nugent catheter and will send the urine off patient will probably need to be in a diaper Today patient is answering some simple questions following some simple commands making good eye contact and almost appears a little tearful. For the last 48 hours she would not speak at all or follow any commands. This is a definite improvement. May need to put patient on some clonidine every 8 hours 10/01/2019 Afebrile 97. 8 ,pulse of 77, blood pressure still running higher than normal 153/61, 176/58. When to add Catapres 0.1 mg every 8 hours Patient is on IV as needed meds but I am trying to get her to take p.o.'s. Labs are all normal Repeat UA is pending. Nugent catheter had to be reinserted yesterday evening due to urinary retention bladder with over 600 cc Patient is much more awake and alert she is nodding her head in response to questions she is speaking and just very short 1 word or 2 word answers. This is a definite improvement, patient is making more eye contact When I asked her if she wanted to go home she became tearful and said yes LTAC referral has been initiated. Patient may need to go out with Nugent catheter urology consult as an outpatient Patient will need a final psychiatry consult prior to discharge for medications recommendations I have asked nursing service administrator to try to feed the patient as patient says she is hungry but is not feeding herself. told me by phone that the last time this happened he had to feed her at the bedside - Time Time Spent with patient: 25-34 minutes
[2019-10-01 10:51] LABS: APPEARANCE,URINE CLEAR; BILIRUBIN,URINE NEGATIVE (NEGATIVE); COLOR,URINE YELLOW; GLUCOSE, URINE NEGATIVE (NEGATIVE); KETONES,URINE TRACE mg/dL (NEGATIVE); PROTEIN,URINE NEGATIVE (NEGATIVE); URINE SPECIFIC GRAVITY 1.015
[2019-10-01] MEDS: HYDRALAZINE HCL INJ/PF 20 MG/1 ML SDV IV PRN (11:25)
[2019-10-01] MEDS: CLONIDINE HCL 0.1 MG TABLET PO SCH ×2 (13:15→22:01)
--- NOTE | 2019-10-01 19:33 | PSYCHOLOGICAL NOTE ---
Psych Note - Psych Note Date seen by psych provider: 10/01/19 Time seen by psych provider: 18:15 Psych Note: Check in conducted with patient: Patient appears tearful and staring at the clock on the wall and states "I didn't think it would take that long." When patient is asked what is taking long she does not answer and then starts about packing boxes. Patient is able to correctly identify that she is currently in [facility]. When asked where she was before arriving to [facility] she will not answer. Patient asks "please help me" she then states she is hot; Clinician was able to remove the top blanket of the patient, she stated thank you, she felt much better. Patient states "it can't be true" but when asked for clarification she would not answer. Patient became tearful again and said "there was three....I didn't think it would take so long....It hurts." Patient would not clarify her statements but is observed rubbing her lower right side of her stomach. Patient then states she does have her glasses on and can't see down the house, then goes back to staring at the clock. Patient is able to refocus on clinician and confirms she knows she is safe here at [facility]. Patient is asked if anyone hurt her, she does not answer. She states she wants to go home and asks if she is allowed to go home to her . Patient is asked if she is in pain, as she is still rubbing her stomach. She nods her head; clinician states she will make she her nurse is notified. Patient states "it can't be true...it's just a bad dream it is time to wake up." Patient asks for help again but is unable to articulate what she needs help with. Medication recommendations per [facility]'s contacted psychiatricst Dr Gage NGUYEN are as follows: Depakote 250mg twice daily Patient may need Depakote sprinkles or depakene as she is not eating on her own
[2019-10-01] MEDS: ONDANSETRON HCL INJ/PF 4 MG/2 ML SDV IV PRN (20:17)
[2019-10-02] MEDS: POLYVINYL ALCOHOL 1.4% OPH SOLN 15 ML OU SCH ×6 (02:45→21:21)
[2019-10-02] MEDS: NORMAL SALINE 1000 ML 1,000 ML IV PRN ×2 (03:00→15:04)
[2019-10-02] MEDS: LORAZEPAM INJ 2 MG/1 ML VIAL IV PRN (04:15)
[2019-10-02] MEDS: LIOTHYRONINE SODIUM 5 MCG TABLET PO SCH (06:37)
[2019-10-02] MEDS: LEVOTHYROXINE SODIUM 0.025 MG TABLET PO SCH (06:37)
[2019-10-02] MEDS: CLONIDINE HCL 0.1 MG TABLET PO SCH ×3 (06:37→21:20)
[2019-10-02] MEDS: HEPARIN SOD (PORCINE) 5,000 UNIT/ML 1 ML VIAL SUBCUT SCH ×3 (06:39→21:21)
--- NOTE | 2019-10-02 08:55 | RADIOLOGY REPORT (SQ) ---
EXAM DESCRIPTION: KUB/ABDOMEN (SINGLE VIEW) IMAGES COMPLETED DATE/TIME: 10/02/2019 8:22 am REASON FOR STUDY: constipation COMPARISON: 09/24/2019 NUMBER OF VIEWS: One view. TECHNIQUE: Supine radiographic image of the abdomen acquired. LIMITATIONS: None. FINDINGS: BOWEL GAS PATTERN: Normal bowel gas pattern. No dilated loops. Unremarkable fecal burden. CALCIFICATIONS: No suspicious calcifications. SOFT TISSUES: No gross mass or suggestion of organomegaly. HARDWARE: Catheter overlies midline lower pelvis. BONES: No acute fracture. No worrisome bone lesions. Decreased mineralization. Lower lumbar spondyl osis and facet arthropathy. OTHER: No other significant finding. IMPRESSION: No evidence of acute intra-abdominal/ pelvic process. Unremarkable fecal burden. TECHNICAL DOCUMENTATION: JOB ID: [id number] [employer]- All Rights Reserved Reading location - IP/workstation name: [email or web address]
[2019-10-02] MEDS: SPIRONOLACTONE 25 MG TABLET PO SCH ×2 (09:41→21:20)
[2019-10-02] MEDS: DOCUSATE SODIUM 100 MG CAPSULE PO SCH ×2 (09:42→17:25)
[2019-10-02] MEDS: FAMOTIDINE 20 MG TABLET PO SCH ×2 (09:42→21:20)
[2019-10-02] MEDS: VALPROATE SODIUM SYRUP 250 MG/5 ML UDCUP PO SCH ×2 (09:42→21:21)
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
[2019-10-03] MEDS: LORAZEPAM INJ 2 MG/1 ML VIAL IV PRN ×2 (00:11→08:33)
[2019-10-03] MEDS: POLYVINYL ALCOHOL 1.4% OPH SOLN 15 ML OU SCH ×6 (02:37→21:10)
[2019-10-03] MEDS: NORMAL SALINE 1000 ML 1,000 ML IV PRN ×2 (03:24→14:38)
[2019-10-03] MEDS: MORPHINE SULFATE 10 MG/ML INJ IV PRN ×2 (05:06→09:20)
[2019-10-03] MEDS: CLONIDINE HCL 0.1 MG TABLET PO SCH ×3 (06:17→21:09)
[2019-10-03] MEDS: HEPARIN SOD (PORCINE) 5,000 UNIT/ML 1 ML VIAL SUBCUT SCH ×3 (06:17→21:10)
[2019-10-03] MEDS: LIOTHYRONINE SODIUM 5 MCG TABLET PO SCH (06:17)
[2019-10-03] MEDS: LEVOTHYROXINE SODIUM 0.025 MG TABLET PO SCH (06:18)
--- NOTE | 2019-10-03 08:44 | PDOC PROGRESS REPORT ---
Subjective Progress Note for:: 10/03/19 Subjective:: 74-year-old female with history of depression, anxiety, psychosis admitted to [facility] under involuntary commitment brought to the ER 2 days ago with complaints of urinary symptoms found to have urinary retention , Nugent's catheter was placed , the information ER got is that patient is on multiple antipsychotic medications at the [facility] , patient is wheelchair- bound and and unresponsive, her medical condition is the same while she was in the ER , medical consult was called around 3 PM yesterday, on examination the patient is in spastic state ,extremities are stiff, with the eyeballs rolled up, unresponsive very stiff chin with a hyperreflexia, look like Babinski's sign positive, requested the ER team to transfer the patient to a facility with the neurological services available but unfortunately the neurology refused to accept the patient and [facility] without neurologist approval refused to accept the patient. finally the patient was admitted to our facility last night. This morning at the time of my examination patient is in similar condition with out any improvement in physical condition at all. 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 I am concerned about the patient condition requested Dr. Mcclendon digital computer systems analyst have a look at the patient and made recommendations. Patient has a pacemaker unable to do the MRI of the brain. EEG was requested. Labs are stable at this time. plan is to repeat the CT head today. Her prognosis is poor, condition is critical. 10/03/2019-patient admitted with catatonia resolved. Patient is still confused and having the crying spells complaining of abdominal pain but having the normal movements. Psych evaluation was done yesterday the recommendation is to give Depakote to 50 mg twice daily. The plan is either discharge patient back to [facility], or to the long-term care facility. no Acute events in the last 24 hours afebrile. Reason For Visit: ACUTE URINARY RETENTION POSSIBLE TOXIC Physical Exam Vital Signs: Temp Pulse Resp BP Pulse Ox 98.1 F 81 22 H 149/67 H 97 10/03/19 07:52 10/03/19 07:52 10/03/19 07:52 10/03/19 07:52 10/03/19 07:52 Intake & Output 10/02/19 10/03/19 10/04/19 06:59 06:59 06:59 Intake Total 3269 2166 Output Total 800 1375 Balance 2469 791 Weight 79.4 kg 82.1 kg General appearance: PRESENT: well-developed, other - Unable to maintain proper communication. Head exam: PRESENT: atraumatic Eye exam: PRESENT: PERRLA Mouth exam: PRESENT: moist, tongue midline Teeth exam: PRESENT: poor dentation Neck exam: ABSENT: carotid bruit, JVD, lymphadenopathy, thyromegaly Cardiovascular exam: PRESENT: RRR. ABSENT: diastolic murmur, rubs, systolic murmur GI/Abdominal exam: PRESENT: normal bowel sounds, soft. ABSENT: distended, guarding, mass, organolmegaly, rebound, tenderness Rectal exam: PRESENT: deferred Neurological exam: PRESENT: alert, awake. ABSENT: CN II-XII grossly intact Psychiatric exam: PRESENT: agitated, anxious Results Laboratory Results: 09/30/19 08:15 09/30/19 08:15 09/24/19 15:06 Creatine Kinase 91 Impressions: Chest X-Ray 09/24/19 12:36 IMPRESSION: Small left pleural effusion. Head CT 09/25/19 00:00 IMPRESSION: No acute intracranial abnormality. EVIDENCE OF ACUTE STROKE: NO. KUB X-Ray 10/02/19 00:00 IMPRESSION: No evidence of acute intra-abdominal/ pelvic process. Unremarkable fecal burden. Assessment and Plan - Diagnosis (1) Catatonic state Is this a current diagnosis for this admission?: Yes Plan: 09/24/2019 I talked to the patient's . The patient had an episode like this last year. She was admitted to the hospital in a catatonic state. The remembers that she would stare into space. She looked like she was trying to participate. She was not eating or drinking. She was in the hospital for approximately 1 week. He states that 1 day she "snapped out of it "and began walking and eating. He cannot remember any specific event that caused this. They believed it was related to medications at that time as well. The patient was seen by psychiatry here at the hospital. We will continue to have them follow-up with the patient. We will give her 24 hours or so and then consider utilizing Depakote and BuSpar. She was on lithium for a long time in the past but suffered lithium toxicity. Evidently she is quite sensitive to antipsychotic medication. 09/25/2019-on examination patient is still in catatonic state with continuous blinking of the eyelids and eyeballs of rolled up unable to see the pupils. Hyperreflexia present. May be Babinski sign is positive. We can to do the EEG today for further evaluation. Psych follow-up is appreciated. I requested Dr. Mcclendon digital computer systems analyst to look at the patient make further recommendations. Pathology spoke to patient's according to the patient is admitted to the hospital last year in similar condition and she was in the hospital 1 week. 10/03/2019-no acute events in the last 24 hours. Afebrile. To implement ps ychiatric recommendations. Complaining of pain in the abdomen KUB is negative. Slightly confused and agitated complaining of abdominal pain. (2) Urinary retention Is this a current diagnosis for this admission?: Yes Plan: 09/24/2019 Possibly related to her medications. She has a Nugent catheter in place. Her urine is somewhat concentrated. We will continue to monitor intake and output. There was no evidence of infection on her urine analysis. There were some white cells on her wet mount but no trichomonas. There was no positive serology for chlamydia or gonorrhea. 09/25/2019-Nugent's catheter in place. Patient is receiving IV fluids at 122 cc/h plan is to decrease the IV fluids to 75 cc/h because of the underlying history of congestive heart failure. urinaruy retention may be secondary to medication use. 10/03/2019-patient still retaining urine. She may need to have a Nugent's catheter in place at the time of discharge. (3) Altered mental status Qualifiers: Altered mental status type: unspecified Qualified Code(s): R41.82 - Altered mental status, unspecified Is this a current diagnosis for this admission?: Yes Plan: 10/03/2019-patient came in with altered mental status and catatonic state at the time of him. Symptoms are resolving. Patient still have a multiple underlying psychiatric problems. In my opinion she may need to go back to [facility] for further management. (4) Bipolar disorder Qualifiers: Active/Remission status: currently active Current bipolar episode type: depressed Current episode severity: moderate Qualified Code(s): F31.32 - Bipolar disorder, current episode depressed, moderate Is this a current diagnosis for this admission?: Yes Plan: 09/24/2019 I had a long discussion with the patient's this evening. He states that over the last several weeks she has been exhibiting a decline in her condition. She did this last year as well. She was getting more depressed. She was seen in the emergency department on September 20 and accepted at [place]. She was referred back from [place] due to acute urinary retention. Right now she is not taking oral medications. The stated that during her hospitalization last year they attempted to place a nasogastric and Dobbhoff feeding tube but it was very difficult. I told him that we may need to try during this admission especially if she does not begin eating or drinking. Psychiatry will continue to see the patient. 10/03/2019-plan is to follow the psychiatric recommendations. (5) Hypertension Qualifiers: Hypertension type: essential hypertension Qualified Code(s): I10 - Essential (primary) hypertension Is this a current diagnosis for this admission?: No Plan: 09/24/2019 The patient is on spironolactone. Her blood pressures are slightly elevated. We will have intravenous medications available if needed. Hopefully she will begin taking food and medications by mouth soon. 09/25/2019-blood pressure today is 146/80. Stable. Patient is on IV PRN medications for blood pressure control. 10/03/2019 blood pressure today is 157/73. Stable. Plan is to continue the present management at this time. (6) Hypothyroidism Qualifiers: Hypothyroidism type: acquired Qualified Code(s): E03.9 - Hypothyroidism, unspecified Is this a current diagnosis for this admission?: Yes (7) Hyperlipidemia Qualifiers: Hyperlipidemia type: unspecified Qualified Code(s): E78.5 - Hyperlipidemia, unspecified Is this a current diagnosis for this admission?: No - Plan Summary Summary: 09/24/2019 It seems that this admission parallels an admission last year where she was catatonic but after approximately 5 to 7 days it wore off spontaneously. We will admit her to [facility] for closer monitoring. PRN medications will be available for her blood pressure as well as anxiety. We will asked psychiatry to follow the patient. They typically recommend Depakote and BuSpar. We will wait 24 hours to see how the patient is in the morning and then decide on which medications may want to utilize. We will continue IV fluids at this time. She does have a history of heart block and she does have a pacemaker in and other than hypertension the patient's cannot recall any diagnosis of heart failure. 09/26/2019 Vital signs temperature 98.6 pulse between 60 and 70 Pressure 150/60 and oxygen saturation is 96% on room air White count down to 8.9 electrolytes are normal, no evidence of trichomonas, chlamydia GC negative, Blood cultures negative x48 hours Psychiatry feels that this may be neuro malignant syndrome due to muscle rigidity is being her first symptoms IV fluids have been cut back to 75 mL's per hour however patient is not eating or drinking much TSH level is normal at 2.88 When I walked into the room this morning, I initially thought she was watching TV because she was staring off at the ceiling. However upon further close inspection patient was just staring off into space. I addressed her with a greeting, and after a very long pause, she told me he had been riding a motorcycle, and that there were 3 words. She then later stated "high-rise". Patient is basically taking no medicines were here in the hospital except for Colace, Pepcid, heparin for DVT prophylaxis Patient has been here in this hospital for 3 days now. The last time she had 1 of these events about a year ago it took 7 days for it to clear, according to the chart. 09/27/2019 I stood at the bedside for 5 or 10 minutes listening to the patient have a discussion with herself about nonsensical matters. Patient did not acknowledge that I was there. Patient's vital signs remained stable and normal Labs also appear normal and stable, blood cultures negative for [address] head scan shows microvascular ischemic changes. Patient would benefit from an MRI scan with gadolinium however she would have to be heavily sedated for this procedure, therefore I am not going to order the study. Patient is on no medication which would be prolonging or causing this effect at the current time. Renal functions and liver functions appear normal so hopefully she can detox this medication that she was given as an outpatient which could have contributed to her symptoms 09/28/2019 Little change today, though much less talkative and alert. vital signs temperature 98.1 pulse is between 60 and 70 blood pressure 151/68 O2 sat 97% on room air Repeat ammonia level is normal less than 8.7 C-reactive protein basically normal [address] scan done on the in the show no lesions Continue to wait this out as patient is in no danger. Last time this occurred was 1 year ago and it took 1 week to clear. Did not feel that adding medications would be effective at this time. Certainly if in 48 hours patient has failed to improve, consider adding medications. Patient however has no diaphoresis no tachycardia no tachypnea no tremor. 09/29/2019 Patient remains hemodynamically stable vital signs are stable Blood cultures negative x5 days Morning I tried speaking to the patient she would not answer any questions she would not follow commands such as opening her eyes. She continued to have significant "eye fluttering". According to the nursing staff patient has become nonverbal yesterday and today. We will wait to hear what psychiatry says concerning placement issues, then consult discharge planning. Would DC patient's Nugent place her with a diaper. No further diagnostic testing is to be done. Patient is medically stable, though obviously still with a significant psychiatric deficit. I will call the patient's this afternoon after further discussion with psychiatry. 09/30/2019 Vital signs are stable blood pressures up and consistently has been up 160/65 Started her spironolactone back 25 mg every 12 hours Patient is on as needed blood pressure medicine LAbs today reveal, normal CBC, chemistry panel normal I have discontinued her Nugent catheter and will send the urine off patient will probably need to be in a diaper Today patient is answering some simple questions following some simple commands making good eye contact and almost appears a little tearful. For the last 48 hours she would not speak at all or follow any commands. This is a definite improvement. May need to put patient on some clonidine every 8 hours 10/01/2019 Afebrile 97. 8 ,pulse of 77, blood pressure still running higher than normal 153/61, 176/58. When to add Catapres 0.1 mg every 8 hours Patient is on IV as needed meds but I am trying to get her to take p.o.'s. Labs are all normal Repeat UA is pending. Nugent catheter had to be reinserted yesterday evening due to urinary retention bladder with over 600 cc Patient is much more awake and alert she is nodding her head in response to questions she is speaking and just very short 1 word or 2 word answers. This is a definite improvement, patient is making more eye contact When I asked her if she wanted to go home she became tearful and said yes LTAC referral has been initiated. Patient may need to go out with Nugent catheter urology consult as an outpatient Patient will need a final psychiatry consult prior to discharge for medications recommendations I have asked certified nursing assistant instructor to try to feed the patient as patient says she is hungry but is not feeding herself. told me by phone that the last time this happened he had to feed her at the bedside 10/02/2019 Vital signs are stable, all of her labs are stable, blood cultures are negative, KUB this morning showed no abnormalities. Psychiatry saw patient yesterday and recommended 250 mg Depakote twice daily which has been started Patient is more manic today she is talking pretty much nonstop and 1 can get her focused at times where she answers questions appropriately. 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 Medically patient is stable for transfer. Patient is sitting up in bed eating a banana and her applesauce
[2019-10-03] MEDS: FAMOTIDINE 20 MG TABLET PO SCH ×2 (09:19→21:08)
[2019-10-03] MEDS: VALPROATE SODIUM SYRUP 250 MG/5 ML UDCUP PO SCH ×2 (09:20→21:09)
[2019-10-03] MEDS: SPIRONOLACTONE 25 MG TABLET PO SCH ×2 (09:20→21:09)
[2019-10-03] MEDS: DOCUSATE SODIUM 100 MG CAPSULE PO SCH ×2 (09:20→17:14)
[2019-10-03] MEDS: HYDRALAZINE HCL INJ/PF 20 MG/1 ML SDV IV PRN (23:46)
[2019-10-04] MEDS: POLYVINYL ALCOHOL 1.4% OPH SOLN 15 ML OU SCH ×6 (02:07→23:40)
[2019-10-04] MEDS: NORMAL SALINE 1000 ML 1,000 ML IV PRN (04:11)
[2019-10-04 05:08] LABS: ABSOLUTE EOSINOPHILS # (AUTO) 0.1 10^3/uL (0.0-0.6); ABSOLUTE LYMPHOCYTES (AUTO) 1.5 10^3/uL (0.5-4.7); ABSOLUTE MONOCYTES (AUTO) 0.7 10^3/uL (0.1-1.4); ABSOLUTE NEUT (AUTO) 8.1 10^3/uL (1.7-8.2); BASOPHILS % (AUTO) 0.3 % (0-2); HEMATOCRIT 35.8 % (36.0-47.0); HEMOGLOBIN 12.4 g/dL (12.0-15.5); LYMPHOCYTES % (AUTO) 14.6 % (13-45); MEAN CORPUSCULAR HEMOGLOBIN 31.7 pg (27.0-33.4); MEAN CORPUSCULAR HGB CONC 34.7 g/dL (32.0-36.0); MEAN CORPUSCULAR VOLUME 91 fl (80-97); PLATELET COUNT 235 10^3/uL (150-450); RED BLOOD COUNT 3.92 10^6/uL (3.72-5.28); SEGMENTED NEUTROPHILS % (AUTO) 77.1 % (42-78); TOTAL CELLS COUNTED % (AUTO) 100 %; WHITE BLOOD COUNT 10.5 10^3/uL (4.0-10.5)
[2019-10-04 05:37] LABS: ALKALINE PHOSPHATASE 80 U/L (38-126); ASPARTATE AMINO TRANSFERASE 26 U/L (14-36); BILIRUBIN,TOTAL 0.8 mg/dL (0.2-1.3); BLOOD UREA NITROGEN 15 mg/dL (7-20); CALCIUM 8.8 mg/dL (8.4-10.2); CARBON DIOXIDE 21 mmol/L (22-30); CHLORIDE 121 mmol/L (98-107); GLUCOSE 102 mg/dL (75-110); TOTAL PROTEIN 5.9 g/dL (6.3-8.2)
[2019-10-04] MEDS: HEPARIN SOD (PORCINE) 5,000 UNIT/ML 1 ML VIAL SUBCUT SCH ×3 (05:41→23:39)
[2019-10-04] MEDS: LEVOTHYROXINE SODIUM 0.025 MG TABLET PO SCH (05:41)
[2019-10-04] MEDS: CLONIDINE HCL 0.1 MG TABLET PO SCH ×3 (05:41→23:39)
[2019-10-04] MEDS: LIOTHYRONINE SODIUM 5 MCG TABLET PO SCH (05:41)
[2019-10-04 05:42] LABS: ANION GAP 4 (5-19)
[2019-10-04] MEDS: POTASSIUM CHLORIDE 20 MEQ/50 ML RTU IV SCH ×2 (06:48→08:52)
[2019-10-04] MEDS ORDERED: POTASSIUM CHLORIDE 10 MEQ TABLET.ER PO ONE (07:00)
--- NOTE | 2019-10-04 08:48 | PDOC PROGRESS REPORT ---
Subjective Progress Note for:: 10/04/19 Subjective:: 74-year-old female with history of depression, anxiety, psychosis admitted to [facility] under involuntary commitment brought to the ER 2 days ago with complaints of urinary symptoms found to have urinary retention , Nugent's catheter was placed , the information ER got is that patient is on multiple antipsychotic medications at the [facility] , patient is wheelchair- bound and and unresponsive, her medical condition is the same while she was in the ER , medical consult was called around 3 PM yesterday, on examination the patient is in spastic state ,extremities are stiff, with the eyeballs rolled up, unresponsive very stiff chin with a hyperreflexia, look like Babinski's sign positive, requested the ER team to transfer the patient to a facility with the neurological services available but unfortunately the neurology refused to accept the patient and the hospitalist at [facility] without neurologist approval refused to accept the patient. finally the patient was admitted to our facility last night. This morning at the time of my examination patient is in similar condition with out any improvement in physical condition at all. 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 I am concerned about the patient condition requested Dr. Mcclendon linotype machinist have a look at the patient and made recommendations. Patient has a pacemaker unable to do the MRI of the brain. EEG was requested. Labs are stable at this time. plan is to repeat the CT head today. Her prognosis is poor, condition is critical. 10/03/2019-patient admitted with catatonia resolved. Patient is still confused and having the crying spells complaining of abdominal pain but having the normal movements. Psych evaluation was done yesterday the recommendation is to give Depakote to 50 mg twice daily. The plan is either discharge patient back to [facility], or to the long-term care facility. no Acute events in the last 24 hours afebrile. 10/04/2019-no acute events in the last 24 hours. Afebrile. Nugent's catheter is removed and patient able to urinate without any problems. Reason For Visit: ACUTE URINARY RETENTION POSSIBLE TOXIC Physical Exam Vital Signs: Temp Pulse Resp BP Pulse Ox 98.6 F 75 18 161/61 H 96 10/04/19 08:00 10/04/19 08:00 10/04/19 08:00 10/04/19 08:00 10/04/19 08:00 Intake & Output 10/03/19 10/04/19 10/05/19 06:59 06:59 06:59 Intake Total 2166 2797 Output Total 1375 Balance 791 2797 Weight 82.1 kg 82.5 kg General appearance: PRESENT: no acute distress, well-developed Head exam: PRESENT: atraumatic Eye exam: PRESENT: PERRLA Ear exam: PRESENT: normal external ear exam Mouth exam: PRESENT: neck supple Teeth exam: PRESENT: poor dentation Neck exam: ABSENT: carotid bruit, JVD, lymphadenopathy, thyromegaly Respiratory exam: PRESENT: decreased breath sounds Cardiovascular exam: PRESENT: RRR. ABSENT: diastolic murmur, rubs, systolic murmur GI/Abdominal exam: PRESENT: normal bowel sounds, soft. ABSENT: distended, guar ding, mass, organolmegaly, rebound, tenderness Rectal exam: PRESENT: deferred Extremities exam: PRESENT: full ROM. ABSENT: calf tenderness, clubbing, pedal edema Neurological exam: PRESENT: alert, awake, oriented to person, oriented to place, oriented to time, oriented to situation, CN II-XII grossly intact. ABSENT: motor sensory deficit Psychiatric exam: PRESENT: appropriate affect, normal mood. ABSENT: homicidal ideation, suicidal ideation Results Laboratory Results: 10/04/19 04:28 10/04/19 04:28 10/04/19 10/04/19 04:28 04:28 WBC 10.5 RBC 3.92 Hgb 12.4 Hct 35.8 L MCV 91 MCH 31.7 MCHC 34.7 RDW 13.0 Plt Count 235 Seg Neutrophils % 77.1 Sodium 145.8 H Potassium 3.0 L* Chloride 121 H Carbon Dioxide 21 L Anion Gap 4 L BUN 15 Creatinine 0.57 Est GFR ( Amer) > 60 Glucose 102 Calcium 8.8 Magnesium 2.0 Total Bilirubin 0.8 AST 26 Alkaline Phosphatase 80 Total Protein 5.9 L Albumin 3.0 L 09/24/19 15:06 Creatine Kinase 91 Impressions: Chest X-Ray 09/24/19 12:36 IMPRESSION: Small left pleural effusion. Head CT 09/25/19 00:00 IMPRESSION: No acute intracranial abnormality. EVIDENCE OF ACUTE STROKE: NO. KUB X-Ray 10/02/19 00:00 IMPRESSION: No evidence of acute intra-abdominal/ pelvic process. Unremarkable fecal burden. Assessment and Plan - Diagnosis (1) Catatonic state Is this a current diagnosis for this admission?: Yes Plan: 09/24/2019 I talked to the patient's . The patient had an episode like this last year. She was admitted to the hospital in a catatonic state. The remembers that she would stare into space. She looked like she was trying to participate. She was not eating or drinking. She was in the hospital for approximately 1 week. He states that 1 day she "snapped out of it "and began walking and eating. He cannot remember any specific event that caused this. They believed it was related to medications at that time as well. The patient was seen by psychiatry here at the hospital. We will continue to have them follow-up with the patient. We will give her 24 hours or so and then consider utilizing Depakote and BuSpar. She was on lithium for a long time in the past but suffered lithium toxicity. Evidently she is quite sensitive to antips ychotic medication. 09/25/2019-on examination patient is still in catatonic state with continuous b linking of the eyelids and eyeballs of rolled up unable to see the pupils. Hyperreflexia present. May be Babinski sign is positive. We can to do the EEG today for further evaluation. Psych follow-up is appreciated. I requested Dr. Mcclendon linotype machinist to look at the patient make further recommendations. Pathology spoke to patient's according to the patient is admitted to the hospital last year in similar condition and she was in the hospital 1 week. 10/03/2019-no acute events in the last 24 hours. Afebrile. To implement psychiatric recommendations. Complaining of pain in the abdomen KUB is negative. Slightly confused and agitated complaining of abdominal pain. 10/04/2019-comfortably in the bed sleeping. Consultation with the behavioral therapy was done and we are implementing the recommendations. At this time plan is to continue the present management. (2) Urinary retention Is this a current diagnosis for this admission?: Yes Plan: 09/24/2019 Possibly related to her medications. She has a Nugent catheter in place. Her urine is somewhat concentrated. We will continue to monitor intake and output. There was no evidence of infection on her urine analysis. There were some white cells on her wet mount but no trichomonas. There was no positive serology for chlamydia or gonorrhea. 09/25/2019-Nugent's catheter in place. Patient is receiving IV fluids at 122 cc/h plan is to decrease the IV fluids to 75 cc/h because of the underlying history of congestive heart failure. urinaruy retention may be secondary to medication use. 10/03/2019-patient still retaining urine. She may need to have a Nugent's catheter in place at the time of discharge. 10/04/2019-Nugent's catheter is removed patient is able to urinate without any problems. (3) Altered mental status Qualifiers: Altered mental status type: unspecified Qualified Code(s): R41.82 - Altered mental status, unspecified Is this a current diagnosis for this admission?: Yes Plan: 10/03/2019-patient came in with altered mental status and catatonic state at the time of him. Symptoms are resolving. Patient still have a multiple underlying psychiatric problems. In my opinion she may need to go back to [facility] for further management. 10/04/2019-patient admitted with altered mental status which was resolving. Patient still have underlying severe psych issues. (4) Bipolar disorder Qualifiers: Active/Remission status: currently active Current bipolar episode type: depressed Current episode severity: moderate Qualified Code(s): F31.32 - Bipolar disorder, current episode depressed, moderate Is this a current diagnosis for this admission?: Yes Plan: 09/24/2019 I had a long discussion with the patient's this evening. He states that over the last several weeks she has been exhibiting a decline in her condition. She did this last year as well. She was getting more depressed. She was seen in the emergency department on September 20 and accepted at [place]. She was referred back from [place] due to acute urinary retention. Right now she is not taking oral medications. The stated that during her hospitalization last year they attempted to place a nasogastric and Dobbhoff feeding tube but it was very difficult. I told him that we may need to try during this admission especially if she does not begin eating or drinking. Psychiatry will continue to see the patient. 10/03/2019-plan is to follow the psychiatric recommendations. (5) Hypertension Qualifiers: Hypertension type: essential hypertension Qualified Code(s): I10 - Essential (primary) hypertension Is this a current diagnosis for this admission?: No Plan: 09/24/2019 The patient is on spironolactone. Her blood pressures are slightly elevated. We will have intravenous medications available if needed. Hopefully she will begin taking food and medications by mouth soon. 09/25/2019-blood pressure today is 146/80. Stable. Patient is on IV PRN medications for blood pressure control. 10/03/2019 blood pressure today is 157/73. Stable. Plan is to continue the present management at this time. 10/04/19-bp is 154/56 stable.. (6) Hypothyroidism Qualifiers: Hypothyroidism type: acquired Qualified Code(s): E03.9 - Hypothyroidism, unspecified Is this a current diagnosis for this admission?: Yes (7) Hyperlipidemia Qualifiers: Hyperlipidemia type: unspecified Qualified Code(s): E78.5 - Hyperlipidemia, unspecified Is this a current diagnosis for this admission?: No - Plan Summary Summary: 09/24/2019 It seems that this admission parallels an admission last year where she was catatonic but after approximately 5 to 7 days it wore off spontaneously. We will admit her to [facility] for closer monitoring. PRN medications will be available for her blood pressure as well as anxiety. We will asked psychiatry to follow the patient. They typically recommend Depakote and BuSpar. We will wait 24 hours to see how the patient is in the morning and then decide on which medications may want to utilize. We will continue IV fluids at this time. She does have a history of heart block and she does have a pacemaker in and other than hypertension the patient's cannot recall any diagnosis of heart failure. 09/26/2019 Vital signs temperature 98.6 pulse between 60 and 70 Pressure 150/60 and oxygen saturation is 96% on room air White count down to 8.9 electrolytes are normal, no evidence of trichomonas, chlamydia GC negative, Blood cultures negative x48 hours Psychiatry feels that this may be neuro malignant syndrome due to muscle rigidity is being her first symptoms IV fluids have been cut back to 75 mL's per hour however patient is not eating or drinking much TSH level is normal at 2.88 When I walked into the room this morning, I initially thought she was watching TV because she was staring off at the ceiling. However upon further close inspection patient was just staring off into space. I addressed her with a greeting, and after a very long pause, she told me he had been riding a motorcycle, and that there were 3 words. She then later stated "high-rise". Patient is basically taking no medicines were here in the hospital except for Colace, Pepcid, heparin for DVT prophylaxis Patient has been here in this hospital for 3 days now. The last time she had 1 of these events about a year ago it took 7 days for it to clear, according to the chart. 09/27/2019 I stood at the bedside for 5 or 10 minutes listening to the patient have a discussion with herself about nonsensical matters. Patient did not acknowledge that I was there. Patient's vital signs remained stable and normal Labs also appear normal and stable, blood cultures negative for [address] head scan shows microvascular ischemic changes. Patient would benefit from an MRI scan with gadolinium however she would have to be heavily sedated for this procedure, therefore I am not going to order the study. Patient is on no medication which would be prolonging or causing this effect at the current time. Renal functions and liver functions appear normal so hopefully she can detox this medication that she was given as an outpatient which could have contributed to her symptoms 09/28/2019 Little change today, though much less talkative and alert. vital signs temperature 98.1 pulse is between 60 and 70 blood pressure 151/68 O2 sat 97% on room air Repeat ammonia level is normal less than 8.7 C-reactive protein basically normal [address] scan done on the in the show no lesions Continue to wait this out as patient is in no danger. Last time this occurred was 1 year ago and it took 1 week to clear. Did not feel that adding medications would be effective at this time. Certainly if in 48 hours patient has failed to improve, consider adding medications. Patient however has no diaphoresis no tachycardia no tachypnea no tremor. 09/29/2019 Patient remains hemodynamically stable vital signs are stable Blood cultures negative x5 days Morning I tried speaking to the patient she would not answer any questions she would not follow commands such as opening her eyes. She continued to have significant "eye fluttering". According to the nursing staff patient has become nonverbal yesterday and today. We will wait to hear what psychiatry says concerning placement issues, then consult discharge planning. Would DC patient's Nugent place her with a diaper. No further diagnostic testing is to be done. Patient is medically stable, though obviously still with a significant psychiatric deficit. I will call the patient's this afternoon after further discussion with psychiatry. 09/30/2019 Vital signs are stable blood pressures up and consistently has been up 160/65 Started her spironolactone back 25 mg every 12 hours Patient is on as needed blood pressure medicine LAbs today reveal, normal CBC, chemistry panel normal I have discontinued her Nugent catheter and will send the urine off patient will probably need to be in a diaper Today patient is answering some simple questions following some simple commands making good eye contact and almost appears a little tearful. For the last 48 hours she would not speak at all or follow any commands. This is a definite improvement. May need to put patient on some clonidine every 8 hours 10/01/2019 Afebrile 97. 8 ,pulse of 77, blood pressure still running higher than normal 153/61, 176/58. When to add Catapres 0.1 mg every 8 hours Patient is on IV as needed meds but I am trying to get her to take p.o.'s. Labs are all normal Repeat UA is pending. Nugent catheter had to be reinserted yesterday evening due to urinary retention bladder with over 600 cc Patient is much more awake and alert she is nodding her head in response to questions she is speaking and just very short 1 word or 2 word answers. This is a definite improvement, patient is making more eye contact When I asked her if she wanted to go home she became tearful and said yes LTAC referral has been initiated. Patient may need to go out with Nugent catheter urology consult as an outpatient Patient will need a final psychiatry consult prior to discharge for medications recommendations I have asked clinical nursing assistant to try to feed the patient as patient says she is hungry but is not feeding herself. told me by phone that the last time this happened he had to feed her at the bedside 10/02/2019 Vital signs are stable, all of her labs are stable, blood cultures are negative, KUB this morning showed no abnormalities. Psychiatry saw patient yesterday and recommended 250 mg Depakote twice daily which has been started Patient is more manic today she is talking pretty much nonstop and 1 can get her focused at times where she answers questions appropriately. 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 Medically patient is stable for transfer. Patient is sitting up in bed eating a banana and her applesauce
[2019-10-04] MEDS: FAMOTIDINE 20 MG TABLET PO SCH ×2 (09:13→23:40)
[2019-10-04] MEDS: SPIRONOLACTONE 25 MG TABLET PO SCH ×2 (09:13→23:39)
[2019-10-04] MEDS: DOCUSATE SODIUM 100 MG CAPSULE PO SCH ×2 (09:14→17:12)
[2019-10-04] MEDS: VALPROATE SODIUM SYRUP 250 MG/5 ML UDCUP PO SCH ×2 (09:14→23:43)
[2019-10-04] MEDS: LORAZEPAM INJ 2 MG/1 ML VIAL IV PRN ×2 (10:32→22:50)
[2019-10-04] MEDS ORDERED: POTASSI CL 20 MEQ/50 ML RIDER 20 MEQ/50 ML RTUPB IV ONE (20:30)
--- NOTE | 2019-10-04 20:48 | RADIOLOGY REPORT (SQ) ---
EXAM DESCRIPTION: XR CHEST 1 VIEW COMPLETED DATE/TME: 10/04/2019 00:00 CLINICAL HISTORY: 74 years, Female, cough Pre transfer COMPARISON: Prior study from earlier the same day NUMBER OF VIEWS: One TECHNIQUE: Single frontal view of the chest was obtained LIMITATIONS: None. FINDINGS: Left subclavicular approach dual lead cardiac pacer is in position. Cardiac and mediastinal contours are normal. Lungs are clear. No pleural effusion or pneumothorax. IMPRESSION: No acute disease. copyright 2010 [employer]- All Rights Reserved
--- NOTE | 2019-10-04 21:00 | PSYCHOLOGICAL NOTE ---
Psych Note - Psych Note Date seen by psych provider: 10/04/19 Time seen by psych provider: 15:30 Psych Note: Clinician spoke with attending nurse who reports that yesterday the patient was screaming "over it hurts... Help me" and just random yelling. Today he reports the patient has not been screaming however has pressured speech with a lot of hand gestures and emotions. He reports that previously the patient was able to at least identify if she needed assistance to use the bedside commode however now she is currently incontinent for both urine and feces. He reports that the patient has a not attempted to walk since her arrival and only walked with 2 people assisting her from bed to bedside commode previously. Upon entering patient's room patient is noted to be talking nonstop to herself. Patient is able to focus on and off through out evaluation on clinician in very short timeframes and answer appropriately to very simple, noncomplex questions i.e. her name where she is etc. Patient is noted to talk about things that she is looking at i.e. when looking at clinicians badge she reports that she did not know it was "currently flu season" and that she "has checkmark the box" (clinician's badge has a sticker identifying the flu shot has been taken with a checkmark next to it. Patient is noted to look at the TV and make comments to the visual pictures that she sees i.e. stating words like "deep green... It is a cradle... Like a baby cradle... Cradle.... Green...like hair, her hair was so pretty." Patient was looking at an image of a green mountain side. Patient then states that she is thirsty and states "so thirsty like drops on a palm tree and leave drip drop drip drop so thirsty." Patient was provided water. Patient makes other random comments such as "small so good it clears the sinuses etc." Clinician notes patient still continues to mention being in pain and using her left hand to rub the right side of her lower stomach. This is the same area the patient has been rubbing during previous evaluations. Patient's thoughts are disorganized and demonstrates flight of ideas and pressured speech. Updated medication recommendations Medication recommendations per [facility]'s contacted psychiatricst Dr Gage NGUYEN are as follows: please increase Depakote to 500mg twice daily Patient may need Depakote sprinkles or depakene as she is not eating on her own Impression/Plan: Clinician spoke with hospital's lead pediatric social worker/funeral planner Norberto Alaniz in regards to coordinating a multidisciplinary team meeting for this patient. Patient has both psychiatric and medical concerns. Patient continues to be nonambulatory (clinician notes patient was ambulatory prior to this admission) and has not engaged in any physical therapy since her admission. Patient is currently not feeding herself however will eat now if being fed. Patient is again incontinent. Patient is no longer in a catatonic-like state however is presenting manic with disorganized thought processes, and demonstrates flight of ideas and pressured speech. Clinician notes patient continues to identify one specific place where she has pain i.e. has been observed during multiple evaluations rubbing her lower right side of stomach and stating that it hurts. Updated medication recommendations have been provided. The behavior health team has contacted [facility] which report they have 1 female bed available. Patient's information has been forwarded. Dr. Hicks was consulted on the care and mangement of this patient attending physician is in agreement with recommendations and disposition.
[2019-10-04 21:09] LABS: BLOOD UREA NITROGEN 18 mg/dL (7-20); CALCIUM 9.2 mg/dL (8.4-10.2); GLUCOSE 109 mg/dL (75-110); POTASSIUM 3.7 mmol/L (3.6-5.0)
[2019-10-04 21:15] LABS: CARBON DIOXIDE 21 mmol/L (22-30); CHLORIDE 119 mmol/L (98-107)
[2019-10-04 21:28] LABS: ANION GAP 4 (5-19)
[2019-10-04] MEDS: POTASSIUM CHLORIDE 10 MEQ TABLET.ER PO SCH (23:39)
[2019-10-05] MEDS: POLYVINYL ALCOHOL 1.4% OPH SOLN 15 ML OU SCH ×3 (02:41→11:15)
[2019-10-05] MEDS: CLONIDINE HCL 0.1 MG TABLET PO SCH (05:51)
[2019-10-05] MEDS: LIOTHYRONINE SODIUM 5 MCG TABLET PO SCH (05:51)
[2019-10-05] MEDS: LEVOTHYROXINE SODIUM 0.025 MG TABLET PO SCH (05:51)
[2019-10-05] MEDS: HEPARIN SOD (PORCINE) 5,000 UNIT/ML 1 ML VIAL SUBCUT SCH (05:57)
[2019-10-05 05:59] LABS: ABSOLUTE EOSINOPHILS # (AUTO) 0.2 10^3/uL (0.0-0.6); ABSOLUTE LYMPHOCYTES (AUTO) 1.7 10^3/uL (0.5-4.7); ABSOLUTE MONOCYTES (AUTO) 0.8 10^3/uL (0.1-1.4); ABSOLUTE NEUT (AUTO) 6.6 10^3/uL (1.7-8.2); BASOPHILS % (AUTO) 0.5 % (0-2); EOSINOPHILS % (AUTO) 2.2 % (0-6); LYMPHOCYTES % (AUTO) 18.6 % (13-45); MEAN CORPUSCULAR HEMOGLOBIN 32.1 pg (27.0-33.4); MEAN CORPUSCULAR HGB CONC 35.2 g/dL (32.0-36.0); MEAN CORPUSCULAR VOLUME 91 fl (80-97); MONOCYTES % (AUTO) 8.6 % (3-13); PLATELET COUNT 229 10^3/uL (150-450); RED BLOOD COUNT 3.72 10^6/uL (3.72-5.28); RED CELL DISTRIBUTION WIDTH 13.1 % (11.5-14.0); SEGMENTED NEUTROPHILS % (AUTO) 70.1 % (42-78); TOTAL CELLS COUNTED % (AUTO) 100 %; WHITE BLOOD COUNT 9.4 10^3/uL (4.0-10.5)
[2019-10-05] MEDS: MORPHINE SULFATE 10 MG/ML INJ IV PRN (06:01)
[2019-10-05 06:18] LABS: ALKALINE PHOSPHATASE 76 U/L (38-126); ASPARTATE AMINO TRANSFERASE 23 U/L (14-36); BILIRUBIN,TOTAL 0.8 mg/dL (0.2-1.3); BLOOD UREA NITROGEN 17 mg/dL (7-20); CALCIUM 9.4 mg/dL (8.4-10.2); GLUCOSE 99 mg/dL (75-110); TOTAL PROTEIN 5.6 g/dL (6.3-8.2)
[2019-10-05 06:35] LABS: CARBON DIOXIDE 23 mmol/L (22-30); CHLORIDE 118 mmol/L (98-107)
[2019-10-05 06:37] LABS: ANION GAP 4 (5-19)
--- NOTE | 2019-10-05 08:10 | PDOC PROGRESS REPORT ---
Subjective Progress Note for:: 10/05/19 Subjective:: 74-year-old female with history of depression, anxiety, psychosis admitted to [facility] under involuntary commitment brought to the ER 2 days ago with complaints of urinary symptoms found to have urinary retention , Nugent's catheter was placed , the information ER got is that patient is on multiple antipsychotic medications at the [facility] , patient is wheelchair- bound and and unresponsive, her medical condition is the same while she was in the ER , medical consult was called around 3 PM yesterday, on examination the patient is in spastic state ,extremities are stiff, with the eyeballs rolled up, unresponsive very stiff chin with a hyperreflexia, look like Babinski's sign positive, requested the ER team to transfer the patient to a facility with the neurological services available but unfortunately the neurology refused to accept the patient and the hospitalist at [facility] without neurologist approval refused to accept the patient. finally the patient was admitted to our facility last night. This morning at the time of my examination patient is in similar condition with out any improvement in physical condition at all. 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 I am concerned about the patient condition requested Dr. Mcclendon leasing consultant have a look at the patient and made recommendations. Patient has a pacemaker unable to do the MRI of the brain. EEG was requested. Labs are stable at this time. plan is to repeat the CT head today. Her prognosis is poor, condition is critical. 10/03/2019-patient admitted with catatonia resolved. Patient is still confused and having the crying spells complaining of abdominal pain but having the normal movements. Psych evaluation was done yesterday the recommendation is to give Depakote to 50 mg twice daily. The plan is either discharge patient back to [facility], or to the long-term care facility. no Acute events in the last 24 hours afebrile. 10/04/2019-no acute events in the last 24 hours. Afebrile. Nugent's catheter is removed and patient able to urinate without any problems. 10/05/19 no acute events in the last 24 hours. -patient is under IVC commitment. Behavioral therapy team working to place her in a med/psych facility in [facility]. Reason For Visit: ACUTE URINARY RETENTION POSSIBLE TOXIC Physical Exam Vital Signs: Temp Pulse Resp BP Pulse Ox 98.5 F 73 18 148/64 H 97 10/05/19 03:35 10/05/19 03:35 10/05/19 03:35 10/05/19 03:35 10/05/19 03:35 Intake & Output 10/04/19 10/05/19 10/06/19 06:59 06:59 06:59 Intake Total 2797 1410 Output Total 0 Balance 2797 1410 Weight 82.5 kg 81.2 kg General appearance: PRESENT: no acute distress, obese Head exam: PRESENT: atraumatic Eye exam: PRESENT: PERRLA Mouth exam: PRESENT: moist, tongue midline Teeth exam: PRESENT: poor dentation Neck exam: ABSENT: carotid bruit, JVD, lymphadenopathy, thyromegaly Respiratory exam: PRESENT: clear to auscultation gurjit. ABSENT: rales, rhonchi, wheezes Cardiovascular exam: PRESENT: RRR. ABSENT: diastolic murmur, rubs, systolic murmur GI/Abdominal exam: PRESENT: normal bowel sounds, soft. ABSENT: distended, guarding, mass, organolmegaly, rebound, tenderness Rectal exam: PRESENT: deferred Extremities exam: PRESENT: full ROM. ABSENT: calf tenderness, clubbing, pedal edema Neurological exam: PRESENT: alert, awake, oriented to person, oriented to place, oriented to time, oriented to situation, CN II-XII grossly intact. ABSENT: motor sensory deficit Psychiatric exam: PRESENT: flat affect Results Laboratory Results: 10/05/19 05:46 10/05/19 05:46 10/04/19 10/05/19 10/05/19 20:29 05:46 05:46 WBC 9.4 RBC 3.72 Hgb 12.0 Hct 34.0 L MCV 91 MCH 32.1 MCHC 35.2 RDW 13.1 Plt Count 229 Seg Neutrophils % 70.1 Sodium 144.4 145.1 H Potassium 3.7 4.0 Chloride 119 H 118 H Carbon Dioxide 21 L 23 Anion Gap 4 L 4 L BUN 18 17 Creatinine 0.65 0.71 Est GFR ( Amer) > 60 > 60 Glucose 109 99 Calcium 9.2 9.4 Magnesium 2.2 Total Bilirubin 0.8 AST 23 Alkaline Phosphatase 76 Total Protein 5.6 L Albumin 3.0 L 09/24/19 15:06 Creatine Kinase 91 Impressions: Head CT 09/25/19 00:00 IMPRESSION: No acute intracranial abnormality. EVIDENCE OF ACUTE STROKE: NO. KUB X-Ray 10/02/19 00:00 IMPRESSION: No evidence of acute intra-abdominal/ pelvic process. Unremarkable fecal burden. Chest X-Ray 10/04/19 00:00 IMPRESSION: No acute disease. copyright 2011 [email or web address]- All Rights Reserved Assessment and Plan - Diagnosis (1) Catatonic state Is this a current diagnosis for this admission?: Yes Plan: 09/24/2019 I talked to the patient's . The patient had an episode like this last year. She was admitted to the hospital in a catatonic state. The remembers that she would stare into space. She looked like she was trying to participate. She was not eating or drinking. She was in the hospital for approximately 1 week. He states that 1 day she "snapped out of it "and began walking and eating. He cannot remember any specific event that caused this. They believed it was related to medications at that time as well. The patient was seen by psychiatry here at the hospital. We will continue to have them follow-up with the patient. We will give her 24 hours or so and then consider utilizing Depakote and BuSpar. She was on lithium for a long time in the past but suffered lithium toxicity. Evidently she is quite sensitive to a ntipsychotic medication. 09/25/2019-on examination patient is still in catatonic state with continuous blinking of the eyelids and eyeballs of rolled up unable to see the pupils. Hyperreflexia present. May be Babinski sign is positive. We can to do the EEG today for further evaluation. Psych follow-up is appreciated. I requested Dr. Mcclendon leasing consultant to look at the patient make further recommendations. Pathology spoke to patient's according to the patient is admitted to the hospital last year in similar condition and she was in the hospital 1 week. 10/03/2019-no acute events in the last 24 hours. Afebrile. To implement psychiatric recommendations. Complaining of pain in the abdomen KUB is negative. Slightly confused and agitated complaining of abdominal pain. 10/04/2019-comfortably in the bed sleeping. Consultation with the behavioral therapy was done and we are implementing the recommendations. At this time plan is to continue the present management. 10/05/2019-behavioral therapy team working to place her in the med/psych facility in [place]. Patient is under IVC commitment. We will continue to follow psych recommendations. (2) Urinary retention Is this a current diagnosis for this admission?: Yes Plan: 09/24/2019 Possibly related to her medications. She has a Nugent catheter in place. Her urine is somewhat concentrated. We will continue to monitor intake and output. There was no evidence of infection on her urine analysis. There were some white cells on her wet mount but no trichomonas. There was no positive serology for chlamydia or gonorrhea. 09/25/2019-Nugent's catheter in place. Patient is receiving IV fluids at 122 cc/h plan is to decrease the IV fluids to 75 cc/h because of the underlying history of congestive heart failure. urinaruy retention may be secondary to medication use. 10/03/2019-patient still retaining urine. She may need to have a Nugent's catheter in place at the time of discharge. 10/04/2019-Nugent's catheter is removed patient is able to urinate without any problems. (3) Altered mental status Qualifiers: Altered mental status type: unspecified Qualified Code(s): R41.82 - Altered mental status, unspecified Is this a current diagnosis for this admission?: Yes Plan: 10/03/2019-patient came in with altered mental status and catatonic state at the time of him. Symptoms are resolving. Patient still have a multiple underlying psychiatric problems. In my opinion she may need to go back to [facility] for further management. 10/04/2019-patient admitted with altered mental status which was resolving. Patient still have underlying severe psych issues. (4) Bipolar disorder Qualifiers: Active/Remission status: currently active Current bipolar episode type: depressed Current episode severity: moderate Qualified Code(s): F31.32 - Bipolar disorder, current episode depressed, moderate Is this a current diagnosis for this admission?: Yes Plan: 09/24/2019 I had a long discussion with the patient's this evening. He states that over the last several weeks she has been exhibiting a decline in her condition. She did this last year as well. She was getting more depressed. She was seen in the emergency department on September 20 and accepted at [facility]. She was referred back from [facility] due to acute urinary retention. Right now she is not taking oral medications. The stated that during her hospitalization last year they attempted to place a nasogastric and Dobbhoff feeding tube but it was very difficult. I told him that we may need to try during this admission especially if she does not begin eating or drinking. Psychiatry will continue to see the patient. 10/03/2019-plan is to follow the psychiatric recommendations. (5) Hypertension Qualifiers: Hypertension type: essential hypertension Qualified Code(s): I10 - Essential (primary) hypertension Is this a current diagnosis for this admission?: No Plan: 09/24/2019 The patient is on spironolactone. Her blood pressures are slightly elevated. We will have intravenous medications available if needed. Hopefully she will begin taking food and medications by mouth soon. 09/25/2019-blood pressure today is 146/80. Stable. Patient is on IV PRN medications for blood pressure control. 10/03/2019 blood pressure today is 157/73. Stable. Plan is to continue the present management at this time. 10/04/19-bp is 154/56 stable.. 10/05/2019-blood pressure today is 148/64. Stable. Plan is to continue the present management at this time. (6) Hypothyroidism Qualifiers: Hypothyroidism type: acquired Qualified Code(s): E03.9 - Hypothyroidism, unspecified Is this a current diagnosis for this admission?: Yes (7) Hyperlipidemia Qualifiers: Hyperlipidemia type: unspecified Qualified Code(s): E78.5 - Hyperlipidemia, unspecified Is this a current diagnosis for this admission?: No - Plan Summary Summary: 09/24/2019 It seems that this admission parallels an admission last year where she was catatonic but after approximately 5 to 7 days it wore off spontaneously. We will admit her to [facility] for closer monitoring. PRN medications will be available for her blood pressure as well as anxiety. We will asked psychiatry to follow the patient. They typically recommend Depakote and BuSpar. We will wait 24 hours to see how the patient is in the morning and then decide on which medications may want to utilize. We will continue IV fluids at this time. She does have a history of heart block and she does have a pacemaker in and other than hypertension the patient's cannot recall any diagnosis of heart failure. 09/26/2019 Vital signs temperature 98.6 pulse between 60 and 70 Pressure 150/60 and oxygen saturation is 96% on room air White count down to 8.9 electrolytes are normal, no evidence of trichomonas, chlamydia GC negative, Blood cultures negative x48 hours Psychiatry feels that this may be neuro malignant syndrome due to muscle rigidity is being her first symptoms IV fluids have been cut back to 75 mL's per hour however patient is not eating or drinking much TSH level is normal at 2.88 When I walked into the room this morning, I initially thought she was watching TV because she was staring off at the ceiling. However upon further close inspection patient was just staring off into space. I addressed her with a greeting, and after a very long pause, she told me he had been riding a motorcycle, and that there were 3 words. She then later stated "high-rise". Patient is basically taking no medicines were here in the hospital except for Colace, Pepcid, heparin for DVT prophylaxis Patient has been here in this hospital for 3 days now. The last time she had 1 of these events about a year ago it took 7 days for it to clear, according to the chart. 09/27/2019 I stood at the bedside for 5 or 10 minutes listening to the patient have a discussion with herself about nonsensical matters. Patient did not acknowledge that I was there. Patient's vital signs remained stable and normal Labs also appear normal and stable, blood cultures negative for [address] head scan shows microvascular ischemic changes. Patient would benefit from an MRI scan with gadolinium however she would have to be heavily sedated for this procedure, therefore I am not going to order the study. Patient is on no medication which would be prolonging or causing this effect at the current time. Renal functions and liver functions appear normal so hopefully she can detox this medication that she was given as an outpatient which could have contributed to her symptoms 09/28/2019 Little change today, though much less talkative and alert. vital signs temperature 98.1 pulse is between 60 and 70 blood pressure 151/68 O2 sat 97% on room air Repeat ammonia level is normal less than 8.7 C-reactive protein basically normal [address] scan done on the in the show no lesions Continue to wait this out as patient is in no danger. Last time this occurred was 1 year ago and it took 1 week to clear. Did not feel that adding medications would be effective at this time. Certainly if in 48 hours patient has failed to improve, consider adding medications. Patient however has no diaphoresis no tachycardia no tachypnea no tremor. 09/29/2019 Patient remains hemodynamically stable vital signs are stable Blood cultures negative x5 days Morning I tried speaking to the patient she would not answer any questions she would not follow commands such as opening her eyes. She continued to have significant "eye fluttering". According to the nursing staff patient has become nonverbal yesterday and today. We will wait to hear what psychiatry says concerning placement issues, then consult discharge planning. Would DC patient's Nugent place her with a diaper. No further diagnostic testing is to be done. Patient is medically stable, though obviously still with a significant psychiatric deficit. I will call the patient's this afternoon after further discussion with psychiatry. 09/30/2019 Vital signs are stable blood pressures up and consistently has been up 160/65 Started her spironolactone back 25 mg every 12 hours Patient is on as needed blood pressure medicine LAbs today reveal, normal CBC, chemistry panel normal I have discontinued her Nugent catheter and will send the urine off patient will probably need to be in a diaper Today patient is answering some simple questions following some simple commands making good eye contact and almost appears a little tearful. For the last 48 hours she would not speak at all or follow any commands. This is a definite improvement. May need to put patient on some clonidine every 8 hours 10/01/2019 Afebrile 97. 8 ,pulse of 77, blood pressure still running higher than normal 153/61, 176/58. When to add Catapres 0.1 mg every 8 hours Patient is on IV as needed meds but I am trying to get her to take p.o.'s. Labs are all normal Repeat UA is pending. Nugent catheter had to be reinserted yesterday evening due to urinary retention bladder with over 600 cc Patient is much more awake and alert she is nodding her head in response to questions she is speaking and just very short 1 word or 2 word answers. This is a definite improvement, patient is making more eye contact When I asked her if she wanted to go home she became tearful and said yes LTAC referral has been initiated. Patient may need to go out with Nugent catheter urology consult as an outpatient Patient will need a final psychiatry consult prior to discharge for medications recommendations I have asked practical nursing faculty to try to feed the patient as patient says she is hungry but is not feeding herself. told me by phone that the last time this happened he had to feed her at the bedside 10/02/2019 Vital signs are stable, all of her labs are stable, blood cultures are negative, KUB this morning showed no abnormalities. Psychiatry saw patient yesterday and recommended 250 mg Depakote twice daily which has been started Patient is more manic today she is talking pretty much nonstop and 1 can get her focused at times where she answers questions appropriately. 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 Medically patient is stable for transfer. Patient is sitting up in bed eating a banana and her applesauce
--- NOTE | 2019-10-05 09:55 | EKG REPORT ---
SEVERITY:- ABNORMAL ECG - SINUS RHYTHM LVH WITH SECONDARY REPOLARIZATION ABNORMALITY ANTERIOR Q WAVES, POSSIBLY DUE TO LVH : Confirmed by: Asha Huff 05-Oct-2019 09:53:59
[2019-10-05 10:12] VITALS: BP 135/52
[2019-10-05] MEDS: POTASSIUM CHLORIDE 10 MEQ TABLET.ER PO SCH (11:06)
[2019-10-05] MEDS: FAMOTIDINE 20 MG TABLET PO SCH (11:06)
[2019-10-05] MEDS: DOCUSATE SODIUM 100 MG CAPSULE PO SCH (11:08)
[2019-10-05] MEDS: SPIRONOLACTONE 25 MG TABLET PO SCH (11:08)
[2019-10-05] MEDS: VALPROATE SODIUM SYRUP 250 MG/5 ML UDCUP PO SCH (11:09)
--- NOTE | 2019-10-05 13:08 | PDOC TRANSFER SUMMARY ---
General Admission Date/PCP: 09/24/19 15:16 BISMARK LAWS MD Resuscitation Status: Do Not Resuscitate - Transfer Diagnosis (1) Catatonic state Is this a current diagnosis for this admission?: Yes (2) Urinary retention Is this a current diagnosis for this admission?: Yes (3) Altered mental status Is this a current diagnosis for this admission?: Yes (4) Bipolar disorder Is this a current diagnosis for this admission?: Yes (5) Hypertension Is this a current diagnosis for this admission?: No (6) Hypothyroidism Is this a current diagnosis for this admission?: Yes (7) Hyperlipidemia Is this a current diagnosis for this admission?: No - Transfer Medications Home Medications: Liothyronine Sodium [Cytomel] 5 mcg PO Q6AM 03/07/19 Levothyroxine Sodium [Synthroid 0.025 mg Tablet] 0.025 mg PO Q6AM 09/24/19 Spironolactone [Aldactone 25 mg Tablet] 25 mg PO Q12 09/24/19 Benzocaine/Menthol [Cepacol Sore Throat Lozenge] 1 lozenge PO Q4HP PRN 09/25/19 Dextran 70/Hypromellose [Artificial Tears] 2 drop OU Q2HP PRN 09/25/19 Diphenhydramine HCl [Benadryl Allergy] 50 mg PO Q8HP PRN 09/25/19 Lactulose [Cephulac Syrup 20 gm/30 ml Udcup] 30 ml PO Q12HP PRN 09/25/19 Loperamide HCl [Imodium 2 mg Capsule] 2 mg PO ASDIR PRN 09/25/19 Mag Hydrox/Al Hydrox/Simeth [Maalox Plus Susp 30 Udcup] 30 ml PO Q6HP PRN 09/25/19 Magnesium Hydroxide [Milk of Magnesia 30 ml Udcup] 30 ml PO HSP PRN 09/25/19 Transfer Medications: Current Medications Acetaminophen (Tylenol 650 Mg Supp) 650 mg ID Q4HP PRN PRN Reason: FOR PAIN OR TEMP Stop: 10/24/19 20:06 Acetaminophen (Tylenol 325 Mg Tablet) 650 mg PO Q4HP PRN PRN Reason: FOR PAIN OR TEMP Stop: 10/24/19 20:06 Last Admin: 09/28/19 09:17 Dose: 650 mg Documented by: Al Hydrox/Mg Hydrox/Simethicone (Maalox Plus Susp 30 Udcup) 30 ml PO Q6HP PRN PRN Reason: HEARTBURN Stop: 10/24/19 20:06 Artificial Tears (Liquitears 1.4% Ophth Soln 15 Ml) 1 drop OU Q4 SAMIR Stop: 10/24/19 21:59 Last Admin: 10/05/19 11:15 Dose: 1 drop Documented by: Bisacodyl (Dulcolax 10 Mg Supp.Rect) 10 mg ID DAILYP PRN PRN Reason: UNRESOLVED CONSTIPATION Stop: 10/24/19 20:06 Bisacodyl (Dulcolax 5 Mg Tablet) 10 mg PO DAILYP PRN PRN Reason: UNRESOLVED CONSTIPATION Stop: 10/24/19 20:06 Last Admin: 10/01/19 09:26 Dose: 10 mg Documented by: Clonidine (Catapres 0.1 Mg Tablet) 0.1 mg PO Q8 SAMIR Stop: 10/31/19 13:59 Last Admin: 10/05/19 05:51 Dose: 0.1 mg Documented by: Docusate Sodium (Colace 100 Mg Capsule) 100 mg PO BID [facility] Stop: 10/25/19 09:59 Last Admin: 10/05/19 11:08 Dose: 100 mg Documented by: Famotidine (Pepcid 20 Mg Tablet) 20 mg PO Q12 SAMIR Stop: 11/01/19 09:59 Last Admin: 10/05/19 11:06 Dose: 20 mg Documented by: Heparin Sodium (Porcine) (Heparin Inj 5,000 Units/Ml 1 Ml Vial) 5,000 unit SUBCUT Q8 [facility] Stop: 10/24/19 21:59 Last Admin: 10/05/19 05:57 Dose: 5,000 unit Documented by: Hydralazine HCl (Apresoline Inj/Pf 20 Mg/1 Ml Sdv) 20 mg IV Q4HP PRN PRN Reason: Give For Sbp > 160 / Dbp > 100 Stop: 10/29/19 21:19 Last Admin: 10/03/19 23:46 Dose: 20 mg Documented by: Levothyroxine Sodium (Synthroid 0.025 Mg Tablet) 0.025 mg PO Q6AM SAMIR Stop: 10/29/19 05:59 Last Admin: 10/05/19 05:51 Dose: 0.025 mg Documented by: Liothyronine Sodium (Cytomel 5 Mcg Tablet) 5 mcg PO Q6AM SAMIR Stop: 10/29/19 05:59 Last Admin: 10/05/19 05:51 Dose: 5 mcg Documented by: Lorazepam (Ativan Inj 2 Mg/1 Ml Vial) 0.5 mg IV Q6HP PRN PRN Reason: AGITATION Stop: 10/09/19 03:54 Last Admin: 10/04/19 22:50 Dose: 0.5 mg Documented by: Morphine Sulfate (Morphine 10 Mg/Ml Inj) 4 mg IV Q4HP PRN PRN Reason: FOR PAIN Stop: 10/06/19 21:20 Last Admin: 10/05/19 06:01 Dose: 4 mg Documented by: Ondansetron HCl (Zofran Inj/Pf 4 Mg/2 Ml Sdv) 4 mg IV Q8HP PRN PRN Reason: FOR NAUSEA/VOMITING Stop: 10/24/19 20:06 Last Admin: 10/01/19 20:17 Dose: 4 mg Documented by: Potassium Chloride (Klor-Con 10 Meq Tablet Er) 40 meq PO DAILY SAMIR Stop: 11/03/19 19:59 Last Admin: 10/05/19 11:06 Dose: Not Given Documented by: Sodium Chloride (Saline Flush 2.5 Ml Monoject Prefil Syrin) 2.5 ml IV Q8 SAMIR Stop: 10/24/19 21:59 Last Admin: 10/05/19 05:52 Dose: 2.5 ml Documented by: Spironolactone (Aldactone 25 Mg Tablet) 25 mg PO Q12 SAMIR Stop: 10/30/19 09:59 Last Admin: 10/05/19 11:08 Dose: 25 mg Documented by: Valproate Sodium (Depakene Syrup 250 Mg/5 Ml Udcup) 500 mg PO Q12 SAMIR Stop: 11/04/19 21:59 - Allergies Allergies/Adverse Reactions: Sulfa (Sulfonamide Antibiotics) Allergy (Verified 09/23/19 16:37) - Diet/Activity Discharge Diet: Cardiac Hospital Course Hospital Course: (1) Catatonic state Is this a current diagnosis for this admission?: Yes Plan: 09/24/2019 I talked to the patient's . The patient had an episode like this last year. She was admitted to the hospital in a catatonic state. The remembers that she would stare into space. She looked like she was trying to participate. She was not eating or drinking. She was in the hospital for approximately 1 week. He states that 1 day she "snapped out of it "and began walking and eating. He cannot remember any specific event that caused this. They believed it was related to medications at that time as well. The patient was seen by psychiatry here at the hospital. We will continue to have them follow-up with the patient. We will give her 24 hours or so and then consider utilizing Depakote and BuSpar. She was on lithium for a long time in the past but suffered lithium toxicity. Evidently she is quite sensitive to antipsychotic medication. 09/25/2019-on examination patient is still in catatonic state with continuous blinking of the eyelids and eyeballs of rolled up unable to see the pupils. Hyperreflexia present. May be Babinski sign is positive. We can to do the EEG today for further evaluation. Psych follow-up is appreciated. I requested Dr. Mcclendon diving judge to look at the patient make further recommendations. Joshua rider spoke to patient's according to the patient is admitted to the hospital last year in similar condition and she was in the hospital 1 week. 10/03/2019-no acute events in the last 24 hours. Afebrile. To implement psychiatric recommendations. Complaining of pain in the abdomen KUB is negative. Slightly confused and agitated complaining of abdominal pain. 10/04/2019-comfortably in the bed sleeping. Consultation with the behavioral therapy was done and we are implementing the recommendations. At this time plan is to continue the present management. 10/05/2019-behavioral therapy team working to place her in the med/psych facility in [place]. Patient is under IVC commitment. We will continue to follow psych recommendations. Catatonic state is resolved and serotonin-like syndrome/neuromuscular syndrome diagnosis in the differential at the time of admission is unlikely. (2) Urinary retention Is this a current diagnosis for this admission?: Yes Plan: 09/24/2019 Possibly related to her medications. She has a Nugent catheter in place. Her urine is somewhat concentrated. We will continue to monitor intake and output. There was no evidence of infection on her urine analysis. There were some white cells on her wet mount but no trichomonas. There was no positive serology for chlamydia or gonorrhea. 09/25/2019-Nugent's catheter in place. Patient is receiving IV fluids at 122 cc/h plan is to decrease the IV fluids to 75 cc/h because of the underlying history of congestive heart failure. urinaruy retention may be secondary to medication use. 10/03/2019-patient still retaining urine. She may need to have a Nugent's catheter in place at the time of discharge. 10/04/2019-Nugent's catheter is removed patient is able to urinate without any problems. 10/05/2019-patient still without Nugent's catheter able to urinate without any problems. (3) Altered mental status Qualifiers: Altered mental status type: unspecified Qualified Code(s): R41.82 - Altered mental status, unspecified Is this a current diagnosis for this admission?: Yes Plan: 10/03/2019-patient came in with altered mental status and catatonic state at the time of him. Symptoms are resolving. Patient still have a multiple underlying psychiatric problems. In my opinion she may need to go back to [facility] for further management. 10/04/2019-patient admitted with altered mental status which was resolving. Patient still have underlying severe psych issues. 10/05/19-patient is comfortably in the bed no focal neurological deficits , not responding to commands. Not in distress. Vital signs are stable. May be this is her new baseline mental status. CT head indicates no acute intracranial pathology but diffuse age-appropriate cerebral and cerebellar volume loss. Changes around the periventricular area and subcortical white area indicating of chronic microvascular ischemia. (4) Bipolar disorder Qualifiers: Active/Remission status: currently active Current bipolar episode type: depressed Current episode severity: moderate Qualified Code(s): F31.32 - Bipolar disorder, current episode depressed, moderate Is this a current diagnosis for this admission?: Yes Plan: 09/24/2019 I had a long discussion with the patient's this evening. He states that over the last several weeks she has been exhibiting a decline in her condition. She did this last year as well. She was getting more depressed. She was seen in the emergency department on September 20 and accepted at [facility]. She was referred back from [facility] due to acute urinary retention. Right now she is not taking oral medications. The stated that during her hospitalization last year they attempted to place a nasogastric and Dobbhoff feeding tube but it was very difficult. I told him that we may need to try during this admission especially if she does not begin eating or drinking. Psychiatry will continue to see the patient. 10/03/2019-plan is to follow the psychiatric recommendations. (5) Hypertension Qualifiers: Hypertension type: essential hypertension Qualified Code(s): I10 - Essential (primary) hypertension Is this a current diagnosis for this admission?: No Plan: 09/24/2019 The patient is on spironolactone. Her blood pressures are slightly elevated. We will have intravenous medications available if needed. Hopefully she will begin taking food and medications by mouth soon. 09/25/2019-blood pressure today is 146/80. Stable. Patient is on IV PRN medications for blood pressure control. 10/03/2019 blood pressure today is 157/73. Stable. Plan is to continue the present management at this time. 10/04/19-bp is 154/56 stable.. 10/05/2019-blood pressure today is 148/64. Stable. Plan is to continue the present management at this time. (6) Hypothyroidism Qualifiers: Hypothyroidism type: acquired Qualified Code(s): E03.9 - Hypothyroidism, unspecified Is this a current diagnosis for this admission?: Yes (7) Hyperlipidemia Qualifiers: Hyperlipidemia type: unspecified Qualified Code(s): E78.5 - Hyperlipidemia, unspecified Is this a current diagnosis for this admission?: No - Plan Summary Summary: 09/24/2019 It seems that this admission parallels an admission last year where she was catatonic but after approximately 5 to 7 days it wore off spontaneously. We will admit her to [facility] for closer monitoring. PRN medications will be available for her blood pressure as well as anxiety. We will asked psychiatry to follow the patient. They typically recommend Depakote and BuSpar. We will wait 24 hours to see how the patient is in the morning and then decide on which medications may want to utilize. We will continue IV fluids at this time. She does have a history of heart block and she does have a pacemaker in and other than hypertension the patient's cannot recall any diagnosis of heart failure. 09/26/2019 Vital signs temperature 98.6 pulse between 60 and 70 Pressure 150/60 and oxygen saturation is 96% on room air White count down to 8.9 electrolytes are normal, no evidence of trichomonas, chlamydia GC negative, Blood cultures negative x48 hours Psychiatry feels that this may be neuro malignant syndrome due to muscle rigidity is being her first symptoms IV fluids have been cut back to 75 mL's per hour however patient is not eating or drinking much TSH level is normal at 2.88 When I walked into the room this morning, I initially thought she was watching TV because she was staring off at the ceiling. However upon further close inspection patient was just staring off into space. I addressed her with a greeting, and after a very long pause, she told me he had been riding a motor cycle, and that there were 3 words. She then later stated "high-rise". Patient is basically taking no medicines were here in the hospital except for Colace, Pepcid, heparin for DVT prophylaxis Patient has been here in this hospital for 3 days now. The last time she had 1 of these events about a year ago it took 7 days for it to clear, according to the chart. 09/27/2019 I stood at the bedside for 5 or 10 minutes listening to the patient have a discussion with herself about nonsensical matters. Patient did not acknowledge that I was there. Patient's vital signs remained stable and normal Labs also appear normal and stable, blood cultures negative for [address] head scan shows microvascular ischemic changes. Patient would benefit from an MRI scan with gadolinium however she would have to be heavily sedated for this procedure, therefore I am not going to order the study. Patient is on no medication which would be prolonging or causing this effect at the current time. Renal functions and liver functions appear normal so hopefully she can detox this medication that she was given as an outpatient which could have contributed to her symptoms 09/28/2019 Little change today, though much less talkative and alert. vital signs temperature 98.1 pulse is between 60 and 70 blood pressure 151/68 O2 sat 97% on room air Repeat ammonia level is normal less than 8.7 C-reactive protein basically normal [address] scan done on the in the show no lesions Continue to wait this out as patient is in no danger. Last time this occurred was 1 year ago and it took 1 week to clear. Did not feel that adding medications would be effective at this time. Certainly if in 48 hours patient has failed to improve, consider adding medications. Patient however has no diaphoresis no tachycardia no tachypnea no tremor. 09/29/2019 Patient remains hemodynamically stable vital signs are stable Blood cultures negative x5 days Morning I tried speaking to the patient she would not answer any questions she would not follow commands such as opening her eyes. She continued to have significant "eye fluttering". According to the nursing staff patient has become nonverbal yesterday and today. We will wait to hear what psychiatry says concerning placement issues, then consult discharge planning. Would DC patient's Nugent place her with a diaper. No further diagnostic testing is to be done. Patient is medically stable, though obviously still with a significant psychiatric deficit. I will call the patient's this afternoon after further discussion with psychiatry. 09/30/2019 Vital signs are stable blood pressures up and consistently has been up 160/65 Started her spironolactone back 25 mg every 12 hours Patient is on as needed blood pressure medicine LAbs today reveal, normal CBC, chemistry panel normal I have discontinued her Nugent catheter and will send the urine off patient will probably need to be in a diaper Today patient is answering some simple questions following some simple commands making good eye contact and almost appears a little tearful. For the last 48 hours she would not speak at all or follow any commands. This i s a definite improvement. May need to put patient on some clonidine every 8 hours 10/01/2019 Afebrile 97. 8 ,pulse of 77, blood pressure still running higher than normal 153/61, 176/58. When to add Catapres 0.1 mg every 8 hours Patient is on IV as needed meds but I am trying to get her to take p.o.'s. Labs are all normal Repeat UA is pending. Nugent catheter had to be reinserted yesterday evening due to urinary retention bladder with over 600 cc Patient is much more awake and alert she is nodding her head in response to questions she is speaking and just very short 1 word or 2 word answers. This is a definite improvement, patient is making more eye contact When I asked her if she wanted to go home she became tearful and said yes LTAC referral has been initiated. Patient may need to go out with Nugent catheter urology consult as an outpatient Patient will need a final psychiatry consult prior to discharge for medications recommendations I have asked acute care nursing assistant to try to feed the patient as patient says she is hungry but is not feeding herself. told me by phone that the last time this happened he had to feed her at the bedside 10/02/2019 Vital signs are stable, all of her labs are stable, blood cultures are negative, KUB this morning showed no abnormalities. Psychiatry saw patient yesterday and recommended 250 mg Depakote twice daily which has been started Patient is more manic today she is talking pretty much nonstop and 1 can get her focused at times where she answers questions appropriately. 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 Medically patient is stable for transfer. Patient is sitting up in bed eating a banana and her applesauce 10/05/2019-patient is accepted to [facility] psych facility. Physical Exam Vital Signs: Temp Pulse Resp BP Pulse Ox 97.9 F 73 15 135/52 H 95 10/05/19 07:36 10/05/19 07:36 10/05/19 07:36 10/05/19 07:36 10/05/19 07:36 Intake & Output 10/04/19 10/05/19 10/06/19 06:59 06:59 06:59 Intake Total 2797 1410 Output Total 0 Balance 2797 1410 Weight 82.5 kg 81.2 kg General appearance: PRESENT: no acute distress, other Head exam: PRESENT: atraumatic Eye exam: PRESENT: PERRLA Mouth exam: PRESENT: neck supple Teeth exam: PRESENT: poor dentation Neck exam: ABSENT: carotid bruit, JVD, lymphadenopathy, thyromegaly Respiratory exam: PRESENT: decreased breath sounds Cardiovascular exam: PRESENT: RRR. ABSENT: diastolic murmur, rubs, systolic murmur GI/Abdominal exam: PRESENT: normal bowel sounds, soft. ABSENT: distended, guarding, mass, organolmegaly, rebound, tenderness Rectal exam: PRESENT: deferred Extremities exam: PRESENT: full ROM. ABSENT: calf tenderness, clubbing, pedal edema Neurological exam: PRESENT: CN II-XII grossly intact, other - Patient is comfortably in the bed but not communicative. Not following the commands. Results Laboratory Results: 10/05/19 05:46 04/23/20 05:46 10/04/19 10/05/19 10/05/19 20:29 05:46 05:46 WBC 9.4 RBC 3.72 Hgb 12.0 Hct 34.0 L MCV 91 MCH 32.1 MCHC 35.2 RDW 13.1 Plt Count 229 Seg Neutrophils % 70.1 Sodium 144.4 145.1 H Potassium 3.7 4.0 Chloride 119 H 118 H Carbon Dioxide 21 L 23 Anion Gap 4 L 4 L BUN 18 17 Creatinine 0.65 0.71 Est GFR ( Amer) > 60 > 60 Glucose 109 99 Calcium 9.2 9.4 Magnesium 2.2 Total Bilirubin 0.8 AST 23 Alkaline Phosphatase 76 Total Protein 5.6 L Albumin 3.0 L 09/24/19 15:06 Creatine Kinase 91 Impressions: Head CT 09/25/19 00:00 IMPRESSION: No acute intracranial abnormality. EVIDENCE OF ACUTE STROKE: NO. KUB X-Ray 10/02/19 00:00 IMPRESSION: No evidence of acute intra-abdominal/ pelvic process. Unremarkable fecal burden. Chest X-Ray 10/04/19 00:00 IMPRESSION: No acute disease. copyright 2011 [employer]- All Rights Reserved Plan Discharge Plan: Patient is going to inpatient psych facility. Time Spent: Greater than 30 Minutes
[2019-10-05] MEDS ORDERED: VALPROATE SODIUM SYRUP 250 MG/5 ML UDCUP PO SCH (22:00)
== END 2019-10-05 13:50 | DRG 884 ==
LOC: ER 16:08 → EH 09-24 15:16 → 3W 09-24 21:05
PROVIDERS: ADMIT Hospitalist; ATTEND Internal Medicine
DX: F06.1 Catatonic disorder due to known physiological condition (principal); G92 Toxic encephalopathy; F31.32 Bipolar disorder, current episode depressed, moderate; E34.0 Carcinoid syndrome; R33.0 Drug induced retention of urine; I10 Essential (primary) hypertension; E03.9 Hypothyroidism, unspecified; J44.9 Chronic obstructive pulmonary disease, unspecified; E78.5 Hyperlipidemia, unspecified; F41.9 Anxiety disorder, unspecified; T50.905A Adverse effect of unspecified drugs, medicaments and biological substances, initial encounter; Y92.9 Unspecified place or not applicable; Z66 Do not resuscitate; Z79.899 Other long term (current) drug therapy; Z88.2 Allergy status to sulfonamides; Z95.0 Presence of cardiac pacemaker; Z79.890 Hormone replacement therapy; Z99.3 Dependence on wheelchair
CPT/HCPCS: 36415; 51702; 70450; 71045; 74018; 80048; 80053; 80076; 80307; 81001; 82140; 82550; 82803; 82962; 83615; 83735; 84439; 84443; 84481; 85025; 86140; 87040; 87210; 87491; 87591; 93005; 93010; 95819; 96361; 96365; 96366; 96375; 99285; C1758; J0360; J1644; J2060; J2270; J2405; J3480; J3490; J7030; S0028

== ENCOUNTER 2019-11-12 12:15 | Emergency (ER) | payer BC, MEDICARE ==
--- NOTE | 2019-11-12 12:26 | ER Document Report ---
ED Medical Screen (RME) - General Chief Complaint: Vaginal Bleeding Stated Complaint: DIZZY/VAGINAL BLEEDING Time Seen by Provider: 11/12/19 12:20 Primary Care Provider: BISMARK LAWS MD [Primary Care Provider] - Follow up as needed Mode of Arrival: Ambulatory Information source: Patient Notes: 74-year-old female patient presenting to the emergency department with concern for possible vaginal bleeding or blood in her urine. Patient reports she is not sure where the bleeding is coming from but states that this morning after she urinated she noticed blood in the toilet. She denies any history of this before. She does report some lower abdominal pain bilaterally. She is not the best historian. I have greeted and performed a rapid initial assessment of this patient. A comprehensive ED assessment and evaluation of the patient, analysis of test results and completion of the medical decision making process will be conducted by additional ED providers. I have specifically instructed the patient or family members with the patient to immediately return to any nursing staff should anything change in the patient's condition or with their chief complaint. TRAVEL OUTSIDE OF THE [place] IN LAST 30 DAYS: No - Related Data Allergies/Adverse Reactions: Sulfa (Sulfonamide Antibiotics) Allergy (Verified 11/12/19 12:20) Past Medical History - Past Medical History Cardiac Medical History: Reports: Hx Congestive Heart Failure, Hx Hypercholesterolemia, Hx Hypertension Pulmonary Medical History: Reports: Hx COPD Neurological Medical History: Denies: Hx Seizures Endocrine Medical History: Denies: Hx Diabetes Mellitus Type 2 Renal/ Medical History: Denies: Hx Peritoneal Dialysis GI Medical History: Denies: Hx Diverticulitis, Hx Ulcerative Colitis Skin Medical History: Denies Hx Eczema, Denies Hx Psoriasis Psychiatric Medical History: Reports: Hx Bipolar Disorder, Hx Depression Past Surgical History: Reports: Hx Cardiac Surgery - pacemaker, Hx Pacemaker - Immunizations Hx Diphtheria, Pertussis, Tetanus Vaccination: No Doctor's Discharge - Discharge Referrals: BISMARK LAWS MD [Primary Care Provider] - Follow up as needed
--- NOTE | 2019-11-12 12:49 | ER Document Report ---
ED General - General Chief Complaint: Vaginal Bleeding Stated Complaint: DIZZY/VAGINAL BLEEDING Time Seen by Provider: 11/12/19 12:20 Primary Care Provider: BISMARK LAWS MD [Primary Care Provider] - Follow up as needed Mode of Arrival: Ambulatory Notes: 74-year-old female with severe mental health issues and near inability to give any history whatsoever presents with hypotension and possible vaginal bleeding. Released from [facility] today, and this morning after putting on a diaper and the noted that she had some vaginal bleeding. He cannot describe how much it is, but replaced her diaper 1 hour ago. TRAVEL OUTSIDE OF THE [place] IN LAST 30 DAYS: No - Related Data Allergies/Adverse Reactions: Sulfa (Sulfonamide Antibiotics) Allergy (Verified 11/12/19 12:20) Home Medications: Aldactone. Lisinopril. Quetiapine. Depakote. [place] Thyroid. Aspirin Past Medical History - General Information source: Patient - Social History Smoking Status: Never Smoker Chew tobacco use (# tins/day): No Frequency of alcohol use: None Drug Abuse: None Family History: Malignancy, Other - bipolar Patient has homicidal ideation: No - Past Medical History Cardiac Medical History: Reports: Hx Congestive Heart Failure, Hx Hypercholesterolemia, Hx Hypertension Pulmonary Medical History: Reports: Hx COPD Neurological Medical History: Denies: Hx Seizures Endocrine Medical History: Denies: Hx Diabetes Mellitus Type 2 Renal/ Medical History: Denies: Hx Peritoneal Dialysis GI Medical History: Denies: Hx Diverticulitis, Hx Ulcerative Colitis Skin Medical History: Denies Hx Eczema, Denies Hx Psoriasis Psychiatric Medical History: Reports: Hx Bipolar Disorder, Hx Depression Past Surgical History: Reports: Hx Cardiac Surgery - pacemaker, Hx Pacemaker - Immunizations Hx Diphtheria, Pertussis, Tetanus Vaccination: No Review of Systems - Review of Systems Notes: REVIEW OF SYSTEMS Dementia PHYSICAL EXAMINATION General: No acute distress, well-nourished Head: Atraumatic, normocephalic ENT: Mouth normal, oropharynx moist, no exudates or tonsillar enlargement Eyes: Conjunctiva normal, pupils equal, lids normal Neck: No JVD, supple, no guarding CVS: Normal rate, regular rhythm, no murmurs Resp: No resp distress, equal and normal breath sounds bilaterally GI: Nondistended, soft, no tenderness to palpation, no rebound or guarding hemorrhoids, no rectal bleeding : Atrophied female external genitalia with scant blood at the introitus. Ext: No deformities, no edema, normal range of motion in upper and lower ext Back: No CVA or midline TTP Skin: No rash, warm Lymphatic: No lymphadeopathy noted Neuro: Awake, alert. Face symmetric. GCS 15. Physical Exam - Vital signs Vitals: Temp 97.6 F 11/12/19 12:21 Course - Re-evaluation Re-evalutation: 11/12/19 14:02 Dehydration hypotension spontaneously resolved, but creatinine is elevated. BUN/creatinine ratio would suggest dehydration or prerenal etiology. Patient is hemodynamically stable in the ED. EKG not normal but is stably abnormal. I will send a lithium level give her 2 L of fluid but I did discuss her for admission with Dr. Post and Zeyad the nurse practitioner and we agreed together to try 2 L of fluid and make sure that she is able to tolerate p.o. without orthostatic hypotension. If this is the case she can be discharged if not she would be admitted. - Vital Signs Vital signs: Temp Pulse Resp BP Pulse Ox 99.3 F 100 31 H 99/58 L 99 11/12/19 12:44 11/12/19 12:33 11/12/19 12:53 11/12/19 12:53 11/12/19 12:53 - Laboratory Result Diagrams: 11/12/19 12:48 11/12/19 12:48 Laboratory results interpreted by me: 11/12/19 11/12/19 12:48 12:48 RBC 3.62 L Hgb 11.7 L Hct 34.2 L RDW 14.8 H Potassium 5.4 H Chloride 114 H Carbon Dioxide 17 L BUN 39 H Est GFR ( Amer) 56 L Est GFR (MDRD) Non-Af 46 L Glucose 122 H Albumin 3.3 L - Diagnostic Test Radiology reviewed: Image reviewed - EKG Interpretation by Me EKG shows normal: Sinus rhythm, ST-T Waves - Yet Rate: Normal Rhythm: NSR When compared to previous EKG there are: Changes noted - LVH with repol Discharge - Discharge Clinical Impression: Dehydration Condition: Good Disposition: HOME, SELF-CARE Admitting Provider: Hollie (Hospitalist) Unit Admitted: Telemetry Instructions: Dehydration ([facility]) Referrals: BISMARK LAWS MD [Primary Care Provider] - 11/13/19
[2019-11-12 13:04] LABS: ABSOLUTE BASOPHILS # (AUTO) 0.1 10^3/uL (0.0-0.2); ABSOLUTE EOSINOPHILS # (AUTO) 0.1 10^3/uL (0.0-0.6); ABSOLUTE LYMPHOCYTES (AUTO) 1.3 10^3/uL (0.5-4.7); ABSOLUTE MONOCYTES (AUTO) 0.4 10^3/uL (0.1-1.4); EOSINOPHILS % (AUTO) 1.8 % (0-6); HEMATOCRIT 34.2 % (36.0-47.0); HEMOGLOBIN 11.7 g/dL (12.0-15.5); LYMPHOCYTES % (AUTO) 22.6 % (13-45); MEAN CORPUSCULAR HEMOGLOBIN 32.5 pg (27.0-33.4); MEAN CORPUSCULAR HGB CONC 34.3 g/dL (32.0-36.0); MEAN CORPUSCULAR VOLUME 95 fl (80-97); MONOCYTES % (AUTO) 6.3 % (3-13); PLATELET COUNT 291 10^3/uL (150-450); RED BLOOD COUNT 3.62 10^6/uL (3.72-5.28); RED CELL DISTRIBUTION WIDTH 14.8 % (11.5-14.0); SEGMENTED NEUTROPHILS % (AUTO) 68.3 % (42-78); TOTAL CELLS COUNTED % (AUTO) 100 %; WHITE BLOOD COUNT 5.8 10^3/uL (4.0-10.5)
[2019-11-12 13:23] LABS: ALBUMIN 3.3 g/dL (3.5-5.0); ALKALINE PHOSPHATASE 73 U/L (38-126); ANION GAP 9 (5-19); ASPARTATE AMINO TRANSFERASE 18 U/L (14-36); BILIRUBIN,TOTAL 0.7 mg/dL (0.2-1.3); BLOOD UREA NITROGEN 39 mg/dL (7-20); CALCIUM 9.7 mg/dL (8.4-10.2); CARBON DIOXIDE 17 mmol/L (22-30); CHLORIDE 114 mmol/L (98-107); GLUCOSE 122 mg/dL (75-110); POTASSIUM 5.4 mmol/L (3.6-5.0); TOTAL PROTEIN 6.3 g/dL (6.3-8.2)
[2019-11-12] MEDS ORDERED: NORMAL SALINE 1000 ML 1,000 ML IV ONE (13:45)
[2019-11-12] MEDS ORDERED: RINGERS SOLUTION,LACTATED 1,000 ML IV ONE (14:01)
[2019-11-12 16:31] LABS: AMORPHOUS SEDIMENT,URINE TRACE /HPF; APPEARANCE,URINE CLEAR; BILIRUBIN,URINE NEGATIVE (NEGATIVE); COLOR,URINE YELLOW; GLUCOSE, URINE NEGATIVE (NEGATIVE); KETONES,URINE TRACE mg/dL (NEGATIVE); LEUKOCYTE ESTERASE,URINE SMALL (NEGATIVE); NITRITE,URINE NEGATIVE (NEGATIVE); PROTEIN,URINE NEGATIVE (NEGATIVE); URINE SPECIFIC GRAVITY 1.011; UROBILINOGEN,URINE NEGATIVE mg/dL (<2.0)
[2019-11-12 17:14] VITALS: BP 120/70
--- NOTE | 2019-11-12 21:15 | EKG REPORT ---
SEVERITY:- ABNORMAL ECG - SINUS RHYTHM LVH WITH IVCD AND SECONDARY REPOL ABNRM : Confirmed by: Chaparro Blanc MD 12-Nov-2019 21:14:49
== END 2019-11-12 17:38 | disposition home or self-care (01) ==
LOC: ER 12:15
DX: E86.0 Dehydration (principal); I95.9 Hypotension, unspecified; N93.9 Abnormal uterine and vaginal bleeding, unspecified; R42 Dizziness and giddiness; Z88.2 Allergy status to sulfonamides; Z79.899 Other long term (current) drug therapy; Z79.82 Long term (current) use of aspirin; I11.0 Hypertensive heart disease with heart failure; I50.9 Heart failure, unspecified; J44.9 Chronic obstructive pulmonary disease, unspecified
CPT/HCPCS: 93005; 99284; 96360; 86900; 86901; 36415; 87086; 86850; 83690; 80178; 85025; 80053; 81001; 93010; J7030; J7120

== ENCOUNTER 2019-11-30 14:31 | Inpatient (IN) | payer BC, MEDICARE ==
--- NOTE | 2019-11-30 15:00 | ER Document Report ---
ED Medical Screen (RME) - General Stated Complaint: BLOOD PRESSURE ISSUES Time Seen by Provider: 11/30/19 14:50 Primary Care Provider: BISMARK LAWS MD [Primary Care Provider] - Follow up as needed Notes: Patient is a 74-year-old female with a history of a pacemaker who presents the emergency department with low blood pressure readings. Patient was recently seen by her primary care provider and paintings conservator and had some medications changed. Some of her blood pressure medications were stopped. Patient continues to feel weak and dizzy. states that patient's blood pressure readings were low. Exam: Systolic heart murmur heard. Patient appears slightly pale. I have greeted and performed a rapid initial assessment of this patient. A comprehensive ED assessment and evaluation of the patient, analysis of test results and completion of medical decision making process will be conducted by an additional ED providers. TRAVEL OUTSIDE OF THE [place] IN LAST 30 DAYS: No - Related Data Allergies/Adverse Reactions: Sulfa (Sulfonamide Antibiotics) Allergy (Verified 11/12/19 12:20) Past Medical History - Past Medical History Cardiac Medical History: Reports: Hx Congestive Heart Failure, Hx Hypercholesterolemia, Hx Hypertension Pulmonary Medical History: Reports: Hx COPD Neurological Medical History: Denies: Hx Seizures Endocrine Medical History: Denies: Hx Diabetes Mellitus Type 2 Renal/ Medical History: Denies: Hx Peritoneal Dialysis GI Medical History: Denies: Hx Diverticulitis, Hx Ulcerative Colitis Skin Medical History: Denies Hx Eczema, Denies Hx Psoriasis Psychiatric Medical History: Reports: Hx Bipolar Disorder, Hx Depression Past Surgical History: Reports: Hx Cardiac Surgery - pacemaker, Hx Pacemaker - Immunizations Hx Diphtheria, Pertussis, Tetanus Vaccination: No Physical Exam - Vital signs Vitals: Temp 98.9 F 11/30/19 14:31 Course - Vital Signs Vital signs: Temp Pulse Resp BP Pulse Ox 98.9 F 82 20 93/57 L 97 11/30/19 14:50 11/30/19 14:50 11/30/19 14:50 11/30/19 14:50 11/30/19 14:50 Doctor's Discharge - Discharge Referrals: BISMARK LAWS MD [Primary Care Provider] - Follow up as needed
[2019-11-30] MEDS ORDERED: NORMAL SALINE 1000 ML 1,000 ML IV ONE (15:02)
[2019-11-30] MEDS ORDERED: ONDANSETRON HCL INJ/PF 4 MG/2 ML SDV IV ONE (15:02)
[2019-11-30 15:40] LABS: ABSOLUTE MONOCYTES (AUTO) 1.2 10^3/uL (0.1-1.4); ABSOLUTE NEUT (AUTO) 9.9 10^3/uL (1.7-8.2); BASOPHILS % (AUTO) 0.2 % (0-2); EOSINOPHILS % (AUTO) 0.4 % (0-6); HEMATOCRIT 30.2 % (36.0-47.0); HEMOGLOBIN 9.9 g/dL (12.0-15.5); LYMPHOCYTES % (AUTO) 7.8 % (13-45); MEAN CORPUSCULAR HEMOGLOBIN 31.6 pg (27.0-33.4); MEAN CORPUSCULAR HGB CONC 32.9 g/dL (32.0-36.0); MEAN CORPUSCULAR VOLUME 96 fl (80-97); MONOCYTES % (AUTO) 10.1 % (3-13); PLATELET COUNT 347 10^3/uL (150-450); RED BLOOD COUNT 3.14 10^6/uL (3.72-5.28); RED CELL DISTRIBUTION WIDTH 15.3 % (11.5-14.0); SEGMENTED NEUTROPHILS % (AUTO) 81.5 % (42-78); TOTAL CELLS COUNTED % (AUTO) 100 %; WHITE BLOOD COUNT 12.2 10^3/uL (4.0-10.5)
--- NOTE | 2019-11-30 15:42 | RADIOLOGY REPORT (SQ) ---
EXAM DESCRIPTION: CHEST SINGLE VIEW IMAGES COMPLETED DATE/TIME: 11/30/2019 3:33 pm REASON FOR STUDY: weakness COMPARISON: 10/04/2019 EXAM PARAMETERS: NUMBER OF VIEWS: One view. TECHNIQUE: Single frontal radiographic view of the chest acquired. RADIATION DOSE: NA LIMITATIONS: None. FINDINGS: LUNGS AND PLEURA: No opacities, masses or pneumothorax. No pleural effusion. MEDIASTINUM AND HILAR STRUCTURES: No masses. Contour normal. HEART AND VASCULAR STRUCTURES: Heart normal in size. Normal vasculature. BONES: No acute findings. HARDWARE: Pacemaker. OTHER: No other significant finding. IMPRESSION: NO ACUTE RADIOGRAPHIC FINDING IN THE CHEST. TECHNICAL DOCUMENTATION: JOB ID: [id number] 2010 [email or web address]- All Rights Reserved Reading location - IP/workstation name: [email or web address]
[2019-11-30 15:59] LABS: ALBUMIN 2.9 g/dL (3.5-5.0); ALKALINE PHOSPHATASE 74 U/L (38-126); ANION GAP 7 (5-19); ASPARTATE AMINO TRANSFERASE 15 U/L (14-36); BILIRUBIN,TOTAL 0.3 mg/dL (0.2-1.3); BLOOD UREA NITROGEN 18 mg/dL (7-20); CALCIUM 9.2 mg/dL (8.4-10.2); CARBON DIOXIDE 24 mmol/L (22-30); CHLORIDE 106 mmol/L (98-107); GLUCOSE 108 mg/dL (75-110); POTASSIUM 4.3 mmol/L (3.6-5.0); TOTAL PROTEIN 5.8 g/dL (6.3-8.2)
[2019-11-30 16:53] LABS: VENOUS BLOOD BASE EXCESS -2.1 mmol/L; VENOUS BLOOD PCO2 46.2 mmHg (35-63); VENOUS BLOOD PH 7.33 (7.30-7.42)
--- NOTE | 2019-11-30 18:40 | EKG REPORT ---
SEVERITY:- ABNORMAL ECG - SINUS RHYTHM LVH WITH SECONDARY REPOLARIZATION ABNORMALITY ANTERIOR Q WAVES, POSSIBLY DUE TO LVH REPOL ABNRM, PROBABLE ISCHEMIA, ANT-LAT LEADS : Confirmed by: Chaparro Blanc MD 30-Nov-2019 18:39:23
--- NOTE | 2019-11-30 19:05 | ER Document Report ---
ED General - General Chief Complaint: Low Blood Pressure Stated Complaint: BLOOD PRESSURE ISSUES Time Seen by Provider: 11/30/19 14:50 Primary Care Provider: BISMARK LAWS MD [Primary Care Provider] - Follow up as needed Notes: 74-year-old female presents emergency department for persistent low blood pressure, weakness, decreased appetite, decreased energy and feeling sleepy. Patient also states that she has had a nonproductive cough for the past 2 weeks. Denies dysuria but does complain of some low back pain that she states only happens after she lays in bed for an extended period of time. Patient does note that she occasionally has some abdominal tenderness but states it is not exactly pain. Also notes that approximately 1 week ago she had dark stool but then it resolved. She denies any change in medication at the time. History obtained from the also states that the patient has been noted to be hypotensive, her autoglazier has taken her off of several of her blood pressure medications. He also notes that the bleeding that the patient reported was not rectal bleeding but it was vaginal bleeding 2 weeks ago. Nursing who saw her within the past month states that when she was transferred here from a psychiatric facility that she had some vaginal lacerations that were bleeding. also notes that she follows with Dr. Altamirano a autoglazier from [facility] cardiology in [place] [id number] states that he did an x-ray on Wednesday and an EKG but wants to see her this next week for a follow-up appointment. Denies fevers or chills. TRAVEL OUTSIDE OF THE [place] IN LAST 30 DAYS: No - Related Data Allergies/Adverse Reactions: Sulfa (Sulfonamide Antibiotics) Allergy (Verified 11/12/19 12:20) Past Medical History - General Information source: Patient, Relative - Social History Smoking Status: Never Smoker Chew tobacco use (# tins/day): No Frequency of alcohol use: None Drug Abuse: None Family History: Malignancy, Other - bipolar Patient has homicidal ideation: No - Past Medical History Cardiac Medical History: Reports: Hx Congestive Heart Failure, Hx Hypercholesterolemia, Hx Hypertension Pulmonary Medical History: Reports: Hx COPD Neurological Medical History: Denies: Hx Seizures Endocrine Medical History: Denies: Hx Diabetes Mellitus Type 2 Renal/ Medical History: Denies: Hx Peritoneal Dialysis GI Medical History: Denies: Hx Diverticulitis, Hx Ulcerative Colitis Skin Medical History: Denies Hx Eczema, Denies Hx Psoriasis Psychiatric Medical History: Reports: Hx Bipolar Disorder, Hx Depression Past Surgical History: Reports: Hx Cardiac Surgery - pacemaker, Hx Pacemaker - Immunizations Hx Diphtheria, Pertussis, Tetanus Vaccination: No Review of Systems - Review of Systems Constitutional: See HPI, Weakness. denies: Fever, Malaise EENT: No symptoms reported Cardiovascular: No symptoms reported Respiratory: See HPI, Cough. denies: Short of breath Gastrointestinal: See HPI, Abdominal pain Musculoskeletal: Back pain -: Yes All other systems reviewed and negative Physical Exam - Vital signs Vitals: Temp 98.9 F 11/30/19 14:31 Interpretation: Hypotensive - Notes Notes: GENERAL: Alert, interacts well. No acute distress. HEAD: Normocephalic, atraumatic EYES: Pupils equal, round and reactive to light, extraocular movements intact. ENT: Oral mucosa moist, tongue midline. NECK: Full range of motion, supple, trachea midline. LUNGS: Clear to auscultation bilaterally, no wheezes, rales or rhonchi, no respiratory distress. HEART: Regular rate and rhythm, no murmurs, gallops, rubs. ABDOMEN: Soft, minimal suprapubic tenderness to palpation, nondistended, bowel sounds present in all 4 quadrants. EXTREMITIES: Moves all 4 extremities spontaneously, no edema, radial and dorsalis pedis pulses 2/4 bilaterally. No cyanosis. RECTAL: Skin tags, heme-negative, soft brown stool. NEUROLOGICAL: Alert, normal speech, cranial nerves II through XII grossly intact, biceps and patellar DTRs 2+ bilaterally. PSYCH: Normal mood, normal affect. SKIN: Warm, Dry, normal turgor, no rashes or lesions noted. Course - Re-evaluation Re-evalutation: 11/30/19 22:57 CBC shows leukocytosis of 12.2, anemia with hemoglobin 9.9, prior hemoglobin was 11.7 on the , flights or clips are normal, d-dimer is elevated, patient is sent for CT angiogram of the chest however her initial IV blew and it had to be restarted which is part of why there is a delay in getting the CT angiogram of the chest, the CT angiogram of the chest was partially prompted by her elevated troponin at 0.24, this is higher than it has been in the past 2 months, chemistries are otherwise unremarkable, venous blood gas unremarkable, lactic acid normal x2, thyroid studies unremarkable, Hemoccult is negative, urinalysis shows trace leukocyte esterase, 1+ bacteria, this will be sent for culture. 11/30/19 22:57 Chest X-Ray 11/30/19 14:58 IMPRESSION: NO ACUTE RADIOGRAPHIC FINDING IN THE CHEST. Chest/Abdomen CTA 11/30/19 19:06 IMPRESSION: No evidence of pulmonary embolus. Lungs grossly clear. . I am awaiting the repeat troponin and then I will discuss the patient with her primary autoglazier or whoever is covering for his practice. 12/01/19 01:05 Chest X-Ray 11/30/19 14:58 IMPRESSION: NO ACUTE RADIOGRAPHIC FINDING IN THE CHEST. Chest/Abdomen CTA 11/30/19 19:06 IMPRESSION: No evidence of pulmonary embolus. Lungs grossly clear. . Repeat troponin has continued to elevate. I am waiting a phone call back from [facility] to discuss whether whether they would like the patient transferred to their facility or if she can stay here for medical treatment of a non-STEMI. Patient has already received a single dose of Lovenox and aspirin. 12/01/19 01:[address] Loaiza, states she does not need an emergent catheteri zation at this time, states the patient does not need to be transferred at this point, states that she could likely stay here and undergo further work-up and medical treatment here. Certainly they would be happy to accept the patient should she develop acute chest pain, EKG changes or rapidly rising troponin. Discussed with Dr. Wright who accepts the patient to his service on telemetry as a full admission, asked that I discussed the patient with Dr. Lorenzana as well, Dr. Lorenzana is aware of the patient and will see them in the morning. - Vital Signs Vital signs: Temp Pulse Resp BP Pulse Ox 98.9 F 82 30 H 100/60 100 11/30/19 14:50 11/30/19 14:50 11/30/19 22:00 11/30/19 19:02 11/30/19 22:00 - Laboratory Result Diagrams: 11/30/19 15:15 11/30/19 15:15 Laboratory results interpreted by me: 11/30/19 11/30/19 11/30/19 15:15 15:15 15:15 WBC 12.2 H RBC 3.14 L Hgb 9.9 L Hct 30.2 L RDW 15.3 H Lymph % (Auto) 7.8 L Absolute Neuts (auto) 9.9 H Seg Neutrophils % 81.5 H D-Dimer 0.63 H Total Protein 5.8 L Albumin 2.9 L Leukocyte Esterase Rfl Urine Ascorbic Acid 11/30/19 19:04 WBC RBC Hgb Hct RDW Lymph % (Auto) Absolute Neuts (auto) Seg Neutrophils % D-Dimer Total Protein Albumin Leukocyte Esterase Rfl TRACE H Urine Ascorbic Acid 20 H - EKG Interpretation by Me Additional EKG results interpreted by me: 11/30/19 23:01 Initial EKG performed at 1509 shows sinus rhythm at a rate of 75, inte rventricular conduction delay, LVH with secondary repolarization abnormality, T wave inversions in 1, aVL, lead II, V3 through V6 with ST segment depressions in V3 through V5, slightly worse compared to EKG on 11/12/2019 per my interpretation. Repeat EKG at 1838 shows sinus rhythm at a rate of 83, interventricular conduction delay, LVH with secondary repolarization abnormality but also shows T wave inversions in 1, aVL, 2, V2 through V6 with ST segment depressions in V3, V4, V5 and V6. The depressions are a little bit worse compared to 11/12/2019 but no significant change compared to initial EKG per my interpretation. Discharge - Discharge Clinical Impression: NSTEMI (non-ST elevated myocardial infarction) Anemia Qualifiers: Anemia type: unspecified type Qualified Code(s): D64.9 - Anemia, unspecified Condition: Fair Disposition: ADMITTED INPATIENT Admitting Provider: Adriana (Hospitalist) Unit Admitted: Telemetry Referrals: BISMARK LAWS MD [Primary Care Provider] - Follow up as needed
[2019-11-30 19:28] LABS: APPEARANCE,URINE CLEAR; BILIRUBIN,URINE NEGATIVE (NEGATIVE); COLOR,URINE YELLOW; GLUCOSE, URINE NEGATIVE (NEGATIVE); KETONES,URINE NEGATIVE (NEGATIVE); PROTEIN,URINE NEGATIVE (NEGATIVE); URINE SPECIFIC GRAVITY 1.006; UROBILINOGEN,URINE NEGATIVE mg/dL (<2.0)
[2019-11-30 19:33] LABS: FREE T3 2.88 pg/mL (2.77-5.27); FREE T4 (FREE THYROXINE) 0.9 ng/dL (0.78-2.19)
[2019-11-30] MEDS ORDERED: ASPIRIN 325 MG TABLET PO ONE (19:41)
[2019-11-30 19:46] LABS: THYROID STIMULATING HORMONE 1.33 uIU/mL (0.47-4.68)
--- NOTE | 2019-11-30 20:33 | EKG REPORT ---
SEVERITY:- ABNORMAL ECG - SINUS RHYTHM LVH WITH SECONDARY REPOLARIZATION ABNORMALITY ST DEPRESSION, CONSIDER ISCHEMIA, ANT-LAT LDS : Confirmed by: Chaparro Blanc MD 30-Nov-2019 20:32:30
--- NOTE | 2019-11-30 22:53 | RADIOLOGY REPORT (SQ) ---
CLINICAL INDICATION: intermittent hypoxia, r/o PE. . TECHNIQUE: CT arteriography was obtained of the chest with MPR but no multiplanar MIP and/or 3-D angiographic reconstructions. This exam was performed according to our departmental dose-optimization program, which includes automated exposure control, adjustment of the mA and/or kV according to patient size and/or use of iterative reconstruction techniques. 53 cc of Omnipaque 350 administered intravenously without complication. COMPARISON: None. CORRELATION: None. FINDINGS: Adequate contrast bolus. Average Hounsfield unit measurement within main pulmonary artery segment of 410. Artifact from venous opacification. There is no evidence of pulmonary embolus. Thoracic aorta is of normal caliber. The heart is of normal size. No pericardial effusion. No bulky mediastinal adenopathy. Demonstrate an apparent nodule left lobe of the thyroid estimated at 9 mm, poorly seen The lungs are grossly clear. No consolidation or edema. No effusion or pneumothorax. Motion artifact. Chronic changes. Old granulomatous disease Visualized abdominal contents are unremarkable. Visualized bones are unremarkable. Old granulomatous disease IMPRESSION: No evidence of pulmonary embolus. Lungs grossly clear. .
[2019-11-30] MEDS ORDERED: ENOXAPARIN SODIUM INJ 80 MG/0.8 ML DISP.SYRIN SUBCUT ONE (23:03)
[2019-12-01] MEDS ORDERED: ONDANSETRON HCL INJ/PF 4 MG/2 ML SDV IV PRN (02:25)
[2019-12-01] MEDS ORDERED: ACETAMINOPHEN 325 MG TABLET PO PRN (02:25)
[2019-12-01] MEDS ORDERED: ONDANSETRON 4 MG TAB.RAPDIS PO PRN (02:25)
[2019-12-01] MEDS ORDERED: MAG HYDROX/AL HYDROX/SIMETH SUSP 30 ML UDCUP PO PRN (02:25)
[2019-12-01] MEDS ORDERED: TEMAZEPAM 15 MG CAPSULE PO PRN (02:25)
[2019-12-01] MEDS ORDERED: MORPHINE SULFATE 10 MG/ML INJ IV PRN ×4 (02:32→02:36)
[2019-12-01] MEDS ORDERED: GUAIFENESIN SYRP 200 MG/10 ML UDC PO PRN (02:32)
[2019-12-01] MEDS ORDERED: LORAZEPAM INJ 2 MG/1 ML VIAL IV PRN (02:32)
[2019-12-01 03:08] LABS: IRON(TIBC) 17.2 ug/dL (37-170)
[2019-12-01 03:09] LABS: RETICULOCYTE COUNT (AUTO) 1.94 % (0.66-2.85)
[2019-12-01] MEDS ORDERED: ENOXAPARIN SODIUM INJ 80 MG/0.8 ML DISP.SYRIN SUBCUT ONE (03:31)
--- NOTE | 2019-12-01 06:07 | PDOC H&P ---
History of Present Illness Admission Date/PCP: 12/01/2019 01:43 BISMARK LAWS MD Patient complains of: Hypotension History of Present Illness: SHALONDA HUANG is a 74 year old female presenting to the emergency room with a two-week history of persistent hypotension. She admits that her blood pressure has been running low for the last 2 weeks and she has been seeing her tribal judge, Dr. Altamirano, who has discontinued several blood pressure medications without improvement in her symptoms and with persistence of her hypotension. Her hypotension has been accompanied by a chronic nonproductive paroxysmal cough and generalized weakness. Her hypotension has been associated with a decreased appetite, fatigue and lack of energy as well as intermittent abdominal discomfort/tenderness and one episode of a dark tarry stool. Her paroxysmal cough has been associated with severe sharp achy pains in her bilateral lateral lower ribs after each coughing paroxysm. She denies other accompanying or associated signs and symptoms. She denies prior similar episodes. She has not identified any aggravating or ameliorating factors for her hypertension. In the emergency room patient was found to have a systolic blood pressure between 93 and 118 over the course of her 11 hours stay. She was found to have an elevated troponin of 0.324 with no EKG changes consistent with acute ischemia. Dr. Altamirano her tribal judge was contacted and recommended the patient be treated medically for a non-STEMI. He was subsequently admitted to the hospital for further evaluation treatment. Past Medical History Cardiac Medical History: Reports: Congestive Heart Failure, Hyperlipidema, Hypertension Denies: Atrial Fibrillation, Coronary Artery Disease, DVT, Myocardial Infarction, Peripheral Vascular Disease, Pulmonary Embolism Pulmonary Medical History: Reports: Chronic Obstructive Pulmonary Disease (COPD) Denies: Asthma EENT Medical History: Denies: Cataracts, Ears - Hearing aids Neurological Medical History: Denies: Hemorrhagic CVA, Ischemic CVA, Seizures Endocrine Medical History: Reports: Hypothyroidism Denies: Diabetes Mellitus Type 1, Diabetes Mellitus Type 2, Hyperthyroidism, Obesity Renal/ Medical History: Denies: Chronic Kidney Disease, Nephrolithiasis Malignancy Medical History: Reports: None GI Medical History: Denies: Cirrhosis, Crohn's Disease, Diverticulitis, Hepatitis, Peptic Ulcer Disease, Ulcerative Colitis Musculoskeltal Medical History: Denies: Arthritis, Gout Skin Medical History: Denies: Eczema, Psoriasis Psychiatric Medical History: Reports: Bipolar Disorder, Depression Denies: Alcohol Dependency, Substance Abuse, Tobacco Dependency Traumatic Medical History: Reports: None Hematology: Denies: Anemia, Bleeding Tendencies Infectious Medical History: Reports: None Past Surgical History Past Surgical History: Reports: Pacemaker Social History Information Source: Patient Lives with: Spouse/Significant other Smoking Status: Never Smoker Electronic Cigarette use?: No Frequency of Alcohol Use: None Hx Recreational Drug Use: No Drugs: None Hx Prescription Drug Abuse: No - Advance Directive Resuscitation Status: Full Code Surrogate healthcare decision maker:: Daren Huang Family History Family History: Malignancy, Other - bipolar Parental Family History Reviewed: Yes Children Family History Reviewed: No Sibling(s) Family History Reviewed.: Yes Medication/Allergy Home Medications: Liothyronine Sodium [Cytomel] 5 mcg PO Q6AM 03/07/19 Levothyroxine Sodium [Synthroid 0.025 mg Tablet] 0.025 mg PO Q6AM 09/24/19 Spironolactone [Aldactone 25 mg Tablet] 25 mg PO Q12 09/24/19 Benzocaine/Menthol [Cepacol Sore Throat Lozenge] 1 lozenge PO Q4HP PRN 09/25/19 Dextran 70/Hypromellose [Artificial Tears] 2 drop OU Q2HP PRN 09/25/19 Diphenhydramine HCl [Benadryl Allergy] 50 mg PO Q8HP PRN 09/25/19 Lactulose [Cephulac Syrup 20 gm/30 ml Udcup] 30 ml PO Q12HP PRN 09/25/19 Loperamide HCl [Imodium 2 mg Capsule] 2 mg PO ASDIR PRN 09/25/19 Mag Hydrox/Al Hydrox/Simeth [Maalox Plus Susp 30 Udcup] 30 ml PO Q6HP PRN 09/25/19 Magnesium Hydroxide [Milk of Magnesia 30 ml Udcup] 30 ml PO HSP PRN 09/25/19 Clonidine HCl [Catapres 0.1 mg Tablet] 0.1 mg PO Q8 tablet 10/05/19 Famotidine [Pepcid 20 mg Tablet] 20 mg PO Q12 tablet 10/05/19 Allergies/Adverse Reactions: Sulfa (Sulfonamide Antibiotics) Allergy (Verified 11/12/19 12:20) Review of Systems Constitutional: PRESENT: as per HPI, anorexia, fatigue, weakness. ABSENT: chills, fever(s) Eyes: ABSENT: visual disturbances, other - Eye pain Ears: ABSENT: hearing changes, other - Ear pain Nose, Mouth, and Throat: ABSENT: headache(s), sore throat Cardiovascular: PRESENT: as per HPI, chest pain. ABSENT: palpitations Respiratory: PRESENT: as per HPI, cough. ABSENT: dyspnea, hemoptysis, sputum Gastrointestinal: PRESENT: as per HPI, abdominal pain, melena. ABSENT: constipation, diarrhea, nausea, vomiting Genitourinary: ABSENT: dysuria, hematuria Musculoskeletal: PRESENT: back pain. ABSENT: joint swelling Integumentary: ABSENT: pruritus, rash Neurological: PRESENT: as per HPI, weakness. ABSENT: confusion, convulsions, focal weakness, memory loss, syncope Psychiatric: ABSENT: anxiety, depression Endocrine: ABSENT: cold intolerance, heat intolerance, polydipsia, polyphagia, polyuria Hematologic/Lymphatic: ABSENT: easy bleeding, easy bruising Allergic/Immunologic: ABSENT: seasonal rhinorrhea Physical Exam Vital Signs: Temp Pulse Resp BP Pulse Ox 98.9 F 82 30 H 100/60 100 11/30/19 14:50 11/30/19 14:50 11/30/19 22:00 11/30/19 19:02 11/30/19 22:00 Intake & Output 11/29/19 11/30/19 12/01/19 23:59 23:59 23:59 Intake Total 1000 Balance 1000 Weight 68 kg General appearance: PRESENT: no acute distress, cooperative Head exam: PRESENT: atraumatic, normocephalic Eye exam: PRESENT: conjunctiva pink. ABSENT: conjunctival injection, scleral icterus Ear exam: PRESENT: normal external ear exam. ABSENT: bleeding, drainage Mouth exam: PRESENT: dry mucosa, neck supple Neck exam: ABSENT: thyromegaly, tracheal deviation Respiratory exam: PRESENT: clear to auscultation gurjit, symmetrical, unlabored Cardiovascular exam: PRESENT: RRR. ABSENT: clicks, gallop, rubs Pulses: PRESENT: normal radial pulses, normal dorsalis pedis pul Vascular exam: PRESENT: normal capillary refill. ABSENT: pallor GI/Abdominal exam: PRESENT: normal bowel sounds, soft Rectal exam: PRESENT: deferred Extremities exam: ABSENT: joint swelling, pedal edema Musculoskeletal exam: ABSENT: deformity, dislocation Neurological exam: PRESENT: alert, oriented to person, oriented to place, oriented to time, oriented to situation, CN II-XII grossly intact. ABSENT: motor sensory deficit Psychiatric exam: PRESENT: appropriate affect, normal mood Skin exam: PRESENT: dry, intact, warm. ABSENT: jaundice, rash, urticaria Results Laboratory Results: 11/30/19 15:15 11/30/19 15:15 11/30/19 11/30/19 11/30/19 15:15 15:15 15:15 WBC 12.2 H RBC 3.14 L Hgb 9.9 L Hct 30.2 L MCV 96 MCH 31.6 MCHC 32.9 RDW 15.3 H Plt Count 347 Seg Neutrophils % 81.5 H VBG pH VBG pCO2 VBG HCO3 VBG Base Excess Sodium 137.1 Potassium 4.3 Chloride 106 Carbon Dioxide 24 Anion Gap 7 BUN 18 Creatinine 0.86 Est GFR ( Amer) > 60 Glucose 108 Lactic Acid 1.9 Calcium 9.2 Total Bilirubin 0.3 AST 15 Alkaline Phosphatase 74 Total Protein 5.8 L Albumin 2.9 L TSH Free T4 Free T3 pg/mL Urine Color Urine Appearance Urine pH Ur Specific [place] Urine Protein Urine Glucose (UA) Urine Ketones Urine Blood Urine RBC (Auto) 11/30/19 11/30/19 11/30/19 16:33 17:54 17:58 WBC RBC Hgb Hct MCV MCH MCHC RDW Plt Count Seg Neutrophils % VBG pH 7.33 VBG pCO2 46.2 VBG HCO3 24.0 VBG Base Excess -2.1 Sodium Potassium Chloride Carbon Dioxide Anion Gap BUN Creatinine Est GFR ( Amer) Glucose Lactic Acid 0.9 Calcium Total Bilirubin AST Alkaline Phosphatase Total Protein Albumin TSH 1.33 Free T4 0.90 Free T3 pg/mL 2.88 Urine Color Urine Appearance Urine pH Ur Specific [place] Urine Protein Urine Glucose (UA) Urine Ketones Urine Blood Urine RBC (Auto) 11/30/19 11/30/19 19:04 22:17 WBC RBC Hgb Hct MCV MCH MCHC RDW Plt Count Seg Neutrophils % VBG pH VBG pCO2 VBG HCO3 VBG Base Excess Sodium Potassium Chloride Carbon Dioxide Anion Gap BUN Creatinine Est GFR ( Amer) Glucose Lactic Acid 0.9 Calcium Total Bilirubin AST Alkaline Phosphatase Total Protein Albumin TSH Free T4 Free T3 pg/mL Urine Color YELLOW Urine Appearance CLEAR Urine pH 6.0 Ur Specific [place] 1.006 Urine Protein NEGATIVE Urine Glucose (UA) NEGATIVE Urine Ketones NEGATIVE Urine Blood NEGATIVE Urine RBC (Auto) 0 11/30/19 11/30/19 11/30/19 15:15 22:17 22:46 Troponin I 0.204 Cancelled 0.324 Impressions: Chest X-Ray 11/30/19 14:58 IMPRESSION: NO ACUTE RADIOGRAPHIC FINDING IN THE CHEST. Chest/Abdomen CTA 11/30/19 19:06 IMPRESSION: No evidence of pulmonary embolus. Lungs grossly clear. . Assessment and Plan - Diagnosis (1) NSTEMI (non-ST elevated myocardial infarction) Is this a current diagnosis for this admission?: Yes (2) Hypotension Qualifiers: Hypotension type: unspecified hypotension type Qualified Code(s): I95.9 - Hypotension, unspecified Is this a current diagnosis for this admission?: Yes (3) Paroxysmal cough Is this a current diagnosis for this admission?: Yes (4) Anemia Qualifiers: Anemia type: unspecified type Qualified Code(s): D64.9 - Anemia, unspecified Is this a current diagnosis for this admission?: Yes (5) Hypertension Qualifiers: Hypertension type: essential hypertension Qualified Code(s): I10 - Essential (primary) hypertension Is this a current diagnosis for this admission?: Yes (6) Hyperlipidemia Qualifiers: Hyperlipidemia type: unspecified Qualified Code(s): E78.5 - Hyperlipidemia, unspecified Is this a current diagnosis for this admission?: Yes (7) Bipolar disorder Qualifiers: Active/Remission status: currently active Current bipolar episode type: depressed Current episode severity: moderate Qualified Code(s): F31.32 - Bipolar disorder, current episode depressed, moderate Is this a current diagnosis for this admission?: Yes (8) Hypothyroidism Qualifiers: Hypothyroidism type: acquired Qualified Code(s): E03.9 - Hypothyroidism, unspecified Is this a current diagnosis for this admission?: Yes (9) Bipolar disorder Qualifiers: Active/Remission status: remission status unspecified Qualified Code(s): F31.9 - Bipolar disorder, unspecified Is this a current diagnosis for this admission?: Yes - Plan Summary Summary: Patient will be admitted to [facility] where she will receive routine supportive and symptomatic cares. A cardiology consultation with Dr. Lorenzana will be obtained. She will be maintained on telemetry throughout hospital stay. She will receive Ativan 1 mg IV every 4 hours as needed for anxiety or restlessness. She will receive morphine sulfate 2 to 4 mg IV every 2 hours as needed for pain. Anemia profile, lipid profile and thyroid studies will be obtained. Patient will be on a cardiac diet. CBCs, metabolic profiles, magnesium levels and cardiac enzyme evaluations will be obtained as appropriate. Additional labo ratory and/or radiographic investigations will be performed as needed. All of the patient's current medications will be discontinued and a thoughtful evaluation given to restarting each of them with special concern for causing her hypotension and paroxysmal cough. - Time Time Spent with patient: 15-24 minutes Medications reviewed and adjusted accordingly: Yes Anticipated discharge: Home - Inpatient Certification Based on my medical assessment, after consideration of the patient's comorbidities, presenting symptoms, or acuity I expect that the services needed warrant INPATIENT care.: Yes I certify that my determination is in accordance with my understanding of Medicare's requirements for reasonable and necessary INPATIENT services [42 CFR 412.3e].: Yes Medical Necessity: Significant Comorbidiites Make Outpatient Treatment Too Risky, Need Close Monitoring Due to Risk of Patient Decompensation, Need For Continuous Telemetry Monitoring, Risk of Complication if Not Cared For in Hospital, Risk of Diagnosis Which Will Require Inpatient Eval/Care/Monitoring
[2019-12-01] MEDS ORDERED: ERGOCALCIFEROL (VITAMIN D2) 50000 UNIT (1.25 MG) CAPSULE PO SCH (08:00)
--- NOTE | 2019-12-01 09:03 | PDOC CONSULTATION ---
Consultation Consult Date: 12/01/19 Attending physician:: EMILY MCCONNELL Provider Consulted: CLEMENCIA LORENZO Consult reason:: Elevated troponin History of Present Illness Admission Date/PCP: 12/01/19 01:54 BISMARK LAWS MD History of Present Illness: SHALONDA STRATTON is a 74 year old female with history of cardiac murmur, bipolar disorder, low blood sugar, lifelong non-smoker, without known history of coronary artery disease although she is followed regularly with a first sampler in [place], no known family history of premature coronary artery disease who is consulted to our service for a mildly elevated cardiac troponin. The patient presented to our emergency room yesterday with a two-week history of persistent hypotension and associated with dizziness, lightheadedness, chest tightness and diaphoresis. Her first sampler, Dr. Altamirano, discontinued several blood pressure medications without improvement in her symptoms and with persistence of her hypotension therefore he scheduled her for an echocardiogram and stress test next week. In the emergency room patient was found to have a systolic blood pressure between 93 and 118 over the course of her 11 hours stay. She was found to have an elevated troponin of 0.324 with no acute EKG changes. Unfortunately the patient is a poor historian and very anxious about her social situation with her and a small dog at home. Upon further questioning the patient states that she has been having a diffuse tightness in the chest for approximately 1 month which is associated with nausea and gagging but no vomiting. Her chest tightness can be triggered by stressful situations/emotional stress as well as any strenuous physical activities such as climbing stairs or walking on an incline. Her symptoms are associated with diaphoresis, palpitations, dizziness, lightheadedness and may last at least 30 minutes or more. Her symptoms resolved with rest. Physical exam on 12/01/2019: GENERAL: Pleasant and conversational. Oriented x3 with normal mood. Not in acute distress. Well groomed and well developed. HEENT: Normocephalic, atraumatic. Pupils equal. Sclerae anicteric. Oropharynx moist. NECK: No JVD. No carotid bruits. LUNGS: Clear to auscultation bilaterally. Normal respiratory effort without the use of accessory muscles or intercostal retractions. CARDIOVASCULAR: Regular rate and rhythm, normal S1 and S2 without murmurs, rubs, or gallops. PMI not displaced. ABDOMEN: No masses or tenderness to palpation. No bruit. No splenomegaly or hepatomegaly. No abdominal aorta bruit noted. EXTREMITIES: No edema, no cyanosis, no clubbing. +2 pulses femoral and pedal pulses bilaterally. SKIN: No lesions or rashes. MUSCULOSKELETAL: No chest tenderness to palpation. NEUROLOGIC: Nonfocal. No gross sensory or motor deficits bilateral upper or lower extremities. Past Medical History Cardiac Medical History: Reports: Congestive Heart Failure, Hyperlipidema, Hypertension Denies: Atrial Fibrillation, Coronary Artery Disease, DVT, Myocardial Infarction, Peripheral Vascular Disease, Pulmonary Embolism Pulmonary Medical History: Reports: Chronic Obstructive Pulmonary Disease (COPD) Denies: Asthma EENT Medical History: Denies: Cataracts, Ears - Hearing aids Neurological Medical History: Denies: Hemorrhagic CVA, Ischemic CVA, Seizures Endocrine Medical History: Reports: Hypothyroidism Denies: Diabetes Mellitus Type 1, Diabetes Mellitus Type 2, Hyperthyroidism, Obesity Renal/ Medical History: Denies: Chronic Kidney Disease, Nephrolithiasis Malignancy Medical History: Reports: None GI Medical History: Denies: Cirrhosis, Crohn's Disease, Diverticulitis, Hepatitis, Peptic Ulcer Disease, Ulcerative Colitis Musculoskeltal Medical History: Denies: Arthritis, Gout Skin Medical History: Denies: Eczema, Psoriasis Psychiatric Medical History: Reports: Bipolar Disorder, Depression Denies: Alcohol Dependency, Substance Abuse, Tobacco Dependency Traumatic Medical History: Reports: None Hematology: Denies: Anemia, Bleeding Tendencies Infectious Medical History: Reports: None Past Surgical History Past Surgical History: Reports: Pacemaker Social History Lives with: Spouse/Significant other Smoking Status: Never Smoker Electronic Cigarette use?: No Frequency of Alcohol Use: None Hx Recreational Drug Use: No Drugs: None Hx Prescription Drug Abuse: No - Advance Directive Resuscitation Status: Full Code Family History Family History: Malignancy, Other - bipolar Parental Family History Reviewed: Yes Children Family History Reviewed: Yes Sibling(s) Family History Reviewed.: Yes Medication/Allergy Home Medications: Liothyronine Sodium [Cytomel] 5 mcg PO DAILY 03/07/19 Spironolactone [Aldactone 25 mg Tablet] 25 mg PO Q12 09/24/19 Divalproex Sodium [Depakote ER 500 mg Tab.sr] 500 mg PO QHS 12/01/19 Ergocalciferol (Vitamin D2) [Drisdol 50,000 Unit (1.25MG) Capsule] 50,000 unit PO .QWEEKLY 12/01/19 Lisinopril [Prinivil 10 mg Tablet] 10 mg PO DAILY 12/01/19 Omeprazole 20 mg PO DAILY 12/01/19 Quetiapine Fumarate [Quetiapine Fumarate ER] 200 mg PO 12/01/19 Quetiapine Fumarate [Quetiapine Fumarate ER] 300 mg PO 12/01/19 Simvastatin [Zocor 10 mg Tablet] 10 mg PO QHS 12/01/19 Thyroid (Pork) [[place] Thyroid 60 Mg Tablet] 30 mg PO Q6AM 12/01/19 Allergies/Adverse Reactions: Sulfa (Sulfonamide Antibiotics) Allergy (Verified 11/12/19 12:20) Physical Exam Vital Signs: Temp Pulse Resp BP Pulse Ox 97.9 F 73 20 94/56 L 100 12/01/19 04:26 12/01/19 04:26 12/01/19 04:26 12/01/19 04:26 12/01/19 04:26 Intake & Output 11/29/19 11/30/19 12/01/19 06:59 06:59 06:59 Intake Total 1000 Balance 1000 Weight 67.9 kg Results Laboratory Results: 11/30/19 15:15 11/30/19 15:15 11/30/19 11/30/19 11/30/19 15:15 15:15 15:15 WBC 12.2 H RBC 3.14 L Hgb 9.9 L Hct 30.2 L MCV 96 MCH 31.6 MCHC 32.9 RDW 15.3 H Plt Count 347 Seg Neutrophils % 81.5 H Retic Count (auto) VBG pH VBG pCO2 VBG HCO3 VBG Base Excess Sodium 137.1 Potassium 4.3 Chloride 106 Carbon Dioxide 24 Anion Gap 7 BUN 18 Creatinine 0.86 Est GFR ( Amer) > 60 Glucose 108 Lactic Acid 1.9 Calcium 9.2 Iron TIBC % Saturation Transferrin Ferritin Total Bilirubin 0.3 AST 15 Alkaline Phosphatase 74 Total Protein 5.8 L Albumin 2.9 L Vitamin B12 Folate TSH Free T4 Free T3 pg/mL Urine Color Urine Appearance Urine pH Ur Specific [place] Urine Protein Urine Glucose (UA) Urine Ketones Urine Blood Urine RBC (Auto) 11/30/19 11/30/19 11/30/19 15:15 15:15 16:33 WBC RBC Hgb Hct MCV MCH MCHC RDW Plt Count Seg Neutrophils % Retic Count (auto) 1.94 VBG pH 7.33 VBG pCO2 46.2 VBG HCO3 24.0 VBG Base Excess -2.1 Sodium Potassium Chloride Carbon Dioxide Anion Gap BUN Creatinine Est GFR ( Amer) Glucose Lactic Acid Calcium Iron 17.2 L TIBC 234 L % Saturation 7 Transferrin Ferritin 247.00 Total Bilirubin AST Alkaline Phosphatase Total Protein Albumin Vitamin B12 323.0 Folate 8.20 TSH Free T4 Free T3 pg/mL Urine Color Urine Appearance Urine pH Ur Specific [place] Urine Protein Urine Glucose (UA) Urine Ketones Urine Blood Urine RBC (Auto) 11/30/19 11/30/19 11/30/19 17:54 17:58 19:04 WBC RBC Hgb Hct MCV MCH MCHC RDW Plt Count Seg Neutrophils % Retic Count (auto) VBG pH VBG pCO2 VBG HCO3 VBG Base Excess Sodium Potassium Chloride Carbon Dioxide Anion Gap BUN Creatinine Est GFR ( Amer) Glucose Lactic Acid 0.9 Calcium Iron TIBC % Saturation Transferrin Ferritin Total Bilirubin AST Alkaline Phosphatase Total Protein Albumin Vitamin B12 Folate TSH 1.33 Free T4 0.90 Free T3 pg/mL 2.88 Urine Color YELLOW Urine Appearance CLEAR Urine pH 6.0 Ur Specific [place] 1.006 Urine Protein NEGATIVE Urine Glucose (UA) NEGATIVE Urine Ketones NEGATIVE Urine Blood NEGATIVE Urine RBC (Auto) 0 11/30/19 11/30/19 22:17 22:46 WBC RBC Hgb Hct MCV MCH MCHC RDW Plt Count Seg Neutrophils % Retic Count (auto) VBG pH VBG pCO2 VBG HCO3 VBG Base Excess Sodium Potassium Chloride Carbon Dioxide Anion Gap BUN Creatinine Est GFR ( Amer) Glucose Lactic Acid 0.9 Calcium Iron TIBC % Saturation Transferrin 140.72 L Ferritin Total Bilirubin AST Alkaline Phosphatase Total Protein Albumin Vitamin B12 Folate TSH Free T4 Free T3 pg/mL Urine Color Urine Appearance Urine pH Ur Specific [place] Urine Protein Urine Glucose (UA) Urine Ketones Urine Blood Urine RBC (Auto) 11/30/19 11/30/19 11/30/19 15:15 22:17 22:46 Troponin I 0.204 Cancelled 0.324 Impressions: Chest X-Ray 11/30/19 14:58 IMPRESSION: NO ACUTE RADIOGRAPHIC FINDING IN THE CHEST. Chest/Abdomen CTA 11/30/19 19:06 IMPRESSION: No evidence of pulmonary embolus. Lungs grossly clear. . 11/30/19 15:15 11/30/19 15:15 MCV 96 fl (80-97) 11/30/19 15:15 MCH 31.6 pg (27.0-33.4) 11/30/19 15:15 MCHC 32.9 g/dL (32.0-36.0) 11/30/19 15:15 RDW 15.3 % (11.5-14.0) H 11/30/19 15:15 Seg Neutrophils % 81.5 % (42-78) H 11/30/19 15:15 Retic Count (auto) 1.94 % (0.66-2.85) 11/30/19 15:15 VBG pH 7.33 (7.30-7.42) 11/30/19 16:33 VBG pCO2 46.2 mmHg (35-63) 11/30/19 16:33 VBG HCO3 24.0 mmol/L (20-32) 11/30/19 16:33 VBG Base Excess -2.1 mmol/L 11/30/19 16:33 Chloride 106 mmol/L (98-107) 11/30/19 15:15 Carbon Dioxide 24 mmol/L (22-30) 11/30/19 15:15 Anion Gap 7 (5-19) 11/30/19 15:15 Est GFR ( Amer) > 60 (>60) 11/30/19 15:15 Glucose 108 mg/dL (75-110) 11/30/19 15:15 Lactic Acid 0.9 mmol/L (0.7-2.1) 11/30/19 22:17 Calcium 9.2 mg/dL (8.4-10.2) 11/30/19 15:15 Iron 17.2 ug/dL (37-170) L 11/30/19 15:15 TIBC 234 ug/dL (250-450) L 11/30/19 15:15 % Saturation 7 % 11/30/19 15:15 Transferrin 140.72 mg/dL (206.00-381.00) L 11/30/19 22:46 Ferritin 247.00 ng/mL (11.1-264.0) 11/30/19 15:15 Total Bilirubin 0.3 mg/dL (0.2-1.3) 11/30/19 15:15 AST 15 U/L (14-36) 11/30/19 15:15 Alkaline Phosphatase 74 U/L (38-126) 11/30/19 15:15 Total Protein 5.8 g/dL (6.3-8.2) L 11/30/19 15:15 Albumin 2.9 g/dL (3.5-5.0) L 11/30/19 15:15 Vitamin B12 323.0 pg/mL (239-931) 11/30/19 15:15 Folate 8.20 ng/mL (>2.76) 11/30/19 15:15 TSH 1.33 uIU/mL (0.47-4.68) 11/30/19 17:54 Free T4 0.90 ng/dL (0.78-2.19) 11/30/19 17:54 Free T3 pg/mL 2.88 pg/mL (2.77-5.27) 11/30/19 17:54 Urine Color YELLOW 11/30/19 19:04 Urine Appearance CLEAR 11/30/19 19:04 Urine pH 6.0 (5.0-9.0) 11/30/19 19:04 Ur Specific [place] 1.006 11/30/19 19:04 Urine Protein NEGATIVE mg/dL (NEGATIVE) 11/30/19 19:04 Urine Glucose (UA) NEGATIVE mg/dL (NEGATIVE) 11/30/19 19:04 Urine Ketones NEGATIVE mg/dL (NEGATIVE) 11/30/19 19:04 Urine Blood NEGATIVE (NEGATIVE) 11/30/19 19:04 Urine RBC (Auto) 0 /HPF 11/30/19 19:04 11/30/19 11/30/19 11/30/19 15:15 22:17 22:46 Troponin I 0.204 Cancelled 0.324 Current Medication List Generic Name Dose Route Start Last Admin Trade Name Freq PRN Reason Stop Dose Admin Acetaminophen 650 mg 12/01/19 02:25 Tylenol 325 Mg Tablet PO 12/31/19 02:24 Q4HP PRN FOR HEADACHE Al Hydrox/Mg Hydrox/Simethicone 30 ml 12/01/19 02:25 Maalox Plus Susp 30 Udcup PO 12/31/19 02:24 Q4HP PRN HEARTBURN Clopidogrel Bisulfate 75 mg 12/01/19 10:00 Plavix 75 Mg Tablet PO 12/31/19 09:59 DAILY [facility] Enoxaparin Sodium 70 mg 12/01/19 18:00 Lovenox Inj 80 Mg/0.8 Ml Disp.Syrin SUBCUT 12/31/19 17:59 Q12A SAMIR Famotidine 20 mg 12/01/19 10:00 Pepcid 20 Mg Tablet PO 12/31/19 09:59 BID [facility] Guaifenesin 200 mg 12/01/19 02:32 12/01/19 05:00 Robitussin Syrup 200 Mg/10 Ml Ud Cup PO 12/31/19 02:31 200 mg Q4HP PRN Administration COUGH Lorazepam 1 mg 12/01/19 02:32 Ativan Inj 2 Mg/1 Ml Vial IV 12/08/19 02:31 Q4HP PRN ANXIETY/AGITATION Morphine Sulfate 2 mg 12/01/19 02:35 Morphine 10 Mg/Ml Inj IV 12/08/19 02:34 Q2HP PRN PAIN SCALE OF 2 Morphine Sulfate 3 mg 12/01/19 02:36 Morphine 10 Mg/Ml Inj IV 12/08/19 02:35 Q2HP PRN FOR PAIN SCALE 3-4 Morphine Sulfate 4 mg 12/01/19 02:36 Morphine 10 Mg/Ml Inj IV 12/08/19 02:35 Q2HP PRN PAIN SCALE OF 5 Ondansetron HCl 4 mg 12/01/19 02:25 Zofran Inj/Pf 4 Mg/2 Ml Sdv IV 12/31/19 02:24 Q6HP PRN FOR NAUSEA/VOMITING Ondansetron HCl 4 mg 12/01/19 02:25 Zofran Odt 4 Mg Tablet PO 12/31/19 02:24 Q6HP PRN FOR NAUSEA/VOMITING Sodium Chloride 2.5 ml 12/01/19 06:00 12/01/19 06:32 Saline Flush 2.5 Ml Monoject Prefil Syrin IV 12/31/19 05:59 2.5 ml Q8 [facility] Administration Temazepam 15 mg 12/01/19 02:25 Restoril 15 Mg Capsule PO 12/08/19 02:24 HSP PRN SLEEP OR INSOMNIA Discontinued Medications Generic Name Dose Route Start Last Admin Trade Name Freq PRN Reason Stop Dose Admin Aspirin 325 mg 11/30/19 19:41 11/30/19 19:48 Aspirin 325 Mg Tablet PO 11/30/19 19:42 325 mg NOW ONE Administration Enoxaparin Sodium 70 mg 11/30/19 23:03 12/01/19 03:32 Lovenox Inj 80 Mg/0.8 Ml Disp.Syrin SUBCUT 11/30/19 23:04 70 mg NOW ONE Administration Enoxaparin Sodium Confirm 12/01/19 03:31 12/01/19 03:36 Lovenox Inj 80 Mg/0.8 Ml Disp.Syrin Administered 12/01/19 03:32 Not Given Dose 80 mg SUBCUT .STK-MED ONE Sodium Chloride 1,000 mls @ 0 mls/hr 11/30/19 15:02 11/30/19 19:17 Nacl 0.9% 1000 Ml Iv Soln IV 11/30/19 15:03 Infused BOLUS ONE Infusion Wide Open Morphine Sulfate 2 - 4 mg 12/01/19 02:32 Morphine 10 Mg/Ml Inj IV 12/08/19 02:31 Q2HP PRN See protocol Protocol Ondansetron HCl 4 mg 11/30/19 15:02 11/30/19 16:24 Zofran Inj/Pf 4 Mg/2 Ml Sdv IV 11/30/19 15:03 4 mg NOW ONE Administration Sodium Chloride 2.5 ml 11/30/19 22:00 Saline Flush 2.5 Ml Monoject Prefil Syrin IV 12/30/19 21:59 Q8 [facility] Assessment & Plan - Diagnosis (1) NSTEMI (non-ST elevated myocardial infarction) Is this a current diagnosis for this admission?: Yes Plan: 74-year-old female admitted with a mildly elevated troponin in the setting of chest tightness triggered by physical activities as well as emotional stress for approximately 1 month. Whether the patient had an acute coronary syndrome versus a type II SD given her anemia with a hemoglobin of 9.9 and episodes of hypotension at home is unclear at this point however she had been anemic in the past without any cardiac symptoms or complaints. It is also unclear whether her hypotension is secondary to her anemia versus cardiac ischemic insult. Her prior troponins during prior visits had been normal. Given the recurrence of her anginal symptoms, hypotension at home and our limited ability to take care of this patient at this facility I recommend transfer to [facility] for further management either with left heart cath which I favor versus noninvasively with nuclear stress test. The risks, benefits and alternatives to both diagnostic approaches were discussed with the patient and she agrees to proceed with transfer to [facility]. We will defer final diagnostic approach to the first sampler at [facility]. Of note, the patient's admission EKG was unchanged from her prior study and without obvious changes consistent with ischemia. Recommendations: -Continue with current medical management for NSTEMI. -We will continue to avoid beta-blockers for now given her low blood pressure. -Echocardiogram. -Transfer to [facility] for further management given the l imitations of this facility. (2) Anemia Qualifiers: Anemia type: unspecified type Qualified Code(s): D64.9 - Anemia, unspecified Is this a current diagnosis for this admission?: Yes Plan: The patient has been anemic in the past. She denies overt bleeding issues however she will need GI work-up.
[2019-12-01 09:35] LABS: ABSOLUTE EOSINOPHILS # (AUTO) 0.1 10^3/uL (0.0-0.6); ABSOLUTE LYMPHOCYTES (AUTO) 1.7 10^3/uL (0.5-4.7); ABSOLUTE MONOCYTES (AUTO) 1.2 10^3/uL (0.1-1.4); ABSOLUTE NEUT (AUTO) 9.3 10^3/uL (1.7-8.2); BASOPHILS % (AUTO) 0.2 % (0-2); EOSINOPHILS % (AUTO) 0.9 % (0-6); HEMATOCRIT 28.8 % (36.0-47.0); HEMOGLOBIN 9.5 g/dL (12.0-15.5); MEAN CORPUSCULAR HEMOGLOBIN 31.2 pg (27.0-33.4); MEAN CORPUSCULAR HGB CONC 32.9 g/dL (32.0-36.0); MEAN CORPUSCULAR VOLUME 95 fl (80-97); MONOCYTES % (AUTO) 9.6 % (3-13); PLATELET COUNT 360 10^3/uL (150-450); RED BLOOD COUNT 3.04 10^6/uL (3.72-5.28); RED CELL DISTRIBUTION WIDTH 15.1 % (11.5-14.0); SEGMENTED NEUTROPHILS % (AUTO) 75.3 % (42-78); TOTAL CELLS COUNTED % (AUTO) 100 %; WHITE BLOOD COUNT 12.3 10^3/uL (4.0-10.5)
[2019-12-01 09:51] LABS: ALBUMIN 2.8 g/dL (3.5-5.0); ALKALINE PHOSPHATASE 82 U/L (38-126); ANION GAP 6 (5-19); ASPARTATE AMINO TRANSFERASE 17 U/L (14-36); BILIRUBIN,TOTAL 0.3 mg/dL (0.2-1.3); BLOOD UREA NITROGEN 17 mg/dL (7-20); CALCIUM 9.2 mg/dL (8.4-10.2); CARBON DIOXIDE 22 mmol/L (22-30); CHLORIDE 109 mmol/L (98-107); GLUCOSE 95 mg/dL (75-110); POTASSIUM 4.4 mmol/L (3.6-5.0); TOTAL PROTEIN 5.8 g/dL (6.3-8.2)
[2019-12-01] MEDS ORDERED: LIOTHYRONINE SODIUM 5 MCG TABLET PO SCH (10:00)
[2019-12-01] MEDS ORDERED: (PENDING PHARMACY ID) (Liothyronine Sodium [Cytomel] 5 MCG) PO SCH (10:00)
[2019-12-01] MEDS ORDERED: PANTOPRAZOLE SODIUM 20 MG TABLET.DR PO SCH (10:00)
[2019-12-01] MEDS ORDERED: FAMOTIDINE 20 MG TABLET PO SCH (10:00)
[2019-12-01] MEDS ORDERED: CLOPIDOGREL BISULFATE 75 MG TABLET PO SCH (10:00)
--- NOTE | 2019-12-01 10:04 | PDOC TRANSFER SUMMARY ---
General Admission Date/PCP: 12/01/19 01:54 BISMARK LAWS MD Admission Date: 11/30/19 Transfer Date: 12/01/19 Accepting Facility: [facility] Accepting Physician: Zaki Resuscitation Status: Full Code - Transfer Diagnosis (1) NSTEMI (non-ST elevated myocardial infarction) Is this a current diagnosis for this admission?: Yes Diagnosis Summary: 12/01/2019-patient admitted with complaints of hypertension associated with chest tightness, dizziness and lightheadedness on and off for the last 2 weeks. EKG i s nonspecific. Initial troponin is 0.2-second troponin is 0.324. Cardiology consult was done under Dr. Patel thinks patient has unstable angina/non- STEMI. His recommendation is to transfer the patient to [facility] to be admitted under hospital service and for possible cardiac cath after consultation with the cardiology team there. I discussed the case with Shira nurse practitioner at [facility] she agreed to take the patient for further management. At the time of my examination patient is still complaining of chest tightness describing as tightness is 3/10. Also complaining of associated shortness of breath. Latest blood pressure is 110 /60 . Vital signs are stable for the patient to be transferred. Patient is on a treatment dose of Lovenox at this time also receiving simvastatin. (2) Anemia Is this a current diagnosis for this admission?: Yes (3) Hypotension Is this a current diagnosis for this admission?: Yes Diagnosis Summary: 12/01/2019-patient came in with the persistent hypotension for the last 2 weeks antihypertensive medications are on hold. Latest blood pressure is 116/60. With heart rate of 78. Pulse ox on room air is 97%. She will receive normal saline 1 L bolus in the ER. (4) Anxiety Is this a current diagnosis for this admission?: No Diagnosis Summary: 12/01/2019-patient has history of chronic anxiety disorder takes benzodiazepines at home. Is receiving Ativan 1 mg IV every 4 hours as needed. She is also receiving morphine sliding scale for chest pains. (5) Benzodiazepine dependence Is this a current diagnosis for this admission?: No Diagnosis Summary: 12/01/2019-patient is on lorazepam at home. (6) CHF (congestive heart failure) Is this a current diagnosis for this admission?: No Diagnosis Summary: 12/01/2019-patient is given history of congestive heart failure we do not have an echocardiogram reports available. Echocardiogram is requested for today in the meantime patient is getting transferred to [facility]. Most likely she has a chronic systolic heart failure. - Transfer Medications Home Medications: Spironolactone [Aldactone 25 mg Tablet] 25 mg PO DAILY 09/24/19 Divalproex Sodium [Depakote ER 500 mg Tab.sr] 500 mg PO QHS 12/01/19 Ergocalciferol (Vitamin D2) [Drisdol 50,000 Unit (1.25MG) Capsule] 50,000 unit PO SA@1000 12/01/19 Omeprazole 20 mg PO DAILY 12/01/19 Quetiapine Fumarate [Quetiapine Fumarate ER] 200 mg PO QHS MDD 500 MG 12/01/19 Quetiapine Fumarate [Quetiapine Fumarate ER] 300 mg PO QHS MDD 500 MG 12/01/19 Simvastatin [Zocor 10 mg Tablet] 10 mg PO QHS 12/01/19 Thyroid (Pork) [Madison Thyroid 60 Mg Tablet] 30 mg PO Q6AM 12/01/19 Transfer Medications: Current Medications Acetaminophen (Tylenol 325 Mg Tablet) 650 mg PO Q4HP PRN PRN Reason: FOR HEADACHE Stop: 12/31/19 02:24 Al Hydrox/Mg Hydrox/Simethicone (Maalox Plus Susp 30 Udcup) 30 ml PO Q4HP PRN PRN Reason: HEARTBURN Stop: 12/31/19 02:24 Clopidogrel Bisulfate (Plavix 75 Mg Tablet) 75 mg PO DAILY SMAIR Stop: 12/31/19 09:59 Divalproex Sodium (Depakote Er 500 Mg Tab.Sr) 500 mg PO QHS SAMIR Stop: 12/31/19 21:59 Enoxaparin Sodium (Lovenox Inj 80 Mg/0.8 Ml Disp.Syrin) 70 mg SUBCUT Q12A SAMIR Stop: 12/31/19 17:59 Ergocalciferol (Drisdol 50,000 Unit (1.25mg) Capsule) 50,000 unit PO .QWEEKLY SAMIR Stop: 12/31/19 07:59 Guaifenesin (Robitussin Syrup 200 Mg/10 Ml Ud Cup) 200 mg PO Q4HP PRN PRN Reason: COUGH Stop: 12/31/19 02:31 Last Admin: 12/01/19 05:00 Dose: 200 mg Documented by: Liothyronine Sodium (Cytomel 5 Mcg Tablet) 5 mcg PO Q6AM [facility] Stop: 12/31/19 09:59 Lorazepam (Ativan Inj 2 Mg/1 Ml Vial) 1 mg IV Q4HP PRN PRN Reason: ANXIETY/AGITATION Stop: 12/08/19 02:31 Morphine Sulfate (Morphine 10 Mg/Ml Inj) 2 mg IV Q2HP PRN PRN Reason: PAIN SCALE OF 2 Stop: 12/08/19 02:34 Morphine Sulfate (Morphine 10 Mg/Ml Inj) 3 mg IV Q2HP PRN PRN Reason: FOR PAIN SCALE 3-4 Stop: 12/08/19 02:35 Morphine Sulfate (Morphine 10 Mg/Ml Inj) 4 mg IV Q2HP PRN PRN Reason: PAIN SCALE OF 5 Stop: 12/08/19 02:35 Ondansetron HCl (Zofran Inj/Pf 4 Mg/2 Ml Sdv) 4 mg IV Q6HP PRN PRN Reason: FOR NAUSEA/VOMITING Stop: 12/31/19 02:24 Ondansetron HCl (Zofran Odt 4 Mg Tablet) 4 mg PO Q6HP PRN PRN Reason: FOR NAUSEA/VOMITING Stop: 12/31/19 02:24 Pantoprazole Sodium (Protonix [address] Tablet) 20 mg PO DAILY [facility] Stop: 12/31/19 09:59 Patient Own Medication (Thyroid (Pork) [Madison Thyroid 60 Mg Tablet]) 30 mg PO Q6AM [facility] Stop: 01/01/20 05:59 Simvastatin (Zocor 10 Mg Tablet) 10 mg PO QHS [facility] Stop: 12/31/19 21:59 Sodium Chloride (Saline Flush 2.5 Ml Monoject Prefil Syrin) 2.5 ml IV Q8 [facility] Stop: 12/31/19 05:59 Last Admin: 12/01/19 06:32 Dose: 2.5 ml Documented by: Temazepam (Restoril 15 Mg Capsule) 15 mg PO HSP PRN PRN Reason: SLEEP OR INSOMNIA Stop: 12/08/19 02:24 - Allergies Allergies/Adverse Reactions: Sulfa (Sulfonamide Antibiotics) Allergy (Verified 11/12/19 12:20) Hospital Course Hospital Course: 74 year old female presenting to the emergency room with a two-week history of persistent hypotension. She admits that her blood pressure has been running low for the last 2 weeks and she has been seeing her bobcat operator, Dr. Altamirano, who has discontinued several blood pressure medications without improvement in her symptoms and with persistence of her hypotension. Her hypotension has been accompanied by a chronic nonproductive paroxysmal cough and generalized weakness. Her hypotension has been associated with a decreased appetite, fatigue and lack of energy as well as intermittent abdominal discomfort/tenderness and one episode of a dark tarry stool. Her paroxysmal cough has been associated with severe sharp achy pains in her bilateral lateral lower ribs after each coughing paroxysm. She denies other accompanying or associated signs and symptoms. She denies prior similar episodes. She has not identified any aggravating or ameliorating factors for her hypertension. In the emergency room patient was found to have a systolic blood pressure between 93 and 118 over the course of her 11 hours stay. She was found to have an elevated troponin of 0.324 with no EKG changes consistent with acute ischemia. Dr. Altamirano her bobcat operator was contacted and recommended the patient be treated medically for a non-STEMI. He was subsequently admitted to the hospital for further evaluation treatment. 12/01/2019-patient is still complaining of chest tightness pain scale is a 3/10. Vital signs are stable. EKGs are nonspecific second troponin is slightly elevated from first troponin of 0.2, latest troponin is 0.324. Patient is accepted to Replaced By [facility]. Physical Exam Vital Signs: Temp Pulse Resp BP Pulse Ox 98.3 F 75 18 116/60 97 12/01/19 08:20 12/01/19 08:20 12/01/19 08:20 12/01/19 08:20 12/01/19 08:20 Intake & Output 11/30/19 12/01/19 12/02/19 06:59 06:59 06:59 Intake Total 1240 Output Total 0 Balance 1240 Weight 67.9 kg General appearance: PRESENT: no acute distress, well-developed Head exam: PRESENT: atraumatic Eye exam: PRESENT: conjunctiva pale, PERRLA Mouth exam: PRESENT: neck supple Neck exam: ABSENT: carotid bruit, JVD, lymphadenopathy, thyromegaly Respiratory exam: PRESENT: decreased breath sounds Cardiovascular exam: PRESENT: RRR. ABSENT: diastolic murmur, rubs, systolic murmur GI/Abdominal exam: PRESENT: normal bowel sounds, soft. ABSENT: distended, guarding, mass, organolmegaly, rebound, tenderness Rectal exam: PRESENT: deferred Extremities exam: PRESENT: full ROM. ABSENT: calf tenderness, clubbing, pedal edema Neurological exam: PRESENT: alert, awake, oriented to person, oriented to place, oriented to time, oriented to situation, CN II-XII grossly intact. ABSENT: motor sensory deficit Psychiatric exam: PRESENT: appropriate affect, normal mood. ABSENT: homicidal ideation, suicidal ideation Results Laboratory Results: 12/01/19 08:29 12/01/19 08:29 11/30/19 11/30/19 11/30/19 15:15 15:15 15:15 WBC 12.2 H RBC 3.14 L Hgb 9.9 L Hct 30.2 L MCV 96 MCH 31.6 MCHC 32.9 RDW 15.3 H Plt Count 347 Seg Neutrophils % 81.5 H Retic Count (auto) VBG pH VBG pCO2 VBG HCO3 VBG Base Excess Sodium 137.1 Potassium 4.3 Chloride 106 Carbon Dioxide 24 Anion Gap 7 BUN 18 Creatinine 0.86 Est GFR ( Amer) > 60 Glucose 108 Lactic Acid 1.9 Calcium 9.2 Magnesium Iron TIBC % Saturation Transferrin Ferritin Total Bilirubin 0.3 AST 15 Alkaline Phosphatase 74 Total Protein 5.8 L Albumin 2.9 L Vitamin B12 Folate TSH Free T4 Free T3 pg/mL Urine Color Urine Appearance Urine pH Ur Specific [place] Urine Protein Urine Glucose (UA) Urine Ketones Urine Blood Urine RBC (Auto) 11/30/19 11/30/19 11/30/19 15:15 15:15 16:33 WBC RBC Hgb Hct MCV MCH MCHC RDW Plt Count Seg Neutrophils % Retic Count (auto) 1.94 VBG pH 7.33 VBG pCO2 46.2 VBG HCO3 24.0 VBG Base Excess -2.1 Sodium Potassium Chloride Carbon Dioxide Anion Gap BUN Creatinine Est GFR ( Amer) Glucose Lactic Acid Calcium Magnesium Iron 17.2 L TIBC 234 L % Saturation 7 Transferrin Ferritin 247.00 Total Bilirubin AST Alkaline Phosphatase Total Protein Albumin Vitamin B12 323.0 Folate 8.20 TSH Free T4 Free T3 pg/mL Urine Color Urine Appearance Urine pH Ur Specific [place] Urine Protein Urine Glucose (UA) Urine Ketones Urine Blood Urine RBC (Auto) 11/30/19 11/30/19 11/30/19 17:54 17:58 19:04 WBC RBC Hgb Hct MCV MCH MCHC RDW Plt Count Seg Neutrophils % Retic Count (auto) VBG pH VBG pCO2 VBG HCO3 VBG Base Excess Sodium Potassium Chloride Carbon Dioxide Anion Gap BUN Creatinine Est GFR ( Amer) Glucose Lactic Acid 0.9 Calcium Magnesium Iron TIBC % Saturation Transferrin Ferritin Total Bilirubin AST Alkaline Phosphatase Total Protein Albumin Vitamin B12 Folate TSH 1.33 Free T4 0.90 Free T3 pg/mL 2.88 Urine Color YELLOW Urine Appearance CLEAR Urine pH 6.0 Ur Specific [place] 1.006 Urine Protein NEGATIVE Urine Glucose (UA) NEGATIVE Urine Ketones NEGATIVE Urine Blood NEGATIVE Urine RBC (Auto) 0 11/30/19 11/30/19 12/01/19 22:17 22:46 08:29 WBC 12.3 H RBC 3.04 L Hgb 9.5 L Hct 28.8 L MCV 95 MCH 31.2 MCHC 32.9 RDW 15.1 H Plt Count 360 Seg Neutrophils % 75.3 Retic Count (auto) VBG pH VBG pCO2 VBG HCO3 VBG Base Excess Sodium Potassium Chloride Carbon Dioxide Anion Gap BUN Creatinine Est GFR ( Amer) Glucose Lactic Acid 0.9 Calcium Magnesium Iron TIBC % Saturation Transferrin 140.72 L Ferritin Total Bilirubin AST Alkaline Phosphatase Total Protein Albumin Vitamin B12 Folate TSH Free T4 Free T3 pg/mL Urine Color Urine Appearance Urine pH Ur Specific [place] Urine Protein Urine Glucose (UA) Urine Ketones Urine Blood Urine RBC (Auto) 12/01/19 08:29 WBC RBC Hgb Hct MCV MCH MCHC RDW Plt Count Seg Neutrophils % Retic Count (auto) VBG pH VBG pCO2 VBG HCO3 VBG Base Excess Sodium 137.4 Potassium 4.4 Chloride 109 H Carbon Dioxide 22 Anion Gap 6 BUN 17 Creatinine 0.82 Est GFR ( Amer) > 60 Glucose 95 Lactic Acid Calcium 9.2 Magnesium 2.0 Iron TIBC % Saturation Transferrin Ferritin Total Bilirubin 0.3 AST 17 Alkaline Phosphatase 82 Total Protein 5.8 L Albumin 2.8 L Vitamin B12 Folate TSH Free T4 Free T3 pg/mL Urine Color Urine Appearance Urine pH Ur Specific [place] Urine Protein Urine Glucose (UA) Urine Ketones Urine Blood Urine RBC (Auto) 11/30/19 11/30/19 11/30/19 15:15 22:17 22:46 Troponin I 0.204 Cancelled 0.324 Impressions: Chest X-Ray 11/30/19 14:58 IMPRESSION: NO ACUTE RADIOGRAPHIC FINDING IN THE CHEST. Chest/Abdomen CTA 11/30/19 19:06 IMPRESSION: No evidence of pulmonary embolus. Lungs grossly clear. . Plan Discharge Plan: Patient is accepted to Replaced By [facility]. Time Spent: Greater than 30 Minutes
[2019-12-01 11:14] VITALS: BP 112/60
[2019-12-01] MEDS ORDERED: ENOXAPARIN SODIUM INJ 80 MG/0.8 ML DISP.SYRIN SUBCUT SCH (18:00)
[2019-12-01] MEDS ORDERED: SIMVASTATIN 10 MG TABLET PO SCH (22:00)
[2019-12-01] MEDS ORDERED: DIVALPROEX SODIUM 500 MG TAB.SR.24H PO SCH (22:00)
[2019-12-02] MEDS ORDERED: THYROID 30 MG PO SCH (06:00)
== END 2019-12-01 12:45 | disposition short-term general hospital (02) | DRG 281 ==
LOC: ER 14:31 → EH 12-01 01:54 → 3N 12-01 04:08
PROVIDERS: ADMIT Emergency Medicine; ATTEND Internal Medicine
DX: I21.4 Non-ST elevation (NSTEMI) myocardial infarction (principal); F13.20 Sedative, hypnotic or anxiolytic dependence, uncomplicated; F31.32 Bipolar disorder, current episode depressed, moderate; I50.32 Chronic diastolic (congestive) heart failure; I11.0 Hypertensive heart disease with heart failure; E78.5 Hyperlipidemia, unspecified; J44.9 Chronic obstructive pulmonary disease, unspecified; E03.9 Hypothyroidism, unspecified; F41.8 Other specified anxiety disorders; Z79.890 Hormone replacement therapy; Z88.2 Allergy status to sulfonamides; I95.9 Hypotension, unspecified; R05 Cough; D64.9 Anemia, unspecified; Z79.899 Other long term (current) drug therapy; Z95.0 Presence of cardiac pacemaker
CPT/HCPCS: 36415; 71045; 71275; 80053; 81001; 82270; 82607; 82728; 82746; 82803; 83540; 83550; 83605; 83735; 84439; 84443; 84466; 84481; 84484; 85025; 85045; 85379; 87086; 87088; 87186; 93005; 93010; 96361; 96374; 99285; J1650; J2405; J3490; J7030

== ENCOUNTER 2020-02-01 19:19 | Emergency (ER) | payer BC, MEDICARE ==
[2020-02-01 19:28] VITALS: BP 120/71
--- NOTE | 2020-02-01 22:15 | ER Document Report ---
ED Medical Screen (RME) - General Chief Complaint: Constipation Stated Complaint: BLOODY STOOLS Time Seen by Provider: 02/01/20 22:06 Primary Care Provider: BISMARK LAWS MD [Primary Care Provider] - Follow up as needed Mode of Arrival: Ambulatory Information source: Patient Notes: HPI; 74-year-old female presents emergency room complaining of constipation for the past 2 weeks. States she is on iron secondary to anemia. States she is been taking MiraLAX without any relief. Tonight she states she tried to disimpact herself and is now bleeding. Think she may have cut herself with her fingernail. Some nausea but no vomiting. No fevers. No urinary symptoms no other complaints. PE: Alert and oriented x3. Lungs: Clear to auscultation without rales, rhonchi, wheezes. Heart: Regular rate rhythm without murmurs, rubs, gallops. I have greeted and performed a rapid initial assessment of this patient. A comprehensive ED assessment and evaluation of the patient, analysis of test results and completion of the medical decision making process will be conducted by additional ED providers. I have specifically instructed the patient or family members with the patient to immediately return to any nursing staff should anything change in the patient's condition or with their chief complaint. TRAVEL OUTSIDE OF THE [place] IN LAST 30 DAYS: No - Related Data Allergies/Adverse Reactions: Sulfa (Sulfonamide Antibiotics) Allergy (Verified 11/12/19 12:20) Home Medications: depakote, iron, seroquel, thyroid med, Past Medical History - Past Medical History Cardiac Medical History: Reports: Hx Congestive Heart Failure, Hx Hypercholesterolemia, Hx Hypertension Denies: Hx Atrial Fibrillation, Hx Coronary Artery Disease, Hx DVT, Hx Heart Attack, Hx Peripheral Vascular Disease, Hx Pulmonary Embolism Pulmonary Medical History: Reports: Hx COPD Denies: Hx Asthma Neurological Medical History: Denies: Hx Seizures Endocrine Medical History: Reports: Hx Hypothyroidism. Denies: Hx Diabetes Mellitus Type 1, Hx Diabetes Mellitus Type 2, Hx Hyperthyroidism Renal/ Medical History: Denies: Hx Peritoneal Dialysis GI Medical History: Denies: Hx Cirrhosis, Hx Crohn's Disease, Hx Diverticulitis, Hx Hepatitis, Hx Ulcerative Colitis Musculoskeltal Medical History: Denies Hx Arthritis, Denies Hx Gout Skin Medical History: Denies Hx Eczema, Denies Hx Psoriasis Psychiatric Medical History: Reports: Hx Bipolar Disorder, Hx Depression Infectious Medical History: Denies: Hx Hepatitis Past Surgical History: Reports: Hx Cardiac Surgery - pacemaker, Hx Pacemaker - Immunizations Hx Diphtheria, Pertussis, Tetanus Vaccination: No Physical Exam - Vital signs Vitals: Temp Pulse Resp BP Pulse Ox 97.9 F 71 16 120/71 98 02/01/20 19:25 02/01/20 19:25 02/01/20 19:25 02/01/20 19:25 02/01/20 19:25 Course - Vital Signs Vital signs: Temp Pulse Resp BP Pulse Ox 97.9 F 71 16 120/71 98 02/01/20 19:25 02/01/20 19:25 02/01/20 19:25 02/01/20 19:25 02/01/20 19:25 Doctor's Discharge - Discharge Referrals: BISMARK LAWS MD [Primary Care Provider] - Follow up as needed
--- NOTE | 2020-02-01 23:14 | RADIOLOGY REPORT (SQ) ---
Acute abdominal series x-ray three views on 02/01/2020 at 10:33 PM CLINICAL INDICATION: Constipation COMPARISON: Chest x-ray from 11/30/2019 and abdomen x-ray from 10/02/2019 FINDINGS: CHEST: 2-lead left subclavian pacemaker is noted in place. The lungs are clear. Cardiac, hilar and mediastinal contours are within normal limits. Pulmonary vascularity is within normal limits. ABDOMEN: There is no free air. Mild increased stool is noted in the rectum without other increased stool elsewhere to suggest significant constipation. Bowel gas pattern is unremarkable. No abnormal calcification or mass effect is noted. Degenerative changes are noted in the spine. IMPRESSION: 1. No acute cardiopulmonary disease. 2. Mild fecal impaction in the rectum without evidence of other significant constipation and otherwise essentially unremarkable abdomen.
--- NOTE | 2020-02-02 03:13 | ER Document Report ---
Entered by LUIS CHAN SCRIBE 02/02/20 0306 Acting as scribe for:JENNIFER GABRIEL DO ED GI/ - General Chief Complaint: Constipation Stated Complaint: BLOODY STOOLS Time Seen by Provider: 02/01/20 22:06 Primary Care Provider: BISMARK LAWS MD [Primary Care Provider] - Follow up as needed Mode of Arrival: Ambulatory Notes: This 74 year old female patient presents to the ED today with complaints of constipation for the past x2 weeks. Patient states that she has a history of constipation and has been taking MiraLAX without resolve. She reports abdominal pain secondary to the constipation. at bedside mentions that the patient has had a decreased appetite for x3 weeks. Denies any abdominal surgeries, fever, or urinary symptoms. TRAVEL OUTSIDE OF THE [place] IN LAST 30 DAYS: No - Related Data Allergies/Adverse Reactions: Sulfa (Sulfonamide Antibiotics) Allergy (Verified 11/12/19 12:20) Home Medications: depakote, iron, seroquel, thyroid med, Past Medical History - General Information source: Patient - Social History Smoking Status: Never Smoker Cigarette use (# per day): No Chew tobacco use (# tins/day): No Smoking Education Provided: No Lives with: Spouse/Significant other Family History: Reviewed & Not Pertinent, Malignancy, Other - bipolar Patient has suicidal ideation: No Patient has homicidal ideation: No - Past Medical History Cardiac Medical History: Reports: Hx Congestive Heart Failure, Hx Coronary Artery Disease, Hx Heart Attack, Hx Hypercholesterolemia, Hx Hypertension Pulmonary Medical History: Reports: Hx COPD Endocrine Medical History: Reports: Hx Hypothyroidism Psychiatric Medical History: Reports: Hx Bipolar Disorder, Hx Depression Past Surgical History: Reports: Hx Pacemaker - Immunizations Hx Diphtheria, Pertussis, Tetanus Vaccination: No Review of Systems - Review of Systems Constitutional: See HPI. denies: Fever EENT: No symptoms reported Cardiovascular: No symptoms reported Respiratory: No symptoms reported Gastrointestinal: See HPI, Abdominal pain, Constipation, Poor appetite Genitourinary: No symptoms reported Female Genitourinary: No symptoms reported Musculoskeletal: No symptoms reported Skin: No symptoms reported Hematologic/Lymphatic: No symptoms reported Neurological/Psychological: No symptoms reported -: Yes All other systems reviewed and negative Physical Exam - Vital signs Vitals: Temp Pulse Resp BP Pulse Ox 97.9 F 71 16 120/71 98 02/01/20 19:25 02/01/20 19:25 02/01/20 19:25 02/01/20 19:25 02/01/20 19:25 Interpretation: Normal - General General appearance: Alert, Anxious In distress: Mild - due to anxiety - HEENT Head: Normocephalic, Atraumatic Eyes: Normal Extraocular movements intact: Yes Pupils: PERRL - Respiratory Respiratory status: No respiratory distress Chest status: Nontender Breath sounds: Normal Chest palpation: Normal - Cardiovascular Rhythm: Regular Heart sounds: Normal auscultation Murmur: No Friction rub: No Gallop: None auscultated - Abdominal Inspection: Normal Distension: No distension Bowel sounds: Normal Tenderness: Tender - Mild diffuse tenderness to palpation, Other - No rigidity. No: Rebound Organomegaly: No organomegaly - Back Back: Normal, Nontender - Extremities General upper extremity: Normal inspection General lower extremity: Normal inspection. No: Edema - Neurological Neuro grossly intact: Yes Orientation: AAOx4 [place] Coma Scale Eye Opening: Spontaneous [place] Coma Scale Verbal: Oriented [place] Coma Scale Motor: Obeys Commands [place] Coma Scale Total: 15 - Psychological Associated symptoms: Anxious - Skin Skin Temperature: Warm Skin Moisture: Dry Skin Color: Normal Course - Re-evaluation Re-evalutation: 02/02/20 05:12 MDM 74 year old female with constipation and anxiety. Due to have Upper and lower gi this upcoming Wednesday - 3 days from now - she will call [facility] today to discuss this and whether this should be moved back now. Good results here and no anemia noted with h/o that previously. No fever. Anxiety much improved after ativan here. - Vital Signs Vital signs: Temp Pulse Resp BP Pulse Ox 97.9 F 71 16 120/71 98 02/01/20 19:25 02/01/20 19:25 02/01/20 19:25 02/01/20 19:25 02/01/20 19:25 - Laboratory Result Diagrams: 02/02/20 03:47 02/02/20 03:47 Laboratory results interpreted by me: 02/02/20 03:47 WBC 12.9 H RDW 14.5 H Lymph % (Auto) 8.4 L Absolute Neuts (auto) 10.8 H Seg Neutrophils % 83.3 H Discharge - Discharge Clinical Impression: Constipation Qualifiers: Constipation type: unspecified constipation type Qualified Code(s): K59.00 - Constipation, unspecified Condition: Stable Disposition: HOME, SELF-CARE Instructions: Constipation ([facility]), Laxative ([facility]) Additional Instructions: Clear liquids for 48 hours. Rest. Avoid narcotic pain medicine. Please return here for pain, bleeding, fever or other problems or concerns. Your medicine was sent to [facility]. Referrals: BISMARK LAWS MD [Primary Care Provider] - Follow up as needed I personally performed the services described in the documentation, reviewed and edited the documentation which was dictated to the scribe in my presence, and it accurately records my words and actions.
[2020-02-02] MEDS ORDERED: LORAZEPAM INJ 2 MG/1 ML VIAL IV ONE (03:20)
[2020-02-02 03:58] LABS: ABSOLUTE BASOPHILS # (AUTO) 0.1 10^3/uL (0.0-0.2); ABSOLUTE EOSINOPHILS # (AUTO) 0.1 10^3/uL (0.0-0.6); ABSOLUTE LYMPHOCYTES (AUTO) 1.1 10^3/uL (0.5-4.7); ABSOLUTE NEUT (AUTO) 10.8 10^3/uL (1.7-8.2); BASOPHILS % (AUTO) 0.4 % (0-2); EOSINOPHILS % (AUTO) 0.4 % (0-6); HEMATOCRIT 38.7 % (36.0-47.0); HEMOGLOBIN 13.2 g/dL (12.0-15.5); LYMPHOCYTES % (AUTO) 8.4 % (13-45); MEAN CORPUSCULAR HEMOGLOBIN 32.1 pg (27.0-33.4); MEAN CORPUSCULAR HGB CONC 34.2 g/dL (32.0-36.0); MEAN CORPUSCULAR VOLUME 94 fl (80-97); MONOCYTES % (AUTO) 7.5 % (3-13); PLATELET COUNT 297 10^3/uL (150-450); RED BLOOD COUNT 4.12 10^6/uL (3.72-5.28); RED CELL DISTRIBUTION WIDTH 14.5 % (11.5-14.0); SEGMENTED NEUTROPHILS % (AUTO) 83.3 % (42-78); TOTAL CELLS COUNTED % (AUTO) 100 %; WHITE BLOOD COUNT 12.9 10^3/uL (4.0-10.5)
[2020-02-02 04:09] LABS: INTERNATIONAL RATION (INR) 0.94; PROTHROMBIN TIME 12.8 SEC (11.4-15.4)
[2020-02-02 04:19] LABS: ALBUMIN 3.8 g/dL (3.5-5.0); ALKALINE PHOSPHATASE 87 U/L (38-126); ANION GAP 7 (5-19); ASPARTATE AMINO TRANSFERASE 24 U/L (14-36); BILIRUBIN,TOTAL 0.6 mg/dL (0.2-1.3); BLOOD UREA NITROGEN 20 mg/dL (7-20); CALCIUM 9.7 mg/dL (8.4-10.2); CARBON DIOXIDE 25 mmol/L (22-30); CHLORIDE 107 mmol/L (98-107); GLUCOSE 108 mg/dL (75-110); POTASSIUM 4.4 mmol/L (3.6-5.0); TOTAL PROTEIN 6.8 g/dL (6.3-8.2)
[2020-02-02] MEDS ORDERED: MINERAL OIL ENEMA 133 ML PR ONE (05:11)
== END 2020-02-02 06:08 | disposition home or self-care (01) ==
LOC: ER 19:19
DX: K59.00 Constipation, unspecified (principal); R19.5 Other fecal abnormalities; R10.9 Unspecified abdominal pain; R63.0 Anorexia; Z88.2 Allergy status to sulfonamides; I11.0 Hypertensive heart disease with heart failure; I50.9 Heart failure, unspecified; I25.10 Atherosclerotic heart disease of native coronary artery without angina pectoris; J44.9 Chronic obstructive pulmonary disease, unspecified
CPT/HCPCS: 99284; 51701; 96374; 36415; 83605; 85025; 85610; 80053; 74022; J3490; J2060

== ENCOUNTER 2020-02-09 18:10 | Emergency (ER) | payer BC, MEDICARE ==
[2020-02-09] MEDS ORDERED: NORMAL SALINE 1000 ML 1,000 ML IV ONE ×2 (18:25→21:55)
[2020-02-09] MEDS ORDERED: FLUMAZENIL INJ 0.5 MG/5 ML VIAL IV ONE (18:25)
[2020-02-09] MEDS ORDERED: ACTIVATED CHARCOAL 25 GM BOTTLE NG ONE (18:26)
--- NOTE | 2020-02-09 18:31 | ER Document Report ---
ED Psych Disorder / Suicide - General Chief Complaint: Overdose Stated Complaint: POSSIBLE OVERDOSE Time Seen by Provider: 02/09/20 18:23 Primary Care Provider: BISMARK LASW MD [Primary Care Provider] - Follow up as needed Mode of Arrival: Wheelchair Information source: Patient, Relative - daren Notes: 74-year-old female who was taken from car to the triage area by nursing staff along with by wheelchair. Patient had taken 70 tablets of Xanax 0.5 mg around 1430. Patient's was working in [place] at the [employer] at the time. His name is Daren and he is the main historian. Patient was seen here several months ago with chest pain and was taken to [facility] for catheterization. She was placed on iron at that time which constipated her. She was seen here [address] Felix because of constipation. Patient has a long history of bipolar disease and has been taking Xanax and lithium for many many years as prescribed by her doctor in [place]. She also has depression. 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 This his tory is from . The pizza delivery was And Dr. Altamirano. At this time around 1615 patient is very drowsy and mildly lethargic. She had NG tube placed and IVs placed by nursing staff. She was given Romazicon 0.5 IV as well as activated charcoal by NG tube. Patient's reports he has spoken to her only an hour prior and she had only taken 2 tablets of Xanax and was feeling much improved by the time he got home he found her drowsy and had taken the entire bottle that was just filled on the of this month. TRAVEL OUTSIDE OF THE [place] IN LAST 30 DAYS: No - HPI Patient complains to provider of: Suicidal ideation, Suicidal attempt Onset: Just prior to arrival Quality of pain: No pain Severity: Mild Pain Level: 1 Suicide Risk Factors: Age >65 Situational problems related to: Other - depression Suicide Attempt Method: Overdose Overdose of: Benzodiazepine - Related Data Allergies/Adverse Reactions: Sulfa (Sulfonamide Antibiotics) Allergy (Verified 11/12/19 12:20) Past Medical History - General Information source: Relative - Social History Smoking Status: Unknown if Ever Smoked Cigarette use (# per day): No Chew tobacco use (# tins/day): No Smoking Education Provided: No Frequency of alcohol use: None Drug Abuse: Prescription drugs Lives with: Family Family History: Reviewed & Not Pertinent, Malignancy, Other - bipolar - Past Medical History Cardiac Medical History: Reports: Hx Congestive Heart Failure, Hx Coronary Artery Disease, Hx Heart Attack, Hx Hypercholesterolemia, Hx Hypertension Denies: Hx Atrial Fibrillation, Hx DVT, Hx Peripheral Vascular Disease, Hx Pulmonary Embolism Pulmonary Medical History: Reports: Hx COPD Denies: Hx Asthma Neurological Medical History: Denies: Hx Seizures Endocrine Medical History: Reports: Hx Hypothyroidism. Denies: Hx Diabetes Mellitus Type 1, Hx Diabetes Mellitus Type 2, Hx Hyperthyroidism Renal/ Medical History: Denies: Hx Peritoneal Dialysis GI Medical History: Denies: Hx Cirrhosis, Hx Crohn's Disease, Hx Diverticulitis, Hx Hepatitis, Hx Ulcerative Colitis Musculoskeletal Medical History: Denies Hx Arthritis, Denies Hx Gout Skin Medical History: Denies Hx Eczema, Denies Hx Psoriasis Psychiatric Medical History: Reports: Hx Bipolar Disorder, Hx Depression Infectious Medical History: Denies: Hx Hepatitis Past Surgical History: Reports: Hx Cardiac Surgery - pacemaker, Hx Pacemaker - Immunizations Hx Diphtheria, Pertussis, Tetanus Vaccination: No Physical Exam - Vital signs Vitals: Resp 22 H 02/09/20 18:25 Course - Vital Signs Vital signs: Temp Pulse Resp BP Pulse Ox 14 119/63 100 02/10/20 02:01 02/10/20 01:22 02/10/20 02:01 - Laboratory Result Diagrams: 02/09/20 19:21 02/09/20 19:21 Laboratory results interpreted by me: 02/09/20 02/09/20 02/09/20 19:21 19:21 19:21 RDW 14.4 H Chloride 109 H Total Protein 6.0 L Albumin 3.4 L Salicylates < 1.0 L Acetaminophen < 10 L < 10 L Discharge - Discharge Clinical Impression: Overdose of benzodiazepine Qualifiers: Encounter type: initial encounter Injury intent: intentional self-harm Qualified Code(s): T42.4X2A - Poisoning by benzodiazepines, intentional self- harm, initial encounter Suicidal overdose Qualifiers: Encounter type: initial encounter Qualified Code(s): T50.902A - Poisoning by unspecified drugs, medicaments and biological substances, intentional self-harm, initial encounter Depression Qualifiers: Depression Type: unspecified Qualified Code(s): F32.9 - Major depressive disorder, single episode, unspecified Condition: Fair Disposition: PSYCH HOSP/UNIT Referrals: BISMARK LAWS MD [Primary Care Provider] - Follow up as needed
--- NOTE | 2020-02-09 19:08 | RADIOLOGY REPORT (SQ) ---
EXAM DESCRIPTION: CHEST SINGLE VIEW IMAGES COMPLETED DATE/TIME: 02/09/2020 6:55 pm REASON FOR STUDY: OVERDOSE COMPARISON: 11/30/2019 EXAM PARAMETERS: NUMBER OF VIEWS: One view. TECHNIQUE: Single frontal radiographic view of the chest acquired. RADIATION DOSE: NA LIMITATIONS: None. FINDINGS: LUNGS AND PLEURA: No opacities, masses or pneumothorax. No pleural effusion. MEDIASTINUM AND HILAR STRUCTURES: No masses. Contour normal. HEART AND VASCULAR STRUCTURES: Heart normal in size. Normal vasculature. BONES: No acute findings. HARDWARE: Pacemaker OTHER: No other significant finding. IMPRESSION: NO ACUTE RADIOGRAPHIC FINDING IN THE CHEST. TECHNICAL DOCUMENTATION: JOB ID: [id number] 2010 [employer]- All Rights Reserved Reading location - IP/workstation name: [email or web address]
[2020-02-09 19:31] LABS: ABSOLUTE BASOPHILS # (AUTO) 0.1 10^3/uL (0.0-0.2); ABSOLUTE EOSINOPHILS # (AUTO) 0.2 10^3/uL (0.0-0.6); ABSOLUTE LYMPHOCYTES (AUTO) 1.6 10^3/uL (0.5-4.7); ABSOLUTE MONOCYTES (AUTO) 0.5 10^3/uL (0.1-1.4); ABSOLUTE NEUT (AUTO) 4.8 10^3/uL (1.7-8.2); EOSINOPHILS % (AUTO) 2.5 % (0-6); HEMATOCRIT 38.7 % (36.0-47.0); HEMOGLOBIN 13.2 g/dL (12.0-15.5); LYMPHOCYTES % (AUTO) 22.4 % (13-45); MEAN CORPUSCULAR HEMOGLOBIN 33.2 pg (27.0-33.4); MEAN CORPUSCULAR HGB CONC 34.2 g/dL (32.0-36.0); MEAN CORPUSCULAR VOLUME 97 fl (80-97); MONOCYTES % (AUTO) 6.8 % (3-13); PLATELET COUNT 351 10^3/uL (150-450); RED BLOOD COUNT 3.99 10^6/uL (3.72-5.28); RED CELL DISTRIBUTION WIDTH 14.4 % (11.5-14.0); SEGMENTED NEUTROPHILS % (AUTO) 67.3 % (42-78); TOTAL CELLS COUNTED % (AUTO) 100 %; WHITE BLOOD COUNT 7.1 10^3/uL (4.0-10.5)
[2020-02-09 19:51] LABS: ALBUMIN 3.4 g/dL (3.5-5.0); ALKALINE PHOSPHATASE 66 U/L (38-126); ANION GAP 8 (5-19); ASPARTATE AMINO TRANSFERASE 20 U/L (14-36); BILIRUBIN,DIRECT 0.3 mg/dL (0.0-0.4); BILIRUBIN,TOTAL 0.4 mg/dL (0.2-1.3); BLOOD UREA NITROGEN 17 mg/dL (7-20); CALCIUM 9.4 mg/dL (8.4-10.2); CARBON DIOXIDE 24 mmol/L (22-30); CHLORIDE 109 mmol/L (98-107); GLUCOSE 81 mg/dL (75-110); POTASSIUM 4.8 mmol/L (3.6-5.0)
[2020-02-09 19:53] LABS: ACETAMINOPHEN < 10 ug/mL (10-30); ALCOHOL < 10 mg/dL (NONE DETECTED); SALICYLATE < 1.0 mg/dL (2.0-20.0)
[2020-02-09 20:50] LABS: APPEARANCE,URINE CLEAR; BILIRUBIN,URINE NEGATIVE (NEGATIVE); COLOR,URINE STRAW; GLUCOSE, URINE NEGATIVE (NEGATIVE); KETONES,URINE NEGATIVE (NEGATIVE); LEUKOCYTE ESTERASE,URINE NEGATIVE (NEGATIVE); NITRITE,URINE NEGATIVE (NEGATIVE); PROTEIN,URINE NEGATIVE (NEGATIVE); URINE SPECIFIC GRAVITY 1.003; UROBILINOGEN,URINE NEGATIVE mg/dL (<2.0)
[2020-02-09 21:13] LABS: URINE AMPHETAMINES SCREEN NEGATIVE; URINE BARBITURATES SCREEN NEGATIVE; URINE COCAINE SCREEN NEGATIVE; URINE MARIJUANA (THC) SCREEN NEGATIVE; URINE METHADONE SCREEN NEGATIVE; URINE PHENCYCLIDINE SCREEN NEGATIVE
[2020-02-09 21:14] LABS: URINE BENZODIAZEPINES SCREEN UNCONFIRMED POSITIVE
--- NOTE | 2020-02-09 23:32 | EKG REPORT ---
SEVERITY:- ABNORMAL ECG - ATRIAL-PACED RHYTHM LVH WITH IVCD AND SECONDARY REPOL ABNRM : Confirmed by: Tali Panda MD 09-Feb-2020 23:32:02
--- NOTE | 2020-02-10 03:45 | RADIOLOGY REPORT (SQ) ---
CLINICAL INDICATION: constipation. TECHNIQUE: Single AP supine image(s) of the abdomen. COMPARISON: None. FINDINGS: A nonspecific gas pattern is identified. No evidence of high grade obstruction. No evidence of free air. Moderate hard stool within the colon. IMPRESSION: No acute intra-abdominal process is identified. Moderate hard stool within the colon. Nasogastric tube in good position
[2020-02-10] MEDS ORDERED: POLYETHYLENE GLYCOL 3350 POWDER 17 GM/1 PACKET PO ONE (09:50)
[2020-02-10] MEDS ORDERED: LACTULOSE SYRUP 20 GM/30 ML UDCUP PO ONE (09:50)
--- NOTE | 2020-02-10 14:36 | ER Document Report ---
Doctor's Note Notes: 02/10/20 14:35 PHYSICAL EXAMINATION: GENERAL: Appears well, healthy, well-nourished, no acute distress. LUNGS: Equal breath sounds bilaterally and clear to auscultation. No wheezes rales or rhonchi. CARDIOVASCULAR: S1-S2, regular rate, regular rhythm. Radial pulses 2+, normal. ABDOMEN: Normoactive bowel sounds. Soft, nontender, no guarding, no rebound tenderness, and no masses palpated. PSYCH: Normal mood, normal affect. Patient denies any suicidal or homicidal ideation. Patient was able to have a bowel movement, which she stated that she had trouble with. Patient stated that she did feel constipated. Nugent catheter was removed and patient was able to urinate with no difficulty. Awaiting mental health evaluation. 02/10/20 16:34 Mental health has evaluated the patient. They have cleared her from mental health. Patient is cleared medically, as the patient has had a bowel movement and feels much better. Patient is to go home with the . Plan is to have the lock up the patient's medications so she does not try to overdose. is in agreement with this plan. Dr. Valdez is aware of the situation. We will give the patient a small amount of Xanax and she does not go through benzodiazepine withdrawal. is in agreement with this plan. Follow-up precautions were given. Verbal discharge instructions were given to the patient. They verbalized understanding. They are stable for discharge.
[2020-02-10 17:03] VITALS: BP 116/81
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
== END 2020-02-10 17:04 | disposition home or self-care (01) ==
LOC: ER 18:10
DX: T42.4X2A Poisoning by benzodiazepines, intentional self-harm, initial encounter (principal); T50.902A Poisoning by unspecified drugs, medicaments and biological substances, intentional self-harm, initial encounter; F32.9 Major depressive disorder, single episode, unspecified; K59.00 Constipation, unspecified; R53.83 Other fatigue; Z79.899 Other long term (current) drug therapy; Z88.2 Allergy status to sulfonamides; I50.9 Heart failure, unspecified; I25.10 Atherosclerotic heart disease of native coronary artery without angina pectoris; I25.2 Old myocardial infarction; I11.0 Hypertensive heart disease with heart failure
CPT/HCPCS: 93005; 99285; 96361; 96374; 36415; 80307 ×4; 83735; 84443; 85025; 80053; 81001; 71045; 74018; 93010; J3490 ×3; J7030

== ENCOUNTER → 2020-03-12 | Outpatient (CLI) | payer BC, MEDICARE | LOC: OD 09:25 | PROVIDERS: ATTEND Psychiatry & Neurology Psychiatry | DX: F31.4 Bipolar disorder, current episode depressed, severe, without psychotic features (principal); Z79.899 Other long term (current) drug therapy | CPT/HCPCS: 36415; 80164 ==

== ENCOUNTER → 2020-04-30 | Outpatient (CLI) | payer BC, MEDICARE ==
[2020-04-30 10:04] LABS: ABSOLUTE EOSINOPHILS # (AUTO) 0.1 10^3/uL (0.0-0.6); ABSOLUTE LYMPHOCYTES (AUTO) 1.4 10^3/uL (0.5-4.7); ABSOLUTE MONOCYTES (AUTO) 0.4 10^3/uL (0.1-1.4); ABSOLUTE NEUT (AUTO) 3.7 10^3/uL (1.7-8.2); BASOPHILS % (AUTO) 0.5 % (0-2); EOSINOPHILS % (AUTO) 2.4 % (0-6); HEMOGLOBIN 12.9 g/dL (12.0-15.5); LYMPHOCYTES % (AUTO) 24.3 % (13-45); MEAN CORPUSCULAR HEMOGLOBIN 33.2 pg (27.0-33.4); MEAN CORPUSCULAR HGB CONC 34.1 g/dL (32.0-36.0); MEAN CORPUSCULAR VOLUME 97 fl (80-97); MONOCYTES % (AUTO) 7.5 % (3-13); PLATELET COUNT 231 10^3/uL (150-450); RED CELL DISTRIBUTION WIDTH 12.7 % (11.5-14.0); SEGMENTED NEUTROPHILS % (AUTO) 65.3 % (42-78); TOTAL CELLS COUNTED % (AUTO) 100 %; WHITE BLOOD COUNT 5.7 10^3/uL (4.0-10.5)
[2020-04-30 10:33] LABS: ALBUMIN 3.8 g/dL (3.5-5.0); ALKALINE PHOSPHATASE 67 U/L (38-126); ANION GAP 9 (5-19); ASPARTATE AMINO TRANSFERASE 26 U/L (14-36); BILIRUBIN,DIRECT 0.1 mg/dL (0.0-0.4); BILIRUBIN,TOTAL 0.6 mg/dL (0.2-1.3); BLOOD UREA NITROGEN 25 mg/dL (7-20); CALCIUM 10.3 mg/dL (8.4-10.2); CARBON DIOXIDE 27 mmol/L (22-30); CHLORIDE 104 mmol/L (98-107); CHOLESTEROL 191.46 mg/dL (0-200); GLUCOSE 88 mg/dL (75-110); TOTAL PROTEIN 6.6 g/dL (6.3-8.2); TRIGLYCERIDES 159 mg/dL (<150)
[2020-04-30 10:45] LABS: DIRECT LDL 98 mg/dL (<100)
[2020-04-30 10:46] LABS: VLDL CHOLESTEROL 31.8 mg/dL (10-31)
== END ==
LOC: OD 08:18
PROVIDERS: ATTEND Psychiatry & Neurology Psychiatry
DX: F31.4 Bipolar disorder, current episode depressed, severe, without psychotic features (principal); Z79.899 Other long term (current) drug therapy
CPT/HCPCS: 36415; 80053; 80061; 80164; 82140; 83036; 85025